=== PATIENT | male | born 1945 | race Caucasian/White ===

== ENCOUNTER → 2023-06-27 06:34 | Day surgery (SDC) | payer MEDICARE, OTHER, SELFPAY | LOC: GI 06:34 | PROVIDERS: ATTENDING PHYSICIAN Internal Medicine; FAMILY PHYSICIAN Family Medicine | DX: Z12.11 Encounter for screening for malignant neoplasm of colon (principal); K64.8 Other hemorrhoids; K60.2 Anal fissure, unspecified; D12.0 Benign neoplasm of cecum; D12.2 Benign neoplasm of ascending colon; D12.3 Benign neoplasm of transverse colon; K63.5 Polyp of colon; Z86.010 Personal history of colon polyps | CPT/HCPCS: 45385; 45380; 88305 ==

== ENCOUNTER → 2023-07-31 09:46 | Outpatient (REF) | payer MEDICARE, OTHER, SELFPAY ==
[2023-07-31 10:45] LABS: Hematocrit 29.2 % (39.0-52.0); Hemoglobin 9.6 g/dL (13.0-18.0); Mean Corp Hgb Conc. 32.9 g/dL (33.0-37.0); Mean Corpuscular Hgb 32.2 pg (27.0-31.0); Mean Platelet Volume 11.4 fL (7.4-10.4); Platelet Count 81 10^3/uL (130-400); Red Blood Cell Count 2.98 10^6/uL (4.70-6.10); Red Cell Dist. Width 14.1 % (11.5-14.5); White Blood Cell Count 2.9 10^3/uL (4.8-10.8)
[2023-07-31 11:02] LABS: ALT (SGPT) 14 U/L (0-50); AST (SGOT) 23 U/L (17-59); Albumin 3.6 g/dl (3.5-5.0); Alkaline Phosphatase 55 U/L (38-126); Blood Urea Nitrogen 23 mg/dl (9-20); Calcium 9.2 mg/dl (8.4-10.2); Carbon Dioxide 29 mmol/L (22-30); Chloride 104 mmol/L (98-107); Glucose 93 mg/dl (70-99); HDL Cholesterol 40 mg/dl; LDH 199 U/L (120-246); LDL Cholesterol, Calculated 107 mg/dl; Potassium 4.3 mmol/L (3.5-5.1); Sodium 140 mmol/L (135-145); Total Bilirubin 0.8 mg/dl (0.2-1.3); Total Cholesterol 162 mg/dl (50-199); Total Protein 6.4 g/dl (6.3-8.2); Triglyceride 75 mg/dl (10-149); Very Low Density Lipoprotein 15 mg/dl (0-30); eGFR > 60.00
[2023-07-31 11:17] LABS: Depakane 99.8 ug/ml (50.0-120.0)
[2023-07-31 12:11] LABS: Absolute Neutrophils -Man Diff 1.2 10^3/uL (1.4-6.5); Anisocytosis Slight; Band Neutrophils 0 % (0-3); Hypochromasia Slight; Lymphocytes 49 % (20-51); Metamyelocytes 1 % (-); Monocytes 6 % (2-9); Normal RBC Morphology No; Platelets Checked Yes; Segmented Neutrophils 44 % (42-75); Total Cells Counted 100
[2023-07-31 13:59] LABS: Iron 99 ug/dl (49-181)
[2023-07-31 17:02] LABS: Percent Saturation 30 % (20-50); Total Iron Binding Capacity 329 ug/dl (261-462)
[2023-07-31 17:59] LABS: Folate 12.2 ng/ml (2.76-20); Vitamin B12 > 1000 pg/ml (239-931)
[2023-08-01 14:33] LABS: Keppra (Levetiracetam) 24 ug/mL (10-40)
[2023-08-01 14:44] LABS: NT-proBNP 277 pg/ml
== END ==
LOC: RAD 09:46
PROVIDERS: ATTENDING PHYSICIAN Physician Assistant; FAMILY PHYSICIAN Family Medicine
DX: R06.02 Shortness of breath (principal); R53.83 Other fatigue; R05.1 Acute cough; R41.0 Disorientation, unspecified; R53.1 Weakness; G40.909 Epilepsy, unspecified, not intractable, without status epilepticus; N40.1 Benign prostatic hyperplasia with lower urinary tract symptoms; C71.1 Malignant neoplasm of frontal lobe; R35.0 Frequency of micturition; Z98.890 Other specified postprocedural states; Z80.42 Family history of malignant neoplasm of prostate; Z79.899 Other long term (current) drug therapy; D64.9 Anemia, unspecified; R71.8 Other abnormality of red blood cells
CPT/HCPCS: 36415; 71046; 80053; 80061; 80164; 80177; 82607; 82728; 82746; 83540; 83550; 83615; 83880; 85025

== ENCOUNTER 2023-08-03 15:54 | Emergency (ER) | payer MEDICARE, OTHER, SELFPAY ==
[2023-08-03 15:54] VITALS: BMI 26.0
[2023-08-03 16:16] VITALS: BP 134/64
[2023-08-03 16:43] LABS: % Immature Granulocytes 0.3 % (0-0.5); % Lymphocytes 46.1 % (20.5-51.1); % Monocytes 4.8 % (1.7-9.3); % Neutrophils 48.8 % (42.2-75.2); Absolute Lymphocytes 1.6 10^3/uL (1.2-3.4); Absolute Monocytes 0.2 10^3/uL (0.1-0.6); Absolute Neutrophils 1.6 10^3/uL (1.4-6.5); Hemoglobin 9.8 g/dL (13.0-18.0); Mean Corpuscular Hgb 32.3 pg (27.0-31.0); Mean Corpuscular Volume 92.4 fL (80.0-94.0); Mean Platelet Volume 11.4 fL (7.4-10.4); Nucleated Red Blood Cells % 0 % (-); Platelet Count 73 10^3/uL (130-400); Red Blood Cell Count 3.03 10^6/uL (4.70-6.10); Red Cell Dist. Width 14.3 % (11.5-14.5); White Blood Cell Count 3.4 10^3/uL (4.8-10.8)
[2023-08-03 16:55] LABS: Lactic Acid 1.6 mmol/L (0.7-2.0)
[2023-08-03 16:58] LABS: COVID-19 Antigen Negative (Negative)
[2023-08-03 17:02] LABS: ALT (SGPT) 12 U/L (0-50); AST (SGOT) 20 U/L (17-59); Albumin 3.7 g/dl (3.5-5.0); Alkaline Phosphatase 49 U/L (38-126); Blood Urea Nitrogen 20 mg/dl (9-20); Calcium 9.2 mg/dl (8.4-10.2); Carbon Dioxide 28 mmol/L (22-30); Chloride 105 mmol/L (98-107); Glucose 131 mg/dl (70-99); Potassium 4.1 mmol/L (3.5-5.1); Sodium 139 mmol/L (135-145); Total Bilirubin 0.7 mg/dl (0.2-1.3); Total Protein 6.4 g/dl (6.3-8.2); eGFR > 60.00
[2023-08-03 17:37] VITALS: BP 128/61
[2023-08-03 17:52] LABS: Urine Albumin Negative (Neg - Trace); Urine Bilirubin Negative (Negative); Urine Character Clear (Clear); Urine Color Yellow; Urine Glucose Negative (Negative); Urine Ketone Trace (Negative); Urine Leukocyte Negative (Negative); Urine Nitrite Negative (Negative); Urine Occult Blood 2+ (Negative); Urine Urobilinogen 2+ (Neg - 1+); Urine pH 6.5 (5.0-9.0)
[2023-08-03 18:00] VITALS: BP 143/70
[2023-08-03 18:00] LABS: Urine Red Blood Cell 0-2 /HPF (0-2); Urine White Cell 0-2 /HPF (0-5)
--- NOTE | 2023-08-03 18:16 | ED.GENMED ---
Addendum entered and electronically signed by Aspen John PA-C 08/05/23 14:10:
presumptive pos lyme
but pt edis had doxy
will await the western blot to further identify acute lyme.
Original Note:
History of Present Illness
General
Chief Complaint: Fatigue
Source: patient
Exam Limitations: none
Time Seen by Provider: 08/03/23 17:40
Travel History
Have you had any contact with someone who has COVID-19?: No
Do you have any symptoms of coronavirus? Fever > 100 degrees, chills, cough, shortness of breath, sore throat, loss of taste or smell, muscle aches, or headache?: No
History of Present Illness
History of Present Illness:
77-year-old male with history of seizures presents with fatigue shortness of breath persistent cough. He was in [place] about 3 weeks ago and developed a sore throat then. He came home still feeling ill. While in [place] he had a temperature of
103 and had shaking chills and confusion. Upon arriving home he was seen by the doctor was started on doxycycline of which she took a course of and it did not help. Earlier this week he followed up with a family doctor and they started Zithromax.
He has had 4 days of Zithromax but still notes fatigue and cough. He had an outpatient x-ray done several days ago showed pneumonia. He denies hemoptysis. He denies significant chest pain. He denies any dark or tarry stools.
Past History
Past History
ED Past Medical History: Seizures, Other (Benign brain tumor removal 1990) and Other (Shoulder DJD)
ED Past Surgical History: Brain (Right frontal lobe craniotomy for benign brain tumor removal)
Social History
Tobacco: Non-smoker
Alcohol: None
Personal:
Employment: Retired
Family History
Family History: Other (Noncontributory)
Phy Exam
Physical Exam
Physical Exam:
General: Well-appearing male no acute respiratory distress
HEENT: Normocephalic atraumatic
Heart: Regular rate and rhythm no murmurs lungs: Clear no wheeze or rales
Abdomen is soft nontender nondistended no guarding or rebound normal bowel sounds
Extremities: No cyanosis or edema
Skin: Warm no rash
Neurologic: Alert and mild tremor noted oriented to person and place. No facial asymmetry.
Course
Orders/Labs/Results
Orders:
Orders
08/03/23 16:32
CMP [Comprehensive Metabolic Panel] Urgent
Complete Blood Count/With Diff Urgent
Lyme Progressive Urgent
Date Specimen was Collected: 08/03/23
Time Specimen was Collected: 16:21
Comment: ADD ON
Monotest Urgent
Comment: ADD ON
08/03/23 16:34
COVID-19 Antigen Urgent
Source: Nasal Swab
Lactic Acid Urgent
Influenza A+B Rapid Molecular Urgent
ELAINE Source: Nasal Swab
Specimen Description:
Date Specimen was Collected: 08/03/23
Time Specimen was Collected: 16:22
08/03/23 17:40
Urinalysis Reflex To Culture Urgent
Date Specimen was Collected: 08/03/23
Time Specimen was Collected: 16:22
Urine Microscopic Reflex Cult Urgent
08/03/23 18:03
Add On- LAB Urgent
Tests Added?: monotest and lyme progressive
CT Chest Pe Study Urgent
Comment:
Reason For Exam: sob
08/03/23 18:04
CT Head W/o Iv Contrast Urgent
Comment:
Reason For Exam: confusion, tremors
08/03/23 18:16
Blood Culture Routine
ELAINE Source: Blood/Venous
Specimen Description:
Date Specimen was Collected: 08/03/23
Time Specimen was Collected: 16:21
Abnormal Lab Results
08/03/23 08/03/23
16:32 17:40
WBC 3.4 L 10^3/uL
(4.8-10.8)
RBC 3.03 L 10^6/uL
(4.70-6.10)
Hgb 9.8 L g/dL
(13.0-18.0)
Hct 28.0 L %
(39.0-52.0)
MCH 32.3 H pg
(27.0-31.0)
Plt Count 73 L 10^3/uL
(130-400)
MPV 11.4 H fL
(7.4-10.4)
Glucose 131 H mg/dl
(70-99)
Urine Ketones Trace A
(Negative)
Ur Occult Blood Reflex 2+ A
(Negative)
Urine Urobilinogen 2+ A
(Neg - 1+)
08/03/23 16:32
08/03/23 16:32
Vital Signs
Initial and Last Documented VS:
Initial Vital Signs
Temp Pulse Resp BP Pulse Ox
97.9 F 72 16 134/64 100
08/03/23 16:16 08/03/23 16:16 08/03/23 16:16 08/03/23 16:16 08/03/23 16:16
Last Documented Vital Signs
Temp Pulse Resp BP Pulse Ox
97.9 F 80 19 129/81 98
08/03/23 16:16 08/03/23 21:18 08/03/23 21:18 08/03/23 21:18 08/03/23 21:18
MDM/Problems Addressed
Differential Diagnosis Includes:
Fatigue and cough. Consider worsening pneumonia versus PE given recent flight versus electrolyte or anemia. Will check labs. COVID and flu test were ordered which were negative. I reviewed prior chest x-ray which demonstrates possible developing
pneumonia versus bronchiolitis. Will order PE study secondary to recent travel and failure to improve despite 2 antibiotics.
*Critical Care Note
Total Time (30-74mins, 75-104mins- exclusive of procedures): Not Applicable
Update Note
Update Note:
CT head shows no acute finding. CT of the chest shows residual pneumonia but no pulmonary embolism. Patient's hemoglobin is 9.8 today. This could be contributing towards his fatigue however there is residual pneumonia on the CT. He is not
hypoxic. At this point there is no indication for admission. Recommended finishing antibiotics. Recommend following up with his family doctor and possibly information technology project manager given low blood counts.
ED Attending Note
-
Portions of this chart may have been created with voice recognition software.� Occasional wrong word or��sound alike� substitutions may have occurred due to the inherent limitations of voice recognition software.
Discharge Plan
Departure
Patient Disposition: Home (Routine Discharge)
Date of Disposition: 08/03/23
Time of Disposition: 21:24
Patient with high blood pressure during this ER visit?: No
Discharge Problem:
Fatigue
Prescriptions:
No Action
Depakote:
500 mg PO QID
lidocaine HCl [Lidocaine Viscous] 180 ML solution
15 ml PO QIDPRN PRN (Reason: sore throat) Qty: 12 1RF
Referrals:
Eulalio Pal MD [Family Provider] -
Activity Restrictions/Additional Instructions:
Finish the antibiotics you are taking. Please return here for worsening symptoms. Follow-up with your family doctor and potentially a information technology project manager.
Interventions
Interventions:
ED- Fall Risk Assessment Last Done: 08/03/23 19:10
Discharge Date and Time
Print Language: CHADIAN
[2023-08-03 18:39] LABS: Monotest Negative (Negative)
[2023-08-03 21:18] VITALS: BP 129/81
[2023-08-04 15:08] LABS: Lyme Antibody Screen, EIA Presump. Positive (Negative)
[2023-08-07 16:18] LABS: Lyme Ab Western Blot IgG Positive (Negative); Lyme Ab Western Blot IgM Positive (Negative)
== END 2023-08-03 21:39 | disposition home or self-care (01) ==
LOC: EMR 15:54
PROVIDERS: EMERGENCY PHYSICIAN Emergency Medicine; FAMILY PHYSICIAN Family Medicine
DX: R53.83 Other fatigue (principal); R41.0 Disorientation, unspecified; R06.02 Shortness of breath; R25.1 Tremor, unspecified; Z11.52 Encounter for screening for COVID-19
CPT/HCPCS: 99285; 36415; 70450; 71275; 80053; 81003; 81015; 83605; 85025; 86308; 86617; 86618; 87040; 87502; 87811; Q9967

== ENCOUNTER → 2023-08-08 12:15 | Outpatient (REF) | payer MEDICARE, OTHER, SELFPAY ==
[2023-08-08 14:18] LABS: % Basophils 0.2 % (0-2); % Eosinophils 0.2 % (0-6); % Immature Granulocytes 0.4 % (0-0.5); % Lymphocytes 29.6 % (20.5-51.1); % Monocytes 6.8 % (1.7-9.3); % Neutrophils 62.8 % (42.2-75.2); Absolute Lymphocytes 1.4 10^3/uL (1.2-3.4); Absolute Monocytes 0.3 10^3/uL (0.1-0.6); Hematocrit 30.1 % (39.0-52.0); Hemoglobin 10.5 g/dL (13.0-18.0); Mean Corp Hgb Conc. 34.9 g/dL (33.0-37.0); Mean Corpuscular Hgb 32.5 pg (27.0-31.0); Mean Corpuscular Volume 93.2 fL (80.0-94.0); Mean Platelet Volume 12.5 fL (7.4-10.4); Nucleated Red Blood Cells % 0 % (-); Platelet Count 79 10^3/uL (130-400); Red Blood Cell Count 3.23 10^6/uL (4.70-6.10); Red Cell Dist. Width 14.6 % (11.5-14.5); White Blood Cell Count 4.7 10^3/uL (4.8-10.8)
== END ==
LOC: REG 12:15
PROVIDERS: ATTENDING PHYSICIAN Family Medicine
DX: D75.9 Disease of blood and blood-forming organs, unspecified (principal)
CPT/HCPCS: 36415; 85025

== ENCOUNTER → 2023-09-05 12:45 | Outpatient (REF) | payer MEDICARE, OTHER, SELFPAY ==
[2023-09-05 13:21] LABS: % Basophils 0.3 % (0-2); % Immature Granulocytes 0.6 % (0-0.5); % Lymphocytes 45.2 % (20.5-51.1); % Monocytes 5.4 % (1.7-9.3); % Neutrophils 48.5 % (42.2-75.2); Absolute Lymphocytes 1.5 10^3/uL (1.2-3.4); Absolute Monocytes 0.2 10^3/uL (0.1-0.6); Absolute Neutrophils 1.6 10^3/uL (1.4-6.5); Hematocrit 29.2 % (39.0-52.0); Hemoglobin 10.2 g/dL (13.0-18.0); Mean Corp Hgb Conc. 34.9 g/dL (33.0-37.0); Mean Corpuscular Hgb 32.8 pg (27.0-31.0); Mean Corpuscular Volume 93.9 fL (80.0-94.0); Mean Platelet Volume 11.3 fL (7.4-10.4); Nucleated Red Blood Cells % 0 % (-); Platelet Count 79 10^3/uL (130-400); Red Blood Cell Count 3.11 10^6/uL (4.70-6.10); Red Cell Dist. Width 15.4 % (11.5-14.5); Reticulocyte Count 3.8 % (0.4-2.8); White Blood Cell Count 3.3 10^3/uL (4.8-10.8)
[2023-09-05 13:24] LABS: INR 1.08; PT 13.8 Sec (11.4-14.6)
[2023-09-05 13:33] LABS: Depakane 93.4 ug/ml (50.0-120.0)
[2023-09-05 13:41] LABS: APTT 20.6 Sec (23.4-35.0)
[2023-09-05 13:44] LABS: Erythrocyte Sed Rate 26 mm/hour (0-20)
[2023-09-05 13:48] LABS: LDH 198 U/L (120-246); Uric Acid 7.2 mg/dl (3.5-8.5)
[2023-09-07 10:04] LABS: Number Of Markers 26 markers; Source Blood
[2023-09-07 15:51] LABS: Lyme Antibody Screen, EIA Presump. Positive (Negative)
== END ==
LOC: RCS 12:45
PROVIDERS: ATTENDING PHYSICIAN Internal Medicine Hematology & Oncology; FAMILY PHYSICIAN Family Medicine
DX: R53.83 Other fatigue (principal); R06.02 Shortness of breath; D69.6 Thrombocytopenia, unspecified; D53.9 Nutritional anemia, unspecified; D72.819 Decreased white blood cell count, unspecified
CPT/HCPCS: 36415; 80164; 83615; 84550; 85025; 85045; 85610; 85652; 85730; 86617; 86618; 93306

== ENCOUNTER → 2023-09-19 07:09 | Outpatient (REF) | payer MEDICARE, OTHER, SELFPAY | LOC: RAD 07:09 | PROVIDERS: ATTENDING PHYSICIAN Surgery; FAMILY PHYSICIAN Family Medicine | DX: R31.29 Other microscopic hematuria (principal) | CPT/HCPCS: 76770 ==

== ENCOUNTER → 2023-09-21 16:21 | Outpatient (REF) | payer MEDICARE, OTHER, SELFPAY | LOC: RAD 16:21 | PROVIDERS: ATTENDING PHYSICIAN Internal Medicine Hematology & Oncology; FAMILY PHYSICIAN Family Medicine | DX: D69.6 Thrombocytopenia, unspecified (principal); D53.9 Nutritional anemia, unspecified; D72.819 Decreased white blood cell count, unspecified; G40.89 Other seizures | CPT/HCPCS: 76700 ==

== ENCOUNTER → 2023-10-03 06:49 | Outpatient (REF) | payer MEDICARE, OTHER, SELFPAY ==
[2023-10-03] VITALS (8 sets, daily range): BP systolic 43–135; BP diastolic 56–68
[2023-10-03 07:28] LABS: Hematocrit 32.3 % (39.0-52.0); Hemoglobin 11.2 g/dL (13.0-18.0); Mean Corp Hgb Conc. 34.7 g/dL (33.0-37.0); Mean Corpuscular Hgb 32.8 pg (27.0-31.0); Mean Corpuscular Volume 94.7 fL (80.0-94.0); Mean Platelet Volume 11.6 fL (7.4-10.4); Platelet Count 71 10^3/uL (130-400); Red Blood Cell Count 3.41 10^6/uL (4.70-6.10); Red Cell Dist. Width 14.6 % (11.5-14.5); White Blood Cell Count 3.8 10^3/uL (4.8-10.8)
[2023-10-03 07:37] LABS: INR 1.05; PT 13.7 Sec (11.4-14.6)
[2023-10-03] MEDS: FLUSH (NSS) 1 FLUSH IV (08:24)
[2023-10-03] MEDS: NSS (PRESERVATIVE FREE) 0.25 ML IV (08:24)
[2023-10-03] MEDS: ATIVAN 0.5 MG IV (08:24)
[2023-10-03 09:57] LABS: % Eosinophils 0.3 % (0-6); % Immature Granulocytes 1.3 % (0-0.5); % Lymphocytes 55.5 % (20.5-51.1); % Monocytes 5.3 % (1.7-9.3); % Neutrophils 37.6 % (42.2-75.2); Absolute Immature Granulocytes 0.1 10^3/uL (0-0.05); Absolute Lymphocytes 2.1 10^3/uL (1.2-3.4); Absolute Monocytes 0.2 10^3/uL (0.1-0.6); Absolute Neutrophils 1.4 10^3/uL (1.4-6.5); Nucleated Red Blood Cells % 0 % (-)
[2023-10-03 09:58] LABS: Acanthocytes 1+; Anisocytosis 1+; Hypochromasia 1+; Normal RBC Morphology No; Ovalocytes 1+; Polychromasia Slight
== END ==
LOC: RADI 06:49
PROVIDERS: ATTENDING PHYSICIAN Internal Medicine Hematology & Oncology
DX: D61.818 Other pancytopenia (principal)
CPT/HCPCS: 88305; 88311; 88312; 36415; 38222; 77012; 85025; 85610; 88313; 88341; 88342

== ENCOUNTER → 2023-10-11 10:36 | Outpatient (REF) | payer MEDICARE, OTHER, SELFPAY ==
[2023-10-11 11:33] LABS: Hematocrit 30.4 % (39.0-52.0); Hemoglobin 10.7 g/dL (13.0-18.0); Mean Corp Hgb Conc. 35.2 g/dL (33.0-37.0); Mean Corpuscular Hgb 32.5 pg (27.0-31.0); Mean Corpuscular Volume 92.4 fL (80.0-94.0); Mean Platelet Volume 11.9 fL (7.4-10.4); Platelet Count 82 10^3/uL (130-400); Red Blood Cell Count 3.29 10^6/uL (4.70-6.10); Red Cell Dist. Width 14.4 % (11.5-14.5); White Blood Cell Count 3.8 10^3/uL (4.8-10.8)
[2023-10-11 12:26] LABS: % Basophils 0.3 % (0-2); % Immature Granulocytes 1.3 % (0-0.5); % Lymphocytes 53.4 % (20.5-51.1); % Monocytes 7.1 % (1.7-9.3); % Neutrophils 37.9 % (42.2-75.2); Absolute Immature Granulocytes 0.1 10^3/uL (0-0.05); Absolute Monocytes 0.3 10^3/uL (0.1-0.6); Absolute Neutrophils 1.5 10^3/uL (1.4-6.5); Nucleated Red Blood Cells % 0 % (-)
[2023-10-14 01:57] LABS: Albumin 4.14 g/dL (3.75-5.01); Alpha 1 Globulin 0.27 g/dL (0.19-0.46); Alpha 2 Globulin 0.54 g/dL (0.48-1.05); Free Kappa Light Chains,Quant 178.47 mg/L (3.30-19.40); Free Lambda Light Chains,Quant 19.38 mg/L (5.71-26.30); IgA 130 mg/dL (68-408); IgG 888 mg/dL (768-1632); IgM 275 mg/dL (35-263); Immunofixation Electrophoresis IFE Done; Kappa/Lambda Fr Light Ratio 9.21 (0.26-1.65); Total Protein-Electrophoresis 6.6 g/dL (6.3-8.2)
== END ==
LOC: REG 10:36
PROVIDERS: ATTENDING PHYSICIAN Internal Medicine Hematology & Oncology; FAMILY PHYSICIAN Family Medicine
DX: D69.6 Thrombocytopenia, unspecified (principal); D53.9 Nutritional anemia, unspecified; D72.819 Decreased white blood cell count, unspecified; G40.89 Other seizures
CPT/HCPCS: 36415; 82784; 83521; 84155; 84165; 85025; 86334

== ENCOUNTER → 2023-11-28 10:20 | Outpatient (REF) | payer MEDICARE, OTHER, SELFPAY ==
[2023-11-30 10:32] LABS: Keppra (Levetiracetam) 41 ug/mL (10-40)
== END ==
LOC: REG 10:20
PROVIDERS: ATTENDING PHYSICIAN Specialist; FAMILY PHYSICIAN Family Medicine; REFERRING PHYSICIAN Internal Medicine Hematology & Oncology
DX: G40.109 Localization-related (focal) (partial) symptomatic epilepsy and epileptic syndromes with simple partial seizures, not intractable, without status epilepticus (principal)
CPT/HCPCS: 36415; 80177

== ENCOUNTER → 2024-01-29 14:31 | Outpatient (REF) | payer MEDICARE, OTHER, SELFPAY ==
[2024-01-29 16:34] LABS: % Eosinophils 0.4 % (0-6); % Immature Granulocytes 0.7 % (0-0.5); % Lymphocytes 43.3 % (20.5-51.1); % Neutrophils 47.6 % (42.2-75.2); Absolute Lymphocytes 1.2 10^3/uL (1.2-3.4); Absolute Monocytes 0.2 10^3/uL (0.1-0.6); Absolute Neutrophils 1.3 10^3/uL (1.4-6.5); Hematocrit 29.3 % (39.0-52.0); Hemoglobin 9.7 g/dL (13.0-18.0); Mean Corp Hgb Conc. 33.1 g/dL (33.0-37.0); Mean Corpuscular Volume 93.6 fL (80.0-94.0); Mean Platelet Volume 10.8 fL (7.4-10.4); Nucleated Red Blood Cells % 0 % (-); Platelet Count 139 10^3/uL (130-400); Red Blood Cell Count 3.13 10^6/uL (4.70-6.10); Red Cell Dist. Width 14.5 % (11.5-14.5); White Blood Cell Count 2.8 10^3/uL (4.8-10.8)
== END ==
LOC: REG 14:31
PROVIDERS: ATTENDING PHYSICIAN Internal Medicine Hematology & Oncology; FAMILY PHYSICIAN Family Medicine; OTHER PHYSICIAN Specialist
DX: D69.6 Thrombocytopenia, unspecified (principal); D53.9 Nutritional anemia, unspecified; D72.819 Decreased white blood cell count, unspecified; G40.89 Other seizures; C94.6 Myelodysplastic disease, not elsewhere classified
CPT/HCPCS: 36415; 82784; 83521; 84155; 84165; 85025; 86334

== ENCOUNTER → 2024-02-12 10:59 | Outpatient (REF) | payer MEDICARE, OTHER, SELFPAY ==
[2024-02-14 21:55] LABS: Keppra (Levetiracetam) 63 ug/mL (10-40)
== END ==
LOC: RAD 10:59
PROVIDERS: ATTENDING PHYSICIAN Specialist; FAMILY PHYSICIAN Family Medicine; OTHER PHYSICIAN Chiropractor; OTHER PHYSICIAN Internal Medicine Hematology & Oncology
DX: G40.109 Localization-related (focal) (partial) symptomatic epilepsy and epileptic syndromes with simple partial seizures, not intractable, without status epilepticus (principal); M54.18 Radiculopathy, sacral and sacrococcygeal region; M54.17 Radiculopathy, lumbosacral region; M99.04 Segmental and somatic dysfunction of sacral region; M99.05 Segmental and somatic dysfunction of pelvic region; M99.03 Segmental and somatic dysfunction of lumbar region
CPT/HCPCS: 36415; 72110; 80177

== ENCOUNTER 2024-02-26 10:35 | Emergency (ER) | payer MEDICARE, OTHER, SELFPAY ==
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
[2024-02-26 11:04] VITALS: BP 164/74
[2024-02-26 12:11] VITALS: BMI 24.3
[2024-02-26] MEDS: TORADOL 30 MG IM (12:15)
[2024-02-26] MEDS: VALIUM 5 MG PO (12:15)
[2024-02-26 12:19] VITALS: BP 167/74
--- NOTE | 2024-02-26 15:54 | EDRN ---
Reviewed discharge instructions with patient. Verbalized understanding. Ambulated with steady gait to the lobby.
[2024-02-26 15:55] VITALS: BP 163/79
== END 2024-02-26 15:55 | disposition home or self-care (01) ==
LOC: EMR 10:35
PROVIDERS: EMERGENCY PHYSICIAN Emergency Medicine; FAMILY PHYSICIAN Family Medicine
DX: S32.000A Wedge compression fracture of unspecified lumbar vertebra, initial encounter for closed fracture (principal); V29.99XA Rider (driver) (passenger) of other motorcycle injured in unspecified traffic accident, initial encounter
CPT/HCPCS: 99284; 96372

== ENCOUNTER 2024-02-29 23:11 | Inpatient (IN) | payer MEDICARE, OTHER, SELFPAY ==
[2024-02-29] VITALS (8 sets, daily range): BP systolic 131–154; BP diastolic 59–73; BMI 24.9
[2024-02-29 18:57] LABS: Mean Corp Hgb Conc. 34.6 g/dL (33.0-37.0); Mean Corpuscular Hgb 30.3 pg (27.0-31.0); Mean Corpuscular Volume 87.5 fL (80.0-94.0); Mean Platelet Volume 10.4 fL (7.4-10.4); Platelet Count 104 10^3/uL (130-400); Red Blood Cell Count 2.97 10^6/uL (4.70-6.10); Red Cell Dist. Width 14.6 % (11.5-14.5); White Blood Cell Count 6.3 10^3/uL (4.8-10.8)
[2024-02-29 18:59] LABS: Lactic Acid 1.8 mmol/L (0.7-2.0)
[2024-02-29 19:02] LABS: ALT (SGPT) 14 U/L (0-50); AST (SGOT) 21 U/L (17-59); Alkaline Phosphatase 90 U/L (38-126); Blood Urea Nitrogen 27 mg/dl (9-20); Calcium 9.5 mg/dl (8.4-10.2); Carbon Dioxide 27 mmol/L (22-30); Chloride 100 mmol/L (98-107); Estimated Creatinine Clearance 111 ml/min; Glucose 121 mg/dl (70-99); Potassium 3.4 mmol/L (3.5-5.1); Sodium 135 mmol/L (135-145); Total Bilirubin 1.5 mg/dl (0.2-1.3); Total Protein 6.4 g/dl (6.3-8.2); eGFR > 60.00
[2024-02-29 19:03] LABS: Urine Albumin 1+ (Neg - Trace); Urine Bilirubin Negative (Negative); Urine Character Clear (Clear); Urine Color Yellow; Urine Glucose Negative (Negative); Urine Ketone Negative (Negative); Urine Leukocyte Negative (Negative); Urine Nitrite Negative (Negative); Urine Occult Blood 4+ (Negative); Urine Specific Gravity 1.015 (<1.030); Urine Urobilinogen Negative (Neg - 1+)
[2024-02-29 19:07] LABS: COVID-19 Antigen Negative (Negative)
[2024-02-29 19:16] LABS: Urine Squamous Cell None seen /LPF (Few)
[2024-02-29 19:18] LABS: % Basophils 0.2 % (0-2); % Immature Granulocytes 7.3 % (0-0.5); % Lymphocytes 4.6 % (20.5-51.1); % Monocytes 5.5 % (1.7-9.3); % Neutrophils 82.4 % (42.2-75.2); Absolute Immature Granulocytes 0.5 10^3/uL (0-0.05); Absolute Lymphocytes 0.3 10^3/uL (1.2-3.4); Absolute Monocytes 0.4 10^3/uL (0.1-0.6); Absolute Neutrophils 5.2 10^3/uL (1.4-6.5); Nucleated Red Blood Cells % 0 % (-)
[2024-02-29 19:20] LABS: Urine Red Blood Cell 70-80 /HPF (0-2)
[2024-02-29] MEDS: PERCOCET 5/325 2 TABLET PO (19:45)
[2024-02-29] MEDS: NSS 500 IV (19:46)
[2024-02-29 21:32] LABS: NT-proBNP 1030 pg/ml
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
[2024-02-29] MEDS: VIBRAMYCIN 100 MG PO (22:23)
[2024-02-29] MEDS: ROCEPHIN 2000 MG IV (22:23)
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
[2024-02-29] MEDS: VIMPAT 50 MG PO (23:25)
[2024-02-29] MEDS: KEPPRA 1500 MG PO (23:25)
[2024-02-29] MEDS: LASIX 40 MG IV (23:25)
[2024-02-29] MEDS: FLUSH (NSS) 1 FLUSH IV (23:30)
[2024-02-29] MEDS: KCL ELIXIR 40 MEQ PO (23:36)
[2024-03-01] VITALS (11 sets, daily range): BP systolic 129–195; BP diastolic 64–104; BMI 24.1; BMI 24.0
[2024-03-01 00:19] LABS: Magnesium 1.6 mg/dl (1.6-2.3)
[2024-03-01] MEDS: ROXICODONE 5 MG PO (00:28)
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
[2024-03-01] MEDS: TYLENOL 650 MG PO ×2 (02:37→20:09)
[2024-03-01] MEDS: MUCINEX 600 MG PO ×3 (02:37→20:09)
[2024-03-01] MEDS: NEURONTIN 100 MG PO ×3 (02:37→15:08)
[2024-03-01 08:37] LABS: Hematocrit 27.7 % (39.0-52.0); Hemoglobin 9.5 g/dL (13.0-18.0); Mean Corp Hgb Conc. 34.3 g/dL (33.0-37.0); Mean Corpuscular Hgb 30.7 pg (27.0-31.0); Mean Corpuscular Volume 89.6 fL (80.0-94.0); Mean Platelet Volume 10.2 fL (7.4-10.4); Platelet Count 92 10^3/uL (130-400); Red Blood Cell Count 3.09 10^6/uL (4.70-6.10); Red Cell Dist. Width 14.6 % (11.5-14.5); White Blood Cell Count 11.1 10^3/uL (4.8-10.8)
[2024-03-01 09:10] LABS: Blood Urea Nitrogen 24 mg/dl (9-20); Calcium 9.5 mg/dl (8.4-10.2); Carbon Dioxide 30 mmol/L (22-30); Chloride 97 mmol/L (98-107); Estimated Creatinine Clearance 111 ml/min; Glucose 106 mg/dl (70-99); Potassium 3.4 mmol/L (3.5-5.1); Sodium 136 mmol/L (135-145); eGFR > 60.00
[2024-03-01] MEDS: VIBRAMYCIN 260 MG IV (09:29)
[2024-03-01] MEDS: PEPCID 20 MG PO ×2 (09:31→20:10)
[2024-03-01] MEDS: KEPPRA 1500 MG PO ×2 (09:31→20:10)
[2024-03-01] MEDS: COZAAR 25 MG PO ×2 (09:32→22:16)
[2024-03-01] MEDS: ASPIR LOW (ENTERIC COATED) 81 MG PO (09:32)
[2024-03-01] MEDS: SENOKOT 8.6 MG PO (09:33)
[2024-03-01] MEDS: VIMPAT 50 MG PO ×2 (09:33→20:09)
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
--- NOTE | 2024-03-01 15:00 | FALL ---
Description of Fall:
Pt had a fall this afternoon. With the at bedside, the pt had to use the commode. The pt was gotten to the commode with the call childers within reach. The pt did not use the call childers, nor did the pt's come out for help when the pt was
finished. From what the pt's had said that the pt had gotten up to wipe themselves and went to sit down and the commode slipped out from under him and he had landed on his behind.
Injuries Noted:
no injuries noted as the pt had landed on his behind without hitting his head.
Action Taken:
no action needed to be taken.
Name of Provider Notified: Dr. Phillip notified at time of fall.
[2024-03-01] MEDS: KCL 40 MEQ PO (17:44)
[2024-03-01] MEDS: LOVENOX 40 MG SC (17:44)
--- NOTE | 2024-03-01 22:00 | PTCARENOTE ---
Pt's BP manually in his left upper arm is 190/90, HR in the 120s. Pt denies pain at this time. Temp is 98.1F after Tylenol admin. KRYSTIAN Gil notified, 1x order of PO Losartan 25mg provided to pt whole in applesauce. Pt also provided with his
evening dose of gabapentin but pt coughed up medication and has a moist cough and wet voice quality after thin liquid intake. KRYSTIAN Smith notified, order for speech eval placed. Swallow screening completed by this appeals writer and pt made NPO
starting in the AM. Pt also reports that he feels the urge to urinate but has difficulty doing so. Pt's abdomen is firm and round. Bladder scan result is 791 mL. KRYSTIAN Gil notified and orders for bladder scan and straight cath acknowledged by
this appeals writer. Pt was straight cathed by this RN with a result of 900 mL of dark yellow urine.
~ 0020: Repeat BP in left upper arm automatically is 163/91, HR 113.
--- NOTE | 2024-03-01 22:01 | W.PN.UPDATE ---
Update Note
Progress Note Update
BP is elevated and up to 190/90 during night time. Currently on losartan 25 mg will give another dose of 25 mg and increase daily dose to 50mg as recommended by cardiology.
[2024-03-01] MEDS: NEURONTIN PO ×2 (22:16→22:30)
[2024-03-01] MEDS: STERILE WATER FOR INJECTION 20 ML IV (22:16)
[2024-03-01] MEDS: ROCEPHIN 2000 MG IV (22:16)
[2024-03-01] MEDS: VIBRAMYCIN IV (22:17)
[2024-03-02] VITALS (11 sets, daily range): BP systolic 105–163; BP diastolic 45–96; BMI 23.8; BMI 23.4
[2024-03-02] MEDS: VIBRAMYCIN 260 MG IV ×3 (00:10→21:47)
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
[2024-03-02 07:24] LABS: Hematocrit 29.5 % (39.0-52.0); Hemoglobin 10.1 g/dL (13.0-18.0); Mean Corp Hgb Conc. 34.2 g/dL (33.0-37.0); Mean Corpuscular Hgb 30.1 pg (27.0-31.0); Mean Corpuscular Volume 87.8 fL (80.0-94.0); Red Blood Cell Count 3.36 10^6/uL (4.70-6.10); Red Cell Dist. Width 14.6 % (11.5-14.5); White Blood Cell Count 8.3 10^3/uL (4.8-10.8)
[2024-03-02 07:32] LABS: Blood Urea Nitrogen 28 mg/dl (9-20); Calcium 9.2 mg/dl (8.4-10.2); Carbon Dioxide 23 mmol/L (22-30); Chloride 99 mmol/L (98-107); Estimated Creatinine Clearance 95 ml/min; Glucose 128 mg/dl (70-99); Potassium 3.8 mmol/L (3.5-5.1); Sodium 134 mmol/L (135-145); eGFR > 60.00
[2024-03-02] MEDS: LASIX 40 MG IV (09:56)
[2024-03-02] MEDS: ASPIR LOW (ENTERIC COATED) PO (10:36)
[2024-03-02] MEDS: PEPCID PO ×2 (10:38→20:31)
[2024-03-02] MEDS: SENOKOT PO (10:38)
[2024-03-02] MEDS: VIMPAT PO (10:38)
[2024-03-02] MEDS: NEURONTIN PO ×3 (10:38→21:11)
[2024-03-02] MEDS: MUCINEX PO ×2 (10:38→20:31)
[2024-03-02] MEDS: KEPPRA PO (10:38)
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
[2024-03-02] MEDS: NSS 1000 IV ×2 (11:53→17:09)
[2024-03-02] MEDS: KEPPRA 1500 MG IV ×2 (11:53→21:11)
--- NOTE | 2024-03-02 12:06 | PTOTSP ---
Speech therapy
Presentation: Patient's speech and and language appeared to be WNL. Patient's vocal quality appeared to be wet and weak which patient stated is 'new' ~last 2 days. Patient's intelligibility was WNL. Patient demonstrated impulsivity with urination/
trying to get out of bed. Patient appeared confused at times.
Swallowing Function: Patient's breathing appeared to be labored and wet sounding. Patient's vocal quality appeared to be wet and weak at baseline. When LIDDING MACHINE OPERATOR elevated patient's head, patient demonstrated immediate wet, weak coughing and throat
clearing. LIDDING MACHINE OPERATOR performed oral care with oral suctioning in which patient's wet cough continued. LIDDING MACHINE OPERATOR trialed 1 moisted swab in which wet cough continued and breathing appeared to be more labored. Given patient's clinical presentation, no further PO
was trialed.
Recommend NPO at this time.
Recommendations:
1. NPO at this time
2. Aspiraton precautions
3. Oral care daily
4. Not appropriate for ARHP at this time given confusion and clinical presentation
5. Consider VSE
Plan: LIDDING MACHINE OPERATOR will continue to follow; pending hospitalization.
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
[2024-03-02] MEDS: VIMPAT 50 MG IV ×2 (12:40→21:46)
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
[2024-03-02 14:56] LABS: Glucose - Point of Care 138 mg/dl (70-99)
[2024-03-02 15:07] LABS: Venous Blood Gas B.E. 3.1 mmol/L (-4 to +4); Venous Blood Gas HCO3 26.9 mmol/L (22-27); Venous Blood Gas O2 Sat % 85.4 %; Venous Blood Gas pCO2 37 mmHg (35-48); Venous Blood Gas pH 7.47 (7.32-7.43); Venous Blood Gas pO2 51 mmHg (30-50)
[2024-03-02 17:38] LABS: Lactic Acid 1.6 mmol/L (0.7-2.0)
[2024-03-02] MEDS: LOVENOX 40 MG SC (17:48)
[2024-03-02 17:54] LABS: NT-proBNP 7160 pg/ml
--- NOTE | 2024-03-02 17:56 | PTCARENOTE ---
pt arrived to rm [id number] w/ supervisor aircraft maintenance Julee and IMU PCT Yael from CT. Pt on 4th floor tele monitor, also on NRB at 15L. Pt AAOx2, anxious appearing w/ labored breathing, tachypneic. Pt w/ rhonchi bilaterally. Pt placed on monitor, sinus
tachycardia. HR 100-110s. BP elevated. No IV fluids hanging although ordered. Verified order with Dr. Phillip. New bag hung at this time. Pt complains of back pain, new medications ordered at this time. Repeat probnp and lactic ordered. Pt placed on
high flow NC. Call childers within reach. bed alarm activated for pt safety.
[2024-03-02] MEDS: OFIRMEV 100 IV (18:36)
[2024-03-02] MEDS: COZAAR PO (20:29)
[2024-03-02] MEDS: ROCEPHIN 2000 MG IV (21:11)
[2024-03-02] MEDS: STERILE WATER FOR INJECTION 20 ML IV (21:11)
[2024-03-03] VITALS (13 sets, daily range): BP systolic 128–174; BP diastolic 63–85
--- NOTE | 2024-03-03 05:39 | PTCARENOTE ---
Received pt at change of shift. Pt lethargic and drowsy but arousable. Diaphoretic. BP stable at this time and afebrile. Pt NPO with aspiration precautions in place. Bed alarm on and active at this time.
[2024-03-03 06:13] LABS: Blood Urea Nitrogen 41 mg/dl (9-20); Carbon Dioxide 25 mmol/L (22-30); Chloride 102 mmol/L (98-107); Estimated Creatinine Clearance 111 ml/min; Glucose 121 mg/dl (70-99); Potassium 3.6 mmol/L (3.5-5.1); Sodium 137 mmol/L (135-145); eGFR > 60.00
[2024-03-03 06:17] LABS: Hematocrit 26.7 % (39.0-52.0); Hemoglobin 9.1 g/dL (13.0-18.0); Mean Corp Hgb Conc. 34.1 g/dL (33.0-37.0); Mean Corpuscular Volume 88.1 fL (80.0-94.0); Red Blood Cell Count 3.03 10^6/uL (4.70-6.10); Red Cell Dist. Width 14.7 % (11.5-14.5); White Blood Cell Count 5.3 10^3/uL (4.8-10.8)
[2024-03-03] MEDS: TORADOL 15 MG IV ×3 (07:51→22:37)
[2024-03-03] MEDS: KEPPRA 1500 MG IV ×2 (07:56→20:11)
[2024-03-03] MEDS: MUCINEX PO ×2 (08:02→19:46)
[2024-03-03] MEDS: COZAAR PO ×2 (08:02→19:46)
[2024-03-03] MEDS: PEPCID PO ×2 (08:02→19:46)
[2024-03-03] MEDS: NEURONTIN PO ×3 (08:02→19:46)
[2024-03-03] MEDS: ASPIR LOW (ENTERIC COATED) PO (08:02)
[2024-03-03] MEDS: SENOKOT PO (08:02)
[2024-03-03] MEDS: DUONEB 3 ML INH ×3 (08:07→19:24)
[2024-03-03] MEDS: VIMPAT 50 MG IV ×2 (08:09→20:12)
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
[2024-03-03 08:56] LABS: Mean Platelet Volume 12.5 fL (7.4-10.4); Platelet Count 63 10^3/uL (130-400)
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
[2024-03-03] MEDS: LASIX 40 MG IV (09:56)
[2024-03-03] MEDS: VIBRAMYCIN 260 MG IV ×2 (09:58→21:35)
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
[2024-03-03] MEDS: APRESOLINE 5 MG IV (12:09)
[2024-03-03] MEDS: NSS IV (14:13)
[2024-03-03] MEDS: OFIRMEV 100 IV (15:20)
[2024-03-03 15:38] LABS: Procalcitonin 14.56 ng/ml (0.0-0.25)
--- NOTE | 2024-03-03 17:33 | PTCARENOTE ---
assumed care of pt from nightshift RN. Pt AAOx2-3. SR/ST on monitor, pt on HFNC at start of shift, able to wean to 8L MFNC by RT. Lungs coarse w/rhonchi bilaterally. L>R. Pt w/ moist productive cough able to suction thick white secretions multiple
times throughout shift. VSS. Porter draining cristino/yellow urine. Tmax 101.9, IV acetaminophen given (see MAR). Full assessment is as documented in worklist. No acute events throughout shift. Bed alarm intact for pt safety. Call childers within reach.
[2024-03-03] MEDS: LOVENOX 40 MG SC (18:29)
[2024-03-03] MEDS: STERILE WATER FOR INJECTION 20 ML IV (21:35)
[2024-03-03] MEDS: ROCEPHIN 2000 MG IV (21:35)
[2024-03-04] VITALS (13 sets, daily range): BP systolic 135–165; BP diastolic 62–82; PULSE 90; O2SAT 92; BMI 23.1
[2024-03-04 04:28] LABS: Hematocrit 26.8 % (39.0-52.0); Hemoglobin 9.1 g/dL (13.0-18.0); Mean Corpuscular Hgb 30.2 pg (27.0-31.0); Mean Platelet Volume 12.3 fL (7.4-10.4); Platelet Count 61 10^3/uL (130-400); Red Blood Cell Count 3.01 10^6/uL (4.70-6.10); Red Cell Dist. Width 14.7 % (11.5-14.5); White Blood Cell Count 4.1 10^3/uL (4.8-10.8)
[2024-03-04 04:49] LABS: ALT (SGPT) 21 U/L (0-50); AST (SGOT) 30 U/L (17-59); Albumin 2.9 g/dl (3.5-5.0); Alkaline Phosphatase 73 U/L (38-126); Blood Urea Nitrogen 50 mg/dl (9-20); Calcium 9.1 mg/dl (8.4-10.2); Carbon Dioxide 29 mmol/L (22-30); Chloride 104 mmol/L (98-107); Direct Bilirubin 0.3 mg/dl (0.0-0.4); Estimated Creatinine Clearance 74 ml/min; Glucose 116 mg/dl (70-99); Magnesium 2.2 mg/dl (1.6-2.3); Phosphorus 3.2 mg/dl (2.5-4.5); Potassium 3.3 mmol/L (3.5-5.1); Sodium 142 mmol/L (135-145); Total Bilirubin 0.7 mg/dl (0.2-1.3); Total Protein 5.4 g/dl (6.3-8.2); eGFR > 60.00
[2024-03-04 04:52] LABS: NT-proBNP 1490 pg/ml
[2024-03-04] MEDS: KCL 160 MEQ IV (05:16)
--- NOTE | 2024-03-04 05:54 | PTCARENOTE ---
No acute events overnight. Remains on 7 liters midflow. AM k 3.3- diamond sander provider made aware and ordered iv repletion. Patient strict NPO.
[2024-03-04] MEDS: DUONEB 3 ML INH ×3 (07:35→19:25)
[2024-03-04] MEDS: ASPIR LOW (ENTERIC COATED) PO (07:42)
[2024-03-04] MEDS: SENOKOT PO (07:42)
[2024-03-04] MEDS: PEPCID PO (07:42)
[2024-03-04] MEDS: COZAAR PO (07:42)
[2024-03-04] MEDS: MUCINEX PO (07:42)
[2024-03-04] MEDS: NEURONTIN PO (07:42)
[2024-03-04] MEDS: LASIX 40 MG IV (08:13)
[2024-03-04] MEDS: KEPPRA 1500 MG IV ×2 (08:13→20:13)
[2024-03-04] MEDS: VIMPAT 50 MG IV ×2 (08:13→20:13)
[2024-03-04] MEDS: APRESOLINE 5 MG IV (08:16)
[2024-03-04] MEDS: TORADOL 15 MG IV ×2 (08:17→14:37)
--- NOTE | 2024-03-04 08:30 | PTCARENOTE ---
Patient received from shift boss. Patient is resting comfortably in bed. AAO, VSS. No events noted overnight. No seizure activity. Complaints of some back pain, see MAR. Patient currently on 7 L midflow N/C, will attempt to wean as
tolerated. Patient scheduled for a video swallow as he remains strict NPO. Call childers in reach.
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
--- NOTE | 2024-03-04 10:24 | PN.CDI ---
CDI
- -
CDI:
Physician Documentation Request
Admit Date: 02/29/24 23:11
Dear Doctor Timbo,
Please review the following and provide your response in the progress notes.
Clinical Indicators:
- 03/04 Cardiology note 'Concern for heart failure, proBNP 1030'
- 02/28-03/04 40mg IV Lasix given
- 02/28 CXR 'Suspect congestive heart failure'
- 03/01 Echo EF 55-60%
- 03/03 Pulmonary 'suspected acute HFpEF exacerbation'
Laboratory Tests
02/29/24 03/02/24 03/04/24
20:57 17:17 04:04
[id number] Pept [id number]
Please provide further specificity regarding the most likely type and acuity of CHF you are evaluating, treating or monitoring.
Type Acuity
Systolic Acute
Diastolic Chronic
Combined Systolic/Diastolic Acute on Chronic
Other
Use of terms such as suspected, likely, concern for, or probable (associated with a specific diagnosis that is being evaluated, monitored, or treated as if it exists) are acceptable and can be coded in the inpatient setting, when documented at the
time of discharge.
Thank you,
Gustavo rCaven RN
CDI Specialist
Please use your independent medical judgment in providing your response.
[2024-03-04] MEDS: VIBRAMYCIN 260 MG IV ×2 (10:29→21:36)
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
--- NOTE | 2024-03-04 13:05 | PTOTSP ---
Speech Language Pathology
VIDEOFLUOROSCOPIC SWALLOWING EXAMINATION (VSE) completed. Oropharyngeal swallow WNL. Trace intermittent pharyngeal residue. No penetration or any aspiration noted during study.
Recommend:
(1) Regular solids/thin liquids
(2) General aspiration precautions
(3) Meds as tolerated
(4) MARINE RIGGER to sign off. Please reconsult as indicated
[2024-03-04] MEDS: ZOSYN 50 IV ×3 (13:46→23:11)
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
[2024-03-04] MEDS: KCL 270 MEQ IV (14:36)
[2024-03-04] MEDS: TYLENOL 650 MG PO (15:51)
[2024-03-04] MEDS: NEURONTIN 100 MG PO ×2 (15:51→20:12)
--- NOTE | 2024-03-04 16:18 | CM ---
Pt seen bedside w/ family. Initial assessment completed
Pt lives w/ spouse in a 4STH- no steps.
Pt prev independent w/ ambulating, denies DME use for walking. Per spouse, there are grab bars in the bathroom and a shower chair
Pt denies SNF. Prev known to [facility], per spouse PT just ended services
Address, point of contact and insurance verified
PCP: Dr. Eulalio Le
Pharmacy: [facility] [place]
Pt currently on 6L O2, cont to wean as tolerates. Pulmonary following
Aspiration precautions
Currently on IV abx
PT/OT currently determining between home PT vs skilled rehab, will cont to follow and assess
Plan: Home PT vs skilled rehab
CM will cont to follow for d/c planning
[2024-03-04] MEDS: LOVENOX 40 MG SC (18:06)
[2024-03-04] MEDS: PEPCID 20 MG PO (20:12)
[2024-03-04] MEDS: MUCINEX 1200 MG PO (20:32)
[2024-03-05] VITALS (13 sets, daily range): BP systolic 124–171; BP diastolic 63–88; BMI 23.0
[2024-03-05] MEDS: APRESOLINE 5 MG IV ×2 (02:03→16:54)
[2024-03-05] MEDS: TORADOL 15 MG IV ×2 (02:57→09:16)
[2024-03-05 05:05] LABS: Blood Urea Nitrogen 49 mg/dl (9-20); Calcium 9.3 mg/dl (8.4-10.2); Carbon Dioxide 26 mmol/L (22-30); Chloride 108 mmol/L (98-107); Estimated Creatinine Clearance 73 ml/min; Glucose 118 mg/dl (70-99); Potassium 3.2 mmol/L (3.5-5.1); Sodium 144 mmol/L (135-145); eGFR > 60.00
[2024-03-05] MEDS: ZOSYN 50 IV ×4 (05:24→23:44)
--- NOTE | 2024-03-05 06:22 | PTCARENOTE ---
No acute events overnight. Remains on 6 liters 02. Patient tachypneic at times but denies feeling shortness of breath or any discomfort. Portre removed at 0600 and replaced with #25 CC.
[2024-03-05] MEDS: KCL 270 MEQ IV (06:35)
[2024-03-05] MEDS: DUONEB 3 ML INH ×3 (07:21→19:05)
[2024-03-05] MEDS: VIMPAT 50 MG IV (08:11)
[2024-03-05] MEDS: LASIX 40 MG PO (08:12)
[2024-03-05] MEDS: SENOKOT 8.6 MG PO (08:12)
[2024-03-05] MEDS: ASPIR LOW (ENTERIC COATED) 81 MG PO (08:12)
[2024-03-05] MEDS: KEPPRA 1500 MG IV (08:12)
[2024-03-05] MEDS: MUCINEX 1200 MG PO ×2 (08:12→19:52)
[2024-03-05] MEDS: PEPCID 20 MG PO ×2 (08:12→19:53)
[2024-03-05] MEDS: NEURONTIN 100 MG PO ×3 (08:12→19:53)
--- NOTE | 2024-03-05 08:35 | PTCARENOTE ---
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 Patient is resting comfortably in bed. AAO, VSS. No events noted overnight. No seizure activity. Complaints of some back pain, see MAR. Patient currently on 6 L midflow N/C, will attempt to wean as
tolerated. Patient now with gustafson out, void trial at noon. No tests scheduled for today at this time. Call childers in reach.
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
[2024-03-05] MEDS: VIBRAMYCIN 260 MG IV (11:17)
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
[2024-03-05] MEDS: TYLENOL 650 MG PO (16:55)
[2024-03-05] MEDS: LOVENOX 40 MG SC (17:48)
[2024-03-05] MEDS: COZAAR 50 MG PO (19:53)
[2024-03-05] MEDS: KEPPRA 1500 MG PO (19:53)
[2024-03-05] MEDS: VIMPAT 50 MG PO (19:53)
[2024-03-05] MEDS: VIBRAMYCIN 100 MG PO (19:53)
[2024-03-06] VITALS (15 sets, daily range): BP systolic 76–164; BP diastolic 52–82; PULSE 91; O2SAT 95; BMI 23.0
[2024-03-06] MEDS: APRESOLINE 5 MG IV (02:08)
[2024-03-06 03:49] LABS: Hematocrit 26.4 % (39.0-52.0); Hemoglobin 8.4 g/dL (13.0-18.0); Mean Corp Hgb Conc. 31.8 g/dL (33.0-37.0); Mean Corpuscular Hgb 29.7 pg (27.0-31.0); Mean Corpuscular Volume 93.3 fL (80.0-94.0); Mean Platelet Volume 12.7 fL (7.4-10.4); Platelet Count 70 10^3/uL (130-400); Red Blood Cell Count 2.83 10^6/uL (4.70-6.10); Red Cell Dist. Width 14.6 % (11.5-14.5); White Blood Cell Count 1.9 10^3/uL (4.8-10.8)
--- NOTE | 2024-03-06 04:05 | PTCARENOTE ---
Patient with critical wbc 1.9. call center representative provider made aware.
[2024-03-06 04:13] LABS: % Basophils 0.5 % (0-2); % Immature Granulocytes 5.9 % (0-0.5); % Lymphocytes 25.7 % (20.5-51.1); % Monocytes 13.9 % (1.7-9.3); Absolute Immature Granulocytes 0.1 10^3/uL (0-0.05); Absolute Lymphocytes 0.5 10^3/uL (1.2-3.4); Absolute Monocytes 0.3 10^3/uL (0.1-0.6); Nucleated Red Blood Cells % 0 % (-)
[2024-03-06 04:18] LABS: Blood Urea Nitrogen 40 mg/dl (9-20); Carbon Dioxide 30 mmol/L (22-30); Chloride 110 mmol/L (98-107); Estimated Creatinine Clearance 83 ml/min; Glucose 117 mg/dl (70-99); Potassium 3.2 mmol/L (3.5-5.1); Sodium 145 mmol/L (135-145); eGFR > 60.00
--- NOTE | 2024-03-06 04:29 | PTCARENOTE ---
No acute events overnight. Remains on 4 liters 02. PRN hydralazine administered x1 for SBP 160. AM k 3.2- rewards consultant provider made aware and ordered IV repletion.
[2024-03-06] MEDS: ZOSYN 50 IV ×3 (05:32→17:34)
[2024-03-06] MEDS: KCL 270 MEQ IV (05:32)
[2024-03-06] MEDS: TORADOL 15 MG IV ×2 (05:51→20:07)
[2024-03-06] MEDS: DUONEB 3 ML INH ×3 (07:19→19:29)
[2024-03-06] MEDS: LASIX 40 MG PO (09:33)
[2024-03-06] MEDS: VIMPAT 50 MG PO ×2 (09:34→20:07)
[2024-03-06] MEDS: KEPPRA 1500 MG PO ×2 (09:36→20:07)
[2024-03-06] MEDS: VIBRAMYCIN 100 MG PO ×2 (09:37→20:07)
[2024-03-06] MEDS: COZAAR 50 MG PO ×2 (09:37→20:07)
[2024-03-06] MEDS: PEPCID 20 MG PO ×2 (09:37→20:07)
[2024-03-06] MEDS: SENOKOT 8.6 MG PO (09:37)
[2024-03-06] MEDS: NEURONTIN 100 MG PO ×2 (09:40→17:36)
[2024-03-06] MEDS: MUCINEX 1200 MG PO ×2 (09:42→20:07)
[2024-03-06] MEDS: ASPIR LOW (ENTERIC COATED) 81 MG PO (09:43)
[2024-03-06] MEDS: ROXICODONE 5 MG PO (09:51)
--- NOTE | 2024-03-06 10:05 | PTCARENOTE ---
patient in bed SR 76 BP 149/70 RR 20 98/2L .
AAO x3; lower back pain
SR S1/S2 no edema pedal pulses present
Abdomen soft LBM 03/05
O2 turned off currently on RA 95% IS encouraged
Porter draining light brown urine
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
[2024-03-06] MEDS: FLUSH (NSS) 2 FLUSH IV ×2 (11:29→17:34)
--- NOTE | 2024-03-06 13:32 | PTCARENOTE ---
Addendum entered by No Villalobos RN 03/06/24 15:48:
blurry vision resolved
Original Note:
Assumed care of patient at aprox 1100. Pt said to me he felt a little lightheaded with some blurry vision after receiving pain pill this am at 0951. Vitals remained stable. Assisted pt to chair with PT and 15 minutes into sitting in chair pt blood
pressure dropped to 76/59. Pt said he felt a little dizzy. Assisted back to bed with another RN. BP returned to 127/69. Stated he felt better in bed. Dr Phillip notified of event.
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
[2024-03-06] MEDS: LOVENOX 40 MG SC (18:12)
[2024-03-07] VITALS (14 sets, daily range): BP systolic 122–179; BP diastolic 55–88; BMI 23.1
[2024-03-07] MEDS: NEURONTIN 100 MG PO ×4 (00:34→21:36)
[2024-03-07] MEDS: ZOSYN 50 IV ×4 (00:34→17:38)
--- NOTE | 2024-03-07 05:16 | PTCARENOTE ---
Assumed care for patient overnight, received report from RN. AAOx3, forgetful at times, and drowsy. Pt arousable to verbal. Drowsy throughout the shift but no acute events overnight. NSR and VSS. 1L NC currently due to apnea, O2 sat 95%. Porter
draining cristino urine. Call childers is within reach.
[2024-03-07 06:11] LABS: Hematocrit 23.6 % (39.0-52.0); Hemoglobin 7.5 g/dL (13.0-18.0); Mean Corp Hgb Conc. 31.8 g/dL (33.0-37.0); Mean Corpuscular Hgb 29.6 pg (27.0-31.0); Mean Corpuscular Volume 93.3 fL (80.0-94.0); Mean Platelet Volume 12.3 fL (7.4-10.4); Platelet Count 55 10^3/uL (130-400); Red Blood Cell Count 2.53 10^6/uL (4.70-6.10); Red Cell Dist. Width 14.4 % (11.5-14.5); White Blood Cell Count 1.3 10^3/uL (4.8-10.8)
[2024-03-07 06:25] LABS: Blood Urea Nitrogen 35 mg/dl (9-20); Carbon Dioxide 28 mmol/L (22-30); Chloride 110 mmol/L (98-107); Estimated Creatinine Clearance 95 ml/min; Glucose 110 mg/dl (70-99); Potassium 3.2 mmol/L (3.5-5.1); Sodium 145 mmol/L (135-145); eGFR > 60.00
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
[2024-03-07] MEDS: KEPPRA 1500 MG PO ×2 (08:39→20:12)
[2024-03-07] MEDS: VIBRAMYCIN 100 MG PO ×2 (08:39→20:13)
[2024-03-07] MEDS: ASPIR LOW (ENTERIC COATED) 81 MG PO (08:39)
[2024-03-07] MEDS: MUCINEX 1200 MG PO ×2 (08:39→20:12)
[2024-03-07] MEDS: COZAAR 50 MG PO ×2 (08:40→20:12)
[2024-03-07] MEDS: PEPCID 20 MG PO ×2 (08:40→20:12)
[2024-03-07] MEDS: LASIX 40 MG PO (08:41)
[2024-03-07] MEDS: VIMPAT 50 MG PO ×2 (08:41→20:12)
[2024-03-07] MEDS: SENOKOT PO (08:44)
[2024-03-07] MEDS: KCL 40 MEQ PO (08:59)
[2024-03-07] MEDS: ROXICODONE 5 MG PO ×2 (08:59→22:47)
[2024-03-07] MEDS: APRESOLINE 5 MG IV ×2 (10:08→22:52)
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
[2024-03-07 12:38] LABS: % Eosinophils 0.8 % (0-6); % Immature Granulocytes 1.5 % (0-0.5); % Lymphocytes 44.3 % (20.5-51.1); % Monocytes 13.7 % (1.7-9.3); % Neutrophils 39.7 % (42.2-75.2); Absolute Lymphocytes 0.6 10^3/uL (1.2-3.4); Absolute Monocytes 0.2 10^3/uL (0.1-0.6); Absolute Neutrophils 0.5 10^3/uL (1.4-6.5); Nucleated Red Blood Cells % 0 % (-)
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
[2024-03-07] MEDS: DUONEB 3 ML INH ×2 (13:19→19:52)
[2024-03-07] MEDS: TORADOL 15 MG IV (13:28)
[2024-03-07] MEDS: LOVENOX 40 MG SC (17:38)
[2024-03-08] VITALS (8 sets, daily range): BP systolic 124–185; BP diastolic 67–96; PULSE 95; O2SAT 93; BMI 23.2
[2024-03-08] MEDS: ROXICODONE 5 MG PO ×3 (03:17→17:30)
[2024-03-08 06:47] LABS: Hematocrit 24.7 % (39.0-52.0); Hemoglobin 8.3 g/dL (13.0-18.0); Mean Corp Hgb Conc. 33.6 g/dL (33.0-37.0); Mean Corpuscular Hgb 29.9 pg (27.0-31.0); Mean Corpuscular Volume 88.8 fL (80.0-94.0); Mean Platelet Volume 12.7 fL (7.4-10.4); Platelet Count 62 10^3/uL (130-400); Red Blood Cell Count 2.78 10^6/uL (4.70-6.10); White Blood Cell Count 1.6 10^3/uL (4.8-10.8)
[2024-03-08 07:46] LABS: Blood Urea Nitrogen 29 mg/dl (9-20); Carbon Dioxide 31 mmol/L (22-30); Chloride 107 mmol/L (98-107); Estimated Creatinine Clearance 111 ml/min; Glucose 108 mg/dl (70-99); Potassium 3.4 mmol/L (3.5-5.1); Sodium 143 mmol/L (135-145); eGFR > 60.00
[2024-03-08 07:54] LABS: % Basophils 0.6 % (0-2); % Eosinophils 0.6 % (0-6); % Immature Granulocytes 0.6 % (0-0.5); % Lymphocytes 46.5 % (20.5-51.1); % Monocytes 15.7 % (1.7-9.3); Absolute Lymphocytes 0.7 10^3/uL (1.2-3.4); Absolute Monocytes 0.3 10^3/uL (0.1-0.6); Absolute Neutrophils 0.6 10^3/uL (1.4-6.5); Nucleated Red Blood Cells % 0 % (-)
[2024-03-08] MEDS: DUONEB 3 ML INH ×3 (08:05→18:03)
[2024-03-08] MEDS: KEPPRA 1500 MG PO ×2 (08:10→20:38)
[2024-03-08] MEDS: LASIX 40 MG PO (08:10)
[2024-03-08] MEDS: MUCINEX 1200 MG PO ×2 (08:10→20:38)
[2024-03-08] MEDS: COZAAR 50 MG PO ×2 (08:11→20:37)
[2024-03-08] MEDS: PEPCID 20 MG PO ×2 (08:11→20:38)
[2024-03-08] MEDS: VIMPAT 50 MG PO ×2 (08:11→20:38)
[2024-03-08] MEDS: SENOKOT 8.6 MG PO (08:11)
[2024-03-08] MEDS: ASPIR LOW (ENTERIC COATED) 81 MG PO (08:11)
[2024-03-08] MEDS: NEURONTIN 100 MG PO ×3 (08:11→21:50)
[2024-03-08] MEDS: FLOMAX 0.4 MG PO (09:18)
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
--- NOTE | 2024-03-08 11:41 | PTCARENOTE ---
Pts BP this AM was 185/96, AM medications administered as well as PRN pain medication. Pts BP rechecked at 153/82. made aware, no new orders at this time.
--- NOTE | 2024-03-08 11:49 | CM ---
CM following re: discharge planning.
Reviewed pt's chart, met with pt. pt's daughter Fermin and son in law at bedside.
PT and OT evaluations noted - SNF vs home PT/OT recommended. CM discussed it wuith the pt and his family and pt's daughter stated there is no way pt can return back home with physical limitations and both pt and his family preferred SNF. A list of
SNFs provided. [facility] and/or [facility] preferred. A referral to above SNFs made.
D/C plan: preferred SNF: [facility] or [facility]. Awaiting for determinations.
CM will follow to assist pt with discharge to a preferred SNF.
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
--- NOTE | 2024-03-08 13:02 | PTCARENOTE ---
Pts gustafson pulled this AM at 0600, due to void by 1200. Pt unable to void despite multiple attempts, pt bladder scanned for 808mLs. made aware, order placed for gustafson catheter, gustafson placed for acute retention with a removal date of 03/11/2024.
Initial output of 300mLs of clear yellow urine. Pt tolerated gustafson placement. Full bed bath provided. Gustafson care complete.
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
[2024-03-08] MEDS: LOVENOX 40 MG SC (17:27)
[2024-03-09] VITALS (7 sets, daily range): BP systolic 110–157; BP diastolic 51–87; BMI 22.9
[2024-03-09] MEDS: ROXICODONE 5 MG PO ×3 (03:06→19:34)
[2024-03-09 06:08] LABS: Hematocrit 22.2 % (39.0-52.0); Hemoglobin 7.5 g/dL (13.0-18.0); Mean Corp Hgb Conc. 33.8 g/dL (33.0-37.0); Mean Corpuscular Hgb 29.9 pg (27.0-31.0); Mean Corpuscular Volume 88.4 fL (80.0-94.0); Platelet Count 61 10^3/uL (130-400); Red Blood Cell Count 2.51 10^6/uL (4.70-6.10); Red Cell Dist. Width 13.8 % (11.5-14.5)
[2024-03-09 06:41] LABS: ALT (SGPT) 20 U/L (0-50); AST (SGOT) 30 U/L (17-59); Albumin 2.8 g/dl (3.5-5.0); Alkaline Phosphatase 79 U/L (38-126); Blood Urea Nitrogen 33 mg/dl (9-20); Calcium 8.8 mg/dl (8.4-10.2); Carbon Dioxide 32 mmol/L (22-30); Chloride 103 mmol/L (98-107); Estimated Creatinine Clearance 95 ml/min; Glucose 114 mg/dl (70-99); Magnesium 1.8 mg/dl (1.6-2.3); Potassium 3.1 mmol/L (3.5-5.1); Sodium 143 mmol/L (135-145); Total Bilirubin 0.8 mg/dl (0.2-1.3); Total Protein 5.2 g/dl (6.3-8.2); eGFR > 60.00
[2024-03-09] MEDS: DUONEB 3 ML INH ×3 (07:27→20:23)
[2024-03-09] MEDS: KCL 270 MEQ IV (07:48)
[2024-03-09] MEDS: KCL 40 MEQ PO (09:01)
[2024-03-09] MEDS: MUCINEX 1200 MG PO ×2 (09:01→19:34)
[2024-03-09] MEDS: ASPIR LOW (ENTERIC COATED) 81 MG PO (09:01)
[2024-03-09] MEDS: KEPPRA 1500 MG PO ×2 (09:01→19:33)
[2024-03-09] MEDS: LASIX 40 MG PO (09:01)
[2024-03-09] MEDS: NEURONTIN 100 MG PO (09:01)
[2024-03-09] MEDS: COZAAR 50 MG PO ×2 (09:01→19:39)
[2024-03-09] MEDS: VIMPAT 50 MG PO ×2 (09:02→19:34)
[2024-03-09] MEDS: FLOMAX 0.4 MG PO (09:02)
[2024-03-09] MEDS: PEPCID 20 MG PO ×2 (09:02→19:34)
[2024-03-09] MEDS: SENOKOT 8.6 MG PO (09:02)
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
[2024-03-09] MEDS: NEURONTIN 200 MG PO ×2 (15:38→22:23)
[2024-03-09] MEDS: MOTRIN PO ×3 (15:40→19:44)
[2024-03-09] MEDS: TYLENOL PO ×3 (15:40→19:44)
[2024-03-09] MEDS: LOVENOX 40 MG SC (17:17)
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
[2024-03-10] MEDS: MOTRIN 400 MG PO (01:30)
[2024-03-10] MEDS: TYLENOL PO (01:31)
[2024-03-10 03:14] VITALS: BP 137/71
--- NOTE | 2024-03-10 03:23 | PTCARENOTE ---
Patient has a flat red rash on his back 'his Derm calls Corona's disease'. It' not itchy. Advised SHANT Vo. Orders received.
[2024-03-10 05:07] VITALS: BMI 23.5
[2024-03-10 05:24] LABS: Blood Urea Nitrogen 28 mg/dl (9-20); Calcium 8.8 mg/dl (8.4-10.2); Carbon Dioxide 31 mmol/L (22-30); Chloride 105 mmol/L (98-107); Estimated Creatinine Clearance 95 ml/min; Glucose 116 mg/dl (70-99); Magnesium 1.9 mg/dl (1.6-2.3); Potassium 3.8 mmol/L (3.5-5.1); Sodium 142 mmol/L (135-145); eGFR > 60.00
[2024-03-10 05:28] LABS: Hemoglobin 7.3 g/dL (13.0-18.0); Mean Corp Hgb Conc. 33.2 g/dL (33.0-37.0); Mean Corpuscular Hgb 29.4 pg (27.0-31.0); Mean Corpuscular Volume 88.7 fL (80.0-94.0); Mean Platelet Volume 12.1 fL (7.4-10.4); Platelet Count 61 10^3/uL (130-400); Red Blood Cell Count 2.48 10^6/uL (4.70-6.10); Red Cell Dist. Width 13.7 % (11.5-14.5); White Blood Cell Count 1.8 10^3/uL (4.8-10.8)
[2024-03-10 07:15] VITALS: BP 135/72
[2024-03-10] MEDS: DUONEB 3 ML INH ×3 (08:15→17:06)
[2024-03-10] MEDS: LASIX 40 MG PO (08:33)
[2024-03-10] MEDS: MIRALAX 17 GRAMS PO (08:33)
[2024-03-10] MEDS: PEPCID 20 MG PO ×2 (08:33→20:32)
[2024-03-10] MEDS: KEPPRA 1500 MG PO ×2 (08:33→20:31)
[2024-03-10] MEDS: NEURONTIN 200 MG PO ×3 (08:33→20:33)
[2024-03-10] MEDS: ASPIR LOW (ENTERIC COATED) 81 MG PO (08:33)
[2024-03-10] MEDS: COZAAR 50 MG PO ×2 (08:34→20:32)
[2024-03-10] MEDS: SENOKOT 8.6 MG PO (08:34)
[2024-03-10] MEDS: TYLENOL 650 MG PO ×3 (08:34→20:31)
[2024-03-10] MEDS: FLOMAX 0.4 MG PO (08:34)
[2024-03-10] MEDS: VIMPAT 50 MG PO ×2 (08:34→20:32)
[2024-03-10] MEDS: MUCINEX 1200 MG PO ×2 (08:34→20:34)
[2024-03-10] MEDS: MOTRIN PO (08:35)
[2024-03-10] MEDS: DESENEX/MITRAZOL/ZEASORB 1 APPLIC TOPICAL ×2 (08:36→20:54)
[2024-03-10 08:45] VITALS: BMI 22.8
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
[2024-03-10 13:27] VITALS: BP 124/73; PULSE 93; O2SAT 93
[2024-03-10 15:15] VITALS: BP 117/62
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
[2024-03-10] MEDS: LOVENOX 40 MG SC (17:34)
[2024-03-10] MEDS: ROXICODONE 5 MG PO (20:33)
[2024-03-10 23:18] VITALS: BP 126/67
[2024-03-10 23:36] VITALS: BP 126/67
[2024-03-11] MEDS: TYLENOL PO (02:48)
[2024-03-11] MEDS: TYLENOL 650 MG PO ×3 (03:44→14:06)
[2024-03-11] MEDS: ROXICODONE 5 MG PO ×2 (04:17→14:05)
[2024-03-11 05:06] VITALS: BMI 23.1
[2024-03-11 05:23] LABS: Hematocrit 21.7 % (39.0-52.0); Hemoglobin 7.3 g/dL (13.0-18.0); Mean Corp Hgb Conc. 33.6 g/dL (33.0-37.0); Mean Corpuscular Hgb 29.7 pg (27.0-31.0); Mean Corpuscular Volume 88.2 fL (80.0-94.0); Mean Platelet Volume 11.3 fL (7.4-10.4); Platelet Count 64 10^3/uL (130-400); Red Blood Cell Count 2.46 10^6/uL (4.70-6.10); Red Cell Dist. Width 13.5 % (11.5-14.5); White Blood Cell Count 2.5 10^3/uL (4.8-10.8)
[2024-03-11 05:43] LABS: Blood Urea Nitrogen 26 mg/dl (9-20); Calcium 8.8 mg/dl (8.4-10.2); Carbon Dioxide 30 mmol/L (22-30); Chloride 103 mmol/L (98-107); Estimated Creatinine Clearance 95 ml/min; Glucose 112 mg/dl (70-99); Magnesium 1.8 mg/dl (1.6-2.3); Potassium 3.5 mmol/L (3.5-5.1); Sodium 138 mmol/L (135-145); eGFR > 60.00
[2024-03-11] MEDS: DUONEB 3 ML INH (06:31)
[2024-03-11 07:32] VITALS: BP 146/71
[2024-03-11] MEDS: NEURONTIN 200 MG PO ×2 (07:57→14:07)
[2024-03-11] MEDS: KEPPRA 1500 MG PO (07:57)
[2024-03-11] MEDS: MUCINEX 1200 MG PO (07:57)
[2024-03-11] MEDS: VIMPAT 50 MG PO (07:57)
[2024-03-11] MEDS: COZAAR 50 MG PO (07:57)
[2024-03-11] MEDS: SENOKOT 8.6 MG PO (07:57)
[2024-03-11] MEDS: MIRALAX 17 GRAMS PO (07:58)
[2024-03-11] MEDS: DESENEX/MITRAZOL/ZEASORB 1 APPLIC TOPICAL (07:58)
[2024-03-11] MEDS: ASPIR LOW (ENTERIC COATED) 81 MG PO (07:58)
[2024-03-11] MEDS: FLOMAX 0.4 MG PO (07:58)
[2024-03-11] MEDS: LASIX 40 MG PO (07:59)
[2024-03-11] MEDS: PEPCID 20 MG PO (07:59)
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
--- NOTE | 2024-03-11 14:18 | PTCARENOTE ---
Patient c/o pressure in bladder; gustafson draining clear yellow urine; bladder scan showed 0 ml in bladder; PRN Oxy given (see MAR); will re-assess.
--- NOTE | 2024-03-11 15:07 | CM ---
Patient seen at bedside with patient . Patient accepted to [facility] and bed available today. IMM completed and signed form placed on chart. Please call [phone]. Patient for transfer via ambulance. CM will continue to follow for
discharge planning needs.
Plan; SNF:[facility]
[2024-03-11 15:17] VITALS: BP 152/80
[2024-03-11] MEDS: LOVENOX SC (17:48)
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
== END 2024-03-11 19:14 | DRG 177 ==
LOC: 2 NORTH 23:11
PROVIDERS: Emergency Medicine; Internal Medicine; Nurse Practitioner Gerontology; Registered Nurse; ADMITTING PHYSICIAN Student in an Organized Health Care Education/Training Program; ATTENDING PHYSICIAN Internal Medicine; CONSULT PHYSICIAN Internal Medicine Cardiovascular Disease; CONSULT PHYSICIAN Internal Medicine Critical Care Medicine; CONSULT PHYSICIAN Physical Medicine & Rehabilitation; EMERGENCY PHYSICIAN Emergency Medicine; FAMILY PHYSICIAN Family Medicine; OTHER PHYSICIAN Internal Medicine Hematology & Oncology
PROC: 5A0935A Assistance with Respiratory Ventilation, Less than 24 Consecutive Hours, High Flow/Velocity Cannula (ICD-10-PCS; 2024-03-02)
DX: J69.0 Pneumonitis due to inhalation of food and vomit (principal); I50.33 Acute on chronic diastolic (congestive) heart failure; J96.01 Acute respiratory failure with hypoxia; D61.818 Other pancytopenia; C91.10 Chronic lymphocytic leukemia of B-cell type not having achieved remission; E87.1 Hypo-osmolality and hyponatremia; G40.409 Other generalized epilepsy and epileptic syndromes, not intractable, without status epilepticus; I11.0 Hypertensive heart disease with heart failure; K21.9 Gastro-esophageal reflux disease without esophagitis; N32.81 Overactive bladder; G89.29 Other chronic pain; E87.6 Hypokalemia; N40.1 Benign prostatic hyperplasia with lower urinary tract symptoms; R33.8 Other retention of urine; D46.9 Myelodysplastic syndrome, unspecified; K59.00 Constipation, unspecified; D63.8 Anemia in other chronic diseases classified elsewhere; Z11.52 Encounter for screening for COVID-19; Z86.011 Personal history of benign neoplasm of the brain; Z79.899 Other long term (current) drug therapy; Z79.82 Long term (current) use of aspirin; Z79.52 Long term (current) use of systemic steroids
CPT/HCPCS: 70450; 70551; 71045; 71046; 71250; 74230; 80048; 80053; 81003; 81015; 82248; 82805; 82962; 83605; 83735; 83880; 84100; 84145; 85025; 85027; 87040; 87070; 87205; 87449; 87502; 87811; 87899; 92610; 92611; 93005; 93306; 94640; 94669; 96374; 97163; 97167; 97530; 99285; C9254

== ENCOUNTER → 2024-03-15 13:20 | Outpatient (REF) | payer MEDICARE, OTHER, SELFPAY ==
[2024-03-15 14:40] LABS: Blood Urea Nitrogen 29 mg/dl (9-20); Calcium 9.1 mg/dl (8.4-10.2); Carbon Dioxide 30 mmol/L (22-30); Chloride 101 mmol/L (98-107); Glucose 89 mg/dl (70-99); Potassium 3.7 mmol/L (3.5-5.1); Sodium 138 mmol/L (135-145); eGFR > 60.00
[2024-03-15 15:12] LABS: Hematocrit 21.6 % (39.0-52.0); Mean Corp Hgb Conc. 32.4 g/dL (33.0-37.0); Mean Corpuscular Hgb 29.7 pg (27.0-31.0); Mean Corpuscular Volume 91.5 fL (80.0-94.0); Mean Platelet Volume 11.5 fL (7.4-10.4); Platelet Count 102 10^3/uL (130-400); Red Blood Cell Count 2.36 10^6/uL (4.70-6.10); Red Cell Dist. Width 13.5 % (11.5-14.5)
[2024-03-15 15:29] LABS: % Immature Granulocytes 0.5 % (0-0.5); % Lymphocytes 61.5 % (20.5-51.1); % Monocytes 9.9 % (1.7-9.3); % Neutrophils 28.1 % (42.2-75.2); Absolute Lymphocytes 2.5 10^3/uL (1.2-3.4); Absolute Monocytes 0.4 10^3/uL (0.1-0.6); Absolute Neutrophils 1.1 10^3/uL (1.4-6.5); Nucleated Red Blood Cells % 0 % (-)
== END ==
LOC: OLABP 13:20
PROVIDERS: ATTENDING PHYSICIAN Family Medicine
DX: J18.9 Pneumonia, unspecified organism (principal); J96.01 Acute respiratory failure with hypoxia
CPT/HCPCS: 36415; 80048; 85025

== ENCOUNTER → 2024-03-18 10:37 | Outpatient (REF) | payer OTHER, MEDICARE, SELFPAY ==
[2024-03-18 11:51] LABS: Hematocrit 21.6 % (39.0-52.0); Hemoglobin 7.6 g/dL (13.0-18.0); Mean Corp Hgb Conc. 35.2 g/dL (33.0-37.0); Mean Corpuscular Hgb 32.9 pg (27.0-31.0); Mean Corpuscular Volume 93.5 fL (80.0-94.0); Platelet Count 57 10^3/uL (130-400); Red Blood Cell Count 2.31 10^6/uL (4.70-6.10); Red Cell Dist. Width 15.3 % (11.5-14.5); White Blood Cell Count 3.1 10^3/uL (4.8-10.8)
[2024-03-18 14:34] LABS: % Basophils 0.3 % (0-2); % Eosinophils 0.3 % (0-6); % Immature Granulocytes 1.9 % (0-0.5); % Monocytes 18.7 % (1.7-9.3); % Neutrophils 29.8 % (42.2-75.2); Absolute Immature Granulocytes 0.1 10^3/uL (0-0.05); Absolute Lymphocytes 1.5 10^3/uL (1.2-3.4); Absolute Monocytes 0.6 10^3/uL (0.1-0.6); Absolute Neutrophils 0.9 10^3/uL (1.4-6.5)
== END ==
LOC: OLABP 10:37
PROVIDERS: ATTENDING PHYSICIAN Family Medicine
DX: I50.31 Acute diastolic (congestive) heart failure (principal); E87.6 Hypokalemia; G40.89 Other seizures; J18.9 Pneumonia, unspecified organism; J96.01 Acute respiratory failure with hypoxia; D61.818 Other pancytopenia
CPT/HCPCS: 36415; 85025

== ENCOUNTER → 2024-03-21 11:30 | Outpatient (REF) | payer OTHER, MEDICARE, SELFPAY ==
[2024-03-21 12:55] LABS: Blood Urea Nitrogen 15 mg/dl (9-20); Calcium 8.5 mg/dl (8.4-10.2); Carbon Dioxide 29 mmol/L (22-30); Chloride 101 mmol/L (98-107); Glucose 86 mg/dl (70-99); Potassium 3.3 mmol/L (3.5-5.1); Sodium 134 mmol/L (135-145); eGFR > 60.00
[2024-03-21 13:57] LABS: Hematocrit 19.7 % (39.0-52.0); Mean Corp Hgb Conc. 35.5 g/dL (33.0-37.0); Mean Corpuscular Hgb 33.3 pg (27.0-31.0); Mean Corpuscular Volume 93.8 fL (80.0-94.0); Mean Platelet Volume 11.4 fL (7.4-10.4); Platelet Count 91 10^3/uL (130-400); Red Cell Dist. Width 15.1 % (11.5-14.5); White Blood Cell Count 2.9 10^3/uL (4.8-10.8)
[2024-03-21 14:20] LABS: Absolute Neutrophils -Man Diff 0.4 10^3/uL (1.4-6.5); Band Neutrophils 0 % (0-3); Lymphocytes 80 % (20-51); Monocytes 6 % (2-9); Normal RBC Morphology Yes; Platelets Checked Yes; Segmented Neutrophils 14 % (42-75); Total Cells Counted 100
== END ==
LOC: OLABP 11:30
PROVIDERS: ATTENDING PHYSICIAN Family Medicine
DX: I50.31 Acute diastolic (congestive) heart failure (principal); E87.6 Hypokalemia; G40.89 Other seizures; J18.9 Pneumonia, unspecified organism; J96.01 Acute respiratory failure with hypoxia; D61.818 Other pancytopenia
CPT/HCPCS: 36415; 80048; 85025

== ENCOUNTER → 2024-03-22 12:35 | Outpatient (REF) | payer OTHER, MEDICARE, SELFPAY ==
[2024-03-22 14:20] LABS: Blood Urea Nitrogen 12 mg/dl (9-20); Calcium 8.5 mg/dl (8.4-10.2); Carbon Dioxide 28 mmol/L (22-30); Chloride 100 mmol/L (98-107); Glucose 89 mg/dl (70-99); Potassium 3.6 mmol/L (3.5-5.1); Sodium 134 mmol/L (135-145); eGFR > 60.00
[2024-03-22 14:44] LABS: Hematocrit 19.5 % (39.0-52.0); Hemoglobin 6.7 g/dL (13.0-18.0); Mean Corp Hgb Conc. 34.4 g/dL (33.0-37.0); Mean Corpuscular Hgb 32.1 pg (27.0-31.0); Mean Corpuscular Volume 93.3 fL (80.0-94.0); Mean Platelet Volume 10.7 fL (7.4-10.4); Platelet Count 116 10^3/uL (130-400); Red Blood Cell Count 2.09 10^6/uL (4.70-6.10); Red Cell Dist. Width 15.5 % (11.5-14.5); White Blood Cell Count 4.2 10^3/uL (4.8-10.8)
[2024-03-22 15:26] LABS: % Eosinophils 0.2 % (0-6); % Lymphocytes 51.4 % (20.5-51.1); % Monocytes 10.8 % (1.7-9.3); % Neutrophils 37.6 % (42.2-75.2); Absolute Lymphocytes 2.1 10^3/uL (1.2-3.4); Absolute Monocytes 0.5 10^3/uL (0.1-0.6); Absolute Neutrophils 1.6 10^3/uL (1.4-6.5); Nucleated Red Blood Cells % 0 % (-)
== END ==
LOC: OLABP 12:35
PROVIDERS: ATTENDING PHYSICIAN Family Medicine
DX: I50.31 Acute diastolic (congestive) heart failure (principal); E87.6 Hypokalemia; G40.89 Other seizures; J18.9 Pneumonia, unspecified organism; J96.01 Acute respiratory failure with hypoxia; D61.818 Other pancytopenia
CPT/HCPCS: 36415; 80048; 85025

== ENCOUNTER 2024-03-22 16:56 | Emergency (ER) | payer MEDICARE, OTHER, SELFPAY ==
[2024-03-22] VITALS (9 sets, daily range): BP systolic 105–127; BP diastolic 57–75; BMI 23.9
[2024-03-22 17:52] LABS: ALT (SGPT) 19 U/L (0-50); AST (SGOT) 23 U/L (17-59); Albumin 3.2 g/dl (3.5-5.0); Alkaline Phosphatase 107 U/L (38-126); Blood Urea Nitrogen 12 mg/dl (9-20); Calcium 8.7 mg/dl (8.4-10.2); Carbon Dioxide 30 mmol/L (22-30); Chloride 98 mmol/L (98-107); Estimated Creatinine Clearance 111 ml/min; Glucose 128 mg/dl (70-99); Sodium 134 mmol/L (135-145); Total Bilirubin 0.6 mg/dl (0.2-1.3); Total Protein 5.6 g/dl (6.3-8.2); eGFR > 60.00
[2024-03-22 17:53] LABS: Hematocrit 21.5 % (39.0-52.0); Hemoglobin 7.2 g/dL (13.0-18.0); Mean Corp Hgb Conc. 33.5 g/dL (33.0-37.0); Mean Corpuscular Hgb 30.3 pg (27.0-31.0); Mean Corpuscular Volume 90.3 fL (80.0-94.0); Mean Platelet Volume 10.3 fL (7.4-10.4); Platelet Count 127 10^3/uL (130-400); Red Blood Cell Count 2.38 10^6/uL (4.70-6.10); Red Cell Dist. Width 15.9 % (11.5-14.5); White Blood Cell Count 2.5 10^3/uL (4.8-10.8)
[2024-03-22 18:28] LABS: % Immature Granulocytes 0.4 % (0-0.5); % Lymphocytes 31.1 % (20.5-51.1); % Monocytes 9.1 % (1.7-9.3); % Neutrophils 59.4 % (42.2-75.2); Absolute Lymphocytes 0.8 10^3/uL (1.2-3.4); Absolute Monocytes 0.2 10^3/uL (0.1-0.6); Absolute Neutrophils 1.5 10^3/uL (1.4-6.5); Nucleated Red Blood Cells % 0 % (-)
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
[2024-03-23 01:17] VITALS: BP 116/59
== END 2024-03-23 02:12 | disposition home or self-care (01) ==
LOC: EMR 16:56
PROVIDERS: Physician Assistant; EMERGENCY PHYSICIAN Student in an Organized Health Care Education/Training Program; FAMILY PHYSICIAN Family Medicine
DX: D64.89 Other specified anemias (principal); Z86.011 Personal history of benign neoplasm of the brain; Z98.890 Other specified postprocedural states
CPT/HCPCS: 36430; 99285; 80053; 85025; 86850; 86900; 86901; 86920; 86922; P9016

== ENCOUNTER → 2024-03-25 10:22 | Outpatient (REF) | payer OTHER, MEDICARE, SELFPAY ==
[2024-03-25 11:14] LABS: ALT (SGPT) 17 U/L (0-50); AST (SGOT) 23 U/L (17-59); Albumin 3.4 g/dl (3.5-5.0); Alkaline Phosphatase 144 U/L (38-126); Blood Urea Nitrogen 11 mg/dl (9-20); Calcium 8.9 mg/dl (8.4-10.2); Carbon Dioxide 28 mmol/L (22-30); Chloride 94 mmol/L (98-107); Glucose 83 mg/dl (70-99); Potassium 4.1 mmol/L (3.5-5.1); Sodium 133 mmol/L (135-145); Total Bilirubin 1.8 mg/dl (0.2-1.3); Total Protein 6.1 g/dl (6.3-8.2); eGFR > 60.00
[2024-03-25 11:44] LABS: % Basophils 0.1 % (0-2); % Immature Granulocytes 4.4 % (0-0.5); % Lymphocytes 17.1 % (20.5-51.1); % Monocytes 7.7 % (1.7-9.3); % Neutrophils 70.7 % (42.2-75.2); Absolute Immature Granulocytes 0.4 10^3/uL (0-0.05); Absolute Lymphocytes 1.7 10^3/uL (1.2-3.4); Absolute Monocytes 0.8 10^3/uL (0.1-0.6); Hematocrit 29.8 % (39.0-52.0); Hemoglobin 9.7 g/dL (13.0-18.0); Mean Corp Hgb Conc. 32.6 g/dL (33.0-37.0); Mean Corpuscular Hgb 30.4 pg (27.0-31.0); Mean Corpuscular Volume 93.4 fL (80.0-94.0); Mean Platelet Volume 10.8 fL (7.4-10.4); Nucleated Red Blood Cells % 0 % (-); Platelet Count 169 10^3/uL (130-400); Red Blood Cell Count 3.19 10^6/uL (4.70-6.10); Red Cell Dist. Width 16.8 % (11.5-14.5); White Blood Cell Count 9.8 10^3/uL (4.8-10.8)
== END ==
LOC: OLABP 10:22
PROVIDERS: ATTENDING PHYSICIAN Family Medicine
DX: I50.31 Acute diastolic (congestive) heart failure (principal); G40.89 Other seizures; J18.9 Pneumonia, unspecified organism; J96.01 Acute respiratory failure with hypoxia; D61.818 Other pancytopenia
CPT/HCPCS: 36415; 80053; 85025

== ENCOUNTER 2024-03-26 16:42 | Inpatient (IN) | payer MEDICARE, OTHER, SELFPAY ==
[2024-03-26] VITALS (14 sets, daily range): BP systolic 102–143; BP diastolic 54–88; BMI 22.1; BMI 22.0
--- NOTE | 2024-03-26 11:30 | ED.GENMED ---
History of Present Illness
General
Chief Complaint: Change Level of Consciousness
Time Seen by Provider: 03/26/24 11:25
History of Present Illness
History of Present Illness:
TIME OF INITIAL ENCOUNTER:
HPI: The patient presents from [facility] by ambulance to a change in mental status and overall ill appearance. He is found to be febrile here. He was having shaking chills today. He is normally 'awake and oriented x 4' but is much less responsive
currently. I also spoke to the daughter at bedside who tells me that he has a history of MDS with baseline white count of 2-3 and as an outpatient was up to 9. The patient is currently a very limited historian. Daughter states that he did see
paving bed maker yesterday who wanted him to start on midodrine today due to low blood pressure readings.
EXAM:
GENERAL: The patient is generally ill in appearance
HEENT: Dry oral mucosa
CARDIOVASCULAR: No murmurs, tachycardic heart rate, regular rhythm, No chest wall tenderness
PULMONARY: No respiratory distress, breath sounds are clear and equal but has poor inspiratory effort
ABDOMEN: Soft with no peritoneal signs, no tenderness
NEUROLOGIC: Generally weak strength all extremities, no coordination deficits
PSYCHIATRIC: Limited insight and judgment
EXTREMITIES: Nontender, no edema, moves all extremities equally
SKIN: No rash, no lesions
NUMBER AND COMPLEXITY OF PROBLEMS ADDRESSED AT THE ENCOUNTER
� Chronic conditions affecting care: Myelodysplastic syndrome, brain tumor
� Acute Exacerbation and/or Progression of Chronic Illness: This is an acute problem
� Differential Diagnosis includes: Sepsis, pneumonia, UTI, viral syndrome
AMOUNT AND/OR COMPLEXITY OF DATA TO BE REVIEWED AND ANALYZED
� I performed an independent evaluation of and my interpretation is:
EKG: Sinus 117, left axis deviation, no acute ST abnormality sinus 117, left axis deviation, no acute ST abnormality
CT:
X-rays: Chest x-ray shows moderate parenchymal airspace disease
Laboratory Studies: White count 6.2, hemoglobin 8.6, COVID-negative, lactic 1.6
Other:
� Review of other/old records: The patient was seen here March 22 with a hemoglobin of 6.7 and yesterday had hemoglobin of 9.7
� Clinical information was obtained by an independent historian: I spoke to the daughter at bedside
� Prescriptions/Medications Considered but not given:
� Further testing considered but not performed:
RISK OF COMPLICATIONS AND/OR MORBIDITY OR MORTALITY OF PATIENT MANAGEMENT
� Social determinants of health affecting care: Resides at [facility]
� Discussion with other providers: Hospitalist for admission
� Escalation of care including admission/observation vs risk of discharge considered: Chest x-ray shows signs of multifocal pneumonia. He had marked fever upon arrival and appears septic. He was given Tylenol rectally. White
count is lower than it was yesterday but higher than his baseline of 1-3. Lactic is 1.6. Urinalysis shows questionable signs of infection but does have a chronic Porter catheter.
ANY OTHER UPDATES:
Past History
Past History
ED Past Medical History: Seizures, Other (Benign brain tumor removal 1990, intracranial hemorrhage, lumbar compression fracture) and Other (Shoulder DJD)
ED Past Surgical History: Brain (Right frontal lobe craniotomy for benign brain tumor removal)
Social History
Tobacco: Non-smoker
Alcohol: None
Personal:
Employment: Retired
Family History
Family History: Other (Noncontributory)
Phy Exam
Physical Exam
Physical Exam:
See HPI
Sepsis
Sepsis Screening
Sepsis Assessment: Sepsis
Sepsis Screen
Sepsis Screen: Sepsis
Date: 03/26/24
Time: 15:16
Course
Orders/Labs/Results
Orders:
Orders
03/26/24 11:30
0.9% Sodium Chloride 1000 ml [Nss] 1,000 ml IV BOLUS
Acetaminophen [Tylenol/Feverall] 650 mg RECTAL NOW STA
03/26/24 11:31
CR Chest Portable - 1 View Urgent
Comment:
Reason For Exam: sepsis
Reason Study Needs to be Portable: Patient Unstable
03/26/24 11:35
EKG [Electrocardiogram (*1)] Urgent
Reason for Study: Tachycardia
EKG- Treatment ONCE
03/26/24 11:55
COVID-19 Antigen Urgent
Source: Nasal Swab
Lactic Acid Q4H
Comment: CANCEL 2nd LACTIC ACID IF 1st LACTIC ACID IS LESS THAN 2
Blood Culture Q30M
ELAINE Source: Blood/Venous
Specimen Description:
Influenza A+B Rapid Molecular Urgent
ELAINE Source: Nasal Swab
Specimen Description:
03/26/24 11:59
Add On- LAB Urgent
Tests Added?: CMP
03/26/24 12:08
CBC/No Diff [Complete Blood Count/No Diff] Urgent
CMP [Comprehensive Metabolic Panel] Urgent
Urinalysis Reflex To Culture Urgent
Date Specimen was Collected: 03/26/24
Time Specimen was Collected: 11:58
Urine Microscopic Reflex Cult Urgent
Blood Culture Q30M
ELAINE Source: Blood/Venous
Specimen Description:
Urine Culture Urgent
ELAINE Source: U
Specimen Description:
Obtained by: Random
Date Specimen was Collected: 03/26/24
Time Specimen was Collected: 11:58
03/26/24 14:15
Cefepime HCl [Maxipime] 1,000 mg IV NOW STA
Vancomycin [Vancocin] 2,000 mg 0.9% Sodium Chloride 500 ml [Nss] 500 ml IV NOW
03/26/24 14:41
Sterile Water [Sterile Water For Injection] 10 ml .ROUTE .STK-MED ONE
03/26/24 15:30
Lactic Acid Q4H
Comment: CANCEL 2nd LACTIC ACID IF 1st LACTIC ACID IS LESS THAN 2
Abnormal Lab Results
03/26/24
12:08
RBC 2.71 L 10^6/uL
(4.70-6.10)
Hgb 8.6 L g/dL
(13.0-18.0)
Hct 25.0 L %
(39.0-52.0)
MCH 31.7 H pg
(27.0-31.0)
RDW 17.4 H %
(11.5-14.5)
Plt Count 116 L D 10^3/uL
(130-400)
MPV 10.5 H fL
(7.4-10.4)
Sodium 133 L mmol/L
(135-145)
Chloride 95 L mmol/L
(98-107)
BUN 22 H mg/dl
(9-20)
Glucose 114 H mg/dl
(70-99)
Total Bilirubin 1.4 H mg/dl
(0.2-1.3)
Alkaline Phosphatase 154 H U/L
(38-126)
Total Protein 5.8 L g/dl
(6.3-8.2)
Albumin 3.1 L g/dl
(3.5-5.0)
Ur Occult Blood Reflex 4+ A
(Negative)
Urine Nitrite (Reflex) Positive A
(Negative)
Leukocyte Esterase Rfl 1+ A
(Negative)
Urine RBC 7-10 A /HPF
(0-2)
Urine Bacteria (Reflex) Many A
(Negative)
Urine Albumin (Reflex) 1+ A
(Neg - Trace)
03/26/24 12:08
03/26/24 12:08
Vital Signs
Initial and Last Documented VS:
Initial Vital Signs
Temp Pulse BP Pulse Ox
40.6 C H 119 129/64 92
03/26/24 11:32 03/26/24 11:32 03/26/24 11:32 03/26/24 11:32
Last Documented Vital Signs
Temp Pulse Resp BP Pulse Ox
38.9 C H 101 24 110/57 100
03/26/24 13:45 03/26/24 13:15 03/26/24 13:00 03/26/24 13:00 03/26/24 13:00
*Critical Care Note
Total Time (30-74mins, 75-104mins- exclusive of procedures): Not Applicable
ED Attending Note
-
Portions of this chart may have been created with voice recognition software.� Occasional wrong word or��sound alike� substitutions may have occurred due to the inherent limitations of voice recognition software.
Discharge Plan
Departure
Patient Disposition: Admit
Date of Disposition: 03/26/24
Time of Disposition: 14:15
Presentation/result/management discussed w/ accepting MD/DO: Hospitalist
Discharge Problem:
Sepsis due to pneumonia
Prescriptions:
No Action
sennosides [senna] 8.6 mg Tablet
8.6 mg PO DAILY
famotidine 20 mg Tablet
20 mg PO BID
levetiracetam [Keppra] 1,000 mg Tablet
3,000 mg PO BID
acetaminophen 325 mg Tablet
650 mg PO Q6H Qty: 30 0RF
tamsulosin 0.4 mg Capsule
0.4 mg PO DAILY Qty: 30 0RF
gabapentin 100 mg Capsule
200 mg PO TID Qty: 30 0RF
lacosamide 50 mg Tablet
50 mg PO BID Qty: 14 0RF
aspirin 81 mg Tablet,Delayed Release (Dr/Ec)
81 mg PO DAILY
magnesium hydroxide [Milk of Magnesia] 400 mg/5 mL Suspension
2,400 mg PO DAILYPRN PRN (Reason: IF NO BM 4TH DAY)
bisacodyl [Dulcolax (bisacodyl)] 10 mg Suppository
10 mg [place] DAILYPRN PRN (Reason: IF NO BM BY 5TH DAY)
Fleet Enema 19-7 gram/118 mL Enema
118 ml [place] DAILYPRN PRN (Reason: IF NO BM BY 6TH DAY)
methocarbamol 750 mg tablet
750 mg PO TIDPRN PRN (Reason: spasm)
oxycodone 5 mg tablet
5 mg PO Q6HPRN PRN (Reason: severe pain)
Referrals:
Christian Crane MD [Family Provider] -
Interventions
Interventions:
*Risk Screen - Suicide Last Done: 03/26/24 11:43
*General Assessment Last Done: 03/26/24 11:38
*Neglect/Abuse Screening Last Done: 03/26/24 11:43
*ED COVID-19 Vaccine History Last Done: 03/26/24 11:42
ED- Cardiac Assessment Last Done: 03/26/24 11:44
Discharge Date and Time
Print Language: BELARUSIAN
[2024-03-26] MEDS: TYLENOL/FEVERALL 650 MG RECTAL (11:46)
[2024-03-26] MEDS: NSS 1000 IV ×2 (11:51→18:33)
[2024-03-26 12:19] LABS: COVID-19 Antigen Negative (Negative)
[2024-03-26 12:24] LABS: Hemoglobin 8.6 g/dL (13.0-18.0); Mean Corp Hgb Conc. 34.4 g/dL (33.0-37.0); Mean Corpuscular Hgb 31.7 pg (27.0-31.0); Mean Corpuscular Volume 92.3 fL (80.0-94.0); Mean Platelet Volume 10.5 fL (7.4-10.4); Platelet Count 116 10^3/uL (130-400); Red Blood Cell Count 2.71 10^6/uL (4.70-6.10); Red Cell Dist. Width 17.4 % (11.5-14.5); White Blood Cell Count 6.2 10^3/uL (4.8-10.8)
[2024-03-26 12:25] LABS: Urine Albumin 1+ (Neg - Trace); Urine Bilirubin Negative (Negative); Urine Character Slightly Cloudy (Clear); Urine Glucose Negative (Negative); Urine Ketone Negative (Negative); Urine Leukocyte 1+ (Negative); Urine Nitrite Positive (Negative); Urine Occult Blood 4+ (Negative); Urine Urobilinogen 1+ (Neg - 1+)
[2024-03-26 12:26] LABS: Urine Color Yellow
[2024-03-26 12:39] LABS: ALT (SGPT) 16 U/L (0-50); AST (SGOT) 22 U/L (17-59); Albumin 3.1 g/dl (3.5-5.0); Alkaline Phosphatase 154 U/L (38-126); Blood Urea Nitrogen 22 mg/dl (9-20); Calcium 8.9 mg/dl (8.4-10.2); Carbon Dioxide 28 mmol/L (22-30); Chloride 95 mmol/L (98-107); Estimated Creatinine Clearance 91 ml/min; Glucose 114 mg/dl (70-99); Potassium 4.4 mmol/L (3.5-5.1); Sodium 133 mmol/L (135-145); Total Bilirubin 1.4 mg/dl (0.2-1.3); Total Protein 5.8 g/dl (6.3-8.2); eGFR > 60.00
[2024-03-26 12:40] LABS: Urine Bacteria Many (Negative); Urine Squamous Cell 0-2 /LPF (Few)
[2024-03-26 12:52] LABS: Lactic Acid 1.6 mmol/L (0.7-2.0)
[2024-03-26] MEDS: MAXIPIME 1000 MG IV (14:50)
[2024-03-26] MEDS: VANCOCIN 540 MG IV (16:09)
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
[2024-03-26] MEDS: OFIRMEV 100 IV (17:50)
[2024-03-26 20:05] LABS: Lactic Acid 0.9 mmol/L (0.7-2.0)
--- NOTE | 2024-03-26 22:00 | PTCARENOTE ---
Patient admitted to floor from ED. patient pulled over from stretcher to bed. Patients rectal temp 102.7. Ice packs applied. IV abx administered, see MAR. patient assessed-see flowsheets. patient\\s bedside, plan of care explained, call childers
within reach.
[2024-03-26] MEDS: NEURONTIN 200 MG PO (22:41)
[2024-03-26] MEDS: LEVAQUIN 150 IV (22:41)
[2024-03-27] VITALS (20 sets, daily range): BP systolic 90–153; BP diastolic 55–98; BMI 22.0
[2024-03-27] MEDS: KEPPRA 3000 MG PO ×2 (00:29→09:10)
[2024-03-27] MEDS: ULTRAM 50 MG PO ×2 (00:29→06:13)
--- NOTE | 2024-03-27 00:30 | PTCARENOTE ---
Patients temp 10.3.8, cooling blanket applied. IV tylenol given. Pt also had complaint of 'pain under his heart' feeling like heaviness, 2/10 pain. EKG obtained, trops and mag drawn. Will continue to monitor.
--- NOTE | 2024-03-27 01:48 | W.PN.UPDATE ---
Update Note
Progress Note Update
Patient w/continued fevers t/o night, ordered cooling blanket. Around 1 am, patient c/o chest pain/pressure after being turned in bed. EKG shows sinus tachycardia w/left axis deviation, appears same/similar to previous EKG. Patient evaluated, stated
pain was rated at 2/10 and had improved since onset. Patient with no SOB, pain not radiating, pain was after movement in bed. Vital signs: Temp 103.5, BP 143/97, HR 119, 97% on 2LNC. Ordered serial troponins and magnesium. Patient initiated on
cooling blanket and IV Tylenol ordered, PO tylenol on hold at this time.
[2024-03-27] MEDS: ROXICODONE 5 MG PO (01:54)
[2024-03-27 02:17] LABS: Magnesium 1.9 mg/dl (1.6-2.3)
[2024-03-27] MEDS: OFIRMEV 100 IV ×2 (03:30→12:05)
[2024-03-27] MEDS: NSS 1000 IV (06:13)
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
[2024-03-27 07:50] LABS: Hematocrit 19.8 % (39.0-52.0); Hemoglobin 6.8 g/dL (13.0-18.0); Mean Corp Hgb Conc. 34.3 g/dL (33.0-37.0); Mean Corpuscular Hgb 31.3 pg (27.0-31.0); Mean Corpuscular Volume 91.2 fL (80.0-94.0); Mean Platelet Volume 10.7 fL (7.4-10.4); Platelet Count 72 10^3/uL (130-400); Red Blood Cell Count 2.17 10^6/uL (4.70-6.10); White Blood Cell Count 4.5 10^3/uL (4.8-10.8)
--- NOTE | 2024-03-27 08:00 | PTCARENOTE ---
Pt arousable but drowsy. Poor appetite. Able to swallow pills w/o difficutly. Oriented to place and self, forgetful. Conversing w/ son in law at bedside. VSS. Rectal prob monitoring temp. NS @ 100ml/hr. 100% on 2L. LS nonlabored. Denies CP, denies
SOB. Hgb 6.8, tiger texted w/ result, now at bedside to obtain consent. Will monitor closely.
[2024-03-27 08:20] LABS: ALT (SGPT) 13 U/L (0-50); AST (SGOT) 29 U/L (17-59); Albumin 2.4 g/dl (3.5-5.0); Alkaline Phosphatase 119 U/L (38-126); Blood Urea Nitrogen 22 mg/dl (9-20); Calcium 8.3 mg/dl (8.4-10.2); Carbon Dioxide 23 mmol/L (22-30); Chloride 101 mmol/L (98-107); Estimated Creatinine Clearance 106 ml/min; Glucose 106 mg/dl (70-99); Potassium 4.1 mmol/L (3.5-5.1); Sodium 133 mmol/L (135-145); Total Bilirubin 1.1 mg/dl (0.2-1.3); Total Protein 4.8 g/dl (6.3-8.2); eGFR > 60.00
[2024-03-27 08:47] LABS: % Basophils 1.3 % (0-2); % Immature Granulocytes 3.1 % (0-0.5); % Lymphocytes 11.9 % (20.5-51.1); % Monocytes 7.9 % (1.7-9.3); % Neutrophils 75.8 % (42.2-75.2); Absolute Basophils 0.1 10^3/uL (0-0.2); Absolute Immature Granulocytes 0.1 10^3/uL (0-0.05); Absolute Lymphocytes 0.5 10^3/uL (1.2-3.4); Absolute Monocytes 0.4 10^3/uL (0.1-0.6); Absolute Neutrophils 3.4 10^3/uL (1.4-6.5); Nucleated Red Blood Cells % 0 % (-)
--- NOTE | 2024-03-27 08:47 | CON.ONC ---
Documented by User: Daniel ChrissypatriciaDO, Resident 03/27/24 12:12
Impression
Impression
Patient known to [facility], followed by Dr. Lofton
On admission labs pancytopenia with hemoglobin 6.8 today, platelets decreasing, WBC downtrending, ORALIA 3400, corrected calcium within normal limits
Unclear if pancytopenia secondary to MDS progression, current infection/sepsis or secondary to Keppra
Keppra is known to cause pancytopenia however, after discussion with neurology, he was stopped previously and unfortunately had a seizure and was treated at [facility] x 1 week with a small subdural hematoma ankle and rib fractures. Subsequently
warranting increased doses of Keppra and lacosamide
Plan
Plan
Continue IV antibiotics and supportive measures per primary team
Continue antiepileptic medications
Transfuse 2 unit packed red blood cell after type and screen, serial transfusions if hemoglobin below 7
Daily CBC with differential
Will check, iron studies, B12, folate, haptoglobin
Will check direct Lamar test
Consider starting EPO as outpatient
Will continue to follow along
Patient History
History of Present Illness
78-year-old male past medical history HFpEF, MDS, brain cancer s/p resection presents from [facility] for increased fever, altered mental status and was found to have sepsis secondary to urosepsis and or pneumonia. Patient is followed by Dr. Lofton
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 Diagnosis was confirmed on bone marrow biopsy demonstrating a CD5 positive lambda predominant B-cell population approximately 13% of lymphoid cells. Per
records he had a normal IgG count 01/29/2024 and his kappa lambda ratio at that time was 14. Per family he has been requiring blood transfusions recently which was not typical for him in the past. His first blood transfusion was last Monday. On
admission hemoglobin 8.6, down trended to 6.8 and patient is approved for 2 units packed red blood cell transfusion. Other labs demonstrate pancytopenia with decreased hemoglobin, platelets and white blood cell count.
Past-Medical/Surgical History
Brain cancer status postresection, MDS, HFpEF
Patient Medication
�Medication �Instructions �Recorded �Confirmed �Last Taken �Type
famotidine 20 mg tablet 20 mg PO BID Gastrointestinal Issue 02/29/24 03/26/24 Unknown History
levetiracetam 1,000 mg tablet 3,000 mg PO BID Neurological 02/29/24 03/26/24 Unknown History
(Keppra) Condition
sennosides 8.6 mg tablet (senna) 8.6 mg PO DAILY Constipation 02/29/24 03/26/24 Unknown History
acetaminophen 325 mg tablet 650 mg (2 x 325 mg) PO Q6H #30 tabs 03/11/24 03/26/24 Unknown Rx
gabapentin 100 mg capsule 200 mg (2 x 100 mg) PO TID #30 caps 03/11/24 03/26/24 Unknown Rx
lacosamide 50 mg tablet 50 mg PO BID Seizures #14 tabs 03/11/24 03/26/24 Unknown Rx
tamsulosin 0.4 mg capsule 0.4 mg PO DAILY #30 caps 03/11/24 03/26/24 Unknown Rx
aspirin 81 mg tablet,delayed 81 mg PO DAILY 03/26/24 03/26/24 Unknown History
release
bisacodyl 10 mg rectal suppository 10 mg OR DAILYPRN PRN IF NO BM BY 03/26/24 03/26/24 Unknown History
(Dulcolax (bisacodyl)) 5TH DAY
magnesium hydroxide 400 mg/5 mL 2,400 mg PO DAILYPRN PRN IF NO BM 03/26/24 03/26/24 Unknown History
oral suspension (Milk of Magnesia) 4TH DAY
methocarbamol 750 mg tablet 750 mg PO TIDPRN PRN spasm 03/26/24 03/26/24 Unknown History
oxycodone 5 mg tablet 5 mg PO Q6HPRN PRN severe pain 03/26/24 03/26/24 Unknown History
sodium phosphates 19 gram-7 118 ml OR DAILYPRN PRN IF NO BM BY 03/26/24 03/26/24 Unknown History
gram/118 mL enema (Fleet Enema) 6TH DAY
Active Medications
Generic Name Dose Route Start Last Admin
Trade Name Freq PRN Reason Stop Dose Admin
Acetaminophen 650 mg 03/27/24 00:00
Acetaminophen 325 Mg Tablet PO 04/24/24 00:00
Q6HPRN PRN
mild pain/fever>100.4/Headache
Aspirin 81 mg 03/27/24 08:00
Aspirin 81 Mg (Enteric Coated) Tablet PO 04/24/24 07:59
DAILY MARVIN
Bisacodyl 10 mg 03/26/24 21:50
Bisacodyl 10 Mg Rectal Suppository RECTAL 04/23/24 21:49
[id number] PRN
constipation
Enoxaparin Sodium 40 mg 03/27/24 18:00
Enoxaparin Sodium 40 Mg/0.4 Ml Syringe SC 04/24/24 17:59
QPM MARVIN
Famotidine 20 mg 03/27/24 08:00
Famotidine 20 Mg Tablet PO 04/24/24 07:59
DAILY MARVIN
Gabapentin 200 mg 03/26/24 22:00 03/26/24 22:41
Gabapentin 100 Mg Capsule PO 04/23/24 21:59 200 mg
TID MARVIN Administration
Sodium Chloride 1,000 mls @ 100 mls/hr 03/26/24 17:57 03/27/24 06:13
Nss IV 1,000 mls
.Q10H MARVIN Administration
Levofloxacin/Dextrose 750 mg in 150 mls @ 100 mls/hr 03/27/24 22:00
Levaquin IV
Q24H MARVIN
Lacosamide 50 mg 03/27/24 08:00
Lacosamide (Vimpat) 50 Mg Tablet PO 04/24/24 07:59
BID MARVIN
Levetiracetam 3,000 mg 03/27/24 08:00
Levetiracetam 500 Mg Regular Release Tablet PO 04/24/24 07:59
BID MARVIN
Magnesium Hydroxide 30 ml 03/26/24 21:50
Milk Of Magnesia 30 Ml Cup PO 04/23/24 21:49
DAILYPRN PRN
IF NO BM 4TH DAY
Methocarbamol 750 Mg 0 mg 03/26/24 21:50
Tablet Po Tidprn PO 04/23/24 21:49
Spasm TIDPRN PRN
spasm
Oxycodone HCl 5 mg 03/26/24 21:29 03/27/24 01:54
Oxycodone 5 Mg Regular Release Tablet PO 04/09/24 21:28 5 mg
Q4HPRN PRN Administration
severe pain
Polyethylene Glycol 17 grams 03/26/24 21:50
Polyethylene Glycol Powder 17 Grams Packet PO 04/23/24 21:49
DAILYPRN PRN
constipation
Senna/Docusate Sodium 1 tablet 03/26/24 21:50
Docusate W/Senna (Marissa-Colace) Tablet PO 04/23/24 21:49
BIDPRN PRN
constipation
Sodium Chloride 0 flush 03/26/24 18:00
Sodium Chloride 0.9% (Flush) Syringe IV 04/23/24 17:59
PER PROTOCOL MARVIN
Tamsulosin HCl 0.4 mg 03/27/24 08:00
Tamsulosin 0.4 Mg Capsule PO 04/24/24 07:59
DAILY MARVIN
Tramadol HCl 50 mg 03/27/24 00:00 03/27/24 06:13
Tramadol Hcl 50 Mg Tablet PO 04/24/24 00:00 50 mg
Q6 MARVIN Administration
Review of Systems
-
Unable to obtain full review of systems at this time due to: Other (Patient very fatigued on interview, history obtained from son-in-law)
History Source: Records and Other (Son-in-law)
Constitutional: Reports Fever, Fatigue and Weakness
Respiratory: Reports Cough (Productive cough)
Cardiac: Reports No Symptoms
GI: Reports No Symptoms
: Reports Dysuria and Frequency
Hematologic/Lymphatic: Reports Other (Sotalol denies bleeding, denies any dark-colored stools that he is aware of); Denies Bleeding or Bruising
Physical Exam
-
General: Appears Chronically Ill and Other (Pale)
Cardiology: Normal Sinus Rhythm, S1 and S2
Pulmonary: Other (Unable to auscultate due to poor respiratory effort by patient)
GI: Soft and Other (Nondistended, nontender to palpation)
Musculoskeletal: No Edema
Extremities: Pulses Present
Skin: Dry and Other (Appears pale)
Labs
Lab Results
WBC 4.5 10^3/uL (4.8-10.8) L 03/27/24 07:06
RBC 2.17 10^6/uL (4.70-6.10) L 03/27/24 07:06
Hgb 6.8 g/dL (13.0-18.0) L* D 03/27/24 07:06
Hct 19.8 % (39.0-52.0) L* 03/27/24 07:06
MCV 91.2 fL (80.0-94.0) 03/27/24 07:06
MCH 31.3 pg (27.0-31.0) H 03/27/24 07:06
MCHC 34.3 g/dL (33.0-37.0) 03/27/24 07:06
RDW 17.0 % (11.5-14.5) H 03/27/24 07:06
Plt Count 72 10^3/uL (130-400) L D 03/27/24 07:06
MPV 10.7 fL (7.4-10.4) H 03/27/24 07:06
Creatinine 0.6 mg/dL (0.7-1.3) L 03/27/24 07:06
Vital Signs
Vital Signs
Temp Pulse Resp BP Pulse Ox
98.3 F 86 16 113/64 100
03/27/24 07:50 03/27/24 07:50 03/27/24 07:50 03/27/24 07:50 03/27/24 07:50

Documented by User: [email or web address] MD 03/27/24 12:55
Impression
Impression
Patient known to [facility], followed by Dr. Lofton
On admission labs pancytopenia with hemoglobin 6.8 today, platelets decreasing, WBC downtrending, ORALIA 3400, corrected calcium within normal limits
Unclear if pancytopenia secondary to MDS progression, current infection/sepsis or secondary to Keppra
Keppra is known to cause pancytopenia however, after discussion with neurology, he was stopped previously and unfortunately had a seizure and was treated at [facility] x 1 week with a small subdural hematoma ankle and rib fractures. Subsequently
warranting increased doses of Keppra and lacosamide
Hematology Addendum:
Patient seen and evaluated and agree w/ resident note and plan
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
-now admit w/ infection - UTI/ pneumonia - w/ continued fevers
-cont broad spectrum abx in immunocompromised state - consider ID consult
-multifactorial cytopenias
-cont follow CBC and transfuse prn
will continue to follow with you
[2024-03-27] MEDS: NEURONTIN 200 MG PO (09:07)
[2024-03-27] MEDS: ASPIR LOW (ENTERIC COATED) 81 MG PO (09:08)
[2024-03-27] MEDS: PEPCID 20 MG PO (09:08)
[2024-03-27] MEDS: FLOMAX 0.4 MG PO (09:08)
[2024-03-27] MEDS: TYLENOL 650 MG PO ×2 (10:36→20:17)
[2024-03-27] MEDS: VIMPAT 50 MG PO ×2 (10:37→20:18)
[2024-03-27 11:27] LABS: Iron 62 ug/dl (49-181)
--- NOTE | 2024-03-27 11:35 | CM ---
Pt seen bedside w/ son.
IA completed
Pt lives w/ spouse in a 4STH- no steps.
Prior to recent admission patient was independent w/ ambulating, without assistive devices.
Patient has grab bars in the bathroom and a shower chair
Pt d/c here from [facility].
Had [facility] in the past.
PCP: Dr. Eulalio Le
Pharmacy: [facility] [place]
Discussed d/c plans with son, plan is for probable return to skilled rehab, Family interested in [facility], [facility] and [facility].
Mother visiting [facility] today.
CM will continue to follow for d/c plan, await PT/OT recommendations.
Plan: probable [facility], referrals sent.
[2024-03-27 11:36] LABS: Percent Saturation 36 % (20-50); Total Iron Binding Capacity 169 ug/dl (261-462)
[2024-03-27 13:23] LABS: Troponin I 0.014 ng/ml
[2024-03-27 13:50] LABS: Folate 6.7 ng/ml (2.76-20); Vitamin B12 798 pg/ml (239-931)
[2024-03-27] MEDS: NSS IV (14:03)
--- NOTE | 2024-03-27 14:24 | PTCARENOTE ---
@ 1030 temp 101.1 rectally. 650mg PO Tylenol given. Temp continued to rise to 103.5 despite cooling blanket. MD aware. At bedside to assess pt. Pt very drowsy, difficult to arouse. HR 130's. RR 20's 94% on 4L. Ordered to upgrade to IMU for closer
monitoring. 1g IV Ofirmev ordered and given. Temp eventually began to break. @ 1300 temp was 101 rectally, at which time blood was available for transfusion. Now PRBCs transfusing w/o incident. HR 86 bpm. BP wnl. Temp 99.8. Family at bedside.
Updated plan of care.
--- NOTE | 2024-03-27 15:35 | PTCARENOTE ---
Addendum entered by Libia Brooks RN 03/27/24 15:37:
Cannot verify accuracy of vital signs prior to 15:05.
Original Note:
Received patient on transfer from via bed with PRBC infusing. Afebrile on arrival: 97.4R. Ox3, quiet/flat affect. Family at bedside. See worklist for full assessment and vital signs.
--- NOTE | 2024-03-27 17:26 | PTCARENOTE ---
Patient remains afebrile; 2nd unit PRBC infusing.
[2024-03-27] MEDS: KEPPRA 1500 MG PO (20:18)
--- NOTE | 2024-03-27 20:30 | PTCARENOTE ---
Pt assessed at 20:10. At this time temp on monitor reading 100.4. Pt Drowsy, arousable to verbal stimuli, ONEIDA. Pt following commands. Can tell this RN name, . Blood TF concluded at 20:14. pt presenting with chills as well. Rectal probe reading
100.4. HR 119, BP 153/98(116), RR 23 2L 02, Satting 97%. SHANT Still made aware of assessment findings. at 20:17 temp reading 101.2. Pt given the order Po tylenol per order for temperature. see MAR. Cooling blanket turned on per order.
[2024-03-27] MEDS: LEVAQUIN 150 IV (22:07)
[2024-03-27 22:58] LABS: Hematocrit 26.2 % (39.0-52.0)
[2024-03-28] VITALS (12 sets, daily range): BP systolic 94–143; BP diastolic 58–98; BMI 23.7
[2024-03-28] MEDS: ROXICODONE 5 MG PO ×2 (00:26→07:44)
[2024-03-28] MEDS: NSS 1000 IV ×4 (00:52→22:16)
[2024-03-28] MEDS: TYLENOL 650 MG PO ×2 (02:38→15:31)
[2024-03-28 05:51] LABS: Hematocrit 25.7 % (39.0-52.0); Hemoglobin 8.7 g/dL (13.0-18.0); Mean Corp Hgb Conc. 33.9 g/dL (33.0-37.0); Mean Corpuscular Hgb 31.2 pg (27.0-31.0); Mean Corpuscular Volume 92.1 fL (80.0-94.0); Mean Platelet Volume 11.2 fL (7.4-10.4); Platelet Count 62 10^3/uL (130-400); Red Blood Cell Count 2.79 10^6/uL (4.70-6.10); Red Cell Dist. Width 15.8 % (11.5-14.5); White Blood Cell Count 4.8 10^3/uL (4.8-10.8)
[2024-03-28 05:57] LABS: Blood Urea Nitrogen 22 mg/dl (9-20); Calcium 8.3 mg/dl (8.4-10.2); Carbon Dioxide 26 mmol/L (22-30); Chloride 102 mmol/L (98-107); Estimated Creatinine Clearance 111 ml/min; Glucose 110 mg/dl (70-99); Potassium 4.1 mmol/L (3.5-5.1); Sodium 133 mmol/L (135-145); eGFR > 60.00
[2024-03-28] MEDS: OFIRMEV 100 IV (08:00)
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
--- NOTE | 2024-03-28 08:25 | PTCARENOTE ---
Assumed care of patient at beginning of this shift from previous RN with cooling blanket on and T 100.4R and patient shivering. Cooling blanket was set on manual; changed to automatic with goal T100.4. Not due for po tylenol until 08:38. Family
requesting ID consult. TT sent to Dr Boateng and Dr Collado; ID consult and ofirmiv ordered (x1 and infusing). CXR ordered and done. Dr Collado up to see patient.
--- NOTE | 2024-03-28 08:29 | PTCARENOTE ---
Stat CT chest and US ble ordered.
[2024-03-28 08:46] LABS: % Basophils 1.9 % (0-2); % Immature Granulocytes 5.8 % (0-0.5); % Lymphocytes 13.5 % (20.5-51.1); % Monocytes 7.5 % (1.7-9.3); % Neutrophils 71.3 % (42.2-75.2); Absolute Basophils 0.1 10^3/uL (0-0.2); Absolute Immature Granulocytes 0.3 10^3/uL (0-0.05); Absolute Lymphocytes 0.7 10^3/uL (1.2-3.4); Absolute Monocytes 0.4 10^3/uL (0.1-0.6); Absolute Neutrophils 3.5 10^3/uL (1.4-6.5); Nucleated Red Blood Cells % 0 % (-)
[2024-03-28] MEDS: FLOMAX 0.4 MG PO (09:31)
[2024-03-28] MEDS: ASPIR LOW (ENTERIC COATED) 81 MG PO (09:31)
[2024-03-28] MEDS: PEPCID 20 MG PO (09:31)
[2024-03-28] MEDS: KEPPRA 1500 MG PO ×2 (09:31→20:22)
[2024-03-28] MEDS: VIMPAT 50 MG PO ×2 (09:31→20:22)
--- NOTE | 2024-03-28 09:40 | W.PN.ONC ---
Today's Communication / Plan
-
IV antibiotics and supportive measures per primary team
Continue antiepileptic medications
serial transfusions if hemoglobin less than 7
Will order LDH and reticulocyte count, low suspicion for hemolysis as cause for anemia
If infection continues to not improve on IV antibiotics, consider checking IgG level
Impression
Impression
Patient known to [facility], followed by Dr. Lofton
On admission labs pancytopenia with hemoglobin 6.8 today, platelets decreasing, WBC downtrending, ORALIA 3400, corrected calcium within normal limits
Unclear if pancytopenia secondary to MDS progression, current infection/sepsis or secondary to Keppra
Keppra is known to cause pancytopenia however, after discussion with neurology, he was stopped previously and unfortunately had a seizure and was treated at [facility] x 1 week with a small subdural hematoma ankle and rib fractures. Subsequently
warranting increased doses of Keppra and lacosamide
Hemoglobin seems stable after transfusion
Will work up to exclude any lytic process
will continue to follow with you
Plan
Plan
Continue IV antibiotics and supportive measures per primary team
Continue antiepileptic medications
Transfuse 2 unit packed red blood cell after type and screen, serial transfusions if hemoglobin below 7
Daily CBC with differential
iron studies, B12, folate demonstrate patient is not deficient in iron B12 or folate
direct Lamar test negative
haptoglobin pending
Will order LDH and reticulocyte count
If infection continues to not improve on IV antibiotics, consider checking IgG level
Will continue to follow along
Subjective/Objective
Subjective/Objective
Vital Signs:
Vital Signs
Temp Pulse Resp BP Pulse Ox
101 F H 114 25 140/98 94
03/28/24 07:58 03/28/24 08:00 03/28/24 08:00 03/28/24 08:00 03/28/24 08:00
Lab Results:
Laboratory Data
WBC 4.8 10^3/uL (4.8-10.8) 03/28/24 05:07
Hgb 8.7 g/dL (13.0-18.0) L 03/28/24 05:07
Plt Count 62 10^3/uL (130-400) L 03/28/24 05:07
eGFR > 60.00 03/28/24 05:07
Orders
Orders
Orders From Last 24 Hours
03/27/24 12:42
Haptoglobin [S] Routine
03/28/24 05:07
Complete Blood Count/With Diff IN AM
--- NOTE | 2024-03-28 11:17 | CON.ID ---
Consultation
-
Date/Time Consultation Requested: 03/28/2024 0751
Date/Time Consultation Performed: 03/28/2024 1112
Requesting Provider: Dr. Sevilla
Performing Provider: Dr. Hopper
Reason for Consultation: Fever; complicated urinary tract infection
Chief Complaint / Past History
History of Present Illness
Suraj Dong is a 78-year-old man being evaluated at the request of Dr. Sevilla regarding fever and complicated UTI. History is obtained from chart review, along with patient interview.
The patient presented from [facility] on 03/26 secondary to change in mental status and fever. Patient recently was admitted to [facility] from 02/28 through 03/11, during which time he was treated for pneumonia. According to the daughter,
despite rehab therapy at [facility], he has not returned to his baseline and remains weak. On the day of admission, he was found to be 103.1 �F, with a depressed pulse ox.
At admission, the patient was not found to have a leukocytosis, but bilirubin was noted to be elevated and urinalysis revealed positive nitrates. The patient was started on empiric antibiotics (levofloxacin). The patient has continued to have
fevers, although the overall trend appears downward. Infectious Diseases is asked to comment upon further antimicrobial therapy.
Past History
Additional Past Medical History:
Epilepsy
Brain cancer
Overactive bladder
Hx prostate CA
BPH
Myelodysplastic syndrome
Compression fracture L4-5
Additional Past Surgical History:
Brain surgery
Allergy History:
No Known Allergies Allergy (Verified 03/22/24 17:11)
Medications Reviewed: Yes
Current Antibiotics:
Levofloxacin 750 mg IV every 24 hours
Social History
Tobacco: Non-Smoker
Alcohol: None
Drug: None
Personal:
Living: With Family
Employment: Not Employed
Family History
Family History: Not Pertinent
Review of Systems
Vital Signs
Temp Pulse Resp BP Pulse Ox
98.8 F 89 16 130/73 99
03/28/24 10:00 03/28/24 10:00 03/28/24 10:00 03/28/24 10:00 03/28/24 10:41
Physical Exam
Physical Exam
Constitutional: No Acute Distress, Comfortable, Chronically Ill and Non-toxic
Eyes: No Conjunctival Hemorrhage and Sclera Anicteric
Pharynx: Benign
Oral: No Thrush and No Ulcers
Cardiovascular: S1/S2; Negative S3/S4
Pulmonary: Coarse and Non Labored; Negative Wheezes or Rales
Gastrointestinal: Soft, Non Tender and Non Distended
Genito-Urinary: Porter and Clear Urine; Negative Hematuria
Extremities: Edema (Trace); Negative Cyanosis or Erythema
Skin: Warm and Dry; Negative Rash or Jaundice
Neurological: Awake, Alert and Other (Hard of hearing)
Psychological: Calm
.
Lab / Diagnostic Study Results
03/28/24 05:07
03/28/24 05:07
Abs Immat Gran (auto) 0.3 10^3/uL (0-0.05) H 03/28/24 05:07
Absolute Neuts (auto) 3.5 10^3/uL (1.4-6.5) 03/28/24 05:07
Absolute Lymphs (auto) 0.7 10^3/uL (1.2-3.4) L 03/28/24 05:07
Absolute Monos (auto) 0.4 10^3/uL (0.1-0.6) 03/28/24 05:07
Absolute Basos (auto) 0.1 10^3/uL (0-0.2) 03/28/24 05:07
Immature Gran % 5.8 % (0-0.5) H 03/28/24 05:07
Neutrophils % 71.3 % (42.2-75.2) 03/28/24 05:07
Lymphocytes % 13.5 % (20.5-51.1) L 03/28/24 05:07
Monocytes % 7.5 % (1.7-9.3) 03/28/24 05:07
Eosinophils % 0.0 % (0-6) 03/28/24 05:07
Basophils % 1.9 % (0-2) 03/28/24 05:07
Lactic Acid Cancelled 03/28/24 06:00
Ur Squamous Epith Cells 0-2 /LPF (Few) 03/26/24 12:08
Microbiology Results
Micro:
03/26/24 12:08 Urine Culture - Final
Urine Enterobacter cloacae
03/26/24 22:17 MRSA Screen - Final
Nose No Methicillin Resistant Staphylococcus aureus isolated.
03/26/24 12:08 Blood Culture - Preliminary
Blood/Venous No Growth in 24 hours- Final report to follow
03/26/24 11:55 Blood Culture - Preliminary
Blood/Venous No Growth in 24 hours- Final report to follow
03/26/24 11:55 Influenza Types A & B (ELIZ) - Final
Nasal Swab Negative for Influenza A & B, NAAT
Negative results must be combined with clinical observations
and patient history.
Nucleic Acid Amplification test (NAAT)performed on the
[employer] platform.
Imaging:
03/28/2024 CT chest (PE study): No evidence for central pulmonary was not. Parenchymal opacity scattered throughout both lungs, greatest confluence within the lower lobes which likely represents pneumonia. No evidence for significant pleural
effusion. Please see full dictation for additional detail. Film personally viewed.
03/26/2024 CXR (portable): There is moderate parenchymal air space disease in the retrocardiac left lower lobe and mild interstitial airspace disease in the anterior segment of the right upper lobe and basilar portion of the right lower lobe
consistent with multifocal pneumonia which is improved but unresolved when compared with the prior study dated 03/10/2024.
Assessment / Plan
Fevers
- DDx includes infection, MDS, drug fever, other.
Hx recent PNA
- S/p course of doxy + ceftriaxone->zosyn (02/2024)
- currently on levaquin d#2
Bacteriuria (without significant pyuria)
Chronic Porter
Myelodysplastic syndrome
Epilepsy
Hx BPH
Recommendations:
At present, not clear whether Enterobacter recovered from urine is etiology of ongoing fevers. Patient had minimal pyuria, and the presence of Enterobacter may be secondary to colonization of his Porter catheter
Given underlying epilepsy, would like to discontinue fluoroquinolones, which can lower the seizure threshold.
Will transition to doxycycline.
Follow temperature curve which currently appears to be improving.
Follow white count.
Further workup should fevers persist.
--- NOTE | 2024-03-28 13:22 | PN.CDI ---
CDI
- -
CDI:
Physician Documentation Request
Admit Date: 03/26/24 16:42
Dear Doctor,
Please review the following and provide your response in the progress notes.
Clinical Indicators:
- Patient admit for sepsis due to UTI
- 03/26 ER Physician 'does have a chronic Porter catheter'
- 03/27 PN 'Chronic Urinary Retention...cont Porter for now'
- UC positive for Enterbacter cloacae
Please clarify the relationship between these conditions:
Yes, _UTI__ is related to/associated with/due to _indwelling Porter catheter__.
No, _UTI__ is not related to/associated with/due to _indwelling Porter catheter__ but it is due to . (Please specify)
Unable to determine
Use of terms such as suspected, likely, concern for, or probable (associated with a specific diagnosis that is being evaluated, monitored, or treated as if it exists) are acceptable and can be coded in the inpatient setting, when documented at the
time of discharge.
Thank you,
Gustavo Craven RN
CDI Specialist
Please use your independent medical judgment in providing your response.
--- NOTE | 2024-03-28 13:26 | PN.CDI ---
CDI
- -
CDI:
Physician Documentation Request
Admit Date: 03/26/24 16:42
Dear Doctor,
Please review the following and provide your response in the progress notes.
Clinical Indicators:
- Patient admit for sepsis due to UTI
- 03/28 PN 'Repeat CXR today Bilateral parenchymal opacities, most likely pneumonia, slightly increasing'
- per H&P 'change to levaquin to cover lungs and urine'
- IV abx changed to Doxycycline
Please clarify the diagnosis with the above findings
Sepsis multifactorial due to UTI and pneumonia
Sepsis due to UTI only
Other (please specify)
Use of terms such as suspected, likely, concern for, or probable (associated with a specific diagnosis that is being evaluated, monitored, or treated as if it exists) are acceptable and can be coded in the inpatient setting, when documented at the
time of discharge.
Thank you,
Gustavo Craven RN
CDI Specialist
Please use your independent medical judgment in providing your response.
[2024-03-28 14:05] LABS: NT-proBNP 585 pg/ml
[2024-03-28] MEDS: MOTRIN 600 MG PO (17:01)
[2024-03-28] MEDS: PROTONIX 40 MG PO (17:01)
[2024-03-28 18:22] LABS: COVID-19 Antigen Negative (Negative)
[2024-03-28] MEDS: VIBRAMYCIN 100 MG PO (20:26)
[2024-03-28] MEDS: SENOKOT-S 1 TABLET PO (20:36)
--- NOTE | 2024-03-28 21:19 | PTCARENOTE ---
Assumed care of Pt from tank RN. Pt AAOx3, Alert and chatting with this RN. Temperature currently controlled at 98.8 F. Rectal probe in use. Cooling blanket off. NSR on monitor HR 70-80. Pt took HS pills whole in apple sauce. Porter care
complete, Porter remains draining tea colored urine. Assessment as documented. Call light in reach.
[2024-03-29] VITALS (10 sets, daily range): BP systolic 111–155; BP diastolic 58–86; BMI 23.8
[2024-03-29] MEDS: ROXICODONE 5 MG PO ×2 (02:08→07:52)
--- NOTE | 2024-03-29 02:20 | PTCARENOTE ---
Addendum entered by Tim Vázquez RN 03/29/24 03:09:
pain reassessed. pt states pain is now no longer present.
Original Note:
Pt c/o right sided under breast chest pain. Pt denies sharp pain, states it is aching and radiating to the back. Lungs remain with crackles at the bases upon auscultation. RR 26, satting 99%, 2L. EKG shows NSR. Pt given ordered PRN oxycodone PO 5mg
for pain, See MAR.
[2024-03-29] MEDS: MOTRIN 400 MG PO ×2 (05:16→17:09)
[2024-03-29 05:32] LABS: % Basophils 0.9 % (0-2); % Immature Granulocytes 1.6 % (0-0.5); % Lymphocytes 16.4 % (20.5-51.1); % Monocytes 4.2 % (1.7-9.3); % Neutrophils 76.9 % (42.2-75.2); Absolute Immature Granulocytes 0.1 10^3/uL (0-0.05); Absolute Lymphocytes 0.7 10^3/uL (1.2-3.4); Absolute Monocytes 0.2 10^3/uL (0.1-0.6); Absolute Neutrophils 3.3 10^3/uL (1.4-6.5); Hematocrit 24.3 % (39.0-52.0); Mean Corp Hgb Conc. 32.9 g/dL (33.0-37.0); Mean Platelet Volume 10.7 fL (7.4-10.4); Nucleated Red Blood Cells % 0 % (-); Platelet Count 59 10^3/uL (130-400); Red Blood Cell Count 2.67 10^6/uL (4.70-6.10); Red Cell Dist. Width 15.7 % (11.5-14.5); Reticulocyte Count 0.8 % (0.4-2.8); White Blood Cell Count 4.3 10^3/uL (4.8-10.8)
[2024-03-29 05:49] LABS: Blood Urea Nitrogen 22 mg/dl (9-20); Calcium 8.2 mg/dl (8.4-10.2); Carbon Dioxide 23 mmol/L (22-30); Chloride 103 mmol/L (98-107); Estimated Creatinine Clearance 111 ml/min; Glucose 98 mg/dl (70-99); LDH 163 U/L (120-246); Sodium 133 mmol/L (135-145); eGFR > 60.00
[2024-03-29 05:56] LABS: Potassium 3.6 mmol/L (3.5-5.1)
[2024-03-29] MEDS: VIMPAT 50 MG PO ×2 (08:23→20:13)
[2024-03-29] MEDS: KCL 40 MEQ PO (08:23)
[2024-03-29] MEDS: FLOMAX 0.4 MG PO (08:23)
[2024-03-29] MEDS: PROTONIX 40 MG PO (08:23)
[2024-03-29] MEDS: VIBRAMYCIN 100 MG PO ×2 (08:23→20:13)
[2024-03-29] MEDS: KEPPRA 1500 MG PO ×2 (08:23→20:14)
[2024-03-29] MEDS: PEPCID 20 MG PO (08:23)
[2024-03-29] MEDS: ASPIR LOW (ENTERIC COATED) 81 MG PO (08:23)
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
[2024-03-29] MEDS: NSS 1000 IV (08:42)
--- NOTE | 2024-03-29 09:12 | W.PN.ONC ---
Documented by User: Daniel Her DO, Resident 03/29/24 12:39
Today's Communication / Plan
-
IV antibiotics and supportive measures per primary team/ID
Continue antiepileptic medications
Daily CBC with differential
Hemoglobin trending downward, serial transfusions if hemoglobin below 7
Ordered check Hemoccult stool
MAXIMO negative, LDH, within normal limits. Do not believe anemia is secondary to active hemolysis
Corrected reticulocyte count 0.43%, RPI 0.2- demonstrates inadequate bone marrow response to current level of anemia. Anemia likely secondary to MDS and inadequate bone marrow production of red cells
Anemia could also be secondary to active infection and inflammatory response causing bone marrow suppression, recommend close monitoring of CBC with Dr. Lofton as outpatient once active infection is resolved
Impression
Impression
Patient known to [facility], followed by Dr. Lofton
On admission labs pancytopenia with decreased hemoglobin, platelets decreasing, WBC downtrending, ORALIA 3400, corrected calcium within normal limits
Unclear if pancytopenia secondary to MDS progression, current infection/sepsis or secondary to Keppra
Keppra is known to cause pancytopenia however, after discussion with neurology, he was stopped previously and unfortunately had a seizure and was treated at [place] x 1 week with a small subdural hematoma ankle and rib fractures. Subsequently
warranting increased doses of Keppra and lacosamide
Hemoglobin was stable after transfusion, now trending downwards
Lab-based workup for hemolysis negative
Plan
Plan
Continue IV antibiotics and supportive measures per primary team
Continue antiepileptic medications
Status post 2 units packed red blood cell transfusion. Serial transfusions if hemoglobin below 7
Daily CBC with differential
iron studies, B12, folate demonstrate patient is not deficient in iron B12 or folate
direct Lamar test negative. haptoglobin pending. LDH within normal limits
Do not believe patient is actively hemolyzing
Reticulocyte count 0.8. Corrected reticulocyte count 0.43% reticulocyte production index 0.2, less than 2 indicates inadequate response to current level of anemia. Likely secondary to MDS and/or active infection causing bone marrow suppression
Will check Hemoccult stool
Will likely require follow-up with Dr. Lofton as outpatient once acute illness has resolved
Will continue to follow along
Subjective/Objective
Subjective/Objective
Vital Signs:
Vital Signs
Temp Pulse Resp BP Pulse Ox
98.8 F 67 20 141/67 95
03/29/24 08:35 03/29/24 08:00 03/29/24 08:00 03/29/24 08:00 03/29/24 08:46
Lab Results:
Laboratory Data
WBC 4.3 10^3/uL (4.8-10.8) L 03/29/24 05:14
Hgb 8.0 g/dL (13.0-18.0) L 03/29/24 05:14
Plt Count 59 10^3/uL (130-400) L 03/29/24 05:14
eGFR > 60.00 03/29/24 05:14
Orders
Orders
Orders From Last 24 Hours
03/29/24 05:14
LDH IN AM
Reticulocyte Count IN AM

Documented by User: Aftab Jorgensen MD 03/29/24 15:39
Plan
Plan
Continue IV antibiotics and supportive measures per primary team
Continue antiepileptic medications
Status post 2 units packed red blood cell transfusion. Serial transfusions if hemoglobin below 7
Daily CBC with differential
iron studies, B12, folate demonstrate patient is not deficient in iron B12 or folate
direct Lamar test negative. haptoglobin pending. LDH within normal limits
Do not believe patient is actively hemolyzing
Reticulocyte count 0.8. Corrected reticulocyte count 0.43% reticulocyte production index 0.2, less than 2 indicates inadequate response to current level of anemia. Likely secondary to MDS and/or active infection causing bone marrow suppression
Will check Hemoccult stool
Will likely require follow-up with Dr. Lofton as outpatient once acute illness has resolved
Will continue to follow along
Hematology Addendum:
Patient seen and evaluated and agree w/ resident note and plan as outlined
-MDS - followed by Dr. Lofton as outpt
-progressive anemia - hemoglobin holding at 8g/dl
-follow CBC
-check stools
-transfuse prn
[2024-03-29 11:05] LABS: Urine Albumin 1+ (Neg - Trace); Urine Bilirubin 1+ (Negative); Urine Character Slightly Cloudy (Clear); Urine Color Brown; Urine Glucose Negative (Negative); Urine Ketone Trace (Negative); Urine Leukocyte 1+ (Negative); Urine Nitrite Positive (Negative); Urine Occult Blood 3+ (Negative); Urine Urobilinogen 3+ (Neg - 1+)
[2024-03-29 11:25] LABS: Urine Bacteria Moderate (Negative); Urine Red Blood Cell 16-20 /HPF (0-2)
[2024-03-29 13:46] LABS: Haptoglobin 380 mg/dL (30-200)
--- NOTE | 2024-03-29 13:49 | W.PN.ID1 ---
Date of Service
Date of Service: March 29, 2024
Today's Communication
Continue doxycycline for today.
Assessment / Plan
Fevers
- DDx includes infection, MDS, drug fever, other.
Hx recent PNA
- S/p course of doxy + ceftriaxone->zosyn (02/2024)
- currently on levaquin d#2
Bacteriuria (without significant pyuria)
Chronic Porter
Myelodysplastic syndrome
Epilepsy
Hx BPH
Recommendations:
At present, not clear whether Enterobacter recovered from urine is etiology of ongoing fevers. Patient had minimal pyuria, and the presence of Enterobacter may be secondary to colonization of his Porter catheter
Overall temperature curve markedly improved.
Continue with doxycycline for today.
Follow white count.
Further workup should fevers persist.
����������������������������������������������������������
Chief Complaint
-: Fever
Subjective / Review of Systems
Patient seen and examined. No significant changes overnight. Temperatures noted to be improved.
Vital Signs / Physical Exam
Vital Signs
Vital Signs
Temp Pulse Resp BP Pulse Ox
99.0 F 65 16 113/58 98
03/29/24 13:22 03/29/24 12:00 03/29/24 12:00 03/29/24 12:00 03/29/24 12:00
Physical Exam
Constitutional: Comfortable, Chronically Ill and Non-toxic
Eyes: Sclera Anicteric
Cardiovascular: S1/S2; Negative S3/S4
Pulmonary: Coarse; Negative Rhonchi or Non Labored
Gastrointestinal: Soft, Non Tender and Non Distended
Neurological: Awake
Psychological: Calm
Objective Data
Lab Data
Lab Results
03/29/24 05:14
03/29/24 05:14
Estimated Creat Clear 111 ml/min 03/29/24 05:14
Lactic Acid Cancelled 03/28/24 06:00
Total Bilirubin 1.1 mg/dl (0.2-1.3) 03/27/24 07:06
AST 29 U/L (17-59) 03/27/24 07:06
ALT 13 U/L (0-50) 03/27/24 07:06
Alkaline Phosphatase 119 U/L (38-126) 03/27/24 07:06
Most recent labs reviewed.
Micro Results:
03/28/24 13:12 Blood Culture - Preliminary
Blood/Venous No Growth in 24 hours- Final report to follow
03/26/24 12:08 Blood Culture - Preliminary
Blood/Venous No Growth in 72 hours- Final report to follow
03/26/24 11:55 Blood Culture - Preliminary
Blood/Venous No Growth in 72 hours- Final report to follow
03/28/24 22:21 Legionella Urinary Antigen - Final
Urine Negative for Legionella pneumophila Serogroup 1 antigen.
A negative result does not rule out the possiblity of
Legionella infection due to other serogroups or species of
Legionella. Clinical correlation is recommended.
Streptococcus pneumoniae Antigen (M - Final
Negative for Streptococcus pneumoniae antigen.
A negative result does not exclude infection with
Streptococcus pneumoniae. Clinical correlation is
recommended.
03/28/24 17:56 Influenza Types A & B (ELIZ) - Final
Nasal Swab Negative for Influenza A & B, NAAT
Negative results must be combined with clinical observations
and patient history.
Nucleic Acid Amplification test (NAAT)performed on the
[employer] platform.
03/26/24 12:08 Urine Culture - Final
Urine Enterobacter cloacae
03/26/24 22:17 MRSA Screen - Final
Nose No Methicillin Resistant Staphylococcus aureus isolated.
03/26/24 11:55 Influenza Types A & B (ELIZ) - Final
Nasal Swab Negative for Influenza A & B, NAAT
Negative results must be combined with clinical observations
and patient history.
Nucleic Acid Amplification test (NAAT)performed on the
[employer] platform.
Imaging:
03/28/2024 CT chest (PE study): No evidence for central pulmonary was not. Parenchymal opacity scattered throughout both lungs, greatest confluence within the lower lobes which likely represents pneumonia. No evidence for significant pleural
effusion. Please see full dictation for additional detail. Film personally viewed.
03/26/2024 CXR (portable): There is moderate parenchymal air space disease in the retrocardiac left lower lobe and mild interstitial airspace disease in the anterior segment of the right upper lobe and basilar portion of the right lower lobe
consistent with multifocal pneumonia which is improved but unresolved when compared with the prior study dated 03/10/2024.
[2024-03-29 14:00] LABS: Keppra (Levetiracetam) 103 ug/mL (10-40)
--- NOTE | 2024-03-29 15:34 | PTCARENOTE ---
Patient AOx3. Patient is [place] and forgetful at times. Patient on RA. VSS. T max of 99.4. Rectal probe in place. Patient complaining of R sided rib pain. Pain medication provided per MAY. Porter draining cristino colored urine. Call childers within reach, bed
in lowest position, bed of wheels locked.
[2024-03-29] MEDS: MIRALAX 17 GRAMS PO (16:00)
--- NOTE | 2024-03-29 16:22 | PTCARENOTE ---
1530: Verbal report given to Iona BOSTON in 1 acute. Patient transferred with patient belongings via bed.
[2024-03-29] MEDS: ULTRAM 50 MG PO ×2 (18:02→23:58)
[2024-03-30] MEDS: ULTRAM 50 MG PO ×3 (06:30→16:47)
[2024-03-30] MEDS: MOTRIN 400 MG PO (06:30)
[2024-03-30 07:37] VITALS: BP 171/102
[2024-03-30] MEDS: VIBRAMYCIN 100 MG PO ×2 (08:28→19:56)
[2024-03-30] MEDS: FLOMAX 0.4 MG PO (08:28)
[2024-03-30] MEDS: KEPPRA 1500 MG PO ×2 (08:28→19:56)
[2024-03-30] MEDS: ASPIR LOW (ENTERIC COATED) 81 MG PO (08:28)
[2024-03-30] MEDS: VIMPAT 50 MG PO ×2 (08:28→19:57)
[2024-03-30] MEDS: PEPCID 20 MG PO (08:28)
[2024-03-30] MEDS: PROTONIX 40 MG PO (08:28)
[2024-03-30 09:20] VITALS: BP 145/78; BP 153/81; BP 154/71; PULSE 74; PULSE 90; PULSE 91; O2SAT 95
[2024-03-30 09:52] VITALS: BP 145/78; BP 153/81; BP 154/71; PULSE 74; O2SAT 95
[2024-03-30 10:16] LABS: Mean Corp Hgb Conc. 33.3 g/dL (33.0-37.0); Mean Corpuscular Hgb 30.4 pg (27.0-31.0); Mean Corpuscular Volume 91.3 fL (80.0-94.0); Mean Platelet Volume 10.5 fL (7.4-10.4); Platelet Count 60 10^3/uL (130-400); Red Blood Cell Count 2.63 10^6/uL (4.70-6.10); Red Cell Dist. Width 15.8 % (11.5-14.5); White Blood Cell Count 1.9 10^3/uL (4.8-10.8)
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
[2024-03-30 10:28] LABS: Blood Urea Nitrogen 20 mg/dl (9-20); Calcium 8.7 mg/dl (8.4-10.2); Carbon Dioxide 23 mmol/L (22-30); Chloride 103 mmol/L (98-107); Estimated Creatinine Clearance 111 ml/min; Glucose 102 mg/dl (70-99); Potassium 3.7 mmol/L (3.5-5.1); Sodium 134 mmol/L (135-145); eGFR > 60.00
[2024-03-30 10:45] LABS: % Immature Granulocytes 1.1 % (0-0.5); % Lymphocytes 27.1 % (20.5-51.1); % Monocytes 4.8 % (1.7-9.3); Absolute Lymphocytes 0.5 10^3/uL (1.2-3.4); Absolute Monocytes 0.1 10^3/uL (0.1-0.6); Absolute Neutrophils 1.3 10^3/uL (1.4-6.5); Nucleated Red Blood Cells % 0 % (-)
[2024-03-30 15:49] VITALS: BP 142/72
--- NOTE | 2024-03-30 16:31 | W.PN.ID1 ---
Date of Service
Date of Service: March 30, 2024
Today's Communication
Continue Doxy for today.
Assessment / Plan
Fevers
- DDx includes infection, MDS, drug fever, other.
Hx recent PNA
- S/p course of doxy + ceftriaxone->zosyn (02/2024)
Bacteriuria (without significant pyuria)
Chronic Porter
Myelodysplastic syndrome
Epilepsy
Hx BPH
Recommendations:
At present, not clear whether Enterobacter recovered from urine is etiology of ongoing fevers.
Patient had minimal pyuria, and the presence of Enterobacter may be secondary to colonization of his Porter catheter
Ongoing fevers noted.
Continue with doxycycline for today.
Follow white count.
Further workup should fevers persist. Following for the development of potential neutropenia.
����������������������������������������������������������
Chief Complaint
-: Fever
Subjective / Review of Systems
Patient seen and examined. Fevers again noted this a.m., but currently afebrile
Review of Systems: No Cough
Vital Signs / Physical Exam
Vital Signs
Vital Signs
Temp Pulse Resp BP Pulse Ox
99.2 F 69 12 142/72 96
03/30/24 15:49 03/30/24 15:49 03/30/24 15:49 03/30/24 15:49 03/30/24 15:49
Physical Exam
Constitutional: Comfortable, Chronically Ill and Non-toxic
Cardiovascular: S3/S4
Pulmonary: Non Labored
Gastrointestinal: Non Distended
Extremities: Negative Cyanosis or Erythema
Skin: Negative Rash or Jaundice
Psychological: Calm
Objective Data
Lab Data
Lab Results
03/30/24 09:00
03/30/24 09:00
Estimated Creat Clear 111 ml/min 03/30/24 09:00
Lactic Acid Cancelled 03/28/24 06:00
Total Bilirubin 1.1 mg/dl (0.2-1.3) 03/27/24 07:06
AST 29 U/L (17-59) 03/27/24 07:06
ALT 13 U/L (0-50) 03/27/24 07:06
Alkaline Phosphatase 119 U/L (38-126) 03/27/24 07:06
Most recent labs reviewed.
Micro Results:
03/28/24 13:12 Blood Culture - Preliminary
Blood/Venous No Growth in 48 hours- Final report to follow
03/26/24 12:08 Blood Culture - Preliminary
Blood/Venous No Growth in 4 days- Final report to follow
03/26/24 11:55 Blood Culture - Preliminary
Blood/Venous No Growth in 4 days- Final report to follow
03/28/24 22:21 Legionella Urinary Antigen - Final
Urine Negative for Legionella pneumophila Serogroup 1 antigen.
A negative result does not rule out the possiblity of
Legionella infection due to other serogroups or species of
Legionella. Clinical correlation is recommended.
Streptococcus pneumoniae Antigen (M - Final
Negative for Streptococcus pneumoniae antigen.
A negative result does not exclude infection with
Streptococcus pneumoniae. Clinical correlation is
recommended.
03/28/24 17:56 Influenza Types A & B (ELIZ) - Final
Nasal Swab Negative for Influenza A & B, NAAT
Negative results must be combined with clinical observations
and patient history.
Nucleic Acid Amplification test (NAAT)performed on the
[employer] platform.
03/26/24 12:08 Urine Culture - Final
Urine Enterobacter cloacae
03/26/24 22:17 MRSA Screen - Final
Nose No Methicillin Resistant Staphylococcus aureus isolated.
03/26/24 11:55 Influenza Types A & B (ELIZ) - Final
Nasal Swab Negative for Influenza A & B, NAAT
Negative results must be combined with clinical observations
and patient history.
Nucleic Acid Amplification test (NAAT)performed on the
[employer] platform.
Imaging:
03/28/2024 CT chest (PE study): No evidence for central pulmonary was not. Parenchymal opacity scattered throughout both lungs, greatest confluence within the lower lobes which likely represents pneumonia. No evidence for significant pleural
effusion. Please see full dictation for additional detail. Film personally viewed.
03/26/2024 CXR (portable): There is moderate parenchymal air space disease in the retrocardiac left lower lobe and mild interstitial airspace disease in the anterior segment of the right upper lobe and basilar portion of the right lower lobe
consistent with multifocal pneumonia which is improved but unresolved when compared with the prior study dated 03/10/2024.
[2024-03-30] MEDS: TYLENOL 650 MG PO ×2 (16:47→19:57)
[2024-03-30 23:52] VITALS: BP 164/82
[2024-03-31] MEDS: ULTRAM 50 MG PO ×3 (00:40→16:49)
[2024-03-31] MEDS: TYLENOL 650 MG PO ×5 (00:41→20:52)
--- NOTE | 2024-03-31 01:50 | PTCARENOTE ---
afebrile so far this shift- more alert tonight than last night expresses desire be able work with pt
[2024-03-31 05:22] VITALS: BMI 23.4
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
[2024-03-31 07:30] LABS: Hematocrit 22.9 % (39.0-52.0); Hemoglobin 7.8 g/dL (13.0-18.0); Mean Corp Hgb Conc. 34.1 g/dL (33.0-37.0); Mean Corpuscular Hgb 30.6 pg (27.0-31.0); Mean Corpuscular Volume 89.8 fL (80.0-94.0); Mean Platelet Volume 9.5 fL (7.4-10.4); Platelet Count 49 10^3/uL (130-400); Red Blood Cell Count 2.55 10^6/uL (4.70-6.10); Red Cell Dist. Width 15.6 % (11.5-14.5); White Blood Cell Count 1.5 10^3/uL (4.8-10.8)
[2024-03-31 07:58] VITALS: BP 159/76
[2024-03-31 07:59] LABS: Blood Urea Nitrogen 17 mg/dl (9-20); Calcium 8.6 mg/dl (8.4-10.2); Carbon Dioxide 24 mmol/L (22-30); Chloride 103 mmol/L (98-107); Estimated Creatinine Clearance 111 ml/min; Glucose 100 mg/dl (70-99); Magnesium 1.7 mg/dl (1.6-2.3); Phosphorus 3.5 mg/dl (2.5-4.5); Potassium 3.6 mmol/L (3.5-5.1); Sodium 133 mmol/L (135-145); eGFR > 60.00
--- NOTE | 2024-03-31 09:28 | W.PN.ID1 ---
Date of Service
Date of Service: March 31, 2024
Today's Communication
Continue doxycycline for today.
Assessment / Plan
Fevers
- DDx includes infection, MDS, drug fever, other.
Hx recent PNA
- S/p course of doxy + ceftriaxone -> zosyn (02/2024)
Bacteriuria (without significant pyuria)
Chronic Porter
Myelodysplastic syndrome
Epilepsy
Hx BPH
Recommendations:
At present, not clear whether Enterobacter recovered from urine is etiology of ongoing fevers.
Patient had minimal pyuria, and the presence of Enterobacter may be secondary to colonization of his Porter catheter
Ongoing fevers noted although appear improved over past 24 hours.
Continue with doxycycline for today.
Follow white count.
Further workup should fevers persist. Following for the development of potential neutropenia. Add differential to today's CBC to track ANC.
����������������������������������������������������������
Chief Complaint
-: Fever
Subjective / Review of Systems
Seen and examined. Fevers improved.
Vital Signs / Physical Exam
Vital Signs
Vital Signs
Temp Pulse Resp BP Pulse Ox
97.5 F 69 12 159/76 95
03/31/24 07:58 03/31/24 07:58 03/31/24 07:58 03/31/24 07:58 03/31/24 07:58
Physical Exam
Constitutional: Comfortable, Chronically Ill and Non-toxic
Cardiovascular: S1/S2; Negative S3/S4
Pulmonary: Non Labored
Gastrointestinal: Non Distended
Extremities: Negative Cyanosis or Erythema
Skin: Negative Rash or Jaundice
Psychological: Calm
Objective Data
Lab Data
Lab Results
03/31/24 07:07
03/31/24 07:07
Estimated Creat Clear 111 ml/min 03/31/24 07:07
Lactic Acid Cancelled 03/28/24 06:00
Total Bilirubin 1.1 mg/dl (0.2-1.3) 03/27/24 07:06
AST 29 U/L (17-59) 03/27/24 07:06
ALT 13 U/L (0-50) 03/27/24 07:06
Alkaline Phosphatase 119 U/L (38-126) 03/27/24 07:06
Most recent labs reviewed.
Micro Results:
03/28/24 13:12 Blood Culture - Preliminary
Blood/Venous No Growth in 48 hours- Final report to follow
03/26/24 12:08 Blood Culture - Preliminary
Blood/Venous No Growth in 4 days- Final report to follow
03/26/24 11:55 Blood Culture - Preliminary
Blood/Venous No Growth in 4 days- Final report to follow
03/28/24 22:21 Legionella Urinary Antigen - Final
Urine Negative for Legionella pneumophila Serogroup 1 antigen.
A negative result does not rule out the possiblity of
Legionella infection due to other serogroups or species of
Legionella. Clinical correlation is recommended.
Streptococcus pneumoniae Antigen (M - Final
Negative for Streptococcus pneumoniae antigen.
A negative result does not exclude infection with
Streptococcus pneumoniae. Clinical correlation is
recommended.
03/28/24 17:56 Influenza Types A & B (ELIZ) - Final
Nasal Swab Negative for Influenza A & B, NAAT
Negative results must be combined with clinical observations
and patient history.
Nucleic Acid Amplification test (NAAT)performed on the
[employer] platform.
03/26/24 12:08 Urine Culture - Final
Urine Enterobacter cloacae
03/26/24 22:17 MRSA Screen - Final
Nose No Methicillin Resistant Staphylococcus aureus isolated.
03/26/24 11:55 Influenza Types A & B (ELIZ) - Final
Nasal Swab Negative for Influenza A & B, NAAT
Negative results must be combined with clinical observations
and patient history.
Nucleic Acid Amplification test (NAAT)performed on the
[employer] platform.
Imaging:
03/28/2024 CT chest (PE study): No evidence for central pulmonary was not. Parenchymal opacity scattered throughout both lungs, greatest confluence within the lower lobes which likely represents pneumonia. No evidence for significant pleural
effusion. Please see full dictation for additional detail. Film personally viewed.
03/26/2024 CXR (portable): There is moderate parenchymal air space disease in the retrocardiac left lower lobe and mild interstitial airspace disease in the anterior segment of the right upper lobe and basilar portion of the right lower lobe
consistent with multifocal pneumonia which is improved but unresolved when compared with the prior study dated 03/10/2024.
[2024-03-31] MEDS: ASPIR LOW (ENTERIC COATED) 81 MG PO (11:35)
[2024-03-31] MEDS: PEPCID 20 MG PO (11:35)
[2024-03-31] MEDS: VIBRAMYCIN 100 MG PO ×2 (11:35→20:51)
[2024-03-31] MEDS: FLOMAX 0.4 MG PO (11:35)
[2024-03-31] MEDS: VIMPAT 50 MG PO ×2 (11:35→20:51)
[2024-03-31] MEDS: KEPPRA 1500 MG PO ×2 (11:35→20:52)
[2024-03-31] MEDS: PROTONIX 40 MG PO (11:37)
[2024-03-31] MEDS: TYLENOL PO (12:40)
[2024-03-31] MEDS: ULTRAM PO (12:41)
--- NOTE | 2024-03-31 12:41 | PTCARENOTE ---
RN had a difficult time administering meds to patient. Patient would not stay awake and falling back to sleep with water in his mouth. Daughter at bedside and assisted in keeping patient awake. RN put med in mouth and had to hols cup of water for
patient. Patient was too weak and drowsy to hold cup. Tramadol dose held due to lethargy.
[2024-03-31] MEDS: LIDOCAINE 4% PATCH 2 PATCH TOPICAL (14:39)
[2024-03-31] MEDS: MOTRIN 400 MG PO (14:39)
[2024-03-31] MEDS: MILK OF MAGNESIA 30 ML PO (15:07)
[2024-03-31] MEDS: MIRALAX 17 GRAMS PO (15:07)
--- NOTE | 2024-03-31 15:20 | PTCARENOTE ---
Family states, 'My dad has not had a bowel movement in a week. Can he have a suppository?' Miralx and Milk of Magnesia given, Suppository not given due to patient being neutropenic.
[2024-03-31 15:34] VITALS: BP 160/84
[2024-03-31 15:38] LABS: Band Neutrophils 0 % (0-3); Segmented Neutrophils 52 % (42-75)
[2024-03-31 15:39] LABS: Atypical Lymphocytes 10 %; Lymphocytes 28 % (20-51); Microcytosis 1+; Monocytes 10 % (2-9); Normal RBC Morphology No; Ovalocytes 1+; Platelets Checked Yes
[2024-03-31 15:40] LABS: Burr Cells Occasional; Total Cells Counted 100
[2024-03-31 15:42] LABS: Absolute Neutrophils -Man Diff 0.7 10^3/uL (1.4-6.5)
[2024-03-31 23:09] VITALS: BP 142/66
[2024-04-01] MEDS: TYLENOL PO (01:16)
[2024-04-01] MEDS: ULTRAM PO (01:17)
[2024-04-01] MEDS: TYLENOL 650 MG PO ×5 (04:49→21:11)
[2024-04-01] MEDS: ULTRAM 50 MG PO ×3 (04:49→17:00)
[2024-04-01 05:27] VITALS: BMI 23.4
[2024-04-01 07:30] VITALS: BP 160/72
[2024-04-01] MEDS: MIRALAX 17 GRAMS PO (07:58)
[2024-04-01] MEDS: MILK OF MAGNESIA 30 ML PO (07:58)
[2024-04-01] MEDS: LIDOCAINE 4% PATCH 2 PATCH TOPICAL (07:58)
[2024-04-01] MEDS: SENOKOT-S 1 TABLET PO (07:58)
[2024-04-01] MEDS: ASPIR LOW (ENTERIC COATED) 81 MG PO (07:59)
[2024-04-01] MEDS: VIMPAT 50 MG PO ×2 (07:59→21:11)
[2024-04-01] MEDS: PEPCID 20 MG PO (07:59)
[2024-04-01] MEDS: FLOMAX 0.4 MG PO (07:59)
[2024-04-01] MEDS: KEPPRA 1500 MG PO ×2 (07:59→21:10)
[2024-04-01] MEDS: PROTONIX 40 MG PO (07:59)
[2024-04-01 09:20] LABS: NT-proBNP 697 pg/ml
[2024-04-01 09:41] LABS: Blood Urea Nitrogen 21 mg/dl (9-20); Calcium 9.1 mg/dl (8.4-10.2); Carbon Dioxide 25 mmol/L (22-30); Chloride 102 mmol/L (98-107); Estimated Creatinine Clearance 111 ml/min; Glucose 96 mg/dl (70-99); Magnesium 1.9 mg/dl (1.6-2.3); Phosphorus 3.6 mg/dl (2.5-4.5); Potassium 4.3 mmol/L (3.5-5.1); Sodium 134 mmol/L (135-145); eGFR > 60.00
--- NOTE | 2024-04-01 09:51 | W.PN.ONC ---
Today's Communication / Plan
-
Recommend neutropenic precautions
Likely require antibiotic change covering Pseudomonas. Will defer ABX to ID and primary team
decrease in WBC is likely secondary to doxy/antibiotics
Continue antiepileptic medications
Recommend daily CBC with Diff to monitor counts
PRBC transfusion if hemoglobin below 7
reorder heme occult stool as unsure if checked previously
Will check EPO levels, if EPO returns less than 500 can consider starting red blood cell stimulating medication inpatient for MDS associated anemia
Impression
Impression
Patient known to [facility], followed by Dr. Lofton
On admission labs pancytopenia with decreased hemoglobin, platelets decreasing, WBC downtrending, ORALIA 3400, corrected calcium within normal limits
Unclear if pancytopenia secondary to MDS progression, current infection/sepsis or secondary to Keppra
Keppra is known to cause pancytopenia however, after discussion with neurology, he was stopped previously and unfortunately had a seizure and was treated at [facility] x 1 week with a small subdural hematoma ankle and rib fractures. Subsequently
warranting increased doses of Keppra and lacosamide
Hemoglobin was stable after transfusion, now trending downwards
Lab-based workup for hemolysis negative
Cell counts downtrending, hemoglobin downtrending, white count downtrending, platelets downtrending
Patient has ANC of 0.6.
Plan
Plan
Continue IV antibiotics and supportive measures per primary team
Continue antiepileptic medications
Status post 2 units packed red blood cell transfusion. Serial transfusions if hemoglobin below 7
Daily CBC with differential
iron studies, B12, folate demonstrate patient is not deficient in iron B12 or folate
direct Laamr test negative. haptoglobin pending. LDH within normal limits
Do not believe patient is actively hemolyzing
Reticulocyte count 0.8. Corrected reticulocyte count 0.43% reticulocyte production index 0.2, less than 2 indicates inadequate response to current level of anemia. Likely secondary to MDS and/or active infection causing bone marrow suppression
Will check Hemoccult stool
We will check EPO levels
Recommend neutropenic precautions as patient has ANC of 0.6
Will likely require follow-up with Dr. Lofton as outpatient once acute illness has resolved. Has a scheduled follow-up this Monday, will likely need to reschedule
Will continue to follow along
Subjective/Objective
Subjective/Objective
Patient reports fatigue after PT OT, performance status and mentation improvement from last week
Vital Signs:
Vital Signs
Temp Pulse Resp BP Pulse Ox
98.1 F 66 16 160/72 96
04/01/24 07:30 04/01/24 07:30 04/01/24 07:30 04/01/24 07:30 04/01/24 07:30
Lab Results:
Laboratory Data
WBC Cancelled 04/01/24 08:35
Hgb Cancelled 04/01/24 08:35
Plt Count Cancelled 04/01/24 08:35
eGFR > 60.00 04/01/24 08:35
Orders
Orders
Orders From Last 24 Hours
04/01/24 09:44
Add On- LAB Routine
[2024-04-01 10:44] LABS: % Lymphocytes 49.3 % (20.5-51.1); % Monocytes 9.7 % (1.7-9.3); Absolute Lymphocytes 0.7 10^3/uL (1.2-3.4); Absolute Monocytes 0.1 10^3/uL (0.1-0.6); Absolute Neutrophils 0.6 10^3/uL (1.4-6.5); Hematocrit 24.8 % (39.0-52.0); Hemoglobin 8.5 g/dL (13.0-18.0); Mean Corp Hgb Conc. 34.3 g/dL (33.0-37.0); Mean Corpuscular Hgb 31.1 pg (27.0-31.0); Mean Corpuscular Volume 90.8 fL (80.0-94.0); Mean Platelet Volume 9.9 fL (7.4-10.4); Nucleated Red Blood Cells % 0 % (-); Platelet Count 51 10^3/uL (130-400); Red Blood Cell Count 2.73 10^6/uL (4.70-6.10); Red Cell Dist. Width 15.4 % (11.5-14.5); White Blood Cell Count 1.3 10^3/uL (4.8-10.8)
[2024-04-01 10:53] VITALS: BP 139/77; BP 143/77
[2024-04-01] MEDS: VIBRAMYCIN PO (11:40)
--- NOTE | 2024-04-01 11:44 | CM ---
Patient seen bedside.
Discussed d/c plan with patient.
PT/OT recommending skilled rehab, patient in agreement.
Patient accepted at [facility] and [facility] interested pending bed availability day of d/c.
Plan: skilled rehab once medically stable.
--- NOTE | 2024-04-01 13:47 | W.PN.ID1 ---
Date of Service
Date of Service: April 01, 2024
Today's Communication
Discontinue Doxy and observe off antibiotics.
Assessment / Plan
Fevers
- Improved. DDx includes infection, MDS, drug fever, other.
Hx recent PNA
- S/p course of doxy + ceftriaxone -> zosyn (02/2024)
Bacteriuria (without significant pyuria)
Chronic Porter
Myelodysplastic syndrome
Epilepsy
Hx BPH
Recommendations:
Patient currently day #7 antibiotics. Fevers appear resolved, although suspect secondary to MDS or other noninfectious etiology.
Discontinue further Doxy.
ANC noted to be approximately 600 today.
Follow for the development of any new fevers which may prompt need for treatment.
Follow white count.
����������������������������������������������������������
Chief Complaint
-: Fever
Subjective / Review of Systems
Review of Systems: No Fever and No Chills
Vital Signs / Physical Exam
Vital Signs
Vital Signs
Temp Pulse Resp BP Pulse Ox
98.1 F 66 16 160/72 96
04/01/24 07:30 04/01/24 07:30 04/01/24 07:30 04/01/24 07:30 04/01/24 10:46
Physical Exam
Constitutional: Comfortable and Chronically Ill
Cardiovascular: S1/S2; Negative S3/S4
Pulmonary: Non Labored
Gastrointestinal: Soft and Non Tender
Genito-Urinary: Porter and Clear Urine
Neurological: Awake
Psychological: Calm
Objective Data
Lab Data
Lab Results
04/01/24 09:26
04/01/24 08:35
Estimated Creat Clear 111 ml/min 04/01/24 08:35
Lactic Acid Cancelled 03/28/24 06:00
Total Bilirubin 1.1 mg/dl (0.2-1.3) 03/27/24 07:06
AST 29 U/L (17-59) 03/27/24 07:06
ALT 13 U/L (0-50) 03/27/24 07:06
Alkaline Phosphatase 119 U/L (38-126) 03/27/24 07:06
Most recent labs reviewed.
Micro Results:
03/28/24 13:12 Blood Culture - Preliminary
Blood/Venous No Growth in 4 days- Final report to follow
03/26/24 12:08 Blood Culture - Final
Blood/Venous No Growth - Final Report
03/26/24 11:55 Blood Culture - Final
Blood/Venous No Growth - Final Report
03/28/24 22:21 Legionella Urinary Antigen - Final
Urine Negative for Legionella pneumophila Serogroup 1 antigen.
A negative result does not rule out the possiblity of
Legionella infection due to other serogroups or species of
Legionella. Clinical correlation is recommended.
Streptococcus pneumoniae Antigen (M - Final
Negative for Streptococcus pneumoniae antigen.
A negative result does not exclude infection with
Streptococcus pneumoniae. Clinical correlation is
recommended.
03/28/24 17:56 Influenza Types A & B (ELIZ) - Final
Nasal Swab Negative for Influenza A & B, NAAT
Negative results must be combined with clinical observations
and patient history.
Nucleic Acid Amplification test (NAAT)performed on the
[employer] NOW platform.
03/26/24 12:08 Urine Culture - Final
Urine Enterobacter cloacae
03/26/24 22:17 MRSA Screen - Final
Nose No Methicillin Resistant Staphylococcus aureus isolated.
03/26/24 11:55 Influenza Types A & B (ELIZ) - Final
Nasal Swab Negative for Influenza A & B, NAAT
Negative results must be combined with clinical observations
and patient history.
Nucleic Acid Amplification test (NAAT)performed on the
[employer] NOW platform.
Imaging:
03/28/2024 CT chest (PE study): No evidence for central pulmonary was not. Parenchymal opacity scattered throughout both lungs, greatest confluence within the lower lobes which likely represents pneumonia. No evidence for significant pleural
effusion. Please see full dictation for additional detail. Film personally viewed.
03/26/2024 CXR (portable): There is moderate parenchymal air space disease in the retrocardiac left lower lobe and mild interstitial airspace disease in the anterior segment of the right upper lobe and basilar portion of the right lower lobe
consistent with multifocal pneumonia which is improved but unresolved when compared with the prior study dated 03/10/2024.
[2024-04-01 15:54] VITALS: BP 161/85
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
[2024-04-01 19:59] LABS: Hematocrit 24.7 % (39.0-52.0); Hemoglobin 8.1 g/dL (13.0-18.0); Mean Corp Hgb Conc. 32.8 g/dL (33.0-37.0); Mean Corpuscular Hgb 29.7 pg (27.0-31.0); Mean Corpuscular Volume 90.5 fL (80.0-94.0); Mean Platelet Volume 9.8 fL (7.4-10.4); Platelet Count 56 10^3/uL (130-400); Red Blood Cell Count 2.73 10^6/uL (4.70-6.10); Red Cell Dist. Width 15.3 % (11.5-14.5); White Blood Cell Count 1.9 10^3/uL (4.8-10.8)
[2024-04-01] MEDS: ANTIFUNGAL CLEAR 1 APPLIC TOPICAL (21:11)
[2024-04-01 23:00] VITALS: BP 162/80
[2024-04-02] MEDS: TYLENOL PO ×2 (00:46→17:00)
[2024-04-02] MEDS: ULTRAM PO (00:46)
[2024-04-02] MEDS: ULTRAM 50 MG PO (04:31)
[2024-04-02] MEDS: TYLENOL 650 MG PO ×4 (04:31→20:08)
--- NOTE | 2024-04-02 05:26 | PTCARENOTE ---
Pt awake, states 'I don't feel good. My head hurts and I feel like I have a fever.' Pt changed and repositioned in bed. Incontinent of large amount of loose stool. Cooling blanket rectal probe reading temp of 99. Pt coughing more. Ayala Scammahorn
LEAD PRESS OPERATOR notified, flu and covid swabs ordered.
[2024-04-02 06:00] VITALS: BMI 23.4
[2024-04-02 07:26] LABS: COVID-19 Antigen Negative (Negative)
[2024-04-02 07:45] VITALS: BP 160/80
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
[2024-04-02 07:51] LABS: ALT (SGPT) 11 U/L (0-50); AST (SGOT) 21 U/L (17-59); Albumin 2.3 g/dl (3.5-5.0); Alkaline Phosphatase 127 U/L (38-126); Blood Urea Nitrogen 16 mg/dl (9-20); Calcium 8.6 mg/dl (8.4-10.2); Carbon Dioxide 30 mmol/L (22-30); Chloride 101 mmol/L (98-107); Estimated Creatinine Clearance 111 ml/min; Glucose 97 mg/dl (70-99); Magnesium 1.9 mg/dl (1.6-2.3); Phosphorus 3.3 mg/dl (2.5-4.5); Potassium 4.1 mmol/L (3.5-5.1); Sodium 135 mmol/L (135-145); Total Bilirubin 0.4 mg/dl (0.2-1.3); Total Protein 4.7 g/dl (6.3-8.2); eGFR > 60.00
[2024-04-02 07:53] LABS: Hematocrit 22.2 % (39.0-52.0); Hemoglobin 7.7 g/dL (13.0-18.0); Mean Corp Hgb Conc. 34.7 g/dL (33.0-37.0); Mean Corpuscular Hgb 31.2 pg (27.0-31.0); Mean Corpuscular Volume 89.9 fL (80.0-94.0); Mean Platelet Volume 10.4 fL (7.4-10.4); Platelet Count 75 10^3/uL (130-400); Red Blood Cell Count 2.47 10^6/uL (4.70-6.10); Red Cell Dist. Width 14.9 % (11.5-14.5); White Blood Cell Count 1.8 10^3/uL (4.8-10.8)
[2024-04-02 08:23] LABS: % Eosinophils 0.5 % (0-6); % Immature Granulocytes 0.5 % (0-0.5); % Lymphocytes 40.4 % (20.5-51.1); % Monocytes 10.4 % (1.7-9.3); % Neutrophils 48.2 % (42.2-75.2); Absolute Lymphocytes 0.7 10^3/uL (1.2-3.4); Absolute Monocytes 0.2 10^3/uL (0.1-0.6); Absolute Neutrophils 0.9 10^3/uL (1.4-6.5); Nucleated Red Blood Cells % 0 % (-)
[2024-04-02] MEDS: FLOMAX 0.4 MG PO (08:35)
[2024-04-02] MEDS: PEPCID 20 MG PO (08:35)
[2024-04-02] MEDS: VIMPAT 50 MG PO ×2 (08:35→20:08)
[2024-04-02] MEDS: ASPIR LOW (ENTERIC COATED) 81 MG PO (08:35)
[2024-04-02] MEDS: PROTONIX 40 MG PO (08:35)
[2024-04-02] MEDS: KEPPRA 1500 MG PO ×2 (08:35→20:06)
[2024-04-02] MEDS: ANTIFUNGAL CLEAR 1 APPLIC TOPICAL ×2 (08:36→22:12)
[2024-04-02] MEDS: LIDOCAINE 4% PATCH 2 PATCH TOPICAL (08:36)
--- NOTE | 2024-04-02 09:32 | W.PN.ONC ---
Today's Communication / Plan
-
Suspect marrow suppression from antibiotics and infection, on top of MDS
Completed abx as of 04/01
Heme negative 04/01 (per daughter, who is an RN). No substrate deficiency, no hemolysis.
Transfuse prbcs if hgb < 7
EPO level pending, to consider [facility] as outpatient
ANC trending up, continue neutropenic precautions
Anticipate d/c to rehab, rec. weekly CBC w/ diff while there
f/u with Dr. Lofton in a few weeks
Impression
Impression
MDS, with acute on chronic cytopenias
Sepsis, UTI & PNA, finished abx 04/01/24
HFpEF
TME
Patient known to [facility], followed by Dr. Lofton
On admission labs pancytopenia with decreased hemoglobin, platelets decreasing, WBC downtrending, ORALIA 3400, corrected calcium within normal limits
Unclear if pancytopenia secondary to MDS progression, current infection/sepsis or secondary to Keppra
Keppra is known to cause pancytopenia however, after discussion with neurology, he was stopped previously and unfortunately had a seizure and was treated at [facility] x 1 week with a small subdural hematoma ankle and rib fractures. Subsequently
warranting increased doses of Keppra and lacosamide
Hemoglobin was stable after transfusion, now trending downwards
Lab-based workup for hemolysis negative
Cell counts downtrending, hemoglobin downtrending, white count downtrending, platelets downtrending
Patient has ANC of 0.6.
Plan
Plan
Suspect marrow suppression from antibiotics and infection, on top of MDS
Completed abx as of 04/01
Heme negative 04/01 (per daughter, who is an RN). No substrate deficiency, no hemolysis.
Transfuse prbcs if hgb < 7
EPO level pending, to consider [facility] as outpatient
ANC trending up, continue neutropenic precautions
Anticipate d/c to rehab, rec. weekly CBC w/ diff while there
f/u with Dr. Lofton in a few weeks
Subjective/Objective
Subjective/Objective
some trouble swallowing pills, poor appetite
no bleeding
daughter at bedside
Vital Signs:
Vital Signs
Temp Pulse Resp BP Pulse Ox
98.8 F 67 16 160/80 97
04/02/24 07:45 04/02/24 07:45 04/02/24 07:45 04/02/24 07:45 04/02/24 07:45
Lab Results:
Laboratory Data
WBC 1.8 10^3/uL (4.8-10.8) L* 04/02/24 07:13
Hgb 7.7 g/dL (13.0-18.0) L 04/02/24 07:13
Plt Count 75 10^3/uL (130-400) L D 04/02/24 07:13
eGFR > 60.00 04/02/24 07:13
--- NOTE | 2024-04-02 10:44 | CM ---
Plan: skilled rehab once medically stable and bed available, [facility]
[2024-04-02 12:22] VITALS: BMI 23.4
[2024-04-02 12:45] VITALS: BP 148/77
--- NOTE | 2024-04-02 13:20 | W.PN.ID1 ---
Date of Service
Date of Service: April 02, 2024
Today's Communication
Observe off antibiotics.
Assessment / Plan
Fevers
- Improved/resolved
Hx recent PNA
- prior course of doxy + ceftriaxone -> zosyn (02/2024)
Bacteriuria (without significant pyuria)
Chronic Porter
Myelodysplastic syndrome
Epilepsy
Hx BPH
Recommendations:
S/p course of doxycycline.
Observe off antibiotics
Follow for the development of any new fevers which may prompt need for treatment.
Follow white count / ANC.
����������������������������������������������������������
Chief Complaint
-: Fever
Subjective / Review of Systems
Patient seen and examined. No specific complaints. No fevers. Reported cough overnight by nursing, but none at present.
Vital Signs / Physical Exam
Vital Signs
Vital Signs
Temp Pulse Resp BP Pulse Ox
98.8 F 73 16 148/77 97
04/02/24 07:45 04/02/24 12:45 04/02/24 07:45 04/02/24 12:45 04/02/24 07:45
Physical Exam
Constitutional: No Acute Distress, Comfortable, Chronically Ill and Non-toxic
Eyes: Sclera Anicteric
Pulmonary: Non Labored
Gastrointestinal: Non Distended
Neurological: Awake and Alert
Psychological: Calm
Objective Data
Lab Data
Lab Results
04/02/24 07:13
04/02/24 07:13
Estimated Creat Clear 111 ml/min 04/02/24 07:13
Lactic Acid Cancelled 03/28/24 06:00
Total Bilirubin 0.4 mg/dl (0.2-1.3) 04/02/24 07:13
AST 21 U/L (17-59) 04/02/24 07:13
ALT 11 U/L (0-50) 04/02/24 07:13
Alkaline Phosphatase 127 U/L (38-126) H 04/02/24 07:13
Most recent labs reviewed.
Micro Results:
03/28/24 13:12 Blood Culture - Final
Blood/Venous No Growth - Final Report
04/02/24 06:37 Influenza Types A & B (ELIZ) - Final
Nasal Swab Negative for Influenza A & B, NAAT
Negative results must be combined with clinical observations
and patient history.
Nucleic Acid Amplification test (NAAT)performed on the
[employer] NOW platform.
03/26/24 12:08 Blood Culture - Final
Blood/Venous No Growth - Final Report
03/26/24 11:55 Blood Culture - Final
Blood/Venous No Growth - Final Report
03/28/24 22:21 Legionella Urinary Antigen - Final
Urine Negative for Legionella pneumophila Serogroup 1 antigen.
A negative result does not rule out the possiblity of
Legionella infection due to other serogroups or species of
Legionella. Clinical correlation is recommended.
Streptococcus pneumoniae Antigen (M - Final
Negative for Streptococcus pneumoniae antigen.
A negative result does not exclude infection with
Streptococcus pneumoniae. Clinical correlation is
recommended.
03/28/24 17:56 Influenza Types A & B (ELIZ) - Final
Nasal Swab Negative for Influenza A & B, NAAT
Negative results must be combined with clinical observations
and patient history.
Nucleic Acid Amplification test (NAAT)performed on the
[employer] NOW platform.
03/26/24 12:08 Urine Culture - Final
Urine Enterobacter cloacae
03/26/24 22:17 MRSA Screen - Final
Nose No Methicillin Resistant Staphylococcus aureus isolated.
03/26/24 11:55 Influenza Types A & B (ELIZ) - Final
Nasal Swab Negative for Influenza A & B, NAAT
Negative results must be combined with clinical observations
and patient history.
Nucleic Acid Amplification test (NAAT)performed on the
[employer] platform.
Imaging:
03/28/2024 CT chest (PE study): No evidence for central pulmonary was not. Parenchymal opacity scattered throughout both lungs, greatest confluence within the lower lobes which likely represents pneumonia. No evidence for significant pleural
effusion. Please see full dictation for additional detail. Film personally viewed.
03/26/2024 CXR (portable): There is moderate parenchymal air space disease in the retrocardiac left lower lobe and mild interstitial airspace disease in the anterior segment of the right upper lobe and basilar portion of the right lower lobe
consistent with multifocal pneumonia which is improved but unresolved when compared with the prior study dated 03/10/2024.
--- NOTE | 2024-04-02 15:27 | PN.CDI ---
CDI
- -
CDI:
Physician Documentation Request
Admit Date: 03/26/24 16:42
Dear Doctor,
Please review the following and provide your response in the progress notes.
Clinical Indicators:
- 04/02 PN indicates pancytopenia secondary to myelodysplastic syndrome
- 04/02 Oncology 'Unclear if pancytopenia secondary to MDS progression, current infection/sepsis or secondary to Keppra'
- 03/27-04/02 Keppra given
In an attempt to clarify potentially conflicting documentation, please clarify the etiology of the pancytopenia:
Pancytopenia multifactorial due to MDS, sepsis, and Keppra
Pancytopenia due to MDS
Pancytopenia due to Keppra
Pancytopenia due to sepsis
Other (please specify)
Use of terms such as suspected, likely, concern for, or probable (associated with a specific diagnosis that is being evaluated, monitored, or treated as if it exists) are acceptable and can be coded in the inpatient setting, when documented at the
time of discharge.
Thank you,
Gustavo Craven RN
CDI Specialist
Please use your independent medical judgment in providing your response.
[2024-04-02] MEDS: NEURONTIN PO (17:17)
--- NOTE | 2024-04-02 17:29 | TRANSFER ---
pt being transferred to 2121 in hospital bed. spouse present. verbal report provided to Cynthia BOSTON via phone.
--- NOTE | 2024-04-02 18:17 | PTCARENOTE ---
Received patient from formerly [facility] into 2121. Patient AAOX3, flat and withdrawn, VSS, incontinent of large loose brown BM on transfer. Patient assist x2 to turn and reposition in bed, SCDs and gustafson in place, rectal probe removed from patient, patient
afebrile at this time. Patient oriented to room and call childers, spouse ordered dinner for patient.
[2024-04-02 18:23] VITALS: BP 167/89
[2024-04-02] MEDS: NEURONTIN 200 MG PO (21:34)
[2024-04-02 23:46] VITALS: BP 159/88
[2024-04-03] MEDS: TYLENOL PO ×2 (00:04→00:45)
--- NOTE | 2024-04-03 02:06 | DOWNTIME ---
There was a [employer] Downtime on 04/03/2024 from 0100 to 04/03/2023 at 0205 . Downtime documentation of patient's care, including medication administrations, has been reconciled in the electronic record per guidelines. Refer to the
patient's paper chart under the miscellaneous tab to see printed paper medication records and downtime forms.
[2024-04-03] MEDS: TYLENOL 650 MG PO ×2 (03:48→08:26)
[2024-04-03 06:00] VITALS: BMI 23.9
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
[2024-04-03 07:48] VITALS: BP 159/85
[2024-04-03] MEDS: PEPCID 20 MG PO (08:21)
[2024-04-03] MEDS: PROTONIX 40 MG PO (08:22)
[2024-04-03] MEDS: KEPPRA 1500 MG PO (08:22)
[2024-04-03] MEDS: VIMPAT 50 MG PO (08:23)
[2024-04-03] MEDS: ASPIR LOW (ENTERIC COATED) 81 MG PO (08:24)
[2024-04-03] MEDS: NEURONTIN 200 MG PO (08:25)
[2024-04-03] MEDS: NORVASC 2.5 MG PO (08:29)
[2024-04-03] MEDS: FLOMAX 0.4 MG PO (08:29)
[2024-04-03] MEDS: LIDOCAINE 4% PATCH 2 PATCH TOPICAL (08:32)
[2024-04-03] MEDS: ANTIFUNGAL CLEAR 1 APPLIC TOPICAL (08:34)
[2024-04-03 08:47] LABS: % Basophils 0.4 % (0-2); % Eosinophils 0.4 % (0-6); % Immature Granulocytes 0.8 % (0-0.5); % Lymphocytes 39.1 % (20.5-51.1); % Monocytes 8.5 % (1.7-9.3); % Neutrophils 50.8 % (42.2-75.2); Absolute Monocytes 0.2 10^3/uL (0.1-0.6); Absolute Neutrophils 1.3 10^3/uL (1.4-6.5); Hematocrit 22.9 % (39.0-52.0); Hemoglobin 8.1 g/dL (13.0-18.0); Mean Corp Hgb Conc. 35.4 g/dL (33.0-37.0); Mean Corpuscular Hgb 31.6 pg (27.0-31.0); Mean Corpuscular Volume 89.5 fL (80.0-94.0); Mean Platelet Volume 12.2 fL (7.4-10.4); Nucleated Red Blood Cells % 0 % (-); Platelet Count 43 10^3/uL (130-400); Red Blood Cell Count 2.56 10^6/uL (4.70-6.10); Red Cell Dist. Width 14.8 % (11.5-14.5); White Blood Cell Count 2.6 10^3/uL (4.8-10.8)
[2024-04-03 08:51] LABS: Blood Urea Nitrogen 14 mg/dl (9-20); Carbon Dioxide 29 mmol/L (22-30); Chloride 99 mmol/L (98-107); Estimated Creatinine Clearance 111 ml/min; Glucose 92 mg/dl (70-99); Magnesium 1.8 mg/dl (1.6-2.3); Phosphorus 3.4 mg/dl (2.5-4.5); Sodium 133 mmol/L (135-145); eGFR > 60.00
--- NOTE | 2024-04-03 09:03 | CM ---
recived call from Abel at [facility]
Bed available today - tt from hospitalist stable for d/c today
daughter notified-IMM explained
[facility]
Report #: [phone]
fax#: [phone]
transportation forms on chart
[2024-04-03 11:53] VITALS: BP 148/73
[2024-04-03 12:07] LABS: Erythropoietin (EPO) 141 mU/mL (4-27)
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
== END 2024-04-03 13:04 | DRG 871 ==
LOC: 2 NORTH 16:42
PROVIDERS: Internal Medicine; Nurse Practitioner Family; Student in an Organized Health Care Education/Training Program; ADMITTING PHYSICIAN Family Medicine; CONSULT PHYSICIAN Internal Medicine Hematology & Oncology; EMERGENCY PHYSICIAN Emergency Medicine; FAMILY PHYSICIAN Family Medicine; OTHER PHYSICIAN Internal Medicine Infectious Disease
PROC: 30233N1 Transfusion of Nonautologous Red Blood Cells into Peripheral Vein, Percutaneous Approach (ICD-10-PCS; 2024-03-27)
DX: A41.9 Sepsis, unspecified organism (principal); G92.8 Other toxic encephalopathy; J18.9 Pneumonia, unspecified organism; J96.01 Acute respiratory failure with hypoxia; T83.518A Infection and inflammatory reaction due to other urinary catheter, initial encounter; N39.0 Urinary tract infection, site not specified; I50.32 Chronic diastolic (congestive) heart failure; C91.10 Chronic lymphocytic leukemia of B-cell type not having achieved remission; D61.818 Other pancytopenia; E87.1 Hypo-osmolality and hyponatremia; J98.11 Atelectasis; D84.9 Immunodeficiency, unspecified; Y84.6 Urinary catheterization as the cause of abnormal reaction of the patient, or of later complication, without mention of misadventure at the time of the procedure; I11.0 Hypertensive heart disease with heart failure; K21.9 Gastro-esophageal reflux disease without esophagitis; G40.909 Epilepsy, unspecified, not intractable, without status epilepticus; D47.2 Monoclonal gammopathy; E86.1 Hypovolemia; Z79.82 Long term (current) use of aspirin; Z85.46 Personal history of malignant neoplasm of prostate; Z85.841 Personal history of malignant neoplasm of brain; Z11.52 Encounter for screening for COVID-19
CPT/HCPCS: 71045; 71275; 80048; 80053; 80177; 81003; 81015; 82607; 82668; 82728; 82746; 83010; 83540; 83550; 83605; 83615; 83735; 83880; 84100; 84484; 85014; 85018; 85025; 85027; 85045; 86850; 86880; 86900; 86901; 86920; 87040; 87070; 87077; 87086; 87186; 87449; 87502; 87811; 87899; 93005; 93970; 96361; 96374; 97110; 97163; 97167; 97530; 99285; P9016; Q9967

== ENCOUNTER 2024-04-09 23:44 | Inpatient (IN) | payer MEDICARE, OTHER, SELFPAY ==
[2024-04-09 18:38] VITALS: BP 121/61
[2024-04-09 19:30] LABS: ALT (SGPT) 71 U/L (0-50); AST (SGOT) 177 U/L (17-59); Alkaline Phosphatase 385 U/L (38-126); Blood Urea Nitrogen 16 mg/dl (9-20); Calcium 9.3 mg/dl (8.4-10.2); Carbon Dioxide 29 mmol/L (22-30); Chloride 101 mmol/L (98-107); Estimated Creatinine Clearance 111 ml/min; Glucose 120 mg/dl (70-99); Potassium 3.9 mmol/L (3.5-5.1); Sodium 135 mmol/L (135-145); Total Bilirubin 0.9 mg/dl (0.2-1.3); Total Protein 5.8 g/dl (6.3-8.2); eGFR > 60.00
[2024-04-09 19:34] LABS: Hematocrit 20.7 % (39.0-52.0); Hemoglobin 6.8 g/dL (13.0-18.0); Mean Corp Hgb Conc. 32.9 g/dL (33.0-37.0); Mean Corpuscular Hgb 29.7 pg (27.0-31.0); Mean Corpuscular Volume 90.4 fL (80.0-94.0); Mean Platelet Volume 9.3 fL (7.4-10.4); Platelet Count 131 10^3/uL (130-400); Red Blood Cell Count 2.29 10^6/uL (4.70-6.10); Red Cell Dist. Width 14.6 % (11.5-14.5); White Blood Cell Count 3.9 10^3/uL (4.8-10.8)
[2024-04-09 19:35] LABS: Troponin I < 0.012 ng/ml
[2024-04-09 20:00] VITALS: BP 174/76
[2024-04-09] MEDS: ZOFRAN 4 MG IV (20:09)
[2024-04-09 20:10] LABS: Absolute Neutrophils -Man Diff 2.6 10^3/uL (1.4-6.5); Band Neutrophils 0 % (0-3); Lymphocytes 25 % (20-51); Monocytes 6 % (2-9); Segmented Neutrophils 69 % (42-75)
[2024-04-09 20:11] LABS: Anisocytosis 1+; Macrocytosis 2+; Normal RBC Morphology No; Ovalocytes 1+; Platelets Checked Yes; Tear Drop Red Blood Cells Occasional; Total Cells Counted 100
[2024-04-09 20:33] LABS: Lipase > 4000 U/L (23-300)
[2024-04-09 20:46] LABS: COVID-19 Antigen Negative (Negative)
--- NOTE | 2024-04-09 21:09 | ED.GENMED ---
History of Present Illness
General
Chief Complaint: Chest Pain
Source: patient
Exam Limitations: none
Time Seen by Provider: 04/09/24 19:09
Nursing documentation reviewed up to this point in time: agreed with
History of Present Illness
History of Present Illness:
pt is a 78 y/o M
h/o MDS recent transfusions
benign brain tumor
BPH
mild CHF no lasix
here with epiagsrtic pain/cp with nausea/vomiting
started after eating lunch
he says he took a nap for a few hours and then woke up and vomited a total of 5 times, pain initially could have been chest but then settled to epigastric
no fever/chills, sob, weakness
Past History
Past History
ED Past Medical History: Seizures, Other (Benign brain tumor removal 1990, intracranial hemorrhage, lumbar compression fracture) and Other (Shoulder DJD)
ED Past Surgical History: Brain (Right frontal lobe craniotomy for benign brain tumor removal)
Social History
Tobacco: Non-smoker
Alcohol: None
Personal:
Employment: Retired
Family History
Family History: Other (Noncontributory)
Phy Exam
Physical Exam
Physical Exam:
GENERAL: Alert , pale, comfortable
EYE: pupils equal and reactive
NECK: Supple
ENT: o/p clr, mmm.
CARDIAC: Regular rate and rhythm .
LUNGS: Clear breath sounds bilaterally, no acute respiratory distress, no wheezes/rales/rhonchi
ABDOMEN: Soft, mild epigastric and right upper quadrant tenderness, no r/g, no cvat, normal bowel sounds
NEUROLOGICAL: Alert and oriented, no focal neuro deficits
SKIN: Warm and dry, skin intact.
MUSCULOSKELETAL: moderate edema, well perfused. neg enrique's sign
PSYCH: Normal and appropriate interaction.
Scores
Heart Score for Chest Pain Patients
STEMI patient?: Not applicable
History: Slightly or Non-Suspicious
ECG: Normal
Age: >/= 65 years
Risk Factors: 1 or 2 Risk Factors
Troponin: </= Normal Limit
Heart Score for Chest Pain Patients: 3
Heart Score Risk: 2.5% MACE over next 6 weeks
Course
Orders/Labs/Results
Orders:
Orders
04/09/24 18:36
EKG [Electrocardiogram (*1)] Urgent
Reason for Study: Chest Pain
04/09/24 18:37
EKG- Treatment ONCE
04/09/24 19:02
Type And Crossmatch [Type+Screen] Urgent
CBC/With Diff [Complete Blood Count/With Diff] Urgent
CMP [Comprehensive Metabolic Panel] Urgent
Lipase Urgent
Comment: ADD ON
Manual Differential Urgent
Troponin I Urgent
04/09/24 19:36
Add On- LAB Urgent
Tests Added?: lipase
04/09/24 19:49
Ondansetron Injectable [Zofran] 4 mg IV NOW STA
US Abdomen Complete/Upper Urgent
Comment:
Reason For Exam: upper abd pain, vomiting
04/09/24 20:14
COVID-19 Antigen Urgent
Source: Nasal Swab
Influenza A+B Rapid Molecular Urgent
ELAINE Source: Nasal Swab
Specimen Description:
04/09/24 20:48
Lactated Ringers [Lr] 500 ml IV BOLUS
04/09/24 20:49
EKG- Treatment ONCE
04/09/24 21:57
Piperacillin/Tazo 3.375 Gram [Zosyn] 3.375 gram in 50 ml IV NOW
04/09/24 22:49
Electrocardiogram (*1) Urgent
Reason for Study: Chest Pain
Troponin I Urgent
Abnormal Lab Results
04/09/24
19:02
WBC 3.9 L 10^3/uL
(4.8-10.8)
RBC 2.29 L 10^6/uL
(4.70-6.10)
Hgb 6.8 L* g/dL
(13.0-18.0)
Hct 20.7 L* %
(39.0-52.0)
MCHC 32.9 L g/dL
(33.0-37.0)
RDW 14.6 H %
(11.5-14.5)
Creatinine 0.5 L mg/dL
(0.7-1.3)
Glucose 120 H mg/dl
(70-99)
AST 177 H U/L
(17-59)
ALT 71 H U/L
(0-50)
Alkaline Phosphatase 385 H U/L
(38-126)
Total Protein 5.8 L g/dl
(6.3-8.2)
Albumin 3.0 L g/dl
(3.5-5.0)
Lipase > 4000 H* U/L
(23-300)
04/09/24 19:02
04/09/24 19:02
Vital Signs
Initial and Last Documented VS:
Initial Vital Signs
Temp Pulse Resp BP Pulse Ox
36.5 C 74 18 121/61 100
04/09/24 18:38 04/09/24 18:38 04/09/24 18:38 04/09/24 18:38 04/09/24 18:38
Last Documented Vital Signs
Temp Pulse Resp BP Pulse Ox
36.5 C 67 18 121/61 100
04/09/24 18:38 04/09/24 18:38 04/09/24 18:38 04/09/24 18:38 04/09/24 18:38
MDM/Problems Addressed
Differential Diagnosis Includes:
gallstone pancreaitis, pancreatic cancer, gastriits, flu
MDM/Problems Addressed:
leydi fisher 78 y/o M
MDS, has had some transfusions, mild CHF but not on lasix
here with epigastric pain after eating lunch, n/v x 5
stsable vitals
tender RUQ
wbc 3 (good for him) hg 6.8 (has had 6-7 hgs recently)
lipase > 4000
Ast 177, alt 71, alk phos 385;
US shows sludge, slight pericholecystic fluid, and dilated CBD 9 mm;
dr. ledezma from GI aware;
dr. caba from surgery aware
will cove rwith abx given MDS and leukopenia/immune suppression
*Critical Care Note
Total Time (30-74mins, 75-104mins- exclusive of procedures): Not Applicable
ED Attending Note
-
Portions of this chart may have been created with voice recognition software.� Occasional wrong word or��sound alike� substitutions may have occurred due to the inherent limitations of voice recognition software.
Discharge Plan
Departure
Patient Disposition: Admit
Date of Disposition: 04/09/24
Time of Disposition: 21:58
Admit to: Telemetry
Presentation/result/management discussed w/ accepting MD/DO: Hospitalist
Condition: Fair
Covid-19: Not Applicable
Discharge Problem:
Pancreatitis, Acute gallstone pancreatitis
Prescriptions:
No Action
sennosides [senna] 8.6 mg Tablet
8.6 mg PO DAILY
famotidine 20 mg Tablet
20 mg PO BID
levetiracetam [Keppra] 1,000 mg Tablet
1,500 mg PO BID
gabapentin 100 mg Capsule
200 mg PO TID Qty: 30 0RF
lacosamide 50 mg Tablet
50 mg PO BID Qty: 14 0RF
aspirin 81 mg Tablet,Delayed Release (Dr/Ec)
81 mg PO DAILY
magnesium hydroxide [Milk of Magnesia] 400 mg/5 mL Suspension
2,400 mg PO HSPRN PRN (Reason: constipation)
bisacodyl [Dulcolax (bisacodyl)] 10 mg Suppository
10 mg PA [id number] PRN (Reason: if no bm aftr mom)
methocarbamol 750 mg tablet
750 mg PO TIDPRN PRN (Reason: spasm)
oxycodone 5 mg tablet
5 mg PO Q6HPRN PRN (Reason: severe pain)
amlodipine 2.5 mg Tablet
2.5 mg PO DAILY Qty: 30 0RF
acetaminophen [Tylenol] 325 mg Tablet
650 mg PO DAILYPRN PRN (Reason: mild pain)
ondansetron HCl [Zofran] 4 mg Tablet
4 mg PO Q6HPRN PRN (Reason: nausea)
oseltamivir [Tamiflu] 75 mg Capsule
75 mg PO DAILY
Rx Instructions:
for 10 days starting 04/04/24
acetaminophen 325 mg tablet
650 mg PO QID
tamsulosin 0.4 mg capsule
0.4 mg PO HS
Referrals:
Eulalio Pal MD [Family Provider] -
Interventions
Interventions:
*Risk Screen - Suicide Last Done: 04/09/24 18:38
*General Assessment Last Done: 04/09/24 18:38
*Neglect/Abuse Screening Last Done: 04/09/24 18:38
ED- Fall Risk Assessment Last Done: 04/09/24 18:59
*ED COVID-19 Vaccine History Last Done: 04/09/24 18:59
ED- Cardiac Assessment Last Done: 04/09/24 18:59
Discharge Date and Time
Print Language: ESTONIAN
[2024-04-09] MEDS: LR 500 IV (22:03)
[2024-04-09 22:07] VITALS: BP 164/73
--- NOTE | 2024-04-09 22:18 | HPS.HSE ---
Addendum entered and electronically signed by Hany Chaudhari DO 04/10/24 00:00:
Patient seen and examined independently. Agree with findings and plan as set forth by SHANT Durham.
Patient is a 78y M with PMH significant for MDS, HFpEF and recent hospitalization(s) for pneumonia who presents to ED complaining of epigastric abdominal pain and N/V. Patient reports 5 episodes of N/V. Pain primarily on the R side and
radiating into his chest. Evaluation in the ED reveals GB wall thickening and pericholecystic fluid concerning for acute cholecystitis.
Ass:
Acute Pancreatitis
Cholelithiasis +/- Acute Cholecystitis
Myelodysplastic Syndrome
Acute on Chronic Anemia
Chronic HFpEF
Seizure Disorder
BPH
Chronic Back Pain
GERD
Plan:
Admit for further evaluation and treatment.
NPO, IVFs, pain control and antiemetics.
IV abx with Zosyn for now.
Surgery evaluation in the AM for additional recommendations.
Follow for clinical improvement.
Will likely benefit from eventual cholecystectomy - timing to be determined.
Transfuse 1 unit PRBCs for now.
Hematology evaluation for MDS / anemia.
Continue usual AEDs regimen.
Original Note:
Family Physician
-
Family Physician: Eulalio Pal
Chief Complaint
-
chest pain
History of Present Illness
Patient is a 78-year-old male with past medical history significant for HFpEF, myelodysplastic syndrome, pancytopenia, BPH with chronic gustafson, epilepsy, chronic back pain, GERD, and hx brain tumor who presents to [place] ED from [facility]
with c/o chest pain. Patient reports that this afternoon he acute onset of right sided chest pain that traveled to left then midline. Denies any alleviating or aggravating factors. He states he had 5 episodes of emesis this afternoon as well.
Patient denies any fever, chills, nausea, cough, shortness of breath, constipation, diarrhea or urinary complaints.
Medical History
Past Medical History
Past Medical History: Reports Other
Additional Past Medical History:
HFpEF
myelodysplastic syndrome
pancytopenia
BPH
epilepsy
chronic back pain
compression fractures L4-L5
GERD
hx brain tumor
Past Surgical History: Reports Other
Additional Past Surgical History:
cataract extraction
brain tumor removal
Social History
Tobacco: Non-smoker
Alcohol: None
Drug: None
Personal:
Living: With Family
Employment: Retired
Family History
Family History: Not pertinent
Allergies / Home Medications
Allergies reflects when Allergies were last updated in [employer].
Home Medications with original date entered in [employer]
Allergy/Medication List:
Allergies
Allergy/AdvReac Type Severity Reaction Status Date / Time
No Known Allergies Allergy Verified 04/09/24 18:36
Home Medications
famotidine 20 mg tablet 20 mg PO BID Gastrointestinal Issue 02/29/24
levetiracetam 1,000 mg tablet (Keppra) 1,500 mg PO BID Neurological Condition 02/29/24
sennosides 8.6 mg tablet (senna) 8.6 mg PO DAILY Constipation 02/29/24
gabapentin 100 mg capsule 200 mg (2 x 100 mg) PO TID #30 caps 03/11/24
lacosamide 50 mg tablet 50 mg PO BID Seizures #14 tabs 03/11/24
aspirin 81 mg tablet,delayed release 81 mg PO DAILY 03/26/24
bisacodyl 10 mg rectal suppository (Dulcolax (bisacodyl)) 10 mg OR [id number] PRN if no bm aftr mom 03/26/24
magnesium hydroxide 400 mg/5 mL oral suspension (Milk of Magnesia) 2,400 mg PO HSPRN PRN constipation 03/26/24
methocarbamol 750 mg tablet 750 mg PO TIDPRN PRN spasm 03/26/24
oxycodone 5 mg tablet 5 mg PO Q6HPRN PRN severe pain 03/26/24
amlodipine 2.5 mg tablet 2.5 mg PO DAILY #30 tabs 04/03/24
acetaminophen 325 mg tablet 650 mg PO QID 04/09/24
acetaminophen 325 mg tablet (Tylenol) 650 mg PO DAILYPRN PRN mild pain 04/09/24
ondansetron HCl 4 mg tablet 4 mg PO Q6HPRN PRN nausea 04/09/24
oseltamivir 75 mg capsule (Tamiflu) 75 mg PO DAILY 04/09/24
tamsulosin 0.4 mg capsule 0.4 mg PO HS 04/09/24
Review of Systems
-
History Source: Patient
Constitutional: Reports No Symptoms
EENT: Reports No Symptoms
Respiratory: Reports No Symptoms
Cardiac: Reports Chest Pain
Abdomen/GI: Reports Vomiting
: Reports No Symptoms
Musculoskeletal: Reports Other (back pain)
Skin: Reports No Symptoms
Neurological: Reports No Symptoms
Endocrine: Reports No Symptoms
Hematologic/Lymphatic: Reports No Symptoms
Psych: Reports No Symptoms
Physical Exam
Vital Signs
Vital Signs
Temp Pulse Resp BP Pulse Ox
97.7 F 67 18 121/61 100
04/09/24 18:38 04/09/24 18:38 04/09/24 18:38 04/09/24 18:38 04/09/24 18:38
Physical Exam
General: Well Developed, Well Nourished and Pain
HEENT: NormoCephalic, Moist mucous membranes, Atraumatic, Nose Appears Normal and Ears Appear Normal
Respiratory: Clear and Non Labored Respirations
Cardiac: S1/S2 and Regular Rhythm; No Murmur, Rub or Gallop
Breast: Deferred by me
GI: Soft, Non Tender, Non Distended and Normal Bowel Sounds; No Organomegaly
Rectal: Deferred by Provider
Genito-urinary: Gustafson
Musculoskeletal: No Clubbing, No Cyanosis, No Edema and Other (lower back pain )
Skin: Warm and IV/Catheter Site; No Rash
Neuro: Awake, Alert, AO x 3 and Nonfocal/grossly intact
Psych: Calm and Intact Judgment/Insight
Laboratory Results
-
04/09/24 19:02
04/09/24 19:02
Laboratory Results
Total Bilirubin 0.9 mg/dl (0.2-1.3) 04/09/24 19:02
AST 177 U/L (17-59) H 04/09/24 19:02
ALT 71 U/L (0-50) H 04/09/24 19:02
Alkaline Phosphatase 385 U/L (38-126) H 04/09/24 19:02
Troponin I < 0.012 ng/ml 04/09/24 19:02
Lipase > 4000 U/L (23-300) H* 04/09/24 19:02
Data Reviewed
-
Ultrasound: Report Reviewed by me (Abd: Mobile sludge within the gallbladder. Possible tiny gallstones within the mobile sludge. The bladder wall is slightly thickened with trace amount of pericholecystic edema. Negative sonographic Yeung's sign.
No evidence for intrahepatic bile duct dilation. The common bile duct is mildly dilate)
Lab Data: Labs Reviewed by me (Hgb 6.8, Hct 20.7, AST 177, ALT 71, Alk Phos 385, Lipase >4000)
Impression/Plan
-
IMPRESSION/PLAN:
#acute pancreatitis 2/2 gallstone
AST 177, ALT 71, Alk Phos 385, lipase >4000
Abd US: Mobile sludge within the gallbladder. Possible tiny gallstones within the mobile sludge. The bladder wall is slightly thickened with trace amount of pericholecystic edema. Negative sonographic Yeung's sign.
No evidence for intrahepatic bile duct dilation. The common bile duct is mildly dilated at 9 mm.
Coarsening of hepatic echotexture, a nonspecific finding suggesting hepatocellular disease.
Splenomegaly.
Pancreas is not optimally visualized.
Simple cyst arising in the medial lower pole of the right kidney. No evidence for pelvicalyceal dilation bilaterally
- admit to med/surg
- consult surgery
- consult GI
- supportive care
- NSS IVF
- IV Zosyn
#myelodysplastic syndrome
#pancytopenia
Hgb 6.8, Hct 20.7, Plt 131
blood consent obtain, signed and scanned into chart
- order 1 unit PRBCs
- monitor h/h
#HFpEF
- daily weights
- Lasix currently on hold
- continue aspirin
#BPH
chronic gustafson in place
- continue tamsulosin
#epilepsy
- continue lacosamide, and levetiracetam
#chronic back pain
- continue gabapentin
#GERD
- continue famotidine
#hx brain tumor
s/p brain tumor resection
Code status: Full code
DVT prophylaxis: SCDs
[2024-04-09 23:00] VITALS: BP 163/72
[2024-04-09] MEDS: ZOSYN 50 IV (23:20)
[2024-04-09] MEDS: NEURONTIN 200 MG PO (23:27)
[2024-04-10] VITALS (15 sets, daily range): BP systolic 160–178; BP diastolic 65–82; BMI 22.9
[2024-04-10 00:12] LABS: Troponin I 0.014 ng/ml
[2024-04-10] MEDS: NSS 1000 IV (01:11)
[2024-04-10] MEDS: ROXICODONE 5 MG PO (01:11)
[2024-04-10] MEDS: TYLENOL 650 MG PO (03:13)
[2024-04-10] MEDS: DILAUDID 0.25 MG IV (05:02)
[2024-04-10 07:24] LABS: Hematocrit 21.2 % (39.0-52.0); Hemoglobin 7.3 g/dL (13.0-18.0); Mean Corp Hgb Conc. 34.4 g/dL (33.0-37.0); Mean Corpuscular Hgb 30.2 pg (27.0-31.0); Mean Corpuscular Volume 87.6 fL (80.0-94.0); Mean Platelet Volume 10.2 fL (7.4-10.4); Platelet Count 106 10^3/uL (130-400); Red Blood Cell Count 2.42 10^6/uL (4.70-6.10); Red Cell Dist. Width 14.5 % (11.5-14.5); White Blood Cell Count 3.2 10^3/uL (4.8-10.8)
[2024-04-10 07:39] LABS: Blood Urea Nitrogen 16 mg/dl (9-20); Calcium 9.1 mg/dl (8.4-10.2); Carbon Dioxide 27 mmol/L (22-30); Chloride 102 mmol/L (98-107); Estimated Creatinine Clearance 110 ml/min; Glucose 109 mg/dl (70-99); Sodium 135 mmol/L (135-145); eGFR > 60.00
--- NOTE | 2024-04-10 07:39 | PTCARENOTE ---
04/10: Pt arrived via stretcher to [facility] on [address]. Pt AAOx3. VSS. Pt oriented to room. Callbell within reach.
[2024-04-10 07:47] LABS: Potassium 3.9 mmol/L (3.5-5.1)
[2024-04-10] MEDS: NEURONTIN 200 MG PO ×3 (07:51→23:08)
[2024-04-10] MEDS: SENOKOT 8.6 MG PO (07:51)
[2024-04-10] MEDS: KEPPRA 1500 MG PO ×2 (07:51→20:46)
[2024-04-10] MEDS: ASPIR LOW (ENTERIC COATED) 81 MG PO (07:51)
[2024-04-10] MEDS: VIMPAT 50 MG PO ×2 (07:51→20:47)
[2024-04-10] MEDS: ZOSYN 50 IV ×4 (07:51→23:53)
[2024-04-10] MEDS: NORVASC 2.5 MG PO (07:52)
[2024-04-10] MEDS: PEPCID 20 MG PO ×2 (07:52→20:47)
[2024-04-10] MEDS: TAMIFLU 75 MG PO (07:52)
--- NOTE | 2024-04-10 08:28 | CON.ONC ---
Impression
Impression
Pancreatitis
Acute cholecystitis
MDS with chronic pancytopenia
Plan
Plan
Await surgical and GI consultation for definitive recommendations but for now supportive care with antibiotic therapy.
Agree with definitive empiric antibiotic therapy.
Acute treatment of MDS is supportive care with transfusions when needed for Hgb <7.
Platelet count and neutrophil count are adequate. Monitor platelet count as often both pancreatitis, antibiotic therapy and sepsis can cause progressive thrombocytopenia.
Will follow along with you.
Patient History
History of Present Illness
CC: chest and epigastric abd pain
HPI - 78-year-old male who [facility] Joanna Lofton with MDS
with past medical history significant for who presents to [place] ED from [facility] with c/o chest and epigastric abdominal pain associated with vomiting x 5. Patient denies any fever, chills, nausea, cough, shortness of breath,
constipation, diarrhea or urinary complaints. Lipase > 4000 suggesting acute pancreatitis. Abdominal ultrasound also suggest possible acute cholecystitis with gallbladder wall thickening with a trace amount of pericholecystic edema. Negative
sonographic Yeung's sign. No evidence for intrahepatic bile duct dilation. The common bile duct is mildly dilated at 9 mm.splenomegaly. Initial Hgb = 6.6. Patient was transfused 1 unit PRBCs with improvement up to 7.3. Patient also has leukopenia
and thrombocytopenia although not severe and unlikely to be clinically significant; ANC = 2.6
Past-Medical/Surgical History
PMH:
HFpEF
myelodysplastic syndrome
pancytopenia
BPH
epilepsy
chronic back pain
compression fractures L4-L5
GERD
hx benign brain tumor
PSH:
cataract extraction
Craniotomy with resection of benign brain tumor
Social History
Tobacco: Non-smoker
Alcohol: None
Drug: None
Personal:
Living: With Family
Employment: Retired
Family History
Family History: Not pertinent
Allergies / Home Medications
Patient Medication
�Medication �Instructions �Recorded �Confirmed �Last Taken �Type
famotidine 20 mg tablet 20 mg PO BID Gastrointestinal Issue 02/29/24 04/09/24 04/09/24 History
levetiracetam 1,000 mg tablet 1,500 mg PO BID Neurological 02/29/24 04/09/24 04/09/24 History
(Keppra) Condition
sennosides 8.6 mg tablet (senna) 8.6 mg PO DAILY Constipation 02/29/24 04/09/24 04/09/24 History
gabapentin 100 mg capsule 200 mg (2 x 100 mg) PO TID #30 caps 03/11/24 04/09/24 04/09/24 Rx
lacosamide 50 mg tablet 50 mg PO BID Seizures #14 tabs 03/11/24 04/09/24 04/09/24 Rx
aspirin 81 mg tablet,delayed 81 mg PO DAILY 03/26/24 04/09/24 04/09/24 History
release
bisacodyl 10 mg rectal suppository 10 mg RI [id number] PRN if no bm aftr 03/26/24 04/09/24 Unknown History
(Dulcolax (bisacodyl)) mom
magnesium hydroxide 400 mg/5 mL 2,400 mg PO HSPRN PRN constipation 03/26/24 04/09/24 Unknown History
oral suspension (Milk of Magnesia)
methocarbamol 750 mg tablet 750 mg PO TIDPRN PRN spasm 03/26/24 04/09/24 Unknown History
oxycodone 5 mg tablet 5 mg PO Q6HPRN PRN severe pain 03/26/24 04/09/24 Unknown History
amlodipine 2.5 mg tablet 2.5 mg PO DAILY #30 tabs 04/03/24 04/09/24 04/09/24 Rx
acetaminophen 325 mg tablet 650 mg PO QID 04/09/24 04/09/24 04/09/24 History
acetaminophen 325 mg tablet 650 mg PO DAILYPRN PRN mild pain 04/09/24 04/09/24 Unknown History
(Tylenol)
ondansetron HCl 4 mg tablet 4 mg PO Q6HPRN PRN nausea 04/09/24 04/09/24 04/09/24 History
oseltamivir 75 mg capsule (Tamiflu) 75 mg PO DAILY 04/09/24 04/09/24 04/09/24 History
tamsulosin 0.4 mg capsule 0.4 mg PO HS 04/09/24 04/09/24 04/08/24 History
Active Medications
Generic Name Dose Route Start Last Admin
Trade Name Freq PRN Reason Stop Dose Admin
Acetaminophen 650 mg 04/10/24 00:34 04/10/24 03:13
Acetaminophen 325 Mg Tablet PO 05/08/24 00:33 650 mg
Q4HPRN PRN Administration
mild pain/KARIMI/temp> 100.4F
Amlodipine Besylate 2.5 mg 04/10/24 08:00 04/10/24 07:52
Amlodipine 2.5 Mg Tablet PO 05/08/24 07:59 2.5 mg
DAILY MARVIN Administration
Aspirin 81 mg 04/10/24 08:00 04/10/24 07:51
Aspirin 81 Mg (Enteric Coated) Tablet PO 05/08/24 07:59 81 mg
DAILY MARVIN Administration
Famotidine 20 mg 04/10/24 08:00 04/10/24 07:52
Famotidine 20 Mg Tablet PO 05/08/24 07:59 20 mg
BID MARVNI Administration
Gabapentin 200 mg 04/10/24 08:00 04/10/24 07:51
Gabapentin 100 Mg Capsule PO 05/08/24 07:59 200 mg
TID MARVIN Administration
Sodium Chloride 1,000 mls @ 80 mls/hr 04/10/24 00:34 04/10/24 01:11
Nss IV 1,000 mls
[id number] MARVIN Administration
Piperacillin Sod/Tazobactam Sod 3.375 gram in 50 mls @ 100 mls/hr 04/10/24 06:00 04/10/24 07:51
Zosyn IV 50 mls
Q6H MARVIN Administration
Lacosamide 50 mg 04/10/24 08:00 04/10/24 07:51
Lacosamide (Vimpat) 50 Mg Tablet PO 05/08/24 07:59 50 mg
BID MARVIN Administration
Levetiracetam 1,500 mg 04/10/24 08:00 04/10/24 07:51
Levetiracetam 500 Mg Regular Release Tablet PO 05/08/24 07:59 1,500 mg
BID MARVIN Administration
Methocarbamol 750 mg 04/10/24 00:53
Methocarbamol 750 Mg Tablet (Non-Formulary) PO 05/08/24 00:52
TIDPRN PRN
spasm
Ondansetron HCl 4 mg 04/10/24 00:34
Ondansetron 4 Mg/2 Ml Vial IV 05/08/24 00:33
Q6HPRN PRN
nausea and vomiting
Oseltamivir Phosphate 75 mg 04/10/24 08:00 04/10/24 07:52
Oseltamivir (Tamiflu) 75 Mg Capsule PO 04/15/24 07:59 75 mg
DAILY MARVIN Administration
Oxycodone HCl 5 mg 04/10/24 00:34 04/10/24 01:11
Oxycodone 5 Mg Regular Release Tablet PO 04/24/24 00:33 5 mg
Q6HPRN PRN Administration
severe pain
Sennosides 8.6 mg 04/10/24 08:00 04/10/24 07:51
Sennosides (Senokot) 8.6 Mg Tablet PO 05/08/24 07:59 8.6 mg
DAILY MARVIN Administration
Sodium Chloride 0 flush 04/10/24 01:00
Sodium Chloride 0.9% (Flush) Syringe IV 05/08/24 00:59
PER PROTOCOL MARVIN
Tamsulosin HCl 0.4 mg 04/10/24 22:00
Tamsulosin 0.4 Mg Capsule PO 05/08/24 21:59
HS MARVIN
Physical Exam
-
General: Comfortable and Appears Chronically Ill
HEENT: Negative Jaundice
Cardiology: S1 and S2
Pulmonary: Clear
GI: Soft
Extremities: Edema
Neurology: Non Focal
Labs
Lab Results
WBC 3.2 10^3/uL (4.8-10.8) L 04/10/24 06:35
RBC 2.42 10^6/uL (4.70-6.10) L 04/10/24 06:35
Hgb 7.3 g/dL (13.0-18.0) L 04/10/24 06:35
Hct 21.2 % (39.0-52.0) L 04/10/24 06:35
MCV 87.6 fL (80.0-94.0) 04/10/24 06:35
MCH 30.2 pg (27.0-31.0) 04/10/24 06:35
MCHC 34.4 g/dL (33.0-37.0) 04/10/24 06:35
RDW 14.5 % (11.5-14.5) 04/10/24 06:35
Plt Count 106 10^3/uL (130-400) L 04/10/24 06:35
MPV 10.2 fL (7.4-10.4) 04/10/24 06:35
Creatinine 0.4 mg/dL (0.7-1.3) L 04/10/24 06:35
Vital Signs
Vital Signs
Temp Pulse Resp BP Pulse Ox
97.2 F 75 16 164/78 97
04/10/24 07:54 04/10/24 07:54 04/10/24 07:54 04/10/24 07:54 04/10/24 07:54
[2024-04-10 09:25] LABS: ALT (SGPT) 309 U/L (0-50); AST (SGOT) 441 U/L (17-59); Albumin 2.8 g/dl (3.5-5.0); Alkaline Phosphatase 580 U/L (38-126); Direct Bilirubin 1.8 mg/dl (0.0-0.4); Total Bilirubin 2.7 mg/dl (0.2-1.3); Total Protein 5.5 g/dl (6.3-8.2)
--- NOTE | 2024-04-10 10:08 | CON.GI ---
Addendum entered and electronically signed by Santos Darby DO 04/10/24 16:56:
I saw and examined the patient.
The STUDIO MODEL's note was reviewed and I agree with the note.
Comment: Mr. Dong is a 78 y.o male with past medical history as outlined below who presented to the ED with epigastric abdominal pain along with nausea/vomiting. Found to have elevated LFTs and a lipase > 4000s concerning for biliary/gallstone
pancreatitis. US revealed biliary ductal dilatation along with pericholecystic edema and thickening of the gallbladder wall. No signs or symptoms to suggest cholangitis or biliary sepsis. However, given concern for possible cholecystitis he was
started on IV abx in the ED. Eventual MRI/MRCP 04/10/24 revealed acute interstitial edematous pancreatitis along with mild intrahepatic and extrahepatic biliary ductal dilatation. No evidence of obvious choledocholithiasis, but questionable sludge in
the inferior CBD along with sludge in the GB lumen and mild diffuse gallbladder wall thickening. Given the questionable sludge on MRCP, would benefit from an EUS with potential ERCP if this were to be confirmed for his biliary pancreatitis.
Recommendations:
- Keep NPO at MN
- IVF for 24 hrs for volume expansion given pancreatitis
- Trend LFTs with fractionated T bili
- Plan for EUS with potential ERCP tomorrow, 04/11/24, with Dr. Saravia
- No symptoms of biliary sepsis or cholangitis, continue to monitor
- Surgery following, appreciate recs for potential CCY this admission
- Rest of care as outlined below
GI will continue to follow.
Original Note:
Consultation
-
Date/Time Consultation Requested: 04/10/24 0034
Date/Time Consultation Performed: 04/10/24 1009
Requesting Provider: Dr. Chaudhari
Performing Provider: Dr. Darby/SHANT Trujillo
Reason for Consultation: pancreatitis
Medical History
Chief Complaint / HPI
Chief Complaint: epigastric/RUQ pain, N/V
History of Present Illness:
78-year-old male with past medical history of colon polyps, BPH, seizure 1989, history of benign brain tumor that was resected initially at [facility] followed by [facility] with stereotactic treatment in [place]
currently on Keppra for seizure, history of Mohs procedure, right sided rib fracture, right malleolus avulsion fracture, traumatic subdural hematoma (12/2023), multifocal pneumonia felt to be secondary to aspiration 02/2024, MDS pancytopenia MBL�CLL
with low-grade IgM MGUS pancytopenia with recent admissions in February as well as again in early March for pneumonia and possible CHF as well as sepsis secondary to UTI. Recent discharge on 04/03/2024 new medication including amlodipine. He was
treated with antibiotics during that last admission including Levaquin, doxycycline and Lasix. He returned to the emergency room on 04/09/2024 with epigastric pain associated with nausea and vomiting. Asked to evaluate for pancreatitis. The
patient states that yesterday for lunch he ate quiche Jerilyn, ice cream and then developed right upper quadrant discomfort that he states was dull. He went to lie down for a nap. When he awoke the pain was still present. The pain did not
radiate to his back. He then had nausea and vomiting 4 episodes. At first it was his lunch that he ate. He was then given luisa narcisa which she promptly vomited back up. The pain then went from the right upper quadrant down into the periumbilical
region. Continued to be dull and gnawing. He does have bilirubinuria. He has not had a bowel movement since yesterday morning. Because of the symptoms he was sent to the emergency room for further evaluation. The patient continues to have the
same pain however right upper quadrant pain has decreased. It is tender upon palpation. The pain has decreased in the periumbilical region some since yesterday. He continues on IV fluids. He denies any fevers, chills, melena, hematochezia,
dysphagia or dyne aphasia. No early satiety or unintentional weight loss. The patient is afebrile. WBC 3.2, hemoglobin 7.3 up from 6.8 after 1 unit packed red blood cells, platelets 106, sodium 135, potassium 3.9, chloride 102, CO2 27, BUN 16,
creatinine 0.4, glucose 109, total bilirubin 2.7 up from 0.9, direct bilirubin 1.8, AST 441 (up from 177), ALT 309 (up from 71), alk phos 580 (up from 385), lipase greater than 4000, repeat pending. Troponin 0.014 (up from less than 0.012.
COVID-negative. Influenza negative. Ultrasound of the abdomen completed that shows mobile sludge within the gallbladder. Tiny gallstones with in the mobile sludge. Gallbladder wall is slightly thickened with trace amount of pericholecystic
edema. Negative Yeung signs. No evidence for intrahepatic bile duct dilatation. CBD is dilated at 9 mm. Coarsening of hepatic echotexture nonspecific finding suggesting hepatocellular disease. Splenomegaly. Pancreas is not optimally
visualized. Simple cyst arising from the medial lower pole of the right kidney. No evidence for pelvicalyceal dilatation bilateral.
Past Medical History
Past Medical History: CHF, GERD and Other (Colon polyps, BPH, seizure (1989), benign brain tumor with resection and stereotactic treatment, Mohs procedure, right-sided rib fractures, right malleolus avulsion fracture, traumatic subdural hematoma
(12/2023), multifocal pneumonia, MDS, pancytopenia, MBL-CLL, low-grade IgM MGUS, pancytopenia)
Past Surgical History: Other (Cataract extraction, brain tumor resection, Mohs procedure, frozen shoulder release)
Social History
Tobacco: Non-Smoker
Alcohol: None
Drug: None
Personal:
Living: With Family
Employment: Retired
Family History
Family History: Other (No family history of gastrointestinal malignancy or IBD)
Allergies / Home Medications
Allergy/AdvReac Type Severity Reaction Status Date / Time
No Known Allergies Allergy Verified 04/09/24 18:36
�Medication �Instructions �Recorded
famotidine 20 mg tablet 20 mg PO BID Gastrointestinal Issue 02/29/24
levetiracetam 1,000 mg tablet 1,500 mg PO BID Neurological 02/29/24
(Keppra) Condition
sennosides 8.6 mg tablet (senna) 8.6 mg PO DAILY Constipation 02/29/24
gabapentin 100 mg capsule 200 mg (2 x 100 mg) PO TID #30 caps 03/11/24
lacosamide 50 mg tablet 50 mg PO BID Seizures #14 tabs 03/11/24
aspirin 81 mg tablet,delayed 81 mg PO DAILY 03/26/24
release
bisacodyl 10 mg rectal suppository 10 mg [place] [id number] PRN if no bm aftr 03/26/24
(Dulcolax (bisacodyl)) mom
magnesium hydroxide 400 mg/5 mL 2,400 mg PO HSPRN PRN constipation 03/26/24
oral suspension (Milk of Magnesia)
methocarbamol 750 mg tablet 750 mg PO TIDPRN PRN spasm 03/26/24
oxycodone 5 mg tablet 5 mg PO Q6HPRN PRN severe pain 03/26/24
amlodipine 2.5 mg tablet 2.5 mg PO DAILY #30 tabs 04/03/24
acetaminophen 325 mg tablet 650 mg PO QID 04/09/24
acetaminophen 325 mg tablet 650 mg PO DAILYPRN PRN mild pain 04/09/24
(Tylenol)
ondansetron HCl 4 mg tablet 4 mg PO Q6HPRN PRN nausea 04/09/24
oseltamivir 75 mg capsule (Tamiflu) 75 mg PO DAILY 04/09/24
tamsulosin 0.4 mg capsule 0.4 mg PO HS 04/09/24
Review of Systems
-
All other systems: A 12 pt ROS was Negative except as stated above in HPI
Vital Signs
Temp Pulse Resp BP Pulse Ox
97.2 F 75 16 164/78 97
04/10/24 07:54 04/10/24 07:54 04/10/24 07:54 04/10/24 07:54 04/10/24 09:54
Physical Exam
Exam
General: No Apparent Distress
HEENT: Anicteric
Respiratory: Clear (Decreased bases bilaterally r> L)
Cardiac: Regular Rhythm
GI: Soft, Non Distended, Normal Bowel Sounds and Tender (Right upper quadrant, periumbilical (mild))
Musculoskeletal: Edema (+2 edema bilaterally)
Skin: Warm and Dry
Neuro: AO x 3
Psych: Calm
Results
WBC 3.2 10^3/uL (4.8-10.8) L 04/10/24 06:35
Hgb 7.3 g/dL (13.0-18.0) L 04/10/24 06:35
Hct 21.2 % (39.0-52.0) L 04/10/24 06:35
MCV 87.6 fL (80.0-94.0) 04/10/24 06:35
Plt Count 106 10^3/uL (130-400) L 04/10/24 06:35
Sodium 135 mmol/L (135-145) 04/10/24 06:35
Potassium 3.9 mmol/L (3.5-5.1) 04/10/24 06:35
Chloride 102 mmol/L (98-107) 04/10/24 06:35
Carbon Dioxide 27 mmol/L (22-30) 04/10/24 06:35
BUN 16 mg/dl (9-20) 04/10/24 06:35
Creatinine 0.4 mg/dL (0.7-1.3) L 04/10/24 06:35
Calcium 9.1 mg/dl (8.4-10.2) 04/10/24 06:35
Total Bilirubin Cancelled 04/10/24 08:46
AST Cancelled 04/10/24 08:46
ALT Cancelled 04/10/24 08:46
Alkaline Phosphatase Cancelled 04/10/24 08:46
Lipase Cancelled 04/10/24 08:46
Diagnostic Image Results:
Ultrasound abdomen:
IMPRESSION:
Mobile sludge within the gallbladder. Possible tiny gallstones within the mobile sludge. The bladder wall is slightly thickened with trace amount of pericholecystic edema. Negative sonographic Yeung's sign.
No evidence for intrahepatic bile duct dilation. The common bile duct is mildly dilated at 9 mm.
Coarsening of hepatic echotexture, a nonspecific finding suggesting hepatocellular disease.
Splenomegaly.
Pancreas is not optimally visualized.
Simple cyst arising in the medial lower pole of the right kidney. No evidence for pelvicalyceal dilation bilaterally
Prior GI Procedures:
EGD: Never
Colonoscopy: 06/27/23 (Dr. ge) - One 3 mm polyp in the cecum, removed with a jumbo
cold forceps. Resected and retrieved.
- One 6 mm polyp in the ascending colon, removed with
a cold snare. Resected and retrieved.
- One 5 mm polyp at the splenic flexure, removed with
a cold snare. Resected and retrieved.
- One 5 mm polyp in the descending colon, removed with
a cold snare. Resected and retrieved.
- One diminutive polyp in the sigmoid colon, removed
with a jumbo cold forceps. Resected and retrieved.
- Internal hemorrhoids and anal fissure.
COLO 03/31/2016 (dr. Brandon) - One 10 mm polyp in the cecum, removed with a hot
snare. Resected and retrieved. Clips were placed.
- The examination was otherwise normal.
Assessment / Plan
-
78-year-old male with past medical history of colon polyps, BPH, seizure 1989, history of benign brain tumor that was resected initially at [facility] followed by [facility] with stereotactic treatment in [place]
currently on Keppra for seizure, history of Mohs procedure, right sided rib fracture, right malleolus avulsion fracture, traumatic subdural hematoma (12/2023), multifocal pneumonia felt to be secondary to aspiration 02/2024, MDS pancytopenia MBL�CLL
with low-grade IgM MGUS pancytopenia with recent admissions in February as well as again in early March for pneumonia and possible CHF as well as sepsis secondary to UTI. Recent discharge on 04/03/2024 new medication including amlodipine. He was
treated with antibiotics during that last admission including Levaquin, doxycycline and Lasix. He returned to the emergency room on 04/09/2024 with epigastric pain associated with nausea and vomiting. Asked to evaluate for pancreatitis. Patient
with symptoms arising with right upper quadrant dull pain after eating lunch. Pain progressed down into periumbilical region. Elevated LFTs in an obstructive pattern, positive gallstone. Mildly dilated CBD of 9 mm. Lipase greater than 4000.
Still with mild right upper quadrant tenderness on palpation as well as periumbilical tenderness. Patient currently receiving lactated Ringer's at 100 cc an hour given history of CHF. Currently on Zosyn. Afebrile.
Impression:
Pancreatitis, likely secondary to gallstones
Cholelithiasis
Elevated LFTs, not elevated previously
Myelodysplastic syndrome-> with anemia requiring 1 unit of packed red blood cells. No active signs of bleeding.
Chronic HFpEF
Seizure disorder
Recent pneumonia
Plan:
-N.p.o. except meds
-IV fluids, continue LR at 100 cc an hour
-Incentive spirometer, discussed with RN and patient ensure compliance as patient with recent history of pneumonia, right rib fractures and already decreased at bases bilaterally
-MRI of the abdomen with and without contrast with MRCP
-Surgical consult, discussed with Dr. Luna
-Zosyn ordered and given
-If patient with choledocholithiasis will need ERCP
-Pain control and antiemetics per internal medicine
-CBC, BMP, LFTs, PT/INR in a.m.
-Further recommendations to be forthcoming
-
-
Thank you for consultation and allowing me to participate in the patient's care. Please call the controller mechanic GI physician during the after hours with any questions or concerns.
[2024-04-10] MEDS: LR 1000 IV (10:11)
--- NOTE | 2024-04-10 12:55 | W.PN.HOSP.TC ---
Today's Communication/Plan
-
Monitor vital signs see plan
Continue with antibiotics for now
Switch fluids to lactated Ringer's
MRI with MRCP
NPO
Discussed with spouse at bedside
Assessment / Plan
Assessment / Plan
General: Well Developed, Well Nourished and Pain
HEENT: NormoCephalic, Moist mucous membranes, Atraumatic, Nose Appears Normal and Ears Appear Normal
Respiratory: Clear and Non Labored Respirations
Cardiac: S1/S2 and Regular Rhythm
GI: Soft, Non Tender, Non Distended and Normal Bowel Sounds
Genito-urinary: Gustafson
Musculoskeletal: Other (lower back pain )
Neuro: Awake, Alert, AO x 3 and Nonfocal/grossly intact
Psych: Calm and Intact Judgment/Insight
acute pancreatitis suspect 2/2 gallstone
Elevated LFTs, bili, lipase
Abd US: Mobile sludge within the gallbladder. Possible tiny gallstones within the mobile sludge. The bladder wall is slightly thickened with trace amount of pericholecystic edema. Negative sonographic Yeung's sign.
No evidence for intrahepatic bile duct dilation. The common bile duct is mildly dilated at 9 mm.
Coarsening of hepatic echotexture, a nonspecific finding suggesting hepatocellular disease.
Splenomegaly.
Pancreas is not optimally visualized.
Simple cyst arising in the medial lower pole of the right kidney. No evidence for pelvicalyceal dilation bilaterally
Check MRI with MRCP
Surgery following, GI following
N.p.o. for now
Change fluids to lactated Ringer's
Zosyn for now
#myelodysplastic syndrome
#pancytopenia
Hgb 6.8, Hct 20.7, Plt 131
Status post 1 unit PRBC
Hematology following
Goal hemoglobin greater than 7
#HFpEF
- daily weights
- Lasix currently on hold, monitor volume status closely
- continue aspirin
#BPH
chronic gustafson in place
- continue tamsulosin
#epilepsy
- continue lacosamide, and levetiracetam
#chronic back pain
- continue gabapentin
#GERD
- continue famotidine
#hx brain tumor
s/p brain tumor resection
Code status: Full code
DVT prophylaxis: SCDs
I spent a total of 52 minutes with the patient or on the floor. More than 50% of this time involved counseling and coordination of care.
Anticipated Discharge: > 48 hours
Subjective/Interval History
-
Date of Service: April 10, 2024
Denies abdominal pain at this time
Objective Data
-
Labs:
Laboratory Results
04/10/24 04/10/24
06:35 08:46
WBC 3.2 L
Hgb 7.3 L
Hct 21.2 L
Plt Count 106 L
Sodium 135
Potassium 3.9
Chloride 102
Carbon Dioxide 27
BUN 16
Creatinine 0.4 L
Glucose 109 H
Calcium 9.1
Total Bilirubin 2.7 H D Cancelled
AST 441 H Cancelled
ALT 309 H Cancelled
Alkaline Phosphatase 580 H Cancelled
Vital Signs:
Vital Signs
Temp Pulse Resp BP Pulse Ox
97.2 F 75 16 164/78 97
04/10/24 07:54 04/10/24 07:54 04/10/24 07:54 04/10/24 07:54 04/10/24 09:54
I&O
04/09/24 04/10/24 04/11/24
06:59 06:59 06:59
Intake Total 250 / 250
Output Total 350 / 350 250 / 250
Balance -100 / -100 -250 / -250
--- NOTE | 2024-04-10 15:04 | CON.GS ---
Consultation
-
Requesting Provider: Ankit
Performing Provider: Jeremy
Reason for Consultation: Biliary pancreatitis
Medical History
-
Chief Complaint: Abd pain
History of Present Illness:
78M presented to ED yesterday with abd pain localized to epigastrium a/w n/v. Ate lunch yesterday and subsequently developed RUQ dull pain that progressed to more severe pain and n/v. Denies f/c, denies changes to stool/urine. No similar prior
episodes.
Past Medical History
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
pancytopenia, CHF, UTI)
Past Surgical History: Other (excision benign intracranial mass)
Social History
Tobacco: Non-Smoker
Alcohol: None
Drug: None
Personal:
Living: Assisted Living ([facility])
Employment: Retired
Family History
Family History: Reviewed & Noncontributory
Allergies / Home Medications
Allergy/AdvReac Type Severity Reaction Status Date / Time
No Known Allergies Allergy Verified 04/09/24 18:36
�Medication �Instructions �Recorded �Confirmed �Type
famotidine 20 mg tablet 20 mg PO BID Gastrointestinal Issue 02/29/24 04/09/24 History
levetiracetam 1,000 mg tablet 1,500 mg PO BID Neurological 02/29/24 04/09/24 History
(Keppra) Condition
sennosides 8.6 mg tablet (senna) 8.6 mg PO DAILY Constipation 02/29/24 04/09/24 History
gabapentin 100 mg capsule 200 mg (2 x 100 mg) PO TID #30 caps 03/11/24 04/09/24 Rx
lacosamide 50 mg tablet 50 mg PO BID Seizures #14 tabs 03/11/24 04/09/24 Rx
aspirin 81 mg tablet,delayed 81 mg PO DAILY 03/26/24 04/09/24 History
release
bisacodyl 10 mg rectal suppository 10 mg WI [id number] PRN if no bm aftr 03/26/24 04/09/24 History
(Dulcolax (bisacodyl)) mom
magnesium hydroxide 400 mg/5 mL 2,400 mg PO HSPRN PRN constipation 03/26/24 04/09/24 History
oral suspension (Milk of Magnesia)
methocarbamol 750 mg tablet 750 mg PO TIDPRN PRN spasm 03/26/24 04/09/24 History
oxycodone 5 mg tablet 5 mg PO Q6HPRN PRN severe pain 03/26/24 04/09/24 History
amlodipine 2.5 mg tablet 2.5 mg PO DAILY #30 tabs 04/03/24 04/09/24 Rx
acetaminophen 325 mg tablet 650 mg PO QID 04/09/24 04/09/24 History
acetaminophen 325 mg tablet 650 mg PO DAILYPRN PRN mild pain 04/09/24 04/09/24 History
(Tylenol)
ondansetron HCl 4 mg tablet 4 mg PO Q6HPRN PRN nausea 04/09/24 04/09/24 History
oseltamivir 75 mg capsule (Tamiflu) 75 mg PO DAILY 04/09/24 04/09/24 History
tamsulosin 0.4 mg capsule 0.4 mg PO HS 04/09/24 04/09/24 History
Review of Systems
-
A 10 point review of systems was completed, and was negative except as per HPI.
Physical Exam
Vital Signs
Temp Pulse Resp BP Pulse Ox
97.2 F 75 16 164/78 97
04/10/24 07:54 04/10/24 07:54 04/10/24 07:54 04/10/24 07:54 04/10/24 09:54
04/09/24 04/10/24 04/11/24
06:59 06:59 06:59
Actual Weight 76.521 kg
Body Mass Index (BMI) 22.9
Lab Results
04/10/24 06:35
WBC 3.2 10^3/uL (4.8-10.8) L 04/10/24 06:35
Hgb 7.3 g/dL (13.0-18.0) L 04/10/24 06:35
Hct 21.2 % (39.0-52.0) L 04/10/24 06:35
Plt Count 106 10^3/uL (130-400) L 04/10/24 06:35
Physical Exam
General: Well Developed, Well Nourished and No Apparent Distress
GI: Soft, Non Distended and Tender (mild ttp to RUQ, no ttp to epigastrium)
Skin: Warm and Dry
Neuro: AO x 3
Psych: Calm
Data Reviewed
-
Ultrasound: Image Personally Visualized and interpreted, Report Reviewed by me, Discussed with Physician, Discussed with Nurse and Discussed with Patient
MRI: Image Personally Visualized and interpreted, Report Reviewed by me, Discussed with Physician, Discussed with Nurse and Discussed with Patient
Labs: Labs Reviewed by me, Discussed with Physician, Discussed with Nurse and Discussed with Patient
Old Records: Reviewed
Assessment / Plan
-
78M with pancreatitis likely of biliary origin
AFVSS, ttp to RUQ, no ttp to epigastrium
Known hx pancytopenia - WBC 3.2; Hb 7.3; Plt 106K
Lipase >4K
Tbili 2.7 and rising, transaminases elevated and rising
US with sludge, GBWT 4.5mm, trace PCF, CBD 9mm
MRI with acute pancreatitis, likely sludge in distal CBD
D/w GI, they plan EUS poss ERCP timing TBD
Plan:
NPO/IVF
PRN pain meds, anti-emetics
DVT ppx
Discussed prophylactic rationale for CCY in this setting. Given cell counts he may benefit from a period of outpt convalescence prior to CCY if he decides to pursue surgery. Will cont to follow.
All other care as per primary team
--- NOTE | 2024-04-10 15:26 | CM ---
Reviewed the chart notes and spoke with the patient's daughter via telephone.. Patient was recently discharged from 04/03/2024 to [facility]. Patient resides with his spouse in a split level home with no steps to enter. DME in home is shower chair,
rolling walker, and grab bars. Patient has had VN in the past and been to [facility]. CM continues to be available to patient/family and is monitoring medical plan for needs at discharge.
Plan: Discharge plans will depend on the patient's progress.
[2024-04-10 16:45] LABS: Lipase > 4000 U/L (23-300)
--- NOTE | 2024-04-10 18:44 | PTCARENOTE ---
Patient NPO with meds and clear liquids for EUS and potential ERCP in AM. LR infusing through R hand IV at 100 ml/hr. Patient OOB to chair for 2 hours earlier in shift, assist x2 with RW, c/o mild R sided abdominal pain with coughing and chronic
back pain relieved by scheduled gabapentin. Patient denies needing PRN pain medication for abdominal discomfort. Denies nausea. Porter draining cristino colored urine. Call childers within reach. Family at bedside updated in plan of care. Repeat H&H
scheduled for 2100 tonight.
[2024-04-10 21:25] LABS: Hemoglobin 6.9 g/dL (13.0-18.0)
--- NOTE | 2024-04-10 21:47 | W.PN.UPDATE ---
Update Note
Progress Note Update
Critical lab value: Hgb 6.9/Hct 20. Ordered 1 unit PRBC's to transfuse now. Consent scanned in chart. Repeat labs in am.
[2024-04-10] MEDS: FLOMAX 0.4 MG PO (23:08)
[2024-04-11] VITALS (13 sets, daily range): BP systolic 14–175; BP diastolic 47–90; BMI 23.2
[2024-04-11] MEDS: LR 1000 IV ×2 (04:30→17:27)
--- NOTE | 2024-04-11 05:33 | PTCARENOTE ---
04/10: Critical value drawn for hgb and hct. VSS. Pt given 1 unit of PRBCs. LR continued after blood administration per orders.
[2024-04-11] MEDS: ZOSYN 50 IV ×4 (05:47→23:35)
[2024-04-11 06:33] LABS: % Basophils 0.2 % (0-2); % Immature Granulocytes 4.7 % (0-0.5); % Monocytes 8.2 % (1.7-9.3); % Neutrophils 64.9 % (42.2-75.2); Absolute Immature Granulocytes 0.2 10^3/uL (0-0.05); Absolute Monocytes 0.4 10^3/uL (0.1-0.6); Absolute Neutrophils 3.1 10^3/uL (1.4-6.5); Hemoglobin 7.8 g/dL (13.0-18.0); Mean Corp Hgb Conc. 33.9 g/dL (33.0-37.0); Mean Corpuscular Hgb 30.4 pg (27.0-31.0); Mean Corpuscular Volume 89.5 fL (80.0-94.0); Mean Platelet Volume 10.7 fL (7.4-10.4); Nucleated Red Blood Cells % 0 % (-); Platelet Count 117 10^3/uL (130-400); Red Blood Cell Count 2.57 10^6/uL (4.70-6.10); Red Cell Dist. Width 14.1 % (11.5-14.5); White Blood Cell Count 4.7 10^3/uL (4.8-10.8)
[2024-04-11 06:43] LABS: INR 1.14; PT 15.1 Sec (11.4-14.6)
[2024-04-11 06:55] LABS: ALT (SGPT) 165 U/L (0-50); AST (SGOT) 96 U/L (17-59); Albumin 2.7 g/dl (3.5-5.0); Alkaline Phosphatase 444 U/L (38-126); Blood Urea Nitrogen 13 mg/dl (9-20); Calcium 8.8 mg/dl (8.4-10.2); Carbon Dioxide 27 mmol/L (22-30); Chloride 99 mmol/L (98-107); Direct Bilirubin 0.3 mg/dl (0.0-0.4); Estimated Creatinine Clearance 111 ml/min; Glucose 86 mg/dl (70-99); Potassium 3.6 mmol/L (3.5-5.1); Sodium 135 mmol/L (135-145); Total Bilirubin 1.8 mg/dl (0.2-1.3); Total Protein 5.3 g/dl (6.3-8.2); eGFR > 60.00
[2024-04-11] MEDS: TYLENOL 650 MG PO ×2 (08:24→17:42)
--- NOTE | 2024-04-11 08:24 | W.PN.ONC2 ---
Today's Communication / Plan
-
follow CBC, transfuse prn
Impression
Impression
biliary Pancreatitis
Acute cholecystitis
MDS with chronic pancytopenia, not neutropenic
Plan
Plan
surgery and GI following
Agree with definitive empiric antibiotic therapy.
Acute treatment of MDS is supportive care with transfusions when needed for Hgb <7, platelets <20
Will follow along with you.
Subjective/Objective
Subjective
no new complaints
at bedside provided with updates
Vital Signs:
Vital Signs
Temp Pulse Resp BP Pulse Ox
102.6 F H 102 18 175/90 96
04/11/24 07:57 04/11/24 07:57 04/11/24 07:57 04/11/24 07:57 04/11/24 07:57
Lab Results:
Laboratory Data
WBC 4.7 10^3/uL (4.8-10.8) L 04/11/24 05:41
Hgb 7.8 g/dL (13.0-18.0) L 04/11/24 05:41
Plt Count 117 10^3/uL (130-400) L 04/11/24 05:41
PT 15.1 Sec (11.4-14.6) H 04/11/24 05:41
INR 1.14 04/11/24 05:41
eGFR > 60.00 04/11/24 05:41
Physical Exam
General: Comfortable and Appears Chronically Ill
HEENT: Negative Jaundice
Cardiology: S1 and S2
Pulmonary: Clear
GI: Soft
Extremities: Edema
Neurology: Non Focal
[2024-04-11] MEDS: TAMIFLU 75 MG PO (08:25)
[2024-04-11] MEDS: PEPCID 20 MG PO ×2 (08:25→19:37)
[2024-04-11] MEDS: KEPPRA 1500 MG PO ×2 (08:25→19:37)
[2024-04-11] MEDS: ASPIR LOW (ENTERIC COATED) 81 MG PO (08:26)
[2024-04-11] MEDS: NORVASC 2.5 MG PO (08:26)
[2024-04-11] MEDS: NEURONTIN 200 MG PO ×3 (08:26→21:58)
[2024-04-11] MEDS: VIMPAT 50 MG PO ×2 (08:26→19:37)
[2024-04-11] MEDS: SENOKOT 8.6 MG PO (08:26)
[2024-04-11] MEDS: LR IV (08:27)
--- NOTE | 2024-04-11 08:41 | PTCARENOTE ---
Temperature this AM 101.4 rectally, BP elevated at 175/90. AM meds and tylenol administered. Right elbow with +3 edema site, daughter expressing concern and potential wish for another scan, made aware. No new orders at this time. Pt NPO for ERCP
today.
--- NOTE | 2024-04-11 09:01 | W.PN.GS2 ---
Today's Communication / Plan
-
`
Assessment / Plan
-
Assessment: 78 y/o male with probable gallstone mediated acute pancreatitis possible choledocholithiasis/CBD sludge.
reactive cholecystis suspected more than cystic duct obstruction
medical hx notable for myelodysplastic syndrome with pancytopenia, HFpEF, BPH with chronic gustafson, epilepsy, GERD, chronic back pain and h/o brain tumor rsxn
US with sluge/possible tiny stones, trace PCCF, slight wall thickening. CBD 9mm
MRCP: peripancreatic edema greatest around head/uncinate process. no fluid collections. mild biliary ductal dilation, ? sludge posterior CBD; diffuse GB wall thickening likely reactive as appears contiguous with peripancreatic edema. GB
sludge/small stones layering posteriorly; does not appear to have obstructing stone in area of cystic duct.
T101.4 tachycardia, htn
WCB stable, hgb responded appropriately and up to 7.8, plt stable at 117
tBili improving as well as LFTS; lipase pending
suspect ongoing SIRS response d/t acute pancreatitis
Plan: discussed with patient and family at bedside. due to ongoing sirs response would favor continued medical treatment of acute pancreatitis and empiric abx for biliary coverage and timing of cholecystectomy TBDT
GI following - discussed with family that would defer to GI recommendations regarding pursuing EUS/ERCP vs continued supportive care given improving LFTs - lipase pending
will likely pursue cholecystectomy with IOC at this hospitalization but timing pending further clinical improvement in pancreatitis and medical optimization for surgery
will follow
Subjective Data
-
Date of Service: April 11, 2024
pt seen and examined, family at bedside
continued abdominal pain epigastric and RUQ, no nausea, no vomiting
no flatus or BM
Objective Data
-
Intake and Output
04/10/24 04/11/24 04/12/24
06:59 06:59 06:59
Intake Total 250 / 250 1170 / 1170
Output Total 350 / 350 900 / 900
Balance -100 / -100 270 / 270
Intake:
Oral fluids 120 / 120
IV fluids (Total) 700 / 700
IV piggybacks 100 / 100
Blood Product Amount Infused ( 250 / 250 250 / 250
mL)
Packed Rbc Leukoreduced Unit 250 / 250
[id number]
Packed Rbc Leukoreduced Unit 250 / 250
[id number]
Output:
Urine, Gustafson 350 / 350 900 / 900
Vital Signs
Temp Pulse Resp BP Pulse Ox
101.4 F H 102 18 175/90 96
04/11/24 08:40 04/11/24 08:26 04/11/24 07:57 04/11/24 08:26 04/11/24 08:40
Lab Results
04/11/24 05:41
04/11/24 05:41
Calcium 8.8 mg/dl (8.4-10.2) 04/11/24 05:41
Total Bilirubin 1.8 mg/dl (0.2-1.3) H 04/11/24 05:41
Direct Bilirubin 0.3 mg/dl (0.0-0.4) 04/11/24 05:41
AST 96 U/L (17-59) H 04/11/24 05:41
ALT 165 U/L (0-50) H 04/11/24 05:41
Alkaline Phosphatase 444 U/L (38-126) H 04/11/24 05:41
Total Protein 5.3 g/dl (6.3-8.2) L 04/11/24 05:41
Albumin 2.7 g/dl (3.5-5.0) L 04/11/24 05:41
Physical Exam
-
NAD AAOx3
ABD: soft, ND, TTP epigastrium and RUQ, no R/R/G
no palpable RUQ mass
Patient has a gustafson catheter: Yes
[2024-04-11] MEDS: APRESOLINE 5 MG IV ×3 (09:17→23:34)
[2024-04-11 09:25] LABS: Lipase 2674 U/L (23-300)
--- NOTE | 2024-04-11 09:38 | W.PN.UPDATE ---
Update Note
Progress Note Update
noted fever overnight blood cx pending cont abx. Reviewed with Dr. Saravia plan for EUS +/-ERCP today
--- NOTE | 2024-04-11 11:18 | W.PN.HOSP.TC ---
Today's Communication/Plan
-
Monitor vital signs and see plan
Follow fever curve
Check blood culture
Continue Zosyn for now
EUS/ERCP today
eventual CCY
lipase downtrneding
cw LR
monitor LFT's
Discussed with daughter at bedside
Assessment / Plan
Assessment / Plan
General: Well Developed, Well Nourished and Pain
HEENT: NormoCephalic, Moist mucous membranes, Atraumatic, Nose Appears Normal and Ears Appear Normal
Respiratory: Clear and Non Labored Respirations
Cardiac: S1/S2 and Regular Rhythm
GI: Soft, Non Tender, Non Distended and Normal Bowel Sounds
Genito-urinary: Gustafson
Musculoskeletal: Other (lower back pain )
Neuro: Awake, Alert, AO x 3 and Nonfocal/grossly intact
Psych: Calm and Intact Judgment/Insight
acute pancreatitis suspect 2/2 gallstone
Elevated LFTs, bili, lipase
Abd US: Mobile sludge within the gallbladder. Possible tiny gallstones within the mobile sludge. The bladder wall is slightly thickened with trace amount of pericholecystic edema. Negative sonographic Yeung's sign.
No evidence for intrahepatic bile duct dilation. The common bile duct is mildly dilated at 9 mm.
Coarsening of hepatic echotexture, a nonspecific finding suggesting hepatocellular disease.
Splenomegaly.
Pancreas is not optimally visualized.
Simple cyst arising in the medial lower pole of the right kidney. No evidence for pelvicalyceal dilation bilaterally
MRI with MRCP noted, plan for EUS/ERCP 04/11. Eventual cholecystectomy
Surgery following, GI following
N.p.o. for now
Change fluids to lactated Ringer's
Zosyn for now
Follow fever curve. Check blood culture
#myelodysplastic syndrome
#pancytopenia
Hgb 6.8 on admission
Status post now 2 unit PRBC; hgb 7.8
Hematology following
Goal hemoglobin greater than 7
hx of Left basilic vein superficial vein thrombosis
warm compresses
RUE mild swelling; if does not improve then will need US
#HFpEF
- daily weights
- Lasix currently on hold, monitor volume status closely
- continue aspirin
#BPH
chronic gustafson in place
- continue tamsulosin
#epilepsy
- continue lacosamide, and levetiracetam
#chronic back pain
- continue gabapentin
#GERD
- continue famotidine
#hx brain tumor
s/p brain tumor resection
Code status: Full code
DVT prophylaxis: SCDs; lovenox
I spent a total of 51 minutes with the patient or on the floor. More than 50% of this time involved counseling and coordination of care.
Anticipated Discharge: > 48 hours
Subjective/Interval History
-
Date of Service: April 11, 2024
denies pain
Objective Data
-
Labs:
Laboratory Results
04/11/24
05:41
WBC 4.7 L
Hgb 7.8 L
Hct 23.0 L
Plt Count 117 L
PT 15.1 H
INR 1.14
Sodium 135
Potassium 3.6
Chloride 99
Carbon Dioxide 27
BUN 13
Creatinine 0.5 L
Glucose 86
Calcium 8.8
Total Bilirubin 1.8 H
AST 96 H
ALT 165 H
Alkaline Phosphatase 444 H
Vital Signs:
Vital Signs
Temp Pulse Resp BP Pulse Ox
98.7 F 96 18 161/82 96
04/11/24 09:16 04/11/24 10:20 04/11/24 07:57 04/11/24 10:20 04/11/24 08:40
I&O
04/10/24 04/11/2425
06:59 06:59 06:59
Intake Total 250 / 250 1170 / 1170
Output Total 350 / 350 900 / 900
Balance -100 / -100 270 / 270
[2024-04-11] MEDS: LOVENOX 40 MG SC (17:27)
--- NOTE | 2024-04-11 19:18 | VATNOTE ---
R arm blood infiltrate to be monitored. Pt c/o no pain in R arm. Some swelling noted, no bruising. Will continue to monitor.
[2024-04-11] MEDS: FLOMAX 0.4 MG PO (21:58)
[2024-04-12] VITALS (17 sets, daily range): BP systolic 97–165; BP diastolic 57–88; BMI 23.0
[2024-04-12] MEDS: TYLENOL 650 MG PO ×2 (03:08→08:47)
[2024-04-12] MEDS: LR 1000 IV ×2 (03:09→18:14)
--- NOTE | 2024-04-12 05:18 | PTCARENOTE ---
Pt.'s temp trended up to 100.4 at 0306, Tylenol given, rechecked at 0451 with results 100.0. Tolerating sips of clear liquids without difficulty, does complain of right upper quadrant tenderness at times. IVF's infusing; Porter draining cloudy
cristino urine.
[2024-04-12] MEDS: ZOSYN 50 IV ×3 (05:32→18:14)
[2024-04-12 07:15] LABS: % Basophils 0.1 % (0-2); % Eosinophils 0.1 % (0-6); % Lymphocytes 18.3 % (20.5-51.1); % Monocytes 6.7 % (1.7-9.3); % Neutrophils 70.8 % (42.2-75.2); Absolute Immature Granulocytes 0.3 10^3/uL (0-0.05); Absolute Lymphocytes 1.4 10^3/uL (1.2-3.4); Absolute Monocytes 0.5 10^3/uL (0.1-0.6); Absolute Neutrophils 5.3 10^3/uL (1.4-6.5); Hematocrit 20.8 % (39.0-52.0); Hemoglobin 7.2 g/dL (13.0-18.0); Mean Corp Hgb Conc. 34.6 g/dL (33.0-37.0); Mean Corpuscular Hgb 30.5 pg (27.0-31.0); Mean Corpuscular Volume 88.1 fL (80.0-94.0); Mean Platelet Volume 10.1 fL (7.4-10.4); Nucleated Red Blood Cells % 0 % (-); Platelet Count 124 10^3/uL (130-400); Red Blood Cell Count 2.36 10^6/uL (4.70-6.10); Red Cell Dist. Width 14.6 % (11.5-14.5); White Blood Cell Count 7.4 10^3/uL (4.8-10.8)
[2024-04-12 07:29] LABS: ALT (SGPT) 82 U/L (0-50); AST (SGOT) 36 U/L (17-59); Albumin 2.3 g/dl (3.5-5.0); Alkaline Phosphatase 297 U/L (38-126); Blood Urea Nitrogen 10 mg/dl (9-20); Carbon Dioxide 26 mmol/L (22-30); Chloride 100 mmol/L (98-107); Estimated Creatinine Clearance 111 ml/min; Glucose 80 mg/dl (70-99); Lipase 677 U/L (23-300); Potassium 3.3 mmol/L (3.5-5.1); Sodium 135 mmol/L (135-145); Total Bilirubin 1.8 mg/dl (0.2-1.3); Total Protein 4.9 g/dl (6.3-8.2); eGFR > 60.00
[2024-04-12 07:31] LABS: Procalcitonin 0.82 ng/ml (0.0-0.25)
--- NOTE | 2024-04-12 08:17 | W.PN.GS2 ---
Addendum entered and electronically signed by Denis Johnston MD 04/12/24 08:32:
Patient seen and examined. Daughter at bedside.
He is feeling better. Less abdominal discomfort/pain. Appetite returning. No nausea.
Tmax 100.4, AF this a.m. low-grade tachycardia, normotensive
NAD AAOx3
EUS report reviewed -sludge layering in common bile duct and gallbladder
A/P: 78-year-old male with probable gallstone mediated acute pancreatitis/CBD sludge -probable cholangitic component with prior fevers (blood cultures pending)
Clinically improving but still with low-grade fevers
Again discussed with patient and his daughter indications for cholecystectomy. Appears medically stable to proceed and we discussed would be beneficial to proceed with cholecystectomy and cholangiogram to flush out sludge visualized on endoscopic
ultrasound within common bile duct as well. Laparoscopic cholecystectomy with intraoperative cholangiogram was reviewed in detail within the operative technique utilizing a diagram and drawing, alternative treatment options, benefits and risks such
as but not limited to bleeding, infectious and wound related complications, bile duct injury, bile leak, iatrogenic injury to other surrounding viscera, postcholecystectomy fatty food intolerances/dietary changes. Any of the patient's or his
daughters concerns or questions were fully addressed and informed consent was obtained
Will transfuse 1 unit now with hemoglobin 7.2 preop and history of MDS
Patient on OR schedule today for lap kirsty with cholangiogram
Continue Zosyn
Follow blood cultures
Continue current supportive care and n.p.o. 4 OR
Original Note:
Today's Communication / Plan
-
OR later today
Assessment / Plan
-
Assessment: 78 y/o male with probable gallstone mediated acute pancreatitis possible choledocholithiasis/CBD sludge.
medical hx notable for myelodysplastic syndrome with pancytopenia, HFpEF, BPH with chronic gustafson, epilepsy, GERD, chronic back pain and h/o brain tumor rsxn
US with sluge/possible tiny stones, trace PCCF, slight wall thickening. CBD 9mm
MRCP: peripancreatic edema greatest around head/uncinate process. no fluid collections. mild biliary ductal dilation, ? sludge posterior CBD; diffuse GB wall thickening likely reactive as appears contiguous with peripancreatic edema. GB
sludge/small stones layering posteriorly; does not appear to have obstructing stone in area of cystic duct.
PPD #1 ERCP with sludge noted in the distal CBD
Tmax 100.0, mild tachycardia, htn
WCB stable, hgb responded appropriately to transfusion but remains low, platelets stable
tBili improved as well as LFTS; lipase significantly trended down
suspect ongoing SIRS response d/t acute pancreatitis
Plan:
NPO for OR this afternoon for lap kirsty with IOC
Continue ABX
Transfuse 1 unit in anticipation of the OR today
[employer]ages[employer]/antiemetics prn
Subjective Data
-
Date of Service: April 12, 2024
Patient seen and examined at bedside with Dr. Johnston. Daughter present, questions addressed. Denies n/v. Chilled today with low grade fever. Pain is improved/minimal. Denies n/v.
Objective Data
-
Intake and Output
04/11/24 04/12/24 04/13/24
06:59 06:59 06:59
Intake Total 1170 / 1170 3040 / 3040
Output Total 900 / 900 1625 / 1625
Balance 270 / 270 1415 / 1415
Intake:
Oral fluids 120 / 120 390 / 390
IV fluids (Total) 700 / 700 2450 / 2450
IV piggybacks 100 / 100 200 / 200
Blood Product Amount Infused ( 250 / 250
mL)
Packed Rbc Leukoreduced Unit 250 / 250
[id number]
Output:
Urine, Gustafson 900 / 900 1625 / 1625
Vital Signs
Temp Pulse Resp BP Pulse Ox
99.3 F 102 17 146/88 97
04/12/24 07:45 04/12/24 07:45 04/12/24 07:45 04/12/24 07:45 04/12/24 07:45
Lab Results
04/12/24 06:47
04/12/24 06:47
Calcium 8.0 mg/dl (8.4-10.2) L 04/12/24 06:47
Total Bilirubin 1.8 mg/dl (0.2-1.3) H 04/12/24 06:47
Direct Bilirubin 0.3 mg/dl (0.0-0.4) 04/11/24 05:41
AST 36 U/L (17-59) 04/12/24 06:47
ALT 82 U/L (0-50) H 04/12/24 06:47
Alkaline Phosphatase 297 U/L (38-126) H 04/12/24 06:47
Total Protein 4.9 g/dl (6.3-8.2) L 04/12/24 06:47
Albumin 2.3 g/dl (3.5-5.0) L 04/12/24 06:47
Physical Exam
-
NAD AAOx3
ABD: soft, ND, nt, no R/R/G
no palpable RUQ mass
Patient has a gustafson catheter: Yes (chronic)
--- NOTE | 2024-04-12 08:41 | W.PN.GI.CBS2 ---
Today's Communication / Plan
-
-- gi signing off, please call us back if we can help
Assessment / Plan
-
78-year-old male with past medical history of colon polyps, BPH, seizure 1989, history of benign brain tumor that was resected initially at [facility] followed by [facility] with stereotactic treatment in [place]
currently on Keppra for seizure, history of Mohs procedure, right sided rib fracture, right malleolus avulsion fracture, traumatic subdural hematoma (12/2023), multifocal pneumonia felt to be secondary to aspiration 02/2024, MDS pancytopenia MBL�CLL
with low-grade IgM MGUS pancytopenia with recent admissions in February as well as again in early March for pneumonia and possible CHF as well as sepsis secondary to UTI. Recent discharge on 04/03/2024 new medication including amlodipine. He was
treated with antibiotics during that last admission including Levaquin, doxycycline and Lasix. He returned to the emergency room on 04/09/2024 with epigastric pain associated with nausea and vomiting. Asked to evaluate for pancreatitis. Patient
with symptoms arising with right upper quadrant dull pain after eating lunch. Pain progressed down into periumbilical region. Elevated LFTs in an obstructive pattern, positive gallstone. Mildly dilated CBD of 9 mm. Lipase greater than 4000.
Still with mild right upper quadrant tenderness on palpation as well as periumbilical tenderness. Patient currently receiving lactated Ringer's at 100 cc an hour given history of CHF. Currently on Zosyn. Afebrile.
Impression:
Pancreatitis, likely secondary to gallstones
Cholelithiasis
Elevated LFTs, not elevated previously
Myelodysplastic syndrome-> with anemia requiring 1 unit of packed red blood cells. No active signs of bleeding.
Chronic HFpEF
Seizure disorder
Recent pneumonia
EUS on 04/11 showed CBD sludge - no intervention
--- PLAN per surgery note - patient going to OR for kirsty
-- LFTs improving
--- GI will sign off. please call us back if needed
Total Time Spent with Patient (in minutes): 8
Subjective
Subjective
Date of Service: April 12, 2024
patient denies abdominal pain or nausea. +headache
Objective
Data Reviewed
Laboratory Data:
Laboratory Results
04/12/24 06:47
04/12/24 06:47
Laboratory Results
PT 15.1 Sec (11.4-14.6) H 04/11/24 05:41
INR 1.14 04/11/24 05:41
Total Bilirubin 1.8 mg/dl (0.2-1.3) H 04/12/24 06:47
AST 36 U/L (17-59) 04/12/24 06:47
ALT 82 U/L (0-50) H 04/12/24 06:47
Alkaline Phosphatase 297 U/L (38-126) H 04/12/24 06:47
Lipase 677 U/L (23-300) H 04/12/24 06:47
Vital Signs and I&O:
Vital Signs
Temp Pulse Resp BP Pulse Ox
99.3 F 102 17 146/88 97
04/12/24 07:45 04/12/24 07:45 04/12/24 07:45 04/12/24 07:45 04/12/24 07:45
I&O
04/11/24 04/12/24 04/13/24
06:59 06:59 06:59
Intake Total 1170 / 1170 3040 / 3040
Output Total 900 / 900 1625 / 1625
Balance 270 / 270 1415 / 1415
Physical Exam
Physical Exam
HEENT: Other (mildly icteric)
GI: Soft and Non Distended
Neuro: Non Focal
[2024-04-12] MEDS: KEPPRA 1500 MG PO ×2 (08:47→19:34)
[2024-04-12] MEDS: TAMIFLU 75 MG PO (08:47)
[2024-04-12] MEDS: NEURONTIN 200 MG PO ×2 (08:47→20:57)
[2024-04-12] MEDS: PEPCID 20 MG PO ×2 (08:48→19:34)
[2024-04-12] MEDS: NORVASC 5 MG PO (08:48)
[2024-04-12] MEDS: VIMPAT 50 MG PO ×2 (08:48→19:34)
[2024-04-12] MEDS: ASPIR LOW (ENTERIC COATED) 81 MG PO (08:48)
[2024-04-12] MEDS: SENOKOT 8.6 MG PO (08:48)
[2024-04-12] MEDS: KCL 260 MEQ IV (09:02)
--- NOTE | 2024-04-12 10:08 | W.PN.ONC ---
Documented by User: Daniel Her DO, Resident 04/12/24 11:13
Today's Communication / Plan
-
Transfuse if hemoglobin below 7
If procedures planned, recommend targeting hemoglobin of 8
Platelet transfusion if less than 20 and asymptomatic, if bleeding recommend targeting platelets of 50
Agree with transfusion before cholecystectomy
Continue antibiotics and supportive care per primary/GI/surgery
Daily CBC with differential to monitor neutrophils, hemoglobin and platelets postop
Impression
Impression
biliary Pancreatitis
Acute cholecystitis
MDS with chronic pancytopenia, not neutropenic
Plan
Plan
surgery and GI following
Planning for cholecystectomy today 04/12/2024
Agree with definitive empiric antibiotic therapy
Acute treatment of MDS is supportive care with transfusions when needed for Hgb <7, platelets <20
If patient going for procedure, recommend targeting hemoglobin of 8
Will follow along with you
Subjective/Objective
Subjective/Objective
Vital Signs:
Vital Signs
Temp Pulse Resp BP Pulse Ox
100.1 F 105 20 141/77 93
04/12/24 09:32 04/12/24 09:32 04/12/24 09:32 04/12/24 09:32 04/12/24 09:32
Lab Results:
Laboratory Data
WBC 7.4 10^3/uL (4.8-10.8) 04/12/24 06:47
Hgb 7.2 g/dL (13.0-18.0) L 04/12/24 06:47
Plt Count 124 10^3/uL (130-400) L 04/12/24 06:47
PT 15.1 Sec (11.4-14.6) H 04/11/24 05:41
INR 1.14 04/11/24 05:41
eGFR > 60.00 04/12/24 06:47

Documented by User: Aftab Jorgensen MD 04/12/24 12:41
Plan
Plan
surgery and GI following
Planning for cholecystectomy today 04/12/2024
Agree with definitive empiric antibiotic therapy
Acute treatment of MDS is supportive care with transfusions when needed for Hgb <7, platelets <20
If patient going for procedure, recommend targeting hemoglobin of 8
Will follow along with you
Hematology Addendum:
Patient seen and evaluated and agree w/ resident note and plan as outlined
-transfusing 1 unit PRBCs pre-operatively
-follow CBC and continue to transfuse prn in the post-operative setting as per parameters
-f/u as outpt for continued management of MDS
Will continue to follow with you.
--- NOTE | 2024-04-12 10:23 | CM ---
Reviewed the chart notes and spoke with the patient at the bedside. Patient is on OR schedule today for lap kirsty with cholangiogram. Receiving PRBCs. CM continues to be available to patient/family and is monitoring medical plan for needs at
discharge.
Plan: Discharge plans will depend on the patient's progress.
[2024-04-12] MEDS: LR IV (12:24)
--- NOTE | 2024-04-12 12:41 | W.PN.HOSP.TC ---
Today's Communication/Plan
-
Monitor vital signs and see plan
Transfuse 1 unit prior to the OR
Follow fever curve
Exchange Gustafson catheter and check UA with reflex to culture from the new catheter
OR today by surgery for cholecystectomy
follow blood cx
Assessment / Plan
Assessment / Plan
General: Well Developed, Well Nourished and Pain
HEENT: NormoCephalic, Moist mucous membranes, Atraumatic, Nose Appears Normal and Ears Appear Normal
Respiratory: Clear and Non Labored Respirations
Cardiac: S1/S2 and Regular Rhythm
GI: Soft, Non Tender, Non Distended and Normal Bowel Sounds
Genito-urinary: Gustafson
Musculoskeletal: Other (lower back pain )
Neuro: Awake, Alert, AO x 3 and Nonfocal/grossly intact
Psych: Calm and Intact Judgment/Insight
acute pancreatitis suspect 2/2 gallstone
Elevated LFTs, bili, lipase
Abd US: Mobile sludge within the gallbladder. Possible tiny gallstones within the mobile sludge. The bladder wall is slightly thickened with trace amount of pericholecystic edema. Negative sonographic Yeung's sign.
No evidence for intrahepatic bile duct dilation. The common bile duct is mildly dilated at 9 mm.
Coarsening of hepatic echotexture, a nonspecific finding suggesting hepatocellular disease.
Splenomegaly.
Pancreas is not optimally visualized.
Simple cyst arising in the medial lower pole of the right kidney. No evidence for pelvicalyceal dilation bilaterally
MRI with MRCP noted, s/p EUS noted. no clear stone in CBD. plan for CCY 04/12
Surgery following, GI following
N.p.o. for now
Change fluids to lactated Ringer's
Zosyn for now
Follow fever curve. Blood culture pending. Given fevers, change Gustafson catheter and check UA after new catheter.
#myelodysplastic syndrome
#pancytopenia
Hgb 6.8 on admission
Status post now 2 unit PRBC; hgb 7.2; transfused another unit 1/31 prior to OR
Hematology following
Goal hemoglobin greater than 7
hx of Left basilic vein superficial vein thrombosis
warm compresses
RUE mild swelling; if does not improve then will need US
#HFpEF
- daily weights
- Lasix currently on hold, monitor volume status closely
- continue aspirin
#BPH
chronic gustafson in place
- continue tamsulosin
#epilepsy
- continue lacosamide, and levetiracetam
#chronic back pain
- continue gabapentin
#GERD
- continue famotidine
#hx brain tumor
s/p brain tumor resection
Code status: Full code
DVT prophylaxis: SCDs; lovenox
I spent a total of 52 minutes with the patient or on the floor. More than 50% of this time involved counseling and coordination of care.
Anticipated Discharge: > 48 hours
Subjective/Interval History
-
Date of Service: April 12, 2024
denies pain
Objective Data
-
Labs:
Laboratory Results
04/12/24
06:47
WBC 7.4
Hgb 7.2 L
Hct 20.8 L*
Plt Count 124 L
Sodium 135
Potassium 3.3 L
Chloride 100
Carbon Dioxide 26
BUN 10
Creatinine 0.5 L
Glucose 80
Calcium 8.0 L
Total Bilirubin 1.8 H
AST 36
ALT 82 H
Alkaline Phosphatase 297 H
Vital Signs:
Vital Signs
Temp Pulse Resp BP Pulse Ox
100.1 F 98 17 151/85 96
04/12/24 12:20 04/12/24 12:20 04/12/24 12:20 04/12/24 12:20 04/12/24 12:20
I&O
04/11/24 04/12/24 04/13/24
06:59 06:59 06:59
Intake Total 1170 / 1170 3040 / 3040 2475 / 2475
Output Total 900 / 900 1625 / 1625
Balance 270 / 270 1415 / 1415 2475 / 2475
--- NOTE | 2024-04-12 14:43 | VATNOTE ---
Right arm blood infiltrate resolved. Client denies any tenderness
--- NOTE | 2024-04-12 14:53 | W.SUR.PREOP ---
Pre-Operative Surgical Note
-
I have examined this patient prior to the performance of the scheduled procedure.
The patient's condition is unchanged from the time of the current History and
Physical and the patient is able to undergo the scheduled procedure.
[2024-04-12] MEDS: NEURONTIN PO (15:34)
--- NOTE | 2024-04-12 16:57 | W.IMMPOSTOP ---
Addendum entered and electronically signed by Denis Johnston MD 04/12/24 17:13:
#[id number]
Original Note:
Surgical Immed Post Op Note
-
Primary Surgeon: Denis Johnston MD
Assisting Surgeon: Naresh Mckeon MD, PGY1
Pre-op Diagnosis: Gallstone mediated pancreatitis
Post-op Diagnosis: Gallstone mediated pancreatitis
Procedure Performed: Laparoscopic cholecystectomy with intraoperative cholangiogram
Anesthesia Type: GETA +0.25% Marcaine with epi
Specimen / Cultures: Gallbladder
Estimated Blood Loss: 8 mL
Complications: None immediate
Operative Findings: Softly distended gallbladder. Few adhesions. Sludge. Intraoperative cholangiogram normal other than distended bile duct and opacification of pancreatic ducts. Cholecystectomy completed intact and extracted at epigastric 12 mm
trocar site.
Plan: Routine postoperative care advance diet as tolerated to low-fat
Porter catheter was exchanged in the operating room. Urine cultures obtained.
[2024-04-12 17:24] LABS: Urine Albumin 3+ (Neg - Trace); Urine Bilirubin Negative (Negative); Urine Character Cloudy (Clear); Urine Color Yellow; Urine Glucose Negative (Negative); Urine Ketone 2+ (Negative); Urine Leukocyte 2+ (Negative); Urine Nitrite Negative (Negative); Urine Occult Blood 4+ (Negative); Urine Urobilinogen 1+ (Neg - 1+)
[2024-04-12 18:07] LABS: Urine Bacteria Moderate (Negative); Urine Red Blood Cell 21-25 /HPF (0-2); Urine Squamous Cell 0-2 /LPF (Few)
--- NOTE | 2024-04-12 18:32 | PTCARENOTE ---
Received pt back from PACU, VSS, 5 lap sites closed with dermabond, pt drowsy but arousable, needing frequent reorientation. No new orders at this time.
[2024-04-12] MEDS: FLOMAX 0.4 MG PO (20:57)
[2024-04-13] MEDS: ZOSYN 50 IV ×5 (00:43→23:55)
[2024-04-13 03:21] VITALS: BP 147/86
[2024-04-13] MEDS: LR 1000 IV (05:30)
[2024-04-13 05:40] VITALS: BMI 23.2
--- NOTE | 2024-04-13 06:37 | PTCARENOTE ---
Pt. had no complaints of abd pain/discomfort or nausea this shift. 5 lap kirsty sites [employer]PER[employer], approximated with no drainage; bowel sounds positive. IVF's infusing, Porter draining cristino urine. Pt. awake and alert this morning.
[2024-04-13 07:57] LABS: % Basophils 0.1 % (0-2); % Immature Granulocytes 3.6 % (0-0.5); % Lymphocytes 9.4 % (20.5-51.1); % Monocytes 4.2 % (1.7-9.3); % Neutrophils 82.7 % (42.2-75.2); Absolute Immature Granulocytes 0.2 10^3/uL (0-0.05); Absolute Lymphocytes 0.6 10^3/uL (1.2-3.4); Absolute Monocytes 0.3 10^3/uL (0.1-0.6); Absolute Neutrophils 5.6 10^3/uL (1.4-6.5); Hematocrit 22.8 % (39.0-52.0); Hemoglobin 8.1 g/dL (13.0-18.0); Mean Corp Hgb Conc. 35.5 g/dL (33.0-37.0); Mean Corpuscular Hgb 31.3 pg (27.0-31.0); Mean Platelet Volume 10.5 fL (7.4-10.4); Nucleated Red Blood Cells % 0 % (-); Platelet Count 142 10^3/uL (130-400); Red Blood Cell Count 2.59 10^6/uL (4.70-6.10); Red Cell Dist. Width 14.2 % (11.5-14.5); White Blood Cell Count 6.7 10^3/uL (4.8-10.8)
[2024-04-13 08:00] VITALS: BP 148/75
[2024-04-13 08:20] LABS: ALT (SGPT) 60 U/L (0-50); AST (SGOT) 28 U/L (17-59); Albumin 2.5 g/dl (3.5-5.0); Alkaline Phosphatase 330 U/L (38-126); Blood Urea Nitrogen 14 mg/dl (9-20); Calcium 8.6 mg/dl (8.4-10.2); Carbon Dioxide 26 mmol/L (22-30); Chloride 100 mmol/L (98-107); Estimated Creatinine Clearance 111 ml/min; Glucose 135 mg/dl (70-99); Potassium 3.5 mmol/L (3.5-5.1); Sodium 135 mmol/L (135-145); Total Bilirubin 1.3 mg/dl (0.2-1.3); eGFR > 60.00
[2024-04-13] MEDS: NORVASC 5 MG PO (08:41)
[2024-04-13] MEDS: ASPIR LOW (ENTERIC COATED) 81 MG PO (08:41)
[2024-04-13] MEDS: PEPCID 20 MG PO ×2 (08:41→20:06)
[2024-04-13] MEDS: KEPPRA 1500 MG PO ×2 (08:42→20:06)
[2024-04-13] MEDS: NEURONTIN 200 MG PO ×3 (08:42→21:10)
[2024-04-13] MEDS: VIMPAT 50 MG PO ×2 (08:42→20:06)
[2024-04-13] MEDS: SENOKOT 8.6 MG PO (08:42)
[2024-04-13] MEDS: TAMIFLU 75 MG PO (08:42)
--- NOTE | 2024-04-13 11:40 | W.PN.HOSP.TC ---
Today's Communication/Plan
-
Monitor vital signs see plan
Follow fever curve
Continue with antibiotics for now
PT/OT
Gustafson exchanged yesterday, follow urine culture
Advance diet to low-fat
Assessment / Plan
Assessment / Plan
General: Well Developed, Well Nourished and Pain
HEENT: Normocephalic, Moist mucous membranes, Atraumatic
Respiratory: Clear and Non Labored Respirations
Cardiac: S1/S2 and Regular Rhythm
GI: Soft, Non Tender, Non Distended and Normal Bowel Sounds
Genito-urinary: Gustafson
Neuro: Awake, Alert, AO x 3 and Nonfocal/grossly intact
Psych: Calm and Intact Judgment/Insight
acute pancreatitis suspect 2/2 gallstone
Elevated LFTs, bili, lipase
Abd US: Mobile sludge within the gallbladder. Possible tiny gallstones within the mobile sludge. The bladder wall is slightly thickened with trace amount of pericholecystic edema. Negative sonographic Yeung's sign.
No evidence for intrahepatic bile duct dilation. The common bile duct is mildly dilated at 9 mm.
Coarsening of hepatic echotexture, a nonspecific finding suggesting hepatocellular disease.
Splenomegaly.
Pancreas is not optimally visualized.
Simple cyst arising in the medial lower pole of the right kidney. No evidence for pelvicalyceal dilation bilaterally
MRI with MRCP noted, s/p EUS noted. no clear stone in CBD. Status post CCY 04/12
Surgery following, GI signed off
Currently on clears, advance diet to low-fat
Change fluids to lactated Ringer's
Zosyn for now
Follow fever curve. Blood culture NGTD. Gustafson catheter exchanged 04/12, follow urine culture. UA suggestive of possible UTI
#myelodysplastic syndrome
#pancytopenia
Hgb 6.8 on admission
Status post now 2 unit PRBC; hgb 7.2; transfused another unit 04/12 prior to OR. Hemoglobin now 8.1
Hematology following
Goal hemoglobin greater than 7
hx of Left basilic vein superficial vein thrombosis
warm compresses
RUE mild swelling; if does not improve then will need US
#HFpEF
- daily weights
- Lasix currently on hold, monitor volume status closely
- continue aspirin
#BPH
chronic gustafson in place
- continue tamsulosin
#epilepsy
- continue lacosamide, and levetiracetam
#chronic back pain
- continue gabapentin
#GERD
- continue famotidine
#hx brain tumor
s/p brain tumor resection
Code status: Full code
DVT prophylaxis: SCDs; lovenox
I spent a total of 51 minutes with the patient or on the floor. More than 50% of this time involved counseling and coordination of care.
Anticipated Discharge: 24 - 48 hours
Subjective/Interval History
-
Date of Service: April 13, 2024
Pain is getting better
Objective Data
-
Labs:
Laboratory Results
04/13/24
06:04
WBC 6.7
Hgb 8.1 L
Hct 22.8 L
Plt Count 142
Sodium 135
Potassium 3.5
Chloride 100
Carbon Dioxide 26
BUN 14
Creatinine 0.5 L
Glucose 135 H
Calcium 8.6
Total Bilirubin 1.3
AST 28
ALT 60 H
Alkaline Phosphatase 330 H
Vital Signs:
Vital Signs
Temp Pulse Resp BP Pulse Ox
97.7 F 85 16 148/75 100
04/13/24 08:00 04/13/24 08:41 04/13/24 08:00 04/13/24 08:41 04/13/24 10:02
I&O
04/12/24 04/13/24 04/14/24
06:59 06:59 06:59
Intake Total 3040 / 3040 4165 / 4165
Output Total 1625 / 1625 1200 / 1200
Balance 1415 / 1415 2965 / 2965
[2024-04-13 12:20] VITALS: BP 107/60; BP 121/63; BP 132/75; O2SAT 99
[2024-04-13 16:05] VITALS: BP 116/64
--- NOTE | 2024-04-13 16:40 | W.PN.GS2 ---
Addendum entered and electronically signed by Luis Angel Tsai MD 04/13/24 17:31:
I saw and examined the patient.
The IMPREGNATOR AND DRIER's note was reviewed and I agree with the note.
Comment:
No overnight events, denies N/V, tolerating clears, no bowel function yet, pain controlled. Gustafson.
AFVSS, ABD soft, minimally distended, appropriately tender, no R/G; incisions well-approximated without erythema or drainage
WBC 6.7, Hb 8.1 from 7.2, T. bili 1.3 from 1.8, CR 0.5
�Advance to low-fat diet
� Continue pain control with Tylenol, oxycodone and Dilaudid as needed
� Continue DVT PPx
� Appreciate hospitalist; once tolerating low-fat diet, okay for discharge from surgical standpoint once medically cleared
Original Note:
Today's Communication / Plan
-
low fat diet
Assessment / Plan
-
Assessment: 78 y/o male with probable gallstone mediated acute pancreatitis possible choledocholithiasis/CBD sludge.
medical hx notable for myelodysplastic syndrome with pancytopenia, HFpEF, BPH with chronic gustafson, epilepsy, GERD, chronic back pain and h/o brain tumor rsxn
US with sluge/possible tiny stones, trace PCCF, slight wall thickening. CBD 9mm
MRCP: peripancreatic edema greatest around head/uncinate process. no fluid collections. mild biliary ductal dilation, ? sludge posterior CBD; diffuse GB wall thickening likely reactive as appears contiguous with peripancreatic edema. GB
sludge/small stones layering posteriorly; does not appear to have obstructing stone in area of cystic duct.
PPD #2 ERCP with sludge noted in the distal CBD
POD #1 Lap cholecystectomy with IOC
AFVSS
WCB stable, hgb responded appropriately to transfusion but remains low, platelets stable
Bilirubin normalized
Gustafson exchanged in OR
Plan:
Advanced to LFD
Analagesics/antiemetics prn
Ok for d/c from surgical standpoint once medically ready
Subjective Data
-
Date of Service: April 13, 2024
Patient seen and examined at bedside with Dr. Tsai. Denies n/v. Tolerating diet. Some incisional soreness with movement but manageable.
Objective Data
-
Intake and Output
04/12/24 04/13/24 04/14/24
06:59 06:59 06:59
Intake Total 3040 / 3040 4165 / 4165 100 / 100
Output Total 1625 / 1625 1200 / 1200 175 / 175
Balance 1415 / 1415 2965 / 2965 -75 / -75
Intake:
Oral fluids 390 / 390 290 / 290
IV fluids (Total) 2450 / 2450 2450 / 2450
Normosol 200 / 200
IV piggybacks 200 / 200 910 / 910 100 / 100
Blood products 265 / 265
Blood Product Amount Infused ( 250 / 250
mL)
Packed Rbc Leukoreduced Unit 250 / 250
[id number]
Output:
Urine, Gustafson 1625 / 1625 1200 / 1200 175 / 175
Vital Signs
Temp Pulse Resp BP Pulse Ox
97.7 F 85 16 148/75 100
04/13/24 08:00 04/13/24 08:41 04/13/24 08:00 04/13/24 08:41 04/13/24 10:02
Lab Results
04/13/24 06:04
04/13/24 06:04
Calcium 8.6 mg/dl (8.4-10.2) 04/13/24 06:04
Total Bilirubin 1.3 mg/dl (0.2-1.3) 04/13/24 06:04
Direct Bilirubin 0.3 mg/dl (0.0-0.4) 04/11/24 05:41
AST 28 U/L (17-59) 04/13/24 06:04
ALT 60 U/L (0-50) H 04/13/24 06:04
Alkaline Phosphatase 330 U/L (38-126) H 04/13/24 06:04
Total Protein 5.0 g/dl (6.3-8.2) L 04/13/24 06:04
Albumin 2.5 g/dl (3.5-5.0) L 04/13/24 06:04
Physical Exam
-
NAD AAOx3
ABD: soft, ND, expected incisional tenderness
Incisions clear, dry, intact
Patient has a gustafson catheter: Yes (chronic)
[2024-04-13] MEDS: LOVENOX 40 MG SC (17:09)
--- NOTE | 2024-04-13 17:38 | PTCARENOTE ---
Patient OOB to chair for approx 2-3 hours today, x2 assist with RW. IVF dced per MD, patient tolerating low fat diet per general surgery. VSS, no fevers, patient states occasional dizziness with position changes, ortho BPs taken by PT stable.
Patient with approx 200 ml clear yellow urine output in gustafson, bladder scan by this RN 15 ml, repeat taken by tech 2 ml. Patient denies bloating or abd pain at this time, states occasional R sided pain with cough/movement but denies need for pain
medication. 5 lap sites on abdomen well approximated, surgical glue intact. Patient's own compression stockings, SCDs in place. MD made aware, no new orders at this time.
[2024-04-13] MEDS: FLOMAX 0.4 MG PO (21:10)
[2024-04-13 23:23] VITALS: BP 112/57
[2024-04-14] MEDS: ZOSYN 50 IV (05:40)
[2024-04-14 07:30] LABS: % Basophils 0.2 % (0-2); % Immature Granulocytes 1.2 % (0-0.5); % Monocytes 6.9 % (1.7-9.3); % Neutrophils 67.7 % (42.2-75.2); Absolute Immature Granulocytes 0.1 10^3/uL (0-0.05); Absolute Lymphocytes 1.2 10^3/uL (1.2-3.4); Absolute Monocytes 0.3 10^3/uL (0.1-0.6); Absolute Neutrophils 3.4 10^3/uL (1.4-6.5); Hematocrit 23.3 % (39.0-52.0); Hemoglobin 7.9 g/dL (13.0-18.0); Mean Corp Hgb Conc. 33.9 g/dL (33.0-37.0); Mean Corpuscular Hgb 30.7 pg (27.0-31.0); Mean Corpuscular Volume 90.7 fL (80.0-94.0); Mean Platelet Volume 9.9 fL (7.4-10.4); Nucleated Red Blood Cells % 0 % (-); Platelet Count 172 10^3/uL (130-400); Red Blood Cell Count 2.57 10^6/uL (4.70-6.10); Red Cell Dist. Width 14.5 % (11.5-14.5)
[2024-04-14 07:40] LABS: ALT (SGPT) 37 U/L (0-50); AST (SGOT) 18 U/L (17-59); Albumin 2.4 g/dl (3.5-5.0); Alkaline Phosphatase 235 U/L (38-126); Blood Urea Nitrogen 22 mg/dl (9-20); Calcium 8.5 mg/dl (8.4-10.2); Carbon Dioxide 27 mmol/L (22-30); Chloride 100 mmol/L (98-107); Estimated Creatinine Clearance 111 ml/min; Glucose 116 mg/dl (70-99); Potassium 3.1 mmol/L (3.5-5.1); Sodium 136 mmol/L (135-145); Total Bilirubin 0.8 mg/dl (0.2-1.3); Total Protein 5.1 g/dl (6.3-8.2); eGFR > 60.00
[2024-04-14 07:45] VITALS: BP 140/72
[2024-04-14] MEDS: SENOKOT 8.6 MG PO (08:20)
[2024-04-14] MEDS: TAMIFLU 75 MG PO (08:20)
[2024-04-14] MEDS: KEPPRA 1500 MG PO (08:21)
[2024-04-14] MEDS: NORVASC 5 MG PO (08:21)
[2024-04-14] MEDS: ASPIR LOW (ENTERIC COATED) 81 MG PO (08:21)
[2024-04-14] MEDS: PEPCID 20 MG PO (08:21)
[2024-04-14] MEDS: NEURONTIN 200 MG PO (08:21)
[2024-04-14] MEDS: VIMPAT 50 MG PO (08:21)
[2024-04-14] MEDS: KCL 40 MEQ PO (08:37)
--- NOTE | 2024-04-14 10:17 | W.PN.GS2 ---
Addendum entered and electronically signed by Luis Angel Tsai MD 04/14/24 14:54:
I saw and examined the patient.
The LITHOGRAPHIC PLATE MAKER's note was reviewed and I agree with the note.
Comment:
Tolerating diet and pain controlled. Okay for discharge from surgical standpoint. Follow-up with Dr. Johnston in 2 to 3 weeks.
Original Note:
Today's Communication / Plan
-
Dispo planning
Assessment / Plan
-
Assessment: 78 y/o male with probable gallstone mediated acute pancreatitis possible choledocholithiasis/CBD sludge.
medical hx notable for myelodysplastic syndrome with pancytopenia, HFpEF, BPH with chronic gustafson, epilepsy, GERD, chronic back pain and h/o brain tumor rsxn
US with sluge/possible tiny stones, trace PCCF, slight wall thickening. CBD 9mm
MRCP: peripancreatic edema greatest around head/uncinate process. no fluid collections. mild biliary ductal dilation, ? sludge posterior CBD; diffuse GB wall thickening likely reactive as appears contiguous with peripancreatic edema. GB
sludge/small stones layering posteriorly; does not appear to have obstructing stone in area of cystic duct.
PPD #3 ERCP with sludge noted in the distal CBD
POD #2 Lap cholecystectomy with IOC
AFVSS
Labs stable
Bilirubin normalized
Gustafson exchanged in OR
Plan:
Continue LFD
Analagesics/antiemetics prn
Ok for d/c from surgical standpoint once medically ready
Subjective Data
-
Date of Service: April 14, 2024
Patient seen and examined at bedside with Dr. Tsai. Incisional pain only with cough. Denies n/v. Tolerating diet.
Objective Data
-
Intake and Output
04/13/24 04/14/24 04/15/24
06:59 06:59 06:59
Intake Total 4165 / 4165 1060 / 1060
Output Total 1200 / 1200 650 / 650
Balance 2965 / 2965 410 / 410
Intake:
Oral fluids 290 / 290 960 / 960
IV fluids (Total) 2450 / 2450
Normosol 200 / 200
IV piggybacks 910 / 910 100 / 100
Blood products 265 / 265
Blood Product Amount Infused ( 250 / 250
mL)
Packed Rbc Leukoreduced Unit 250 / 250
[id number]
Output:
Urine, Gustafson 1200 / 1200 650 / 650
Other:
How many times incontinent 1
MODERATE amount urine
Vital Signs
Temp Pulse Resp BP Pulse Ox
97.7 F 80 17 140/72 94
04/14/24 07:45 04/14/24 08:21 04/14/24 07:45 04/14/24 08:21 04/14/24 09:24
Lab Results
04/14/24 05:54
04/14/24 05:54
Calcium 8.5 mg/dl (8.4-10.2) 04/14/24 05:54
Total Bilirubin 0.8 mg/dl (0.2-1.3) 04/14/24 05:54
Direct Bilirubin 0.3 mg/dl (0.0-0.4) 04/11/24 05:41
AST 18 U/L (17-59) 04/14/24 05:54
ALT 37 U/L (0-50) 04/14/24 05:54
Alkaline Phosphatase 235 U/L (38-126) H 04/14/24 05:54
Total Protein 5.1 g/dl (6.3-8.2) L 04/14/24 05:54
Albumin 2.4 g/dl (3.5-5.0) L 04/14/24 05:54
Physical Exam
-
NAD AAOx3
ABD: soft, ND, expected incisional tenderness
Incisions clear, dry, intact
Patient has a gustafson catheter: Yes (chronic)
--- NOTE | 2024-04-14 11:30 | W.PN.HOSP.TC ---
Addendum entered and electronically signed by Tremayne Pham MD 04/14/24 13:06:
Time of discharge 38 minutes
Original Note:
Today's Communication/Plan
-
Monitor vital signs see plan
Switch antibiotics to oral
Follow fever curve
Tolerating low-fat diet
Discharge today if has placement
Discussed with daughter at bedside
Assessment / Plan
Assessment / Plan
General: Well Developed, Well Nourished and Pain
HEENT: Normocephalic, Moist mucous membranes, Atraumatic
Respiratory: Clear and Non Labored Respirations
Cardiac: S1/S2 and Regular Rhythm
GI: Soft, Non Tender, Non Distended and Normal Bowel Sounds
Genito-urinary: Gustafson
Neuro: Awake, Alert, AO x 3 and Nonfocal/grossly intact
Psych: Calm and Intact Judgment/Insight
acute pancreatitis suspect 2/2 gallstone
Elevated LFTs, bili, lipase
Abd US: Mobile sludge within the gallbladder. Possible tiny gallstones within the mobile sludge. The bladder wall is slightly thickened with trace amount of pericholecystic edema. Negative sonographic Yeung's sign.
No evidence for intrahepatic bile duct dilation. The common bile duct is mildly dilated at 9 mm.
Coarsening of hepatic echotexture, a nonspecific finding suggesting hepatocellular disease.
Splenomegaly.
Pancreas is not optimally visualized.
Simple cyst arising in the medial lower pole of the right kidney. No evidence for pelvicalyceal dilation bilaterally
MRI with MRCP noted, s/p EUS noted. no clear stone in CBD. Status post CCY 04/12
Surgery following, GI signed off
Now tolerating low-fat
DC further fluids
switch abx to augmentin to complete course
Follow fever curve. Blood culture NGTD. Gustafson catheter exchanged 04/12, follow urine culture, on minimal yeast in there. monitor. UA suggestive of possible UTI
#myelodysplastic syndrome
#pancytopenia
Hgb 6.8 on admission
Status post now 2 unit PRBC; hgb 7.2; transfused another unit 04/12 prior to OR. Hemoglobin now 7.9
Hematology following
Goal hemoglobin greater than 7
There was flu outbreak at [facility] where patient came from, was on Tamiflu prophylaxis
Finished course
hx of Left basilic vein superficial vein thrombosis
warm compresses
RUE mild swelling;now improved
#HFpEF
- Lasix was stopped last admission
- continue aspirin
#BPH
chronic gustafson in place
- continue tamsulosin
#epilepsy
- continue lacosamide, and levetiracetam
#chronic back pain
- continue gabapentin
#GERD
- continue famotidine
#hx brain tumor
s/p brain tumor resection
Code status: Full code
DVT prophylaxis: SCDs; lovenox
PT/OT recommended SNF, discussed with family, wants to go to [facility] again. Appears has bed hold at [facility]. Texted case managers to confirm
Anticipated Discharge: Today
Subjective/Interval History
-
Date of Service: April 14, 2024
Denies nausea
Objective Data
-
Labs:
Laboratory Results
04/14/24
05:54
WBC 5.0
Hgb 7.9 L
Hct 23.3 L
Plt Count 172 D
Sodium 136
Potassium 3.1 L
Chloride 100
Carbon Dioxide 27
BUN 22 H
Creatinine 0.6 L
Glucose 116 H
Calcium 8.5
Total Bilirubin 0.8
AST 18
ALT 37
Alkaline Phosphatase 235 H
Vital Signs:
Vital Signs
Temp Pulse Resp BP Pulse Ox
97.7 F 80 17 140/72 94
04/14/24 07:45 04/14/24 08:21 04/14/24 07:45 04/14/24 08:21 04/14/24 09:24
I&O
04/13/24 04/14/24 04/15/24
06:59 06:59 06:59
Intake Total 4165 / 4165 1060 / 1060
Output Total 1200 / 1200 650 / 650
Balance 2965 / 2965 410 / 410
[2024-04-14 12:24] VITALS: BP 107/61; BP 117/61
--- NOTE | 2024-04-14 12:27 | CM ---
Addendum entered by Felicitas Flowers 04/14/24 16:31:
Pts aware of transport
Addendum entered by Felicitas Flowers 04/14/24 13:52:
Transport arranged for 5:30PM
LM on VM with Tatyana regarding time of transport
Original Note:
Medically ready for discharge
Spoke with Brooks Joe Sander Setter at [facility]
Confirmed pt is bed hold and may return today
Plan - Return to [facility]
Report #: [phone]
Fax#: [phone]
[2024-04-14] MEDS: AUGMENTIN 875 MG/125 MG 1 TABLET PO (12:34)
[2024-04-14 12:50] VITALS: BP 107/61; BP 117/61
--- NOTE | 2024-04-14 13:06 | W.DCSUMMARY ---
Discharge Summary
Discharge Data
Date of Admission: 04/09/24
Date of Discharge: 04/14/24
-
Pending Results: No
Hospital Course
78-year-old male with past medical history of myelodysplastic syndrome, pancytopenia, CHF, BPH, epilepsy, chronic back pain, GERD, history of brain tumor s/p resection came to the hospital with acute pancreatitis which was likely thought was
secondary to gallstones. Patient initially had a EUS which did not show any signs of CBD stone however did show sludge. Post EUS patient underwent laparoscopic cholecystectomy by surgery. During his hospitalization patient also had multiple
episodes of fever concerning for infection and was put on IV antibiotic which were later transitioned to p.o. antibiotics prior to discharge. He did had Porter catheter on admission which was exchanged on this hospitalization. Due to his
myelodysplastic syndrome, he required blood transfusion while he was here. Patient was also seen by physical therapy who recommended SNF. Once his symptoms continue to improve he was then discharged back to [facility] with instructions to follow-up
with all his physicians outpatient.
Discharge Plan
-
Patient Disposition: Senior Living/SNF
Discharge Diagnosis/Procedures: Acute pancreatitis secondary to gallstone
Cholecystitis
Myelodysplastic syndrome requiring blood transfusion
Diet: As tolerated and Low Fat
Additional Diets: If you have loose stools after surgery, avoid high fat foods and dairy
Activity: With assistance and No strenuous activity
Additional Activity: Do not lift over 15lbs for the next 2-3 weeks
Driving Restrictions: As prior to admission
Bathing Restrictions: None
Blood Work: CBC and CMP at SNF
Wound Care: The glue over your incisions will flake off on its own in 2-3 weeks. Avoid scrubbing or picking off the glue. Beneath the glue are dissolving sutures
Activity Restrictions/Additional Instructions:
Call your surgeon if you have nausea with vomiting, fever >100.5 or worsening abdominal pain
Last day antibiotics 04/16/2024.
Referrals:
Eulalio Pal MD [Family Provider] - in less than 1 week
Denis Johnston MD [Active] - in two to four weeks
Prescriptions:
New
amoxicillin-pot clavulanate 875-125 mg Tablet
1 tab PO Q12 Qty: 0 0RF
Continued
sennosides [senna] 8.6 mg Tablet
8.6 mg PO DAILY
famotidine 20 mg Tablet
20 mg PO BID
levetiracetam [Keppra] 1,000 mg Tablet
1,500 mg PO BID
gabapentin 100 mg Capsule
200 mg PO TID Qty: 30 0RF
lacosamide 50 mg Tablet
50 mg PO BID Qty: 14 0RF
aspirin 81 mg Tablet,Delayed Release (Dr/Ec)
81 mg PO DAILY
magnesium hydroxide [Milk of Magnesia] 400 mg/5 mL Suspension
2,400 mg PO HSPRN PRN (Reason: constipation)
bisacodyl [Dulcolax (bisacodyl)] 10 mg Suppository
10 mg NC [id number] PRN (Reason: if no bm aftr mom)
methocarbamol 750 mg tablet
750 mg PO TIDPRN PRN (Reason: spasm)
ondansetron HCl 4 mg Tablet
4 mg PO Q6HPRN PRN (Reason: nausea)
acetaminophen 325 mg tablet
650 mg PO QID
tamsulosin 0.4 mg capsule
0.4 mg PO HS
oxycodone 5 mg tablet
5 mg PO Q6HPRN PRN (Reason: severe pain) Qty: 6 0RF
Changed
amlodipine 2.5 mg Tablet
5 mg PO DAILY Qty: 30 0RF
Discontinued
acetaminophen [Tylenol] 325 mg Tablet
650 mg PO DAILYPRN PRN (Reason: mild pain)
oseltamivir [Tamiflu] 75 mg Capsule
75 mg PO DAILY
Rx Instructions:
for 10 days starting 04/04/24
Discharge Orders:
Discharge Patient (As Directed); Ordered 04/14/24
Ordered By: Tremayne Pham
Discharge Date and Time
Discharge Date/Time: 04/14/24 16:51
Print Language: LAO
[2024-04-14 15:53] VITALS: BP 117/61
[2024-04-15 18:25] LABS: IgA 109 mg/dl (70-400); IgG 488 mg/dl (700-1600); IgM 321 mg/dl (40-230)
== END 2024-04-14 16:51 | DRG 417 ==
LOC: 2 NORTH 23:44
PROVIDERS: Emergency Medicine; Internal Medicine Gastroenterology; Internal Medicine Hematology & Oncology; Nurse Practitioner; Nurse Practitioner Family; Physician Assistant; Radiology Diagnostic Radiology; Surgery; ADMITTING PHYSICIAN Hospitalist; ATTENDING PHYSICIAN Internal Medicine; CONSULT PHYSICIAN Student in an Organized Health Care Education/Training Program; EMERGENCY PHYSICIAN Emergency Medicine; FAMILY PHYSICIAN Family Medicine; OTHER PHYSICIAN Internal Medicine Hematology & Oncology; OTHER PHYSICIAN Surgery
PROC: 30233N1 Transfusion of Nonautologous Red Blood Cells into Peripheral Vein, Percutaneous Approach (ICD-10-PCS; 2024-04-10)
PROC: 0DB68ZX Excision of Stomach, Via Natural or Artificial Opening Endoscopic, Diagnostic (ICD-10-PCS; 2024-04-11)
PROC: BF47ZZZ Ultrasonography of Pancreas (ICD-10-PCS; 2024-04-11)
PROC: BF43ZZZ Ultrasonography of Gallbladder and Bile Ducts (ICD-10-PCS; 2024-04-11)
PROC: BF111ZZ Fluoroscopy of Biliary and Pancreatic Ducts using Low Osmolar Contrast (ICD-10-PCS; 2024-04-12)
PROC: 0FT44ZZ Resection of Gallbladder, Percutaneous Endoscopic Approach (ICD-10-PCS; 2024-04-12)
DX: K80.12 Calculus of gallbladder with acute and chronic cholecystitis without obstruction (principal); K85.10 Biliary acute pancreatitis without necrosis or infection; D61.818 Other pancytopenia; I50.32 Chronic diastolic (congestive) heart failure; D46.9 Myelodysplastic syndrome, unspecified; G40.909 Epilepsy, unspecified, not intractable, without status epilepticus; K21.9 Gastro-esophageal reflux disease without esophagitis; G89.29 Other chronic pain; K31.89 Other diseases of stomach and duodenum; N40.0 Benign prostatic hyperplasia without lower urinary tract symptoms; Z79.82 Long term (current) use of aspirin; Z79.899 Other long term (current) drug therapy; Z86.011 Personal history of benign neoplasm of the brain; Z11.52 Encounter for screening for COVID-19
CPT/HCPCS: 88304; 88305; 36415; 74183; 74300; 76000; 76700; 80053; 81003; 81015; 82248; 82784; 83690; 83735; 84145; 84484; 85014; 85018; 85025; 85027; 85610; 86850; 86900; 86901; 86920; 87040; 87070; 87086; 87502; 87811; 88342; 93005; 97116; 97162; 97167; 97530; A9575; P9016

== ENCOUNTER → 2024-04-16 11:56 | Outpatient (REF) | payer MEDICARE, OTHER, SELFPAY ==
[2024-04-16 12:26] LABS: % Basophils 0.2 % (0-2); % Eosinophils 1.7 % (0-6); % Lymphocytes 29.7 % (20.5-51.1); % Monocytes 9.8 % (1.7-9.3); % Neutrophils 56.6 % (42.2-75.2); Absolute Eosinophils 0.1 10^3/uL (0-0.7); Absolute Immature Granulocytes 0.1 10^3/uL (0-0.05); Absolute Lymphocytes 1.2 10^3/uL (1.2-3.4); Absolute Monocytes 0.4 10^3/uL (0.1-0.6); Absolute Neutrophils 2.3 10^3/uL (1.4-6.5); Hematocrit 21.4 % (39.0-52.0); Hemoglobin 7.4 g/dL (13.0-18.0); Mean Corp Hgb Conc. 34.6 g/dL (33.0-37.0); Mean Corpuscular Hgb 31.8 pg (27.0-31.0); Mean Corpuscular Volume 91.8 fL (80.0-94.0); Nucleated Red Blood Cells % 0 % (-); Red Blood Cell Count 2.33 10^6/uL (4.70-6.10); Red Cell Dist. Width 14.8 % (11.5-14.5); White Blood Cell Count 4.1 10^3/uL (4.8-10.8)
[2024-04-16 12:31] LABS: ALT (SGPT) 25 U/L (0-50); AST (SGOT) 21 U/L (17-59); Albumin 2.5 g/dl (3.5-5.0); Alkaline Phosphatase 177 U/L (38-126); Blood Urea Nitrogen 8 mg/dl (9-20); Calcium 7.9 mg/dl (8.4-10.2); Carbon Dioxide 27 mmol/L (22-30); Chloride 102 mmol/L (98-107); Glucose 88 mg/dl (70-99); Potassium 3.6 mmol/L (3.5-5.1); Sodium 135 mmol/L (135-145); Total Bilirubin 0.8 mg/dl (0.2-1.3); Total Protein 5.2 g/dl (6.3-8.2); eGFR > 60.00
[2024-04-16 12:39] LABS: Mean Platelet Volume 10.9 fL (7.4-10.4); Platelet Count 193 10^3/uL (130-400)
== END ==
LOC: OLABN 11:56
PROVIDERS: ATTENDING PHYSICIAN Student in an Organized Health Care Education/Training Program
DX: D61.818 Other pancytopenia (principal)
CPT/HCPCS: 36415; 80053; 85025

== ENCOUNTER → 2024-04-24 12:37 | Outpatient (REF) | payer MEDICARE, OTHER, SELFPAY ==
[2024-04-24 13:12] LABS: % Basophils 0.5 % (0-2); % Eosinophils 0.5 % (0-6); % Immature Granulocytes 0.5 % (0-0.5); % Lymphocytes 24.9 % (20.5-51.1); % Monocytes 11.8 % (1.7-9.3); % Neutrophils 61.8 % (42.2-75.2); Absolute Lymphocytes 1.5 10^3/uL (1.2-3.4); Absolute Monocytes 0.7 10^3/uL (0.1-0.6); Absolute Neutrophils 3.7 10^3/uL (1.4-6.5); Hematocrit 27.6 % (39.0-52.0); Hemoglobin 9.1 g/dL (13.0-18.0); Mean Corpuscular Hgb 31.6 pg (27.0-31.0); Mean Corpuscular Volume 95.8 fL (80.0-94.0); Mean Platelet Volume 9.4 fL (7.4-10.4); Platelet Count 216 10^3/uL (130-400); Red Blood Cell Count 2.88 10^6/uL (4.70-6.10)
[2024-04-24 16:36] LABS: ALT (SGPT) 13 U/L (0-50); AST (SGOT) 19 U/L (17-59); Albumin 3.3 g/dl (3.5-5.0); Alkaline Phosphatase 185 U/L (38-126); Blood Urea Nitrogen 6 mg/dl (9-20); Calcium 9.2 mg/dl (8.4-10.2); Carbon Dioxide 32 mmol/L (22-30); Chloride 97 mmol/L (98-107); Glucose 100 mg/dl (70-99); Iron 101 ug/dl (49-181); Potassium 3.8 mmol/L (3.5-5.1); Sodium 135 mmol/L (135-145); eGFR > 60.00
[2024-04-24 16:45] LABS: Percent Saturation 47 % (20-50); Total Iron Binding Capacity 212 ug/dl (261-462)
[2024-04-26 19:59] LABS: Erythropoietin (EPO) 111 mU/mL (4-27)
== END ==
LOC: OIDL 12:37
PROVIDERS: ATTENDING PHYSICIAN Internal Medicine Hematology & Oncology
DX: D69.6 Thrombocytopenia, unspecified (principal); D53.9 Nutritional anemia, unspecified; D72.819 Decreased white blood cell count, unspecified; C94.6 Myelodysplastic disease, not elsewhere classified; G40.89 Other seizures
CPT/HCPCS: 80053; 82668; 82728; 82784; 83521; 83540; 83550; 84155; 84165; 85025; 86334

== ENCOUNTER 2024-04-30 22:57 | Inpatient (IN) | payer MEDICARE, OTHER, SELFPAY ==
[2024-04-30 17:14] VITALS: BP 131/62
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
[2024-04-30] MEDS: MORPHINE SULFATE 4 MG IV (19:00)
[2024-04-30 19:04] LABS: % Basophils 0.3 % (0-2); % Eosinophils 0.5 % (0-6); % Immature Granulocytes 0.5 % (0-0.5); % Lymphocytes 38.6 % (20.5-51.1); % Monocytes 11.1 % (1.7-9.3); Absolute Lymphocytes 1.4 10^3/uL (1.2-3.4); Absolute Monocytes 0.4 10^3/uL (0.1-0.6); Absolute Neutrophils 1.8 10^3/uL (1.4-6.5); Hematocrit 23.8 % (39.0-52.0); Hemoglobin 7.9 g/dL (13.0-18.0); Mean Corp Hgb Conc. 33.2 g/dL (33.0-37.0); Mean Corpuscular Hgb 33.2 pg (27.0-31.0); Mean Platelet Volume 9.8 fL (7.4-10.4); Nucleated Red Blood Cells % 0 % (-); Platelet Count 150 10^3/uL (130-400); Red Blood Cell Count 2.38 10^6/uL (4.70-6.10); Red Cell Dist. Width 18.5 % (11.5-14.5); White Blood Cell Count 3.7 10^3/uL (4.8-10.8)
[2024-04-30 19:17] LABS: ALT (SGPT) 11 U/L (0-50); AST (SGOT) 17 U/L (17-59); Albumin 3.2 g/dl (3.5-5.0); Alkaline Phosphatase 146 U/L (38-126); Blood Urea Nitrogen 13 mg/dl (9-20); Calcium 9.5 mg/dl (8.4-10.2); Carbon Dioxide 31 mmol/L (22-30); Chloride 96 mmol/L (98-107); Glucose 123 mg/dl (70-99); Potassium 4.1 mmol/L (3.5-5.1); Sodium 132 mmol/L (135-145); Total Protein 5.8 g/dl (6.3-8.2); eGFR > 60.00
--- NOTE | 2024-04-30 20:46 | HPS.HSE ---
Family Physician
-
Family Physician: Eulalio Pal
Chief Complaint
-
acute ambulatory dysfunction
History of Present Illness
Patient is a 78-year-old male with past medical history significant for HFpEF, myelodysplastic syndrome, pancytopenia, BPH, epilepsy, chronic back pain, compression fractures L4-L5, GERD, hx brain tumor who presented to [facility] ED for
evaluation of acute ambulatory dysfunction. Patient reports that last Monday during rehab he heard a pop in the lumbar region of spine and has been nearly immobile since. Patient reports discomfort just sitting up and with assisted transfers to
chair. Prior to episode last Monday patient reports rehab was going well and he was moving very well, with a significant amount of progress. Patient denies any associated symptoms. Does complain of some constipation with oxycodone use, last BM
04/28/2024.
Medical History
Past Medical History
Past Medical History: Reports Other
Additional Past Medical History:
HFpEF
myelodysplastic syndrome
pancytopenia
BPH
epilepsy
chronic back pain
compression fractures L4-L5
GERD
hx brain tumor
Past Surgical History: Reports Other
Additional Past Surgical History:
cataract extraction
brain tumor removal
Social History
Tobacco: Non-smoker
Alcohol: None
Drug: None
Personal:
Living: With Family
Employment: Retired
Family History
Family History: Not pertinent
Allergies / Home Medications
Allergies reflects when Allergies were last updated in [employer].
Home Medications with original date entered in [employer]
Allergy/Medication List:
Allergies
Allergy/AdvReac Type Severity Reaction Status Date / Time
No Known Allergies Allergy Verified 04/30/24 17:46
Home Medications
famotidine 20 mg tablet 20 mg PO BID Gastrointestinal Issue 02/29/24
levetiracetam 1,000 mg tablet (Keppra) 1,500 mg PO BID Neurological Condition 02/29/24
sennosides 8.6 mg tablet (senna) 17.2 mg PO DAILY Constipation 02/29/24
gabapentin 100 mg capsule 200 mg (2 x 100 mg) PO TID #30 caps 03/11/24
lacosamide 50 mg tablet 50 mg PO BID Seizures #14 tabs 03/11/24
aspirin 81 mg tablet,delayed release 81 mg PO DAILY 03/26/24
bisacodyl 10 mg rectal suppository (Dulcolax (bisacodyl)) 10 mg FL [id number] PRN if no bm aftr mom 03/26/24
magnesium hydroxide 400 mg/5 mL oral suspension (Milk of Magnesia) 2,400 mg PO HSPRN PRN constipation 03/26/24
methocarbamol 750 mg tablet 750 mg PO TID 03/26/24
acetaminophen 325 mg tablet 650 mg PO QID 04/09/24
ondansetron HCl 4 mg tablet 4 mg PO Q6HPRN PRN nausea 04/09/24
tamsulosin 0.4 mg capsule 0.4 mg PO HS 04/09/24
oxycodone 5 mg tablet 5 mg PO Q6HPRN PRN severe pain #6 tabs 04/14/24
acetaminophen 500 mg tablet (Tylenol Extra Strength) 1,000 mg PO [id number] PRN mild pain 04/30/24
amlodipine 5 mg tablet (Norvasc) 5 mg PO DAILY 04/30/24
lidocaine 4 % topical cream 1 applic topical QID b/l hips and lower back 04/30/24
methocarbamol 750 mg tablet 750 mg PO Q8HPRN PRN spasms 04/30/24
polyethylene glycol 3350 17 gram oral powder packet (Miralax) 17 g PO QPM 04/30/24
Review of Systems
-
History Source: Patient
Constitutional: Reports No Symptoms
EENT: Reports No Symptoms
Respiratory: Reports No Symptoms
Cardiac: Reports No Symptoms
Abdomen/GI: Reports No Symptoms
: Reports No Symptoms
Musculoskeletal: Reports Muscle Pain and Other (intermittent pain to lumbar area of back, currently comfortable)
Skin: Reports No Symptoms
Neurological: Reports No Symptoms
Endocrine: Reports No Symptoms
Hematologic/Lymphatic: Reports No Symptoms
Psych: Reports No Symptoms
Physical Exam
Vital Signs
Vital Signs
Temp Pulse Resp BP Pulse Ox
98.3 F 86 20 131/62 131
04/30/24 17:14 04/30/24 17:14 04/30/24 17:14 04/30/24 17:14 04/30/24 17:14
Physical Exam
General: Well Developed, Well Nourished, No Apparent Distress, Comfortable and Conversant
HEENT: NormoCephalic, Moist mucous membranes, Atraumatic, Mystic Conjunctivae, Nose Appears Normal and Ears Appear Normal
Respiratory: Clear and Non Labored Respirations
Cardiac: S1/S2 and Regular Rhythm; No Murmur, Rub or Gallop
Breast: Deferred by me
GI: Soft, Non Tender, Non Distended and Normal Bowel Sounds; No Organomegaly
Rectal: Deferred by Provider
Genito-urinary: Clear Urine and Gustafson (chronic )
Musculoskeletal: No Clubbing, No Cyanosis, No Edema and Other (tender lumbar back )
Skin: Warm and IV/Catheter Site; No Rash
Neuro: Awake, Alert, AO x 3 and Nonfocal/grossly intact
Psych: Calm and Intact Judgment/Insight
Laboratory Results
-
04/30/24 18:52
04/30/24 18:52
Laboratory Results
Total Bilirubin 1.0 mg/dl (0.2-1.3) 04/30/24 18:52
AST 17 U/L (17-59) 04/30/24 18:52
ALT 11 U/L (0-50) 04/30/24 18:52
Alkaline Phosphatase 146 U/L (38-126) H 04/30/24 18:52
Data Reviewed
-
CT Scan: Report Reviewed by me
Lab Data: Labs Reviewed by me
Impression/Plan
-
IMPRESSION/PLAN:
#acute ambulatory dysfunction
#acute to subacute progressive compression fracture
#chronic back pain
#compression fractures L4-L5
Thoracic Spine CT:Correlating with lumbar spine examination, there are 13 rib-bearing thoracic-type vertebrae and 5 additional nonrib-bearing lumbar-type vertebrae.
No evidence for new compression fracture of the thoracic spine when comparing to CT examination of March 28, 2024.
Patchy parenchymal opacity within the visualized posterior lungs, which appears improved compared to CT angiography of the chest of March 28, 2024, likely representing interval improvement in pneumonia.
Lumbar Spine CT: Compared to examinations in February 2024, in the lumbar spine, there has been progression of loss of height of the L3 vertebral body, suggesting an acute to subacute component of this compression
deformity.
The rest of the vertebral body heights appear stable as described. No evidence for significant retropulsed bony fragment.
Small to moderate amount of presacral edema, nonspecific.
There appears to be dilation of the right-sided calyces and the right renal pelvis, which appears increased compared to MRI of the abdomen of April 10, 2024. If further imaging evaluation is desired,
consideration for renal ultrasound and/or CT of the abdomen and pelvis/CT urography examination.
Pelvis CT: No evidence for acute fracture or dislocation involving the pelvis.
Possible thickening of the wall the inferior rectum, and please correlate with any symptoms that would suggest proctitis.
- admit to
- continue gabapentin and methocarbamol
- pain regimen
- bowel protocol
- Consult [facility] Laboratory Technician
- Consult IR
#HFpEF
- daily weights
- continue aspirin and Lasix
#myelodysplastic syndrome
#pancytopenia
Hgb 7.9, Hct 23.8, Plt 150
blood consent obtain, signed and scanned into chart
- monitor h/h
- transfuse for hgb <7.0
#BPH
chronic gustafson in place
- continue tamsulosin
#epilepsy
- continue lacosamide, and levetiracetam
#GERD
- continue famotidine
#hx brain tumor
s/p brain tumor resection
Code status: full code
DVT Prophylaxis: SCDs
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
[2024-04-30 23:15] VITALS: BP 143/70
[2024-04-30] MEDS: MORPHINE SULFATE 2 MG IV (23:36)
[2024-04-30 23:45] VITALS: BMI 20.9
[2024-04-30] MEDS: VIMPAT 50 MG PO (23:50)
[2024-04-30] MEDS: FLOMAX 0.4 MG PO (23:50)
[2024-04-30] MEDS: KEPPRA 1500 MG PO (23:51)
[2024-04-30] MEDS: NEURONTIN 200 MG PO (23:51)
[2024-04-30] MEDS: MIRALAX 17 GRAMS PO (23:56)
[2024-04-30] MEDS: LMX 4 TOPICAL (23:57)
[2024-05-01 00:26] VITALS: BMI 20.8
--- NOTE | 2024-05-01 00:40 | PTCARENOTE ---
Patient received from ED via stretcher. Patient assisted to bed, patient c/o 10/10 pain during transfer. Reports pain is mostly tolerable when laying flat. Morphine given per orders with good effect. POC reviewed with patient and with spouse who is
at patient's bedside. Call childers with in reach. Care ongoing, will continue to monitor.
--- NOTE | 2024-05-01 03:16 | DOWNTIME ---
There was a [employer] Salesperson Downtime on 05/01/2024 from 0100 to 05/01/2023 at 0235 . Downtime documentation of patient's care, including medication administrations, has been reconciled in the electronic record per guidelines. Refer to the
patient's paper chart under the miscellaneous tab to see printed paper medication records and downtime forms.
[2024-05-01 06:00] VITALS: BMI 20.8
[2024-05-01 07:13] VITALS: BP 142/65
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
[2024-05-01] MEDS: LMX 4 TOPICAL ×7 (08:00→21:15)
[2024-05-01] MEDS: SENOKOT 17.2 MG PO (08:17)
[2024-05-01] MEDS: NEURONTIN 200 MG PO ×3 (08:18→21:14)
[2024-05-01] MEDS: PEPCID 20 MG PO ×2 (08:18→20:11)
[2024-05-01] MEDS: KEPPRA 1500 MG PO ×2 (08:18→20:10)
[2024-05-01] MEDS: ASPIR LOW (ENTERIC COATED) 81 MG PO (08:18)
[2024-05-01] MEDS: NORVASC 5 MG PO (08:18)
[2024-05-01] MEDS: VIMPAT 50 MG PO ×2 (08:18→20:11)
[2024-05-01] MEDS: MORPHINE SULFATE 2 MG IV ×2 (08:23→10:23)
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
[2024-05-01 12:57] LABS: NT-proBNP 51.2 pg/ml
[2024-05-01 13:26] LABS: % Basophils 0.3 % (0-2); % Eosinophils 0.6 % (0-6); % Immature Granulocytes 1.6 % (0-0.5); % Lymphocytes 42.6 % (20.5-51.1); % Monocytes 10.6 % (1.7-9.3); % Neutrophils 44.3 % (42.2-75.2); Absolute Immature Granulocytes 0.1 10^3/uL (0-0.05); Absolute Lymphocytes 1.3 10^3/uL (1.2-3.4); Absolute Monocytes 0.3 10^3/uL (0.1-0.6); Absolute Neutrophils 1.4 10^3/uL (1.4-6.5); Hemoglobin 7.1 g/dL (13.0-18.0); Mean Corp Hgb Conc. 33.8 g/dL (33.0-37.0); Mean Corpuscular Hgb 32.4 pg (27.0-31.0); Mean Corpuscular Volume 95.9 fL (80.0-94.0); Mean Platelet Volume 9.8 fL (7.4-10.4); Nucleated Red Blood Cells % 0 % (-); Platelet Count 136 10^3/uL (130-400); Red Blood Cell Count 2.19 10^6/uL (4.70-6.10); Red Cell Dist. Width 18.5 % (11.5-14.5); White Blood Cell Count 3.1 10^3/uL (4.8-10.8)
[2024-05-01 13:39] LABS: ALT (SGPT) 11 U/L (0-50); AST (SGOT) 17 U/L (17-59); Albumin 2.9 g/dl (3.5-5.0); Alkaline Phosphatase 160 U/L (38-126); Blood Urea Nitrogen 12 mg/dl (9-20); Calcium 9.2 mg/dl (8.4-10.2); Carbon Dioxide 30 mmol/L (22-30); Chloride 98 mmol/L (98-107); Estimated Creatinine Clearance 100 ml/min; Glucose 112 mg/dl (70-99); Potassium 3.9 mmol/L (3.5-5.1); Sodium 132 mmol/L (135-145); Total Bilirubin 0.8 mg/dl (0.2-1.3); Total Protein 5.3 g/dl (6.3-8.2); eGFR > 60.00
[2024-05-01] MEDS: LASIX 40 MG IV (14:05)
[2024-05-01 14:58] VITALS: BP 150/89
[2024-05-01 16:01] VITALS: BMI 20.8
[2024-05-01 16:17] VITALS: BP 124/69
[2024-05-01 16:36] VITALS: BP 135/61
[2024-05-01] MEDS: METHOCARBAMOL 750 MG PO ×2 (17:08→21:17)
[2024-05-01] MEDS: LOVENOX 40 MG SC (17:09)
[2024-05-01] MEDS: MIRALAX 17 GRAMS PO (17:09)
--- NOTE | 2024-05-01 17:12 | CM ---
Placed a call to patient's daughter to obtain information for assessment. Patient's daughter stated that patient has been at [facility] for about three weeks since d/c at earlier in month. She stated that patient right now due to his level of
pain is not very ambulatory and has mainly been in his w/c. He does have a walker. He needs assistance with personal care, dressing, bathing and feeding.
Patient's family is privately holding the bed and would like for patient to return to [facility] upon discharge.
Patient's daughter stated that the family is hoping that patient can get closer to baseline and then return to a new one level home that he and his just bought.
No auth will be needed for transfer.
Plan: Case management will continue to follow and assist with discharge planning. Back to [facility] upon discharge.
--- NOTE | 2024-05-01 18:00 | PTCARENOTE ---
Pt received 2 doses of PRN Morphine for back pain during shift with + effects. Pt refused to be turned or adjusted due to back pain. Pt wanted control of bed adjustment buttons when HOB needed to be adjusted to be able to control movement. When
asked to assess back/bottom pt stated 'maybe later'. Pt with Hbg 7.1 and received 1 unit of PRBC during shift, vitals stable throughout transfusion. Family at bedside. Call childers within reach.
[2024-05-01 18:37] VITALS: BP 125/66
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
[2024-05-01] MEDS: FLOMAX 0.4 MG PO (21:14)
[2024-05-01] MEDS: LMX 4 1 APPLIC TOPICAL (21:21)
[2024-05-01 23:00] VITALS: BP 134/70
[2024-05-02 06:00] VITALS: BMI 20.2
--- NOTE | 2024-05-02 06:07 | PTCARENOTE ---
Pt continues to refuse turns due to pain. Pt educated on pressure ulcer risk. Pt refusing pain medications at this time prior to turn. Staff able to turn patient to assess skin. Skin intact. Barrier ointment applied to sacrum/buttocks.
[2024-05-02 06:55] LABS: % Basophils 0.3 % (0-2); % Eosinophils 0.9 % (0-6); % Immature Granulocytes 0.6 % (0-0.5); % Monocytes 12.4 % (1.7-9.3); % Neutrophils 39.8 % (42.2-75.2); Absolute Lymphocytes 1.6 10^3/uL (1.2-3.4); Absolute Monocytes 0.4 10^3/uL (0.1-0.6); Absolute Neutrophils 1.4 10^3/uL (1.4-6.5); Hematocrit 27.1 % (39.0-52.0); Hemoglobin 9.2 g/dL (13.0-18.0); Mean Corp Hgb Conc. 33.9 g/dL (33.0-37.0); Mean Corpuscular Hgb 32.6 pg (27.0-31.0); Mean Corpuscular Volume 96.1 fL (80.0-94.0); Mean Platelet Volume 10.2 fL (7.4-10.4); Nucleated Red Blood Cells % 0 % (-); Platelet Count 147 10^3/uL (130-400); Red Blood Cell Count 2.82 10^6/uL (4.70-6.10); Red Cell Dist. Width 18.8 % (11.5-14.5); White Blood Cell Count 3.5 10^3/uL (4.8-10.8)
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
[2024-05-02 07:14] LABS: Blood Urea Nitrogen 15 mg/dl (9-20); Calcium 9.6 mg/dl (8.4-10.2); Carbon Dioxide 29 mmol/L (22-30); Chloride 97 mmol/L (98-107); Estimated Creatinine Clearance 97 ml/min; Glucose 106 mg/dl (70-99); Sodium 133 mmol/L (135-145); eGFR > 60.00
[2024-05-02] MEDS: SENOKOT 17.2 MG PO (07:31)
[2024-05-02] MEDS: VIMPAT 50 MG PO ×2 (07:31→21:56)
[2024-05-02] MEDS: NEURONTIN 200 MG PO ×3 (07:31→21:58)
[2024-05-02] MEDS: METHOCARBAMOL 750 MG PO ×3 (07:31→21:58)
[2024-05-02] MEDS: ASPIR LOW (ENTERIC COATED) 81 MG PO (07:31)
[2024-05-02] MEDS: PEPCID 20 MG PO ×2 (07:31→21:55)
[2024-05-02] MEDS: NORVASC 5 MG PO (07:31)
[2024-05-02] MEDS: KEPPRA 1500 MG PO ×2 (07:31→21:56)
[2024-05-02] MEDS: MORPHINE SULFATE 1 MG IV (07:32)
[2024-05-02] MEDS: LMX 4 TOPICAL ×4 (07:34→22:18)
[2024-05-02 07:38] VITALS: BP 146/76
[2024-05-02] MEDS: LASIX 40 MG IV (08:31)
[2024-05-02] MEDS: MORPHINE SULFATE 2 MG IV ×2 (11:55→17:16)
[2024-05-02 15:18] VITALS: BP 115/63
[2024-05-02] MEDS: MIRALAX 17 GRAMS PO (17:16)
[2024-05-02] MEDS: LOVENOX 40 MG SC (17:16)
[2024-05-02] MEDS: FLOMAX 0.4 MG PO (21:58)
[2024-05-02 23:32] VITALS: BP 139/71
[2024-05-03] VITALS (13 sets, daily range): BP systolic 54–151; BP diastolic 54–88; BMI 20.3
[2024-05-03 06:42] LABS: Hematocrit 27.4 % (39.0-52.0); Hemoglobin 9.1 g/dL (13.0-18.0); Mean Corp Hgb Conc. 33.2 g/dL (33.0-37.0); Mean Corpuscular Hgb 32.3 pg (27.0-31.0); Mean Corpuscular Volume 97.2 fL (80.0-94.0); Mean Platelet Volume 9.5 fL (7.4-10.4); Platelet Count 126 10^3/uL (130-400); Red Blood Cell Count 2.82 10^6/uL (4.70-6.10); Red Cell Dist. Width 18.6 % (11.5-14.5); White Blood Cell Count 3.7 10^3/uL (4.8-10.8)
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
[2024-05-03 07:04] LABS: Blood Urea Nitrogen 22 mg/dl (9-20); Calcium 9.5 mg/dl (8.4-10.2); Carbon Dioxide 30 mmol/L (22-30); Chloride 94 mmol/L (98-107); Estimated Creatinine Clearance 97 ml/min; Glucose 118 mg/dl (70-99); Potassium 3.7 mmol/L (3.5-5.1); Sodium 133 mmol/L (135-145); eGFR > 60.00
[2024-05-03] MEDS: NSS 1000 IV (07:55)
[2024-05-03] MEDS: MORPHINE SULFATE 1 MG IV (07:57)
[2024-05-03 08:59] LABS: % Eosinophils 1.1 % (0-6); % Immature Granulocytes 0.5 % (0-0.5); % Lymphocytes 41.2 % (20.5-51.1); % Monocytes 11.8 % (1.7-9.3); % Neutrophils 45.4 % (42.2-75.2); Absolute Lymphocytes 1.5 10^3/uL (1.2-3.4); Absolute Monocytes 0.4 10^3/uL (0.1-0.6); Absolute Neutrophils 1.7 10^3/uL (1.4-6.5); Nucleated Red Blood Cells % 0 % (-)
[2024-05-03] MEDS: MORPHINE SULFATE 2 MG IV (10:21)
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
--- NOTE | 2024-05-03 15:41 | CM ---
Patient unable thus far to work with PT/OT. Will talk to facility to determine if he can return right to his bed that is being held or is he needs to go to a different part of the building for SNF.
Plan: Case management will continue to follow and assist with discharge planning. Back to [facility] when stable.
[2024-05-03] MEDS: KEPPRA PO (15:58)
[2024-05-03] MEDS: VIMPAT PO (15:58)
[2024-05-03] MEDS: NEURONTIN PO (15:59)
[2024-05-03] MEDS: LMX 4 TOPICAL ×3 (16:00→18:12)
[2024-05-03] MEDS: METHOCARBAMOL PO (16:00)
[2024-05-03] MEDS: NEURONTIN 200 MG PO ×2 (16:01→21:20)
[2024-05-03] MEDS: METHOCARBAMOL 750 MG PO ×2 (16:01→21:20)
[2024-05-03] MEDS: PEPCID 20 MG PO ×2 (16:01→19:55)
[2024-05-03] MEDS: NORVASC 5 MG PO (16:01)
[2024-05-03] MEDS: SENOKOT 17.2 MG PO (16:01)
[2024-05-03] MEDS: ASPIR LOW (ENTERIC COATED) 81 MG PO (16:02)
[2024-05-03] MEDS: LOVENOX 40 MG SC (18:10)
[2024-05-03] MEDS: MIRALAX 17 GRAMS PO (18:11)
[2024-05-03] MEDS: KEPPRA 1500 MG PO (19:55)
[2024-05-03] MEDS: VIMPAT 50 MG PO (19:56)
[2024-05-03] MEDS: LMX 4 1 APPLIC TOPICAL (21:19)
[2024-05-03] MEDS: FLOMAX 0.4 MG PO (21:19)
[2024-05-04] VITALS (8 sets, daily range): BP systolic 126–149; BP diastolic 65–88; PULSE 74–99; O2SAT 99; BMI 20.8
[2024-05-04 07:40] LABS: % Immature Granulocytes 3.2 % (0-0.5); % Lymphocytes 31.4 % (20.5-51.1); % Monocytes 8.7 % (1.7-9.3); % Neutrophils 56.7 % (42.2-75.2); Absolute Immature Granulocytes 0.1 10^3/uL (0-0.05); Absolute Lymphocytes 0.9 10^3/uL (1.2-3.4); Absolute Monocytes 0.2 10^3/uL (0.1-0.6); Absolute Neutrophils 1.6 10^3/uL (1.4-6.5); Hematocrit 26.8 % (39.0-52.0); Mean Corp Hgb Conc. 33.6 g/dL (33.0-37.0); Mean Corpuscular Hgb 32.6 pg (27.0-31.0); Mean Corpuscular Volume 97.1 fL (80.0-94.0); Mean Platelet Volume 10.2 fL (7.4-10.4); Nucleated Red Blood Cells % 0 % (-); Platelet Count 140 10^3/uL (130-400); Red Blood Cell Count 2.76 10^6/uL (4.70-6.10); Red Cell Dist. Width 17.9 % (11.5-14.5); White Blood Cell Count 2.8 10^3/uL (4.8-10.8)
[2024-05-04 08:05] LABS: Blood Urea Nitrogen 24 mg/dl (9-20); Calcium 9.8 mg/dl (8.4-10.2); Carbon Dioxide 28 mmol/L (22-30); Chloride 100 mmol/L (98-107); Estimated Creatinine Clearance 100 ml/min; Glucose 117 mg/dl (70-99); Potassium 4.1 mmol/L (3.5-5.1); Sodium 135 mmol/L (135-145); eGFR > 60.00
[2024-05-04] MEDS: NEURONTIN 200 MG PO ×2 (08:52→17:08)
[2024-05-04] MEDS: PEPCID 20 MG PO ×2 (08:53→19:26)
[2024-05-04] MEDS: VIMPAT 50 MG PO ×2 (08:53→19:26)
[2024-05-04] MEDS: ASPIR LOW (ENTERIC COATED) 81 MG PO (08:53)
[2024-05-04] MEDS: NORVASC 5 MG PO (08:53)
[2024-05-04] MEDS: KEPPRA 1500 MG PO ×2 (08:53→19:26)
[2024-05-04] MEDS: SENOKOT 17.2 MG PO (08:53)
[2024-05-04] MEDS: METHOCARBAMOL PO ×2 (08:56→16:32)
[2024-05-04] MEDS: LMX 4 TOPICAL ×3 (08:56→17:05)
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
--- NOTE | 2024-05-04 12:37 | W.PN.UPDATE ---
Update Note
Progress Note Update
Patient reports back pain is '1000% better.' Initially after vertebroplasty had zero pain, and then developed mild achy pain in his lower back last night. Most likely that pain is related to the procedure itself after the lidocaine wore off, and
should improve over the next few days.
Encouraged patient to seek treatment for osteoporosis to lower risk of future compression fractures - he had been on treatment for osteoporosis in the past.
--- NOTE | 2024-05-04 13:20 | CM ---
CM following re: discharge planning.
Reviewed pt's chart, met with pt. Pt's spouse, son, daughter and grandchildren at bedside.
Discharge order noted. Both pt and his family are aware, expressed their agreement and per spouse she is holding a bed at [facility]. Pt's family is requested pt be seen by PT and OT prior to discharge. IMM reviewed, placed on chart, pt has a copy.
A referral to [facility] made, spoke to [facility] director of admission, pt is accepted for admission today.
[facility] nursing report: [phone]
Discharge instructions fax: [phone]
to arrange ambulance transport, BLS. PMNC completed and left with
D/C plan: [facility] SNF to continue on skilled services, short term rehab.
--- NOTE | 2024-05-04 14:00 | PTCARENOTE ---
patient reports no pain today. had some 'achy pain' in lower back last night, tolerating diet, turns with assist x1, vss, will continue to monitor.
[2024-05-04] MEDS: MIRALAX 17 GRAMS PO (17:08)
[2024-05-04] MEDS: LOVENOX 40 MG SC (17:08)
--- NOTE | 2024-05-04 19:28 | PTCARENOTE ---
called report to [facility] to [facility]. next shift LUDY Mullins made aware to follow up and remove IV accesses prior to patient leaving.
--- NOTE | 2024-05-04 20:56 | TRANSFER ---
Pt picked up by . pt traveling to [facility] via ambulance and stretcher. Pt Axo x4. all belongings accounted for by the patient and transferred with him. Report provided to transfer crew.
--- NOTE | 2024-05-04 21:05 | PTCARENOTE ---
Transport for pt arrived around 20:50, both PIV lines were removed and all belongings were gone over and packed for pt. Pt was able to stand and pivot to the stretcher with assistance. Pt is going to [facility].
== END 2024-05-04 21:03 | DRG 516 ==
LOC: 3 WEST ACU 22:57
PROVIDERS: Family Medicine; Nurse Practitioner; Radiology Vascular & Interventional Radiology; Student in an Organized Health Care Education/Training Program; ADMITTING PHYSICIAN Internal Medicine; ATTENDING PHYSICIAN Internal Medicine; CONSULT PHYSICIAN Physical Medicine & Rehabilitation; EMERGENCY PHYSICIAN Student in an Organized Health Care Education/Training Program; FAMILY PHYSICIAN Family Medicine
PROC: 0QS03ZZ Reposition Lumbar Vertebra, Percutaneous Approach (ICD-10-PCS; 2024-05-03)
PROC: 0PS43ZZ Reposition Thoracic Vertebra, Percutaneous Approach (ICD-10-PCS; 2024-05-03)
PROC: 0PU43JZ Supplement Thoracic Vertebra with Synthetic Substitute, Percutaneous Approach (ICD-10-PCS; 2024-05-03)
PROC: 0QU03JZ Supplement Lumbar Vertebra with Synthetic Substitute, Percutaneous Approach (ICD-10-PCS; 2024-05-03)
DX: S32.028A Other fracture of second lumbar vertebra, initial encounter for closed fracture (principal); E87.1 Hypo-osmolality and hyponatremia; S22.088A Other fracture of T11-T12 vertebra, initial encounter for closed fracture; I50.32 Chronic diastolic (congestive) heart failure; W18.39XA Other fall on same level, initial encounter; D46.9 Myelodysplastic syndrome, unspecified; I11.0 Hypertensive heart disease with heart failure; G89.21 Chronic pain due to trauma; N40.0 Benign prostatic hyperplasia without lower urinary tract symptoms; G40.909 Epilepsy, unspecified, not intractable, without status epilepticus; K21.9 Gastro-esophageal reflux disease without esophagitis; Z86.011 Personal history of benign neoplasm of the brain
CPT/HCPCS: 22514; 22515; 72128; 72131; 72148; 72192; 80048; 80053; 83880; 85025; 86850; 86900; 86901; 86920; 87070; 93971; 96374; 97163; 97167; 99285; P9016

== ENCOUNTER → 2024-05-15 12:01 | Outpatient (REF) | payer OTHER, MEDICARE, SELFPAY ==
[2024-05-15 12:54] LABS: Hematocrit 21.7 % (39.0-52.0); Hemoglobin 7.3 g/dL (13.0-18.0); Mean Corp Hgb Conc. 33.6 g/dL (33.0-37.0); Mean Corpuscular Hgb 33.6 pg (27.0-31.0); Mean Platelet Volume 10.4 fL (7.4-10.4); Platelet Count 141 10^3/uL (130-400); Red Blood Cell Count 2.17 10^6/uL (4.70-6.10); Red Cell Dist. Width 19.4 % (11.5-14.5); White Blood Cell Count 4.3 10^3/uL (4.8-10.8)
[2024-05-15 13:16] LABS: Anisocytosis 1+; Band Neutrophils 0 % (0-3); Eosinophils 5 % (0-6); Hypochromasia 1+; Lymphocytes 34 % (20-51); Metamyelocytes 1 % (-); Monocytes 12 % (2-9); Myelocytes 1 % (-); Normal RBC Morphology No; Platelets Checked Yes; Polychromasia Slight; Segmented Neutrophils 47 % (42-75); Total Cells Counted 100
== END ==
LOC: OLABN 12:01
PROVIDERS: ATTENDING PHYSICIAN Student in an Organized Health Care Education/Training Program
DX: D69.6 Thrombocytopenia, unspecified (principal); D53.9 Nutritional anemia, unspecified
CPT/HCPCS: 36415; 85025

== ENCOUNTER → 2024-05-22 11:46 | Outpatient (REF) | payer OTHER, SELFPAY ==
[2024-05-22 12:47] LABS: Hematocrit 20.5 % (39.0-52.0); Hemoglobin 7.1 g/dL (13.0-18.0); Mean Corp Hgb Conc. 34.6 g/dL (33.0-37.0); Mean Corpuscular Hgb 34.8 pg (27.0-31.0); Mean Corpuscular Volume 100.5 fL (80.0-94.0); Mean Platelet Volume 10.9 fL (7.4-10.4); Platelet Count 92 10^3/uL (130-400); Red Blood Cell Count 2.04 10^6/uL (4.70-6.10); Red Cell Dist. Width 19.2 % (11.5-14.5); White Blood Cell Count 3.1 10^3/uL (4.8-10.8)
[2024-05-22 14:40] LABS: % Basophils 0.3 % (0-2); % Eosinophils 4.2 % (0-6); % Immature Granulocytes 0.3 % (0-0.5); % Lymphocytes 50.8 % (20.5-51.1); % Monocytes 15.1 % (1.7-9.3); % Neutrophils 29.3 % (42.2-75.2); Absolute Eosinophils 0.1 10^3/uL (0-0.7); Absolute Lymphocytes 1.6 10^3/uL (1.2-3.4); Absolute Monocytes 0.5 10^3/uL (0.1-0.6); Absolute Neutrophils 0.9 10^3/uL (1.4-6.5); Nucleated Red Blood Cells % 0 % (-)
== END ==
LOC: OLABN 11:46
PROVIDERS: ATTENDING PHYSICIAN Student in an Organized Health Care Education/Training Program
DX: D69.6 Thrombocytopenia, unspecified (principal); D53.9 Nutritional anemia, unspecified
CPT/HCPCS: 36415; 85025

== ENCOUNTER 2024-05-28 11:57 | Emergency (ER) | payer MEDICARE, OTHER, SELFPAY ==
[2024-05-27 13:00] LABS: Hematocrit 20.6 % (39.0-52.0); Hemoglobin 6.9 g/dL (13.0-18.0); Mean Corp Hgb Conc. 33.5 g/dL (33.0-37.0); Mean Corpuscular Hgb 34.8 pg (27.0-31.0); Mean Platelet Volume 10.6 fL (7.4-10.4); Platelet Count 77 10^3/uL (130-400); Red Blood Cell Count 1.98 10^6/uL (4.70-6.10); Red Cell Dist. Width 19.8 % (11.5-14.5); White Blood Cell Count 4.2 10^3/uL (4.8-10.8)
[2024-05-27 14:31] LABS: % Eosinophils 0.2 % (0-6); % Immature Granulocytes 0.5 % (0-0.5); % Lymphocytes 45.7 % (20.5-51.1); % Monocytes 9.3 % (1.7-9.3); % Neutrophils 44.3 % (42.2-75.2); Absolute Lymphocytes 1.9 10^3/uL (1.2-3.4); Absolute Monocytes 0.4 10^3/uL (0.1-0.6); Absolute Neutrophils 1.9 10^3/uL (1.4-6.5); Nucleated Red Blood Cells % 0 % (-)
[2024-05-27 14:32] LABS: Anisocytosis 1+; Hypochromasia 1+; Normal RBC Morphology No; Polychromasia 1+
[2024-05-27 14:33] LABS: Ovalocytes FEW
[2024-05-28 12:02] VITALS: BP 115/64
--- NOTE | 2024-05-28 12:39 | ED.GENMED ---
History of Present Illness
General
Chief Complaint: Abnormal Lab Value
Time Seen by Provider: 05/28/24 12:39
History of Present Illness
History of Present Illness:
TIME OF INITIAL ENCOUNTER: 12:45 PM
HPI: Patient comes into the ER due to outpatient hemoglobin of 6.9 that was obtained yesterday. His med list includes baby aspirin. He also has a right upper extremity DVT but anticoagulation was recommended against and maintained just on baby
aspirin. He has no new DVT symptoms. He has chronic weakness and some shortness of breath. He denies any rectal bleeding.
EXAM:
GENERAL: Appears generally weak and debilitated
HEENT: Moist oral mucosa
CARDIOVASCULAR: No murmurs, normal heart rate, regular rhythm, No chest wall tenderness
PULMONARY: No respiratory distress, breath sounds are clear and equal
ABDOMEN: Soft with no peritoneal signs, no tenderness
NEUROLOGIC: Fair strength all extremities, no coordination deficits, however he has his daughter provide nearly all of the history
PSYCHIATRIC: Appropriate mental status, normal insight and judgement
EXTREMITIES: Nontender, no edema, moves all extremities equally
SKIN: Pale
NUMBER AND COMPLEXITY OF PROBLEMS ADDRESSED AT THE ENCOUNTER
� Chronic conditions affecting care: Myelodysplastic syndrome, CHF (but daughter does not think he has CHF and is on no diuretic), high blood pressure, rosacea,
� Acute Exacerbation and/or Progression of Chronic Illness: This is a subacute/acute exacerbation of chronic problem
� Differential Diagnosis includes: Exacerbation of myelodysplastic syndrome, no clinical suggestion for GI bleed, effects of aspirin
AMOUNT AND/OR COMPLEXITY OF DATA TO BE REVIEWED AND ANALYZED
� I performed an independent evaluation of and my interpretation is:
EKG:
CT:
X-rays:
Laboratory Studies: 4.4, initial hemoglobin 8.5 and repeat was 8.0, sodium 133
Other:
� Review of other/old records: I reviewed records, the patient was admitted for acute/subacute progressive thoracic and lumbar compression fractures with acute on chronic back pain as well as hypervolemic hyponatremia. He did
have 'technically successful T12 and L2 percutaneous vertebral augmentation vertebroplasty' and was virtually pain-free after procedure. Echo from February 2024 showed EF 55 to 60% and normal diastolic function.
� Clinical information was obtained by an independent historian: I spoke to the daughter for majority of the history
� Prescriptions/Medications Considered but not given: Given questionable history of CHF consider Lasix however the patient's echo was recently normal.
� Further testing considered but not performed:
RISK OF COMPLICATIONS AND/OR MORBIDITY OR MORTALITY OF PATIENT MANAGEMENT
� Social determinants of health affecting care: Resides at [facility].
� Discussion with other providers: Notified Dr. Archuleta of patient's presentation. I also notified Dr. De who is now covering for hematology and he recommends 1 unit of blood.
� Escalation of care including admission/observation vs risk of discharge considered: The patient was sent here for further evaluation of hemoglobin of 6.9 obtained yesterday. Over the last few months, his hemoglobin has ranged
from 6.7-8.4. Daughter was also concerned about the possibly of dehydration and reports that he has been orthostatic. Will give small fluid bolus as well.
ANY OTHER UPDATES:
3:20 PM: The patient is tolerating blood without any difficulty. Planning discharge after blood transfusion done.
Past History
Past History
ED Past Medical History: Seizures, Other (Benign brain tumor removal 1990, intracranial hemorrhage, lumbar compression fracture) and Other (Shoulder DJD)
ED Past Surgical History: Brain (Right frontal lobe craniotomy for benign brain tumor removal)
Social History
Tobacco: Non-smoker
Alcohol: None
Personal:
Employment: Retired
Family History
Family History: Other (Noncontributory)
Phy Exam
Physical Exam
Physical Exam:
See HPI
Course
Orders/Labs/Results
Orders:
Orders
05/27/24 05:50
Type+Screen Routine
BBK Wristband Number:
Complete Blood Count/With Diff Routine
Comment: NM ROOM C121-1
05/28/24 12:53
0.9% Sodium Chloride 250 ml [Nss] 250 ml IV BOLUS
05/28/24 12:55
Complete Blood Count/With Diff Urgent
Manual Differential Urgent
05/28/24 13:38
Basic Metabolic Panel Urgent
05/28/24 13:43
CBC/No Diff [Complete Blood Count/No Diff] Urgent
05/28/24 13:48
* Blood Bank Products Urgent
Blood Bank Products: *Packed RBC Leuko(PRBC's)
Quantity: 1
Transfuse Today: Yes
Reason: Anemia
Abnormal Lab Results
05/27/24 05/28/24 05/28/24
05:50 12:55 13:38
WBC 4.2 L 10^3/uL
(4.8-10.8)
RBC 1.98 L 10^6/uL 2.43 L 10^6/uL
(4.70-6.10) (4.70-6.10)
Hgb 6.9 L* g/dL 8.5 L D g/dL
(13.0-18.0) (13.0-18.0)
Hct 20.6 L* % 25.0 L %
(39.0-52.0) (39.0-52.0)
MCV 104.0 H fL 102.9 H fL
(80.0-94.0) (80.0-94.0)
MCH 34.8 H pg 35.0 H pg
(27.0-31.0) (27.0-31.0)
MCHC
RDW 19.8 H % 19.9 H %
(11.5-14.5) (11.5-14.5)
Plt Count 77 L 10^3/uL 97 L D 10^3/uL
(130-400) (130-400)
MPV 10.6 H fL
(7.4-10.4)
Sodium 133 L mmol/L
(135-145)
Creatinine 0.4 L mg/dL
(0.7-1.3)
Glucose 113 H mg/dl
(70-99)
Crossmatch IS Only See Detail
05/28/24
13:43
WBC 4.4 L 10^3/uL
(4.8-10.8)
RBC 2.33 L 10^6/uL
(4.70-6.10)
Hgb 8.0 L g/dL
(13.0-18.0)
Hct 24.5 L %
(39.0-52.0)
MCV 105.2 H fL
(80.0-94.0)
MCH 34.3 H pg
(27.0-31.0)
MCHC 32.7 L g/dL
(33.0-37.0)
RDW 19.9 H %
(11.5-14.5)
Plt Count 92 L 10^3/uL
(130-400)
MPV
Sodium
Creatinine
Glucose
Crossmatch IS Only
05/28/24 13:43
05/28/24 13:38
Vital Signs
Initial and Last Documented VS:
Initial Vital Signs
Temp Pulse Resp BP Pulse Ox
36.4 C 72 16 115/64 100
05/28/24 12:02 05/28/24 12:02 05/28/24 12:02 05/28/24 12:02 05/28/24 12:02
Last Documented Vital Signs
Temp Pulse Resp BP Pulse Ox
36.9 C 60 16 119/62 99
03/18/25 15:15 05/28/24 15:15 05/28/24 15:15 05/28/24 15:15 05/28/24 15:15
*Critical Care Note
Total Time (30-74mins, 75-104mins- exclusive of procedures): Not Applicable
ED Attending Note
-
Portions of this chart may have been created with voice recognition software.� Occasional wrong word or��sound alike� substitutions may have occurred due to the inherent limitations of voice recognition software.
Discharge Plan
Departure
Patient Disposition: Home (Routine Discharge)
Date of Disposition: 05/28/24
Time of Disposition: 14:32
Patient with high blood pressure during this ER visit?: Yes
Discharge Problem:
Anemia requiring transfusions
Instructions: Myelodysplastic syndromes (MDS), Anemia overview
Prescriptions:
No Action
sennosides [senna] 8.6 mg Tablet
17.2 mg PO DAILY
famotidine 20 mg Tablet
20 mg PO BID
levetiracetam [Keppra] 1,000 mg Tablet
1,500 mg PO BID
gabapentin 100 mg Capsule
200 mg PO TID Qty: 30 0RF
lacosamide 50 mg Tablet
50 mg PO BID Qty: 14 0RF
aspirin 81 mg Tablet,Delayed Release (Dr/Ec)
81 mg PO DAILY
magnesium hydroxide [Milk of Magnesia] 400 mg/5 mL Suspension
2,400 mg PO HSPRN PRN (Reason: constipation)
bisacodyl [Dulcolax (bisacodyl)] 10 mg Suppository
10 mg OH [id number] PRN (Reason: if no bm after mom)
methocarbamol 750 mg tablet
750 mg PO TID
Rx Instructions:
for 7 days starting 04/30/24
ondansetron HCl 4 mg Tablet
4 mg PO Q6HPRN PRN (Reason: nausea)
acetaminophen 325 mg tablet
650 mg PO QID
tamsulosin 0.4 mg capsule
0.4 mg PO HS
polyethylene glycol 3350 [Miralax] 17 gram Powder In Packet
17 g PO QPM
lidocaine 4 % Cream
1 applic TOPICAL QID
amlodipine [Norvasc] 5 mg Tablet
5 mg PO DAILY
acetaminophen [Tylenol Extra Strength] 500 mg Tablet
1,000 mg PO [id number] PRN (Reason: mild pain)
oxycodone 5 mg tablet
5 mg PO Q6HPRN PRN (Reason: severe pain) Qty: 2 0RF
Referrals:
Eulalio Pal MD [Family Provider] -
Activity Restrictions/Additional Instructions:
I notified both Dr. Archuleta and Dr. De. Their recommendation was to give you a unit of blood. Hemoglobin yesterday was 6.9, initially today was 8.5 and then repeat was 8.0 before blood was started. Follow-up with hematology. Return
here if worse or other concerns.
Interventions
Interventions:
*Risk Screen - Suicide Last Done: 05/28/24 13:20
*General Assessment Last Done: 05/28/24 13:20
*Neglect/Abuse Screening Last Done: 05/28/24 13:20
*ED- Fall Risk Assessment Last Done: 05/28/24 13:20
Discharge Date and Time
Print Language: YAKUT
[2024-05-28] MEDS: NSS 250 IV (13:01)
[2024-05-28 13:10] LABS: Hemoglobin 8.5 g/dL (13.0-18.0); Mean Corpuscular Volume 102.9 fL (80.0-94.0); Mean Platelet Volume 10.2 fL (7.4-10.4); Platelet Count 97 10^3/uL (130-400); Red Blood Cell Count 2.43 10^6/uL (4.70-6.10); Red Cell Dist. Width 19.9 % (11.5-14.5); White Blood Cell Count 5.2 10^3/uL (4.8-10.8)
[2024-05-28 13:23] LABS: Absolute Neutrophils -Man Diff 3.7 10^3/uL (1.4-6.5); Anisocytosis 1+; Band Neutrophils 0 % (0-3); Lymphocytes 21 % (20-51); Monocytes 6 % (2-9); Normal RBC Morphology No; Platelets Checked Yes; Polychromasia Slight; Segmented Neutrophils 73 % (42-75); Total Cells Counted 100
[2024-05-28 14:00] LABS: Blood Urea Nitrogen 14 mg/dl (9-20); Calcium 10.1 mg/dl (8.4-10.2); Carbon Dioxide 27 mmol/L (22-30); Chloride 98 mmol/L (98-107); Glucose 113 mg/dl (70-99); Potassium 4.7 mmol/L (3.5-5.1); Sodium 133 mmol/L (135-145); eGFR > 60.00
[2024-05-28 14:05] LABS: Hematocrit 24.5 % (39.0-52.0); Mean Corp Hgb Conc. 32.7 g/dL (33.0-37.0); Mean Corpuscular Hgb 34.3 pg (27.0-31.0); Mean Corpuscular Volume 105.2 fL (80.0-94.0); Mean Platelet Volume 10.3 fL (7.4-10.4); Platelet Count 92 10^3/uL (130-400); Red Blood Cell Count 2.33 10^6/uL (4.70-6.10); Red Cell Dist. Width 19.9 % (11.5-14.5); White Blood Cell Count 4.4 10^3/uL (4.8-10.8)
[2024-05-28 14:26] VITALS: BP 125/74
[2024-05-28 14:58] VITALS: BP 114/64
[2024-05-28 15:15] VITALS: BP 119/62
[2024-05-28 16:32] VITALS: BP 131/65
== END 2024-05-28 17:00 | disposition home or self-care (01) ==
LOC: EMR 11:57
PROVIDERS: Student in an Organized Health Care Education/Training Program; EMERGENCY PHYSICIAN Emergency Medicine; FAMILY PHYSICIAN Family Medicine
DX: D64.9 Anemia, unspecified (principal); R06.02 Shortness of breath; R53.1 Weakness; I82.621 Acute embolism and thrombosis of deep veins of right upper extremity; I11.0 Hypertensive heart disease with heart failure; I50.9 Heart failure, unspecified; E78.5 Hyperlipidemia, unspecified; N32.81 Overactive bladder; N40.0 Benign prostatic hyperplasia without lower urinary tract symptoms; Z79.82 Long term (current) use of aspirin; Z85.828 Personal history of other malignant neoplasm of skin; Z90.49 Acquired absence of other specified parts of digestive tract
CPT/HCPCS: 99285; 36430; 96360; 36415; 80048; 85025; 85027; 86850; 86900; 86901; 86920; P9016

== ENCOUNTER → 2024-06-03 09:25 | Outpatient (REF) | payer OTHER, MEDICARE, SELFPAY ==
[2024-06-03 10:15] LABS: Hematocrit 23.9 % (39.0-52.0); Hemoglobin 8.6 g/dL (13.0-18.0); Mean Corpuscular Hgb 36.3 pg (27.0-31.0); Mean Corpuscular Volume 100.8 fL (80.0-94.0); Red Blood Cell Count 2.37 10^6/uL (4.70-6.10); Red Cell Dist. Width 19.7 % (11.5-14.5); White Blood Cell Count 4.2 10^3/uL (4.8-10.8)
[2024-06-03 10:50] LABS: Absolute Neutrophils -Man Diff 1.4 10^3/uL (1.4-6.5); Anisocytosis 1+; Band Neutrophils 0 % (0-3); Lymphocytes 43 % (20-51); Mean Platelet Volume 11.2 fL (7.4-10.4); Monocytes 22 % (2-9); Normal RBC Morphology No; Platelet Count 88 10^3/uL (130-400); Platelets Checked Yes; Segmented Neutrophils 35 % (42-75)
[2024-06-03 10:51] LABS: Polychromasia Slight; Total Cells Counted 100
== END ==
LOC: OLABN 09:25
PROVIDERS: ATTENDING PHYSICIAN Student in an Organized Health Care Education/Training Program
DX: D46.9 Myelodysplastic syndrome, unspecified (principal)
CPT/HCPCS: 36415; 85025

== ENCOUNTER → 2024-06-17 08:23 | Outpatient (REF) | payer MEDICARE, OTHER, SELFPAY ==
[2024-06-17 09:10] LABS: Hematocrit 23.7 % (39.0-52.0); Hemoglobin 7.5 g/dL (13.0-18.0); Mean Corp Hgb Conc. 31.6 g/dL (33.0-37.0); Mean Corpuscular Hgb 34.4 pg (27.0-31.0); Mean Corpuscular Volume 108.7 fL (80.0-94.0); Mean Platelet Volume 10.6 fL (7.4-10.4); Platelet Count 62 10^3/uL (130-400); Red Blood Cell Count 2.18 10^6/uL (4.70-6.10); Red Cell Dist. Width 19.1 % (11.5-14.5); White Blood Cell Count 3.2 10^3/uL (4.8-10.8)
[2024-06-17 10:52] LABS: % Eosinophils 0.3 % (0-6); % Immature Granulocytes 5.3 % (0-0.5); % Lymphocytes 39.9 % (20.5-51.1); % Monocytes 10.6 % (1.7-9.3); % Neutrophils 43.9 % (42.2-75.2); Absolute Immature Granulocytes 0.2 10^3/uL (0-0.05); Absolute Lymphocytes 1.3 10^3/uL (1.2-3.4); Absolute Monocytes 0.3 10^3/uL (0.1-0.6); Absolute Neutrophils 1.4 10^3/uL (1.4-6.5); Nucleated Red Blood Cells % 0 % (-)
[2024-06-19 13:47] LABS: Albumin 3.35 g/dL (3.75-5.01); Alpha 1 Globulin 0.35 g/dL (0.19-0.46); Alpha 2 Globulin 0.77 g/dL (0.48-1.05); Free Kappa Light Chains,Quant 440.65 mg/L (3.30-19.40); Free Lambda Light Chains,Quant 24.69 mg/L (5.71-26.30); IgA 125 mg/dL (68-408); IgG 690 mg/dL (768-1632); IgM 402 mg/dL (35-263); Immunofixation Electrophoresis IFE Done; Kappa/Lambda Fr Light Ratio 17.85 (0.26-1.65); Total Protein-Electrophoresis 5.9 g/dL (6.3-8.2)
== END ==
LOC: REG 08:23
PROVIDERS: ATTENDING PHYSICIAN Nurse Practitioner Primary Care; FAMILY PHYSICIAN Internal Medicine Hematology & Oncology
DX: D69.6 Thrombocytopenia, unspecified (principal); D53.9 Nutritional anemia, unspecified; D72.819 Decreased white blood cell count, unspecified; G40.89 Other seizures; C94.6 Myelodysplastic disease, not elsewhere classified
CPT/HCPCS: 36415; 82784; 83521; 84155; 84165; 85025; 86334

== ENCOUNTER 2024-06-19 10:13 | Outpatient (RCR) | payer MEDICARE, OTHER, SELFPAY ==
[2024-06-19 11:01] VITALS: BP 88/50
[2024-06-19 11:18] VITALS: BP 112/49
[2024-06-19 13:28] VITALS: BP 136/69
[2024-06-19 16:24] LABS: LDH 175 U/L (120-246); Uric Acid 5.7 mg/dl (3.5-8.5)
[2024-06-19 16:42] LABS: Hematocrit 25.6 % (39.0-52.0); Hemoglobin 8.6 g/dL (13.0-18.0); Mean Corp Hgb Conc. 33.6 g/dL (33.0-37.0); Mean Corpuscular Hgb 33.6 pg (27.0-31.0); Mean Platelet Volume 10.7 fL (7.4-10.4); Platelet Count 64 10^3/uL (130-400); Red Blood Cell Count 2.56 10^6/uL (4.70-6.10); Red Cell Dist. Width 20.8 % (11.5-14.5); White Blood Cell Count 2.5 10^3/uL (4.8-10.8)
[2024-06-19 17:04] LABS: % Immature Granulocytes 6.1 % (0-0.5); % Lymphocytes 27.8 % (20.5-51.1); % Monocytes 16.3 % (1.7-9.3); % Neutrophils 49.8 % (42.2-75.2); Absolute Immature Granulocytes 0.2 10^3/uL (0-0.05); Absolute Lymphocytes 0.7 10^3/uL (1.2-3.4); Absolute Monocytes 0.4 10^3/uL (0.1-0.6); Absolute Neutrophils 1.2 10^3/uL (1.4-6.5); Nucleated Red Blood Cells % 0 % (-)
[2024-06-19 17:09] LABS: Reticulocyte Count 1.3 % (0.4-2.8)
[2024-06-19 17:31] LABS: Folate 5.9 ng/ml (2.76-20); Vitamin B12 812 pg/ml (239-931)
[2024-07-10 13:27] LABS: Hematocrit 20.4 % (39.0-52.0); Hemoglobin 6.9 g/dL (13.0-18.0); Mean Corp Hgb Conc. 33.8 g/dL (33.0-37.0); Mean Corpuscular Hgb 32.1 pg (27.0-31.0); Mean Corpuscular Volume 94.9 fL (80.0-94.0); Mean Platelet Volume 10.5 fL (7.4-10.4); Platelet Count 68 10^3/uL (130-400); Red Blood Cell Count 2.15 10^6/uL (4.70-6.10); Red Cell Dist. Width 17.2 % (11.5-14.5); White Blood Cell Count 3.5 10^3/uL (4.8-10.8)
[2024-07-10 13:38] LABS: Absolute Neutrophils -Man Diff 1.6 10^3/uL (1.4-6.5); Atypical Lymphocytes 3 %; Band Neutrophils 0 % (0-3); Lymphocytes 28 % (20-51); Monocytes 20 % (2-9); Myelocytes 2 % (-); Normal RBC Morphology Yes; Platelets Checked Yes; Segmented Neutrophils 47 % (42-75); Total Cells Counted 100
== END 2024-07-10 11:40 | disposition home or self-care (01) ==
LOC: OID 10:13
PROVIDERS: ATTENDING PHYSICIAN Internal Medicine Hematology & Oncology; FAMILY PHYSICIAN Family Medicine
DX: D69.6 Thrombocytopenia, unspecified (principal); D53.9 Nutritional anemia, unspecified; D72.819 Decreased white blood cell count, unspecified; G40.89 Other seizures; C94.6 Myelodysplastic disease, not elsewhere classified
CPT/HCPCS: 36415; 36430; 82607; 82746; 83615; 84550; 85025; 85045; 86850; 86900; 86901; 86920; P9016

== ENCOUNTER → 2024-06-24 10:39 | Outpatient (REF) | payer MEDICARE, OTHER, SELFPAY ==
[2024-06-24 11:54] LABS: Absolute Immature Granulocytes 0.1 10^3/uL (0-0.05); Absolute Lymphocytes 1.1 10^3/uL (1.2-3.4); Absolute Monocytes 0.3 10^3/uL (0.1-0.6); Absolute Neutrophils 1.3 10^3/uL (1.4-6.5); Hematocrit 22.7 % (39.0-52.0); Hemoglobin 8.1 g/dL (13.0-18.0); Mean Corp Hgb Conc. 35.7 g/dL (33.0-37.0); Mean Corpuscular Hgb 35.1 pg (27.0-31.0); Mean Corpuscular Volume 98.3 fL (80.0-94.0); Mean Platelet Volume 10.8 fL (7.4-10.4); Nucleated Red Blood Cells % 0 % (-); Platelet Count 68 10^3/uL (130-400); Red Blood Cell Count 2.31 10^6/uL (4.70-6.10); Red Cell Dist. Width 19.2 % (11.5-14.5); White Blood Cell Count 2.8 10^3/uL (4.8-10.8)
== END ==
LOC: REG 10:39
PROVIDERS: ATTENDING PHYSICIAN Internal Medicine Hematology & Oncology; REFERRING PHYSICIAN Nurse Practitioner Primary Care
DX: D69.6 Thrombocytopenia, unspecified (principal); D53.9 Nutritional anemia, unspecified; D72.819 Decreased white blood cell count, unspecified; G40.89 Other seizures; C94.6 Myelodysplastic disease, not elsewhere classified
CPT/HCPCS: 36415; 85025; 86850; 86900; 86901; 86920

== ENCOUNTER 2024-06-24 11:23 | Emergency (ER) | payer MEDICARE, OTHER, SELFPAY ==
[2024-06-24 11:35] VITALS: BP 140/74
--- NOTE | 2024-06-24 13:31 | ED.GENMED ---
History of Present Illness
General
Chief Complaint: Back Pain
Time Seen by Provider: 06/24/24 13:30
History of Present Illness
History of Present Illness:
TIME OF INITIAL ENCOUNTER: 1:30 PM
HPI: The patient presents with midthoracic back pain. The patient was found to have subacute fractures of T12 and L2 2 months ago and at that time had vertebroplasty by IR. 1 week ago he had nontraumatic low back pain while he was at [facility]
rehab. Yesterday night while he was trying to wipe himself, he had worsening pain. The pain is primarily in his thoracic spine. He is scheduled to have an MRI of his lumbar spine next week.
EXAM:
GENERAL: Well appearing in no significant distress
HEENT: Moist oral mucosa
NEUROLOGIC: Good strength all extremities, no obvious coordination deficits, the patient was able to stand without assistance
PSYCHIATRIC: Appropriate mental status, normal insight and judgement
EXTREMITIES: Nontender, no edema, moves all extremities equally
BACK: There is mild to moderate midline tenderness in the lower thoracic spine, no lumbar tenderness, decreased active range of motion of the thoracolumbar spine due to pain
SKIN: No rash, no lesions
NUMBER AND COMPLEXITY OF PROBLEMS ADDRESSED AT THE ENCOUNTER
� Chronic conditions affecting care: CHF, high blood pressure, MDS, epilepsy
� Acute Exacerbation and/or Progression of Chronic Illness: this is an acute problem
� Differential Diagnosis includes: Progression of known spine disease, progression of vertebral body fractures, retropulsion, complication of prior procedure
AMOUNT AND/OR COMPLEXITY OF DATA TO BE REVIEWED AND ANALYZED
� I performed an independent evaluation of and my interpretation is:
EKG:
CT:
X-rays: X-ray ordered from triage shows compression fractures of T6 and T7 unchanged from CT of the T-spine from 2 months ago.
Laboratory Studies:
Other:
� Review of other/old records: CT C-spine 04/30/2024 and MRI L-spine 05/01/2024 reviewed. The patient had technically successful T12 and L2 percutaneous vertebral augmentation and vertebroplasty 05/03/2024.
� Clinical information was obtained by an independent historian: Caregiver bedside, daughter over the phone
� Prescriptions/Medications Considered but not given:
� Further testing considered but not performed:
RISK OF COMPLICATIONS AND/OR MORBIDITY OR MORTALITY OF PATIENT MANAGEMENT
� Social determinants of health affecting care: Lives at home, has a caregiver at bedside, states that his daughter is an ICU nurse here
� Discussion with other providers: I discussed case with Dr. Marks clear indication for MRI emergently but recommends further imaging as an outpatient such as MRI of the T-spine
� Escalation of care including admission/observation vs risk of discharge considered: The patient has no back pain red flags including no bowel or bladder incontinence or retention. He has fair strength of the lower extremities.
ANY OTHER UPDATES:
I had long conversation with Reba, daughter, over the phone. No clear indication for admission to the hospital. The patient was able to stand without assistance. Plain film imaging unremarkable. Apparently, the pending MRI L-spine was ordered
through doctors at [facility] but his pain is primarily T-spine. Reba will contact his PCP.
Past History
Past History
ED Past Medical History: Seizures, Other (Benign brain tumor removal 1990, intracranial hemorrhage, lumbar compression fracture) and Other (Shoulder DJD)
ED Past Surgical History: Brain (Right frontal lobe craniotomy for benign brain tumor removal)
Social History
Tobacco: Non-smoker
Alcohol: None
Personal:
Employment: Retired
Family History
Family History: Other (Noncontributory)
Phy Exam
Physical Exam
Physical Exam:
See HPI
Course
Orders/Labs/Results
Orders:
Orders
06/24/24 11:40
Thoracic Spine 3 Views CR [CR Thoracic Spine 3 Views] Urgent
Comment:
Reason For Exam: injury
Vital Signs
Initial and Last Documented VS:
Initial Vital Signs
Temp Pulse Resp BP Pulse Ox
36.4 C 65 16 140/74 100
06/24/24 11:35 06/24/24 11:35 06/24/24 11:35 06/24/24 11:35 06/24/24 11:35
Last Documented Vital Signs
Temp Pulse Resp BP Pulse Ox
36.4 C 65 16 140/74 100
06/24/24 11:35 06/24/24 11:35 06/24/24 11:35 06/24/24 11:35 06/24/24 11:35
*Critical Care Note
Total Time (30-74mins, 75-104mins- exclusive of procedures): Not Applicable
ED Attending Note
-
Portions of this chart may have been created with voice recognition software.� Occasional wrong word or��sound alike� substitutions may have occurred due to the inherent limitations of voice recognition software.
Discharge Plan
Departure
Prescriptions:
No Action
sennosides [senna] 8.6 mg Tablet
17.2 mg PO DAILY
famotidine 20 mg Tablet
20 mg PO BID
levetiracetam [Keppra] 1,000 mg Tablet
1,500 mg PO BID
gabapentin 100 mg Capsule
200 mg PO TID Qty: 30 0RF
lacosamide 50 mg Tablet
50 mg PO BID Qty: 14 0RF
aspirin 81 mg Tablet,Delayed Release (Dr/Ec)
81 mg PO DAILY
magnesium hydroxide [Milk of Magnesia] 400 mg/5 mL Suspension
2,400 mg PO HSPRN PRN (Reason: constipation)
bisacodyl [Dulcolax (bisacodyl)] 10 mg Suppository
10 mg RI [id number] PRN (Reason: if no bm after mom)
ondansetron HCl 4 mg Tablet
4 mg PO Q6HPRN PRN (Reason: nausea)
acetaminophen 325 mg tablet
650 mg PO QID
tamsulosin 0.4 mg capsule
0.4 mg PO HS
polyethylene glycol 3350 [Miralax] 17 gram Powder In Packet
17 g PO QPM
acetaminophen [Tylenol Extra Strength] 500 mg Tablet
1,000 mg PO [id number] PRN (Reason: mild pain)
oxycodone 5 mg tablet
5 mg PO Q6HPRN PRN (Reason: severe pain) Qty: 2 0RF
hydrocortisone 0.25 % Cream
1 applic TOPICAL DAILY
midodrine 2.5 mg Tablet
2.5 mg PO TID
lidocaine 1.8 % Adhesive Patch,Medicated
1 patch TOPICAL DAILY
Referrals:
Eulalio Pal MD [Family Provider] -
Interventions
Interventions:
*Risk Screen - Suicide Last Done: 06/24/24 11:35
*General Assessment Last Done: 06/24/24 12:54
*Neglect/Abuse Screening Last Done: 06/24/24 11:35
*ED COVID-19 Vaccine History Last Done: 06/24/24 12:56
ED-Musculoskeletal Assessment Last Done: 06/24/24 12:56
Discharge Date and Time
Print Language: [place]
== END 2024-06-24 14:56 | disposition home or self-care (01) ==
LOC: EMR 11:23
PROVIDERS: EMERGENCY PHYSICIAN Emergency Medicine; FAMILY PHYSICIAN Family Medicine
DX: M54.6 Pain in thoracic spine (principal); M48.54XA Collapsed vertebra, not elsewhere classified, thoracic region, initial encounter for fracture; I11.0 Hypertensive heart disease with heart failure; I50.9 Heart failure, unspecified; G40.909 Epilepsy, unspecified, not intractable, without status epilepticus; D46.9 Myelodysplastic syndrome, unspecified
CPT/HCPCS: 99283; 72072

== ENCOUNTER 2024-07-01 14:23 | Emergency (ER) | payer MEDICARE, OTHER, SELFPAY ==
[2024-07-01] VITALS (29 sets, daily range): BP systolic 115–163; BP diastolic 45–86
[2024-07-01 11:59] LABS: % Immature Granulocytes 3.9 % (0-0.5); % Lymphocytes 35.9 % (20.5-51.1); % Monocytes 14.7 % (1.7-9.3); % Neutrophils 45.5 % (42.2-75.2); Absolute Immature Granulocytes 0.1 10^3/uL (0-0.05); Absolute Lymphocytes 1.1 10^3/uL (1.2-3.4); Absolute Monocytes 0.5 10^3/uL (0.1-0.6); Absolute Neutrophils 1.4 10^3/uL (1.4-6.5); Hemoglobin 6.3 g/dL (13.0-18.0); Mean Corp Hgb Conc. 33.2 g/dL (33.0-37.0); Mean Corpuscular Hgb 33.2 pg (27.0-31.0); Mean Platelet Volume 10.4 fL (7.4-10.4); Nucleated Red Blood Cells % 0 % (-); Platelet Count 49 10^3/uL (130-400); Red Cell Dist. Width 18.7 % (11.5-14.5); White Blood Cell Count 3.1 10^3/uL (4.8-10.8)
--- NOTE | 2024-07-01 17:03 | ED.GENMED ---
History of Present Illness
General
Chief Complaint: Abnormal Lab Value
Time Seen by Provider: 07/01/24 16:48
History of Present Illness
History of Present Illness:
78-year-old male presents the emergency department for evaluation of low hemoglobin. History of MDS and requires frequent transfusions, most recently was 3 to 4 weeks ago. He reports mild fatigue but denies chest pain or shortness of breath. No
nausea vomiting or diarrhea. He is on baby aspirin but no blood thinners. Denies any bloody or melanotic stool, denies any blood in the urine or gingival bleeding
Past History
Past History
ED Past Medical History: Seizures, Other (Benign brain tumor removal 1990, intracranial hemorrhage, lumbar compression fracture) and Other (Shoulder DJD)
ED Past Surgical History: Brain (Right frontal lobe craniotomy for benign brain tumor removal)
Social History
Tobacco: Non-smoker
Alcohol: None
Personal:
Employment: Retired
Family History
Family History: Other (Noncontributory)
Review of Systems
Review of Systems
Allergies reviewed?: Yes
All Other Systems: ROS reviewed and negative except as documented in HPI and ROS
Phy Exam
Physical Exam
Physical Exam:
GEN: Well appearing, NAD, WDWN
HEENT: Oral mucosa moist, no scleral icterus
Cardiac: Regular rate
Lung: No respiratory distress, no tachypnea
MSK: No gross deformity or injuries
Skin: Generally pale, no rashes
Neuro: AO x3, moves all extremities freely
Psych: Calm, cooperative
Course
Orders/Labs/Results
Orders:
Orders
07/01/24 11:03
Type+Screen Routine
BBK Wristband Number:
Complete Blood Count/With Diff Routine
07/01/24 17:02
Blood Bank Products [* Blood Bank Products] Urgent
Blood Bank Products: *Packed RBC Leuko(PRBC's)
Quantity: 2
Transfuse Today: Yes
Reason: Anemia
07/01/24 18:44
Comprehensive Metabolic Panel Urgent
NT-proBNP Urgent
07/01/24 18:47
Type+Screen Urgent
BBK Wristband Number:
07/01/24 19:02
Acetaminophen [Tylenol] 1,000 mg PO NOW STA
Ibuprofen [Motrin] 400 mg PO NOW STA
07/01/24 19:33
Furosemide [Lasix] 40 mg IV NOW STA
07/01/24 19:34
Potassium Chloride [KCl] 20 meq PO NOW STA
Abnormal Lab Results
07/01/24 07/01/24 07/01/24
11:03 18:44 18:47
WBC 3.1 L 10^3/uL
(4.8-10.8)
RBC 1.90 L 10^6/uL
(4.70-6.10)
Hgb 6.3 L* D g/dL
(13.0-18.0)
Hct 19.0 L* %
(39.0-52.0)
MCV 100.0 H fL
(80.0-94.0)
MCH 33.2 H pg
(27.0-31.0)
RDW 18.7 H %
(11.5-14.5)
Plt Count 49 L D 10^3/uL
(130-400)
Abs Immat Gran (auto) 0.1 H 10^3/uL
(0-0.05)
Absolute Lymphs (auto) 1.1 L 10^3/uL
(1.2-3.4)
Immature Gran % 3.9 H %
(0-0.5)
Monocytes % 14.7 H %
(1.7-9.3)
Creatinine 0.4 L mg/dL
(0.7-1.3)
Glucose 104 H mg/dl
(70-99)
Total Protein 6.0 L g/dl
(6.3-8.2)
Albumin 3.3 L g/dl
(3.5-5.0)
Crossmatch IS Only See Detail See Detail
07/01/24 11:03
07/01/24 18:44
Vital Signs
Initial and Last Documented VS:
Initial Vital Signs
Temp Pulse Resp BP Pulse Ox
97.7 F 61 20 115/45 100
07/01/24 14:34 07/01/24 14:34 07/01/24 14:34 07/01/24 14:34 07/01/24 14:34
Last Documented Vital Signs
Temp Pulse Resp BP Pulse Ox
97.9 F 51 12 138/75 98
07/01/24 22:45 07/02/24 00:00 07/02/24 00:00 07/02/24 00:00 07/02/24 00:00
MDM/Problems Addressed
MDM/Problems Addressed:
Patient given PRBC transfusion and diuresis for edema tolerated well. Does not appear to be in acute CHF, BNP only marginally elevated, lungs clear on auscultation, no shortness of breath after transfusion
*Critical Care Note
Total Time (30-74mins, 75-104mins- exclusive of procedures): Not Applicable
ED Attending Note
-
Portions of this chart may have been created with voice recognition software.� Occasional wrong word or��sound alike� substitutions may have occurred due to the inherent limitations of voice recognition software.
Discharge Plan
Departure
Patient Disposition: Home (Routine Discharge)
Date of Disposition: 07/02/24
Time of Disposition: 00:35
Patient with high blood pressure during this ER visit?: No
Discharge Problem:
Symptomatic anemia
Instructions: Anemia in adults, possibly from low iron - ED discharge instructions
Prescriptions:
No Action
sennosides [senna] 8.6 mg Tablet
17.2 mg PO DAILY
famotidine 20 mg Tablet
20 mg PO BID
levetiracetam [Keppra] 1,000 mg Tablet
1,500 mg PO BID
gabapentin 100 mg Capsule
200 mg PO TID Qty: 30 0RF
lacosamide 50 mg Tablet
50 mg PO BID Qty: 14 0RF
aspirin 81 mg Tablet,Delayed Release (Dr/Ec)
81 mg PO DAILY
magnesium hydroxide [Milk of Magnesia] 400 mg/5 mL Suspension
2,400 mg PO HSPRN PRN (Reason: constipation)
bisacodyl [Dulcolax (bisacodyl)] 10 mg Suppository
10 mg MT [id number] PRN (Reason: if no bm after mom)
ondansetron HCl 4 mg Tablet
4 mg PO Q6HPRN PRN (Reason: nausea)
acetaminophen 325 mg tablet
650 mg PO QID
tamsulosin 0.4 mg capsule
0.4 mg PO HS
polyethylene glycol 3350 [Miralax] 17 gram Powder In Packet
17 g PO QPM
acetaminophen [Tylenol Extra Strength] 500 mg Tablet
1,000 mg PO [id number] PRN (Reason: mild pain)
oxycodone 5 mg tablet
5 mg PO Q6HPRN PRN (Reason: severe pain) Qty: 2 0RF
hydrocortisone 0.25 % Cream
1 applic TOPICAL DAILY
midodrine 2.5 mg Tablet
2.5 mg PO TID
lidocaine 1.8 % Adhesive Patch,Medicated
1 patch TOPICAL DAILY
Referrals:
Eulalio Pal MD [Family Provider] -
Interventions
Interventions:
*Risk Screen - Suicide Last Done: 07/01/24 14:34
*General Assessment Last Done: 07/01/24 14:34
Discharge Date and Time
Print Language: ARMENIAN
[2024-07-01] MEDS: TYLENOL 1000 MG PO (19:07)
[2024-07-01] MEDS: MOTRIN 400 MG PO (19:07)
[2024-07-01 19:23] LABS: ALT (SGPT) 11 U/L (0-50); AST (SGOT) 19 U/L (17-59); Albumin 3.3 g/dl (3.5-5.0); Alkaline Phosphatase 105 U/L (38-126); Blood Urea Nitrogen 20 mg/dl (9-20); Calcium 9.2 mg/dl (8.4-10.2); Carbon Dioxide 26 mmol/L (22-30); Chloride 106 mmol/L (98-107); Glucose 104 mg/dl (70-99); Potassium 3.8 mmol/L (3.5-5.1); Sodium 140 mmol/L (135-145); Total Bilirubin 0.8 mg/dl (0.2-1.3); eGFR > 60.00
[2024-07-01 19:25] LABS: NT-proBNP 450 pg/ml
[2024-07-01] MEDS: KCL 20 MEQ PO (20:00)
[2024-07-01] MEDS: LASIX 40 MG IV (20:01)
[2024-07-02] VITALS (9 sets, daily range): BP systolic 134–158; BP diastolic 65–77
== END 2024-07-02 01:55 | disposition home or self-care (01) ==
LOC: EMR 14:23
PROVIDERS: Internal Medicine Hematology & Oncology; Physician Assistant; EMERGENCY PHYSICIAN Emergency Medicine; FAMILY PHYSICIAN Family Medicine
DX: D64.9 Anemia, unspecified (principal); D46.9 Myelodysplastic syndrome, unspecified; Z79.82 Long term (current) use of aspirin; Z86.011 Personal history of benign neoplasm of the brain; Z98.890 Other specified postprocedural states
CPT/HCPCS: 36430; 96374; 99285; 36415; 71045; 80053; 83880; 85025; 86850; 86900; 86901; 86920; P9016

== ENCOUNTER → 2024-07-05 07:00 | Outpatient (REF) | payer MEDICARE, OTHER, SELFPAY | LOC: MRI 3T 07:00 | PROVIDERS: ATTENDING PHYSICIAN Family Medicine | DX: S32.000A Wedge compression fracture of unspecified lumbar vertebra, initial encounter for closed fracture (principal) | CPT/HCPCS: 72146; 72148 ==

== ENCOUNTER → 2024-07-08 10:12 | Outpatient (REF) | payer MEDICARE, OTHER, SELFPAY | LOC: REG 10:12 | PROVIDERS: ATTENDING PHYSICIAN Internal Medicine Hematology & Oncology; FAMILY PHYSICIAN Family Medicine | DX: D69.6 Thrombocytopenia, unspecified (principal); D53.9 Nutritional anemia, unspecified; D72.819 Decreased white blood cell count, unspecified; G40.89 Other seizures; C94.6 Myelodysplastic disease, not elsewhere classified | CPT/HCPCS: 36415; 85025; 86850; 86900; 86901 ==

== ENCOUNTER → 2024-07-25 08:27 | Outpatient (REF) | payer MEDICARE, OTHER, SELFPAY ==
[2024-07-25 08:51] LABS: % Immature Granulocytes 2.9 % (0-0.5); % Lymphocytes 30.9 % (20.5-51.1); % Monocytes 19.7 % (1.7-9.3); % Neutrophils 46.5 % (42.2-75.2); Absolute Immature Granulocytes 0.1 10^3/uL (0-0.05); Absolute Lymphocytes 1.2 10^3/uL (1.2-3.4); Absolute Monocytes 0.7 10^3/uL (0.1-0.6); Absolute Neutrophils 1.8 10^3/uL (1.4-6.5); Hematocrit 24.7 % (39.0-52.0); Hemoglobin 8.4 g/dL (13.0-18.0); Mean Corpuscular Hgb 32.8 pg (27.0-31.0); Mean Corpuscular Volume 96.5 fL (80.0-94.0); Mean Platelet Volume 10.9 fL (7.4-10.4); Nucleated Red Blood Cells % 0 % (-); Platelet Count 63 10^3/uL (130-400); Red Blood Cell Count 2.56 10^6/uL (4.70-6.10); White Blood Cell Count 3.8 10^3/uL (4.8-10.8)
[2024-07-25 09:03] LABS: PT 13.5 Sec (11.4-14.6)
[2024-07-25 09:32] VITALS: BP 170/74; BP_SYST 68
[2024-07-25] MEDS: ATIVAN 0.5 MG IV (10:17)
[2024-07-25] MEDS: NSS (PRESERVATIVE FREE) 0.25 ML IV (10:17)
[2024-07-25 11:00] VITALS: BP 160/73; BP_SYST 67
[2024-07-25 11:05] VITALS: BP 161/71; BP_SYST 62
[2024-07-25 11:25] VITALS: BP 171/85; BP_SYST 69
== END ==
LOC: RAD 08:27
PROVIDERS: Physician Assistant; ATTENDING PHYSICIAN Internal Medicine Hematology & Oncology; FAMILY PHYSICIAN Family Medicine; OTHER PHYSICIAN Radiology Vascular & Interventional Radiology
DX: S32.000A Wedge compression fracture of unspecified lumbar vertebra, initial encounter for closed fracture (principal); M54.50 Low back pain, unspecified
CPT/HCPCS: 88305; 88311; 88312; 36415; 38222; 72100; 77012; 85025; 85610; 88313

== ENCOUNTER → 2024-07-29 13:44 | Outpatient (REF) | payer MEDICARE, OTHER, SELFPAY | LOC: HWRAD 13:44 | PROVIDERS: ATTENDING PHYSICIAN Family Medicine | DX: M81.0 Age-related osteoporosis without current pathological fracture (principal) | CPT/HCPCS: 77080 ==

== ENCOUNTER 2024-08-07 08:18 | Outpatient (RCR) | payer MEDICARE, OTHER, SELFPAY ==
[2024-07-08 11:52] LABS: Hematocrit 22.6 % (39.0-52.0); Hemoglobin 7.6 g/dL (13.0-18.0); Mean Corp Hgb Conc. 33.6 g/dL (33.0-37.0); Mean Corpuscular Hgb 32.8 pg (27.0-31.0); Mean Corpuscular Volume 97.4 fL (80.0-94.0); Platelet Count 54 10^3/uL (130-400); Red Blood Cell Count 2.32 10^6/uL (4.70-6.10); Red Cell Dist. Width 17.5 % (11.5-14.5); White Blood Cell Count 3.4 10^3/uL (4.8-10.8)
[2024-07-08 14:06] LABS: % Immature Granulocytes 3.9 % (0-0.5); % Lymphocytes 37.3 % (20.5-51.1); % Monocytes 14.3 % (1.7-9.3); % Neutrophils 44.5 % (42.2-75.2); Absolute Immature Granulocytes 0.1 10^3/uL (0-0.05); Absolute Lymphocytes 1.3 10^3/uL (1.2-3.4); Absolute Monocytes 0.5 10^3/uL (0.1-0.6); Absolute Neutrophils 1.5 10^3/uL (1.4-6.5); Nucleated Red Blood Cells % 0 % (-)
[2024-07-11] VITALS (7 sets, daily range): BP systolic 134–155; BP diastolic 56–70
[2024-07-11 10:03] LABS: Iron 155 ug/dl (49-181)
[2024-07-11 10:12] LABS: Percent Saturation 66 % (20-50); Total Iron Binding Capacity 234 ug/dl (261-462)
[2024-07-15 09:23] LABS: % Basophils 1.5 % (0-2); % Immature Granulocytes 4.8 % (0-0.5); % Lymphocytes 42.1 % (20.5-51.1); % Monocytes 13.9 % (1.7-9.3); % Neutrophils 37.7 % (42.2-75.2); Absolute Immature Granulocytes 0.1 10^3/uL (0-0.05); Absolute Lymphocytes 1.2 10^3/uL (1.2-3.4); Absolute Monocytes 0.4 10^3/uL (0.1-0.6); Mean Corp Hgb Conc. 33.9 g/dL (33.0-37.0); Mean Corpuscular Hgb 32.3 pg (27.0-31.0); Mean Corpuscular Volume 95.2 fL (80.0-94.0); Mean Platelet Volume 10.2 fL (7.4-10.4); Platelet Count 89 10^3/uL (130-400); Red Blood Cell Count 2.94 10^6/uL (4.70-6.10); Red Cell Dist. Width 16.1 % (11.5-14.5); White Blood Cell Count 2.7 10^3/uL (4.8-10.8)
[2024-07-15 09:28] LABS: Hemoglobin 9.5 g/dL (13.0-18.0)
[2024-07-15 10:19] LABS: LDH 231 U/L (120-246); Uric Acid 5.8 mg/dl (3.5-8.5)
[2024-07-15 11:14] LABS: Absolute Neutrophils -Man Diff 1.2 10^3/uL (1.4-6.5); Band Neutrophils 0 % (0-3); Lymphocytes 38 % (20-51); Monocytes 16 % (2-9); Normal RBC Morphology Yes; Platelets Checked Yes; Segmented Neutrophils 46 % (42-75)
[2024-07-15 11:15] LABS: Total Cells Counted 100
[2024-07-15 11:17] LABS: Reticulocyte Count 1.4 % (0.4-2.8)
[2024-07-15 11:25] LABS: Folate 5.5 ng/ml (2.76-20); Vitamin B12 833 pg/ml (239-931)
[2024-07-22 12:52] LABS: % Basophils 0.3 % (0-2); % Immature Granulocytes 2.7 % (0-0.5); % Lymphocytes 34.5 % (20.5-51.1); % Monocytes 18.8 % (1.7-9.3); % Neutrophils 43.7 % (42.2-75.2); Absolute Immature Granulocytes 0.1 10^3/uL (0-0.05); Absolute Monocytes 0.6 10^3/uL (0.1-0.6); Absolute Neutrophils 1.3 10^3/uL (1.4-6.5); Hemoglobin 8.9 g/dL (13.0-18.0); Mean Corp Hgb Conc. 35.6 g/dL (33.0-37.0); Mean Corpuscular Hgb 33.8 pg (27.0-31.0); Mean Corpuscular Volume 95.1 fL (80.0-94.0); Nucleated Red Blood Cells % 0 % (-); Platelet Count 68 10^3/uL (130-400); Red Blood Cell Count 2.63 10^6/uL (4.70-6.10); Red Cell Dist. Width 16.6 % (11.5-14.5); White Blood Cell Count 2.9 10^3/uL (4.8-10.8)
[2024-07-29 10:54] LABS: Hematocrit 22.3 % (39.0-52.0); Hemoglobin 7.9 g/dL (13.0-18.0); Mean Corp Hgb Conc. 35.4 g/dL (33.0-37.0); Mean Corpuscular Hgb 33.8 pg (27.0-31.0); Mean Corpuscular Volume 95.3 fL (80.0-94.0); Mean Platelet Volume 11.1 fL (7.4-10.4); Platelet Count 76 10^3/uL (130-400); Red Blood Cell Count 2.34 10^6/uL (4.70-6.10); Red Cell Dist. Width 16.8 % (11.5-14.5); White Blood Cell Count 2.7 10^3/uL (4.8-10.8)
[2024-07-29 15:32] LABS: % Immature Granulocytes 5.2 % (0-0.5); % Lymphocytes 41.2 % (20.5-51.1); % Monocytes 15.7 % (1.7-9.3); % Neutrophils 37.9 % (42.2-75.2); Absolute Immature Granulocytes 0.1 10^3/uL (0-0.05); Absolute Lymphocytes 1.1 10^3/uL (1.2-3.4); Absolute Monocytes 0.4 10^3/uL (0.1-0.6); Nucleated Red Blood Cells % 0 % (-)
[2024-08-06 11:20] LABS: Hematocrit 19.4 % (39.0-52.0); Hemoglobin 6.6 g/dL (13.0-18.0); Mean Corpuscular Hgb 33.2 pg (27.0-31.0); Mean Corpuscular Volume 97.5 fL (80.0-94.0); Mean Platelet Volume 10.5 fL (7.4-10.4); Platelet Count 87 10^3/uL (130-400); Red Blood Cell Count 1.99 10^6/uL (4.70-6.10); Red Cell Dist. Width 18.6 % (11.5-14.5); White Blood Cell Count 3.7 10^3/uL (4.8-10.8)
[2024-08-06 13:16] LABS: % Immature Granulocytes 4.6 % (0-0.5); % Lymphocytes 29.5 % (20.5-51.1); % Neutrophils 49.9 % (42.2-75.2); Absolute Immature Granulocytes 0.2 10^3/uL (0-0.05); Absolute Lymphocytes 1.1 10^3/uL (1.2-3.4); Absolute Monocytes 0.6 10^3/uL (0.1-0.6); Absolute Neutrophils 1.8 10^3/uL (1.4-6.5); Nucleated Red Blood Cells % 0 % (-)
[2024-08-07 09:07] VITALS: BP 148/69
[2024-08-07 09:27] VITALS: BP 152/76
[2024-08-07] MEDS: LASIX 20 MG IV (11:30)
[2024-08-07 11:38] VITALS: BP 156/72
[2024-08-07 12:00] VITALS: BP 159/82
[2024-08-07 15:01] VITALS: BP 163/84
--- NOTE | 2024-08-07 16:38 | DOWNTIME ---
There was a [employer] Client Assistant Foreman Downtime on 08/07/2024 from 1230 to 08/07/2024 at 1550. Downtime documentation of patient's care, including medication administrations, has been reconciled in the electronic record per guidelines. Refer to the
patient's paper chart under the miscellaneous tab to see printed paper medication records and downtime forms.
== END 2024-08-10 23:59 | disposition home or self-care (01) ==
LOC: OID 08:18
PROVIDERS: ATTENDING PHYSICIAN Internal Medicine Hematology & Oncology; FAMILY PHYSICIAN Family Medicine
DX: D69.6 Thrombocytopenia, unspecified (principal); D53.9 Nutritional anemia, unspecified; D72.819 Decreased white blood cell count, unspecified; G40.89 Other seizures; C94.6 Myelodysplastic disease, not elsewhere classified
CPT/HCPCS: 36415; 36430; 82607; 82728; 82746; 83540; 83550; 83615; 84550; 85025; 85045; 86850; 86900; 86901; 86920; 96374; P9016

== ENCOUNTER → 2024-08-12 09:12 | Outpatient (REF) | payer MEDICARE, OTHER, SELFPAY ==
[2024-08-12 10:54] LABS: Hematocrit 27.2 % (39.0-52.0); Hemoglobin 9.1 g/dL (13.0-18.0); Mean Corp Hgb Conc. 33.5 g/dL (33.0-37.0); Mean Corpuscular Hgb 32.6 pg (27.0-31.0); Mean Corpuscular Volume 97.5 fL (80.0-94.0); Mean Platelet Volume 11.3 fL (7.4-10.4); Platelet Count 74 10^3/uL (130-400); Red Blood Cell Count 2.79 10^6/uL (4.70-6.10); Red Cell Dist. Width 17.3 % (11.5-14.5); White Blood Cell Count 5.9 10^3/uL (4.8-10.8)
[2024-08-12 11:31] LABS: ALT (SGPT) < 10 U/L (0-50); AST (SGOT) 16 U/L (17-59); Albumin 3.9 g/dl (3.5-5.0); Alkaline Phosphatase 107 U/L (38-126); Blood Urea Nitrogen 21 mg/dl (9-20); Calcium 9.2 mg/dl (8.4-10.2); Carbon Dioxide 26 mmol/L (22-30); Chloride 107 mmol/L (98-107); Glucose 94 mg/dl (70-99); Iron 151 ug/dl (49-181); Potassium 3.3 mmol/L (3.5-5.1); Sodium 141 mmol/L (135-145); Total Bilirubin 1.7 mg/dl (0.2-1.3); Total Protein 6.5 g/dl (6.3-8.2); eGFR > 60.00
[2024-08-12 12:11] LABS: % Basophils 0.2 % (0-2); % Eosinophils 0.2 % (0-6); % Immature Granulocytes 3.1 % (0-0.5); % Monocytes 16.8 % (1.7-9.3); % Neutrophils 60.7 % (42.2-75.2); Absolute Immature Granulocytes 0.2 10^3/uL (0-0.05); Absolute Lymphocytes 1.1 10^3/uL (1.2-3.4); Absolute Neutrophils 3.6 10^3/uL (1.4-6.5); Nucleated Red Blood Cells % 0 % (-)
[2024-08-12 12:40] LABS: Erythrocyte Sed Rate 87 mm/hour (0-20)
[2024-08-12 12:49] LABS: Percent Saturation 57 % (20-50); Total Iron Binding Capacity 263 ug/dl (261-462)
[2024-08-13 16:36] LABS: Direct Bilirubin 0.2 mg/dl (0.0-0.4)
== END ==
LOC: OIDL 09:12
PROVIDERS: ATTENDING PHYSICIAN Internal Medicine Hematology & Oncology
DX: D69.6 Thrombocytopenia, unspecified (principal); D53.9 Nutritional anemia, unspecified; D72.819 Decreased white blood cell count, unspecified; G40.89 Other seizures; C94.6 Myelodysplastic disease, not elsewhere classified; M81.0 Age-related osteoporosis without current pathological fracture
CPT/HCPCS: 36415; 80053; 82248; 82784; 83521; 83540; 83550; 84155; 84165; 85025; 85652; 86334

== ENCOUNTER 2024-08-22 09:00 | Outpatient (RCR) | payer MEDICARE, OTHER, SELFPAY ==
[2024-08-21 12:01] LABS: Hematocrit 21.9 % (39.0-52.0); Hemoglobin 7.7 g/dL (13.0-18.0); Mean Corp Hgb Conc. 35.2 g/dL (33.0-37.0); Mean Corpuscular Hgb 33.5 pg (27.0-31.0); Mean Corpuscular Volume 95.2 fL (80.0-94.0); Mean Platelet Volume 10.4 fL (7.4-10.4); Platelet Count 70 10^3/uL (130-400); Red Cell Dist. Width 17.3 % (11.5-14.5); White Blood Cell Count 3.3 10^3/uL (4.8-10.8)
[2024-08-21 12:02] LABS: Absolute Neutrophils -Man Diff 1.4 10^3/uL (1.4-6.5); Anisocytosis 1+; Band Neutrophils 0 % (0-3); Hypochromasia Slight; Lymphocytes 41 % (20-51); Monocytes 15 % (2-9); Normal RBC Morphology No; Platelets Checked Yes; Segmented Neutrophils 44 % (42-75); Total Cells Counted 100
[2024-08-22 09:55] VITALS: BP 152/62
[2024-08-22 10:12] VITALS: BP 151/67
[2024-08-22 12:26] VITALS: BP 154/74
== END 2024-09-09 23:59 | disposition home or self-care (01) ==
LOC: OID 09:00
PROVIDERS: ATTENDING PHYSICIAN Internal Medicine Hematology & Oncology; FAMILY PHYSICIAN Family Medicine
DX: D69.6 Thrombocytopenia, unspecified (principal); D53.9 Nutritional anemia, unspecified; D72.819 Decreased white blood cell count, unspecified; G40.89 Other seizures; C94.6 Myelodysplastic disease, not elsewhere classified
CPT/HCPCS: 36415; 36430; 85025; 86850; 86900; 86901; 86920; P9016

== ENCOUNTER → 2024-08-26 09:22 | Outpatient (REF) | payer MEDICARE, OTHER, SELFPAY ==
[2024-08-19 11:06] LABS: Hematocrit 22.4 % (39.0-52.0); Hemoglobin 7.8 g/dL (13.0-18.0); Mean Corp Hgb Conc. 34.8 g/dL (33.0-37.0); Mean Corpuscular Hgb 32.9 pg (27.0-31.0); Mean Corpuscular Volume 94.5 fL (80.0-94.0); Platelet Count 66 10^3/uL (130-400); Red Blood Cell Count 2.37 10^6/uL (4.70-6.10); White Blood Cell Count 3.5 10^3/uL (4.8-10.8)
[2024-08-19 11:46] LABS: % Immature Granulocytes 2.9 % (0-0.5); % Lymphocytes 33.3 % (20.5-51.1); % Monocytes 15.9 % (1.7-9.3); % Neutrophils 47.9 % (42.2-75.2); Absolute Immature Granulocytes 0.1 10^3/uL (0-0.05); Absolute Lymphocytes 1.2 10^3/uL (1.2-3.4); Absolute Monocytes 0.6 10^3/uL (0.1-0.6); Absolute Neutrophils 1.7 10^3/uL (1.4-6.5); Nucleated Red Blood Cells % 0 % (-)
[2024-08-26 10:01] LABS: % Basophils 0.2 % (0-2); % Eosinophils 0.2 % (0-6); % Immature Granulocytes 3.3 % (0-0.5); % Monocytes 12.3 % (1.7-9.3); Absolute Immature Granulocytes 0.2 10^3/uL (0-0.05); Absolute Lymphocytes 0.9 10^3/uL (1.2-3.4); Absolute Monocytes 0.6 10^3/uL (0.1-0.6); Absolute Neutrophils 2.8 10^3/uL (1.4-6.5); Hematocrit 25.8 % (39.0-52.0); Hemoglobin 8.8 g/dL (13.0-18.0); Mean Corp Hgb Conc. 34.1 g/dL (33.0-37.0); Mean Corpuscular Hgb 32.1 pg (27.0-31.0); Mean Corpuscular Volume 94.2 fL (80.0-94.0); Mean Platelet Volume 10.7 fL (7.4-10.4); Platelet Count 74 10^3/uL (130-400); Red Blood Cell Count 2.74 10^6/uL (4.70-6.10); Red Cell Dist. Width 17.2 % (11.5-14.5); White Blood Cell Count 4.5 10^3/uL (4.8-10.8)
== END ==
LOC: OIDL 09:22
PROVIDERS: ATTENDING PHYSICIAN Internal Medicine Hematology & Oncology; FAMILY PHYSICIAN Family Medicine
DX: D69.6 Thrombocytopenia, unspecified (principal); D53.9 Nutritional anemia, unspecified; D72.819 Decreased white blood cell count, unspecified; G40.89 Other seizures; C94.6 Myelodysplastic disease, not elsewhere classified; M81.0 Age-related osteoporosis without current pathological fracture
CPT/HCPCS: 36415; 85025; 86850; 86900; 86901

== ENCOUNTER → 2024-09-02 08:58 | Outpatient (REF) | payer MEDICARE, OTHER, SELFPAY ==
[2024-09-02 10:15] LABS: Hematocrit 24.1 % (39.0-52.0); Hemoglobin 8.5 g/dL (13.0-18.0); Mean Corp Hgb Conc. 35.3 g/dL (33.0-37.0); Mean Corpuscular Hgb 32.4 pg (27.0-31.0); Mean Platelet Volume 11.3 fL (7.4-10.4); Platelet Count 106 10^3/uL (130-400); Red Blood Cell Count 2.62 10^6/uL (4.70-6.10); Red Cell Dist. Width 16.9 % (11.5-14.5); White Blood Cell Count 4.1 10^3/uL (4.8-10.8)
[2024-09-02 10:27] LABS: % Basophils 0.2 % (0-2); % Eosinophils 0.2 % (0-6); % Immature Granulocytes 2.2 % (0-0.5); % Monocytes 16.8 % (1.7-9.3); % Neutrophils 53.6 % (42.2-75.2); Absolute Immature Granulocytes 0.1 10^3/uL (0-0.05); Absolute Lymphocytes 1.1 10^3/uL (1.2-3.4); Absolute Monocytes 0.7 10^3/uL (0.1-0.6); Absolute Neutrophils 2.2 10^3/uL (1.4-6.5); Nucleated Red Blood Cells % 0 % (-)
== END ==
LOC: OIDL 08:58
PROVIDERS: ATTENDING PHYSICIAN Internal Medicine Hematology & Oncology; FAMILY PHYSICIAN Family Medicine
DX: D69.6 Thrombocytopenia, unspecified (principal); D53.9 Nutritional anemia, unspecified; D72.819 Decreased white blood cell count, unspecified; G40.89 Other seizures; C94.6 Myelodysplastic disease, not elsewhere classified; M81.0 Age-related osteoporosis without current pathological fracture
CPT/HCPCS: 36415; 85025

== ENCOUNTER 2024-09-09 09:05 | Outpatient (REF) | payer MEDICARE, OTHER, SELFPAY ==
[2024-09-09 10:45] LABS: ALT (SGPT) < 10 U/L (0-50); AST (SGOT) 16 U/L (17-59); Albumin 3.9 g/dl (3.5-5.0); Alkaline Phosphatase 104 U/L (38-126); Blood Urea Nitrogen 20 mg/dl (9-20); Calcium 9.3 mg/dl (8.4-10.2); Carbon Dioxide 24 mmol/L (22-30); Chloride 107 mmol/L (98-107); Glucose 109 mg/dl (70-99); Potassium 3.4 mmol/L (3.5-5.1); Sodium 140 mmol/L (135-145); Total Bilirubin 1.9 mg/dl (0.2-1.3); Total Protein 6.4 g/dl (6.3-8.2); eGFR > 60.00
== END 2024-09-09 09:46 | disposition home or self-care (01) ==
LOC: OIDL 09:05
PROVIDERS: ATTENDING PHYSICIAN Internal Medicine Hematology & Oncology; FAMILY PHYSICIAN Family Medicine
DX: D53.9 Nutritional anemia, unspecified (principal); D72.819 Decreased white blood cell count, unspecified; G40.89 Other seizures; C94.6 Myelodysplastic disease, not elsewhere classified; M81.0 Age-related osteoporosis without current pathological fracture
CPT/HCPCS: 36415; 80053

== ENCOUNTER → 2024-09-18 08:55 | Outpatient (REF) | payer MEDICARE, OTHER, SELFPAY ==
[2024-09-18 10:13] LABS: ALT (SGPT) < 10 U/L (0-50); AST (SGOT) 16 U/L (17-59); Albumin 4.0 g/dl (3.5-5.0); Alkaline Phosphatase 86 U/L (38-126); Blood Urea Nitrogen 16 mg/dl (9-20); Calcium 9.4 mg/dl (8.4-10.2); Carbon Dioxide 26 mmol/L (22-30); Chloride 105 mmol/L (98-107); Glucose 163 mg/dl (70-99); Potassium 3.4 mmol/L (3.5-5.1); Sodium 140 mmol/L (135-145); Total Protein 6.6 g/dl (6.3-8.2); eGFR > 60.00
[2024-09-18 10:15] LABS: Hematocrit 23.5 % (39.0-52.0); Hemoglobin 8.2 g/dL (13.0-18.0); Mean Corp Hgb Conc. 34.9 g/dL (33.0-37.0); Mean Corpuscular Volume 95.1 fL (80.0-94.0); Nucleated Red Blood Cells % 0 % (-); Platelet Count 72 10^3/uL (130-400); Red Cell Dist. Width 17.1 % (11.5-14.5)
== END ==
LOC: OIDL 08:55
PROVIDERS: ATTENDING PHYSICIAN Internal Medicine Hematology & Oncology; FAMILY PHYSICIAN Family Medicine
DX: D69.6 Thrombocytopenia, unspecified (principal); D53.9 Nutritional anemia, unspecified; D72.819 Decreased white blood cell count, unspecified; G40.89 Other seizures; C94.6 Myelodysplastic disease, not elsewhere classified; M81.0 Age-related osteoporosis without current pathological fracture
CPT/HCPCS: 36415; 80053; 85025

== ENCOUNTER → 2024-09-20 09:21 | Outpatient (REF) | payer MEDICARE, OTHER, SELFPAY ==
[2024-09-20 10:00] VITALS: BP 149/80; BP_SYST 77
[2024-09-20] MEDS: ANCEF 10 IV (10:15)
[2024-09-20 11:40] VITALS: BP 157/89; BP_SYST 80
== END ==
LOC: RADI 09:21
PROVIDERS: ATTENDING PHYSICIAN Internal Medicine Hematology & Oncology; FAMILY PHYSICIAN Family Medicine
DX: C90.00 Multiple myeloma not having achieved remission (principal)
CPT/HCPCS: 36561; 76937; 77001; 99152; 99153; C1788

== ENCOUNTER 2024-09-28 01:34 | Inpatient (IN) | payer MEDICARE, OTHER, SELFPAY ==
[2024-09-27 22:58] VITALS: BP 133/82
[2024-09-27 23:07] VITALS: BMI 22.9
--- NOTE | 2024-09-27 23:16 | EDRN ---
Pt changed from NRB to 4L NC. Pt reports that he feels that his breathing is easier and no longer feels like he is struggling to ' catch his breath'.
[2024-09-27 23:30] LABS: Hematocrit 29.4 % (39.0-52.0); Hemoglobin 10.0 g/dL (13.0-18.0); Mean Corp Hgb Conc. 34.0 g/dL (33.0-37.0); Mean Corpuscular Volume 91.6 fL (80.0-94.0); Platelet Count 78 10^3/uL (130-400); Red Cell Dist. Width 18.2 % (11.5-14.5)
[2024-09-27 23:33] LABS: ALT (SGPT) < 10 U/L (0-50); AST (SGOT) 18 U/L (17-59); Albumin 3.7 g/dl (3.5-5.0); Alkaline Phosphatase 91 U/L (38-126); Blood Urea Nitrogen 22 mg/dl (9-20); Calcium 8.5 mg/dl (8.4-10.2); Carbon Dioxide 27 mmol/L (22-30); Chloride 105 mmol/L (98-107); Estimated Creatinine Clearance 82 ml/min; Glucose 160 mg/dl (70-99); Potassium 3.0 mmol/L (3.5-5.1); Sodium 140 mmol/L (135-145); Total Protein 6.2 g/dl (6.3-8.2); eGFR > 60.00
[2024-09-27 23:49] LABS: Troponin I 0.018 ng/ml
[2024-09-28] VITALS (9 sets, daily range): BP systolic 106–144; BP diastolic 62–82; BMI 22.2
[2024-09-28] MEDS: LASIX 40 MG IV ×3 (00:01→16:50)
[2024-09-28] MEDS: KCL ELIXIR 40 MEQ PO ×2 (00:03→12:10)
--- NOTE | 2024-09-28 00:19 | ED.GENMED ---
History of Present Illness
General
Chief Complaint: Breathing Problem
Source: patient and family
Time Seen by Provider: 09/27/24 22:59
History of Present Illness
History of Present Illness:
Note:
CHIEF COMPLAINT(S)
Shortness of breath and port site pain.
HISTORY OF PRESENT ILLNESS
The patient is a 78-year-old male with a known diagnosis of Waldenstroms macroglobulinemia and MDS, for which he has been transfusion dependent, requiring blood transfusions every two weeks. Recently, the patient developed a port for these
transfusions. Two days ago, the patient reported acute onset of shortness of breath that progressively worsened over an hour, prompting his spouse to call 911. Upon EMS arrival, the patient was noted to be tachypneic, diaphoretic, with an oxygen
saturation initially around 87%, deteriorating with time, and a blood pressure exceeding 200 mmHg. EMS administered nebulized treatments and nitroglycerin.
The patient mentioned increased port site pain, described as severe, along with recent bruising and slight bleeding around the port area, likely forming a hematoma. The patients daughter reported cardiac workups were previously normal.
The patient has a hx of thoracic compression fractures. He recalled getting routine labs and experiencing frequent visits to the emergency department between the months of February to April for unspecified reasons related to his condition.
SOCIAL DETERMINANTS AFFECTING HEALTH
The patient is dependent on his spouse and daughter for support, which was evidenced by her calling emergency services during the acute onset of his symptoms.
PHYSICAL EXAM
General: Alert, oriented, no acute distress.
Skin: Warm, dry with ecchymosis around the port site on the right chest wall, with mild swelling and bruising in various healing stages.
Head: Normocephalic, atraumatic.
Neck: Supple, trachea midline.
Eye Ears, Nose, Mouth, and Throat: Oral mucosa moist.
Cardiovascular: Regular heart rate and rhythm, normal peripheral perfusion, presence of bilateral lower extremity edema.
Respiratory: No current respiratory distress. scattered rales noted
Gastrointestinal: Abdomen nondistended.
Back: limited range of motion due to compression fractures noted.
Musculoskeletal: Normal range of motion, strength.
Neurological: Alert and oriented to person, place, time, situation, no focal neurological deficit observed.
Psychiatric: Cooperative, appropriate mood and affect.
PROBLEM LIST
Acute:
- Shortness of breath
- Port site pain and ecchymosis
- Hypertension
- Edema and potential congestive heart failure symptoms
Chronic:
- Waldenstroms macroglobulinemia
- Spinal compression fractures
- Myelodysplastic Syndrome
PLAN
- Obtain laboratory studies and chest X-ray to evaluate the cause of respiratory distress.
- Monitor the port site for signs of infection or further hematoma formation.
- Continue monitoring and taper oxygen therapy based on patients breathing efficiency.
- Review the recent lab work history and compare with current findings to guide further management.
DIFFERENTIAL DIAGNOSIS
The Differential Diagnosis includes, in no particular order and is not limited to:
- Pulmonary embolism
- Congestive heart failure
- Myocardial infarction
- Acute hypertensive crisis
- Infection or complications at the port site
- Exacerbation of chronic obstructive pulmonary disease
- Anemia-related hypoxia
- Chemotherapy-induced side effects
- Medication-induced side effects
- Fluid overload due to transfusion
Disposition:
SUMMARY OF ENCOUNTER
The patient is a 78-year-old male with a history of lymphoma/MDS, who presents with acute shortness of breath. Upon arrival, the patient reported feeling better after receiving nitroglycerin administered by EMS. His daughter, a nurse, noted that he
was significantly tachypneic and diaphoretic. In the emergency department, the patient was diagnosed with volume overload and acute congestive heart failure (CHF), evidenced by bilateral lower extremity edema and effusions seen on the chest X-ray.
BMP was elevated, and the patient was much more stable on oxygen. The plan includes diuresis and admission for further management. A bedside ultrasound is planned to rule out pericardial effusion.
DISPOSITION
Admit
ASSESSMENT
The patient presents with volume overload and acute congestive heart failure, likely exacerbated by recent blood transfusions given his history of lymphoma.
PLAN
- Initiate diuretics to manage fluid overload.
- Admit the patient for continued care and monitoring.
- Perform a bedside ultrasound to rule out pericardial effusion.
INDEPENDENT REVIEW OF LABS AND INTERPRETATION OF TESTS
My independent review of BMP indicates an elevated result, consistent with the patients diagnosis of acute CHF.
PROCEDURES
A bedside ultrasound will be performed to rule out pericardial effusion.
MEDICAL DECISION MAKING
1. Number and Complexity of Problems Addressed:
Chronic conditions affecting care include lymphoma with recent blood transfusions. Differential diagnoses include acute CHF, fluid overload, pulmonary embolism, myocardial infarction, infection at the port site, and others.
2. Data:
Category 1:
LAB
BMP is elevated.
Radiology: Chest X-ray interpretation shows effusions consistent with CHF.
Category 2:
Input was obtained from the patients daughter, a nurse, noting clinical observations of significant tachypnea and diaphoresis.
-Risk:
The patient is being admitted for further management due to the complexity and risk associated with acute CHF and volume overload, requiring careful inpatient monitoring and diuretic therapy.
DIAGNOSIS
- Congestive Heart Failure (CHF) exacerbation (I50.9)
- Volume overload (R60.9)
Bedside u/s shows small pericardial effusion. certainly no tamponade
Past History
Past History
ED Past Medical History: Seizures, Other (Benign brain tumor removal 1990, intracranial hemorrhage, lumbar compression fracture) and Other (Shoulder DJD)
ED Past Surgical History: Brain (Right frontal lobe craniotomy for benign brain tumor removal)
Social History
Tobacco: Non-smoker
Alcohol: None
Personal:
Employment: Retired
Family History
Family History: Other (Noncontributory)
Phy Exam
Physical Exam
Physical Exam:
.
Scores
Heart Failure Risk
Heart Failure Risk Score: Yes
History of Stroke or TIA: No
History of intubation for respiratory distress: No
Heart rate on ED arrival >/= 110: Yes
SaO2 <90% on arrival on room air: No
HR >/=110 during 3min walk test (or too ill to perform test): Yes
ECG has acute ischemic changes: No
Urea >/=12mmol/L (BUN 33.6mg/dL): No
Serum CO2>/=35mmol/L: No
Troponin I or T elevated to MN Level (0.4mg/dL): No
NT-proBNP >/=5,000ng/L (5,000pg/ml): No
HF Risk Score: 2
Admission Status: MEDIUM RISK 9.2% Consider observation or discharge to home with homecare & f/u visit to PCP/Product Safety Compliance Leader, or SNF for treatment
Course
Orders/Labs/Results
Orders:
Orders
09/27/24 23:06
Electrocardiogram (*1) Urgent
Reason for Study: Shortness of Breath
09/27/24 23:07
EKG- Treatment ONCE
09/27/24 23:13
Complete Blood Count/With Diff Urgent
Comprehensive Metabolic Panel Urgent
Pro-BNP [NT-proBNP] Urgent
Troponin I Urgent
09/27/24 23:16
CR Chest - 2 Views Urgent
Comment:
Reason For Exam: sob
09/27/24 23:51
Furosemide [Lasix] 40 mg IV NOW STA
09/27/24 23:52
Potassium Chloride 10% Elixir [KCl Elixir] 40 meq PO NOW STA
09/28/24 01:01
Admit/Transfer Patient As Directed
Co-Sign Provider:
Level of Care: Inpatient admission
Assign to:: Telemetry
Physician / Group: Chicho
Diagnosis: Pulmonary edema
Reason for Telemetry: Subacute Heart Failure
Date to Stop Telemetry: 09/30/24
Time to Stop Telemetry: 11:00
Reason for Hospitalization: heart failure
Expected length of stay greater than two midnights?: Yes
ELOS- Estimated Length of Stay in days: 2
I certify the patient meets the requirements for IP care: Yes
PRN Pain Medication Management As Directed
May give lesser potent ordered pain med per pt: Yes
preference::
Protocol:: Medication orders for pain may be administered in a
manner that supports deferring to patient preference
when the pt is:
- Requesting an ordered lesser potent pain medication.
Least to most potent pain medications are defined
as: acetaminophen < NSAID < tramadol < opioids
(morphine, oxycodone, hydromorphone).
- Requesting a lesser dose of the same medication IF
ORDERED.
- Requesting a less intrusive route of administration
if both routes are prescribed by the provider (PO <
IV).
09/28/24 01:04
Code Status As Directed
Resuscitation Status: Full Code
09/30/24 11:00
DC Protocol for Telemetry ONCE
Abnormal Lab Results
09/27/24
23:13
RBC 3.21 L 10^6/uL
(4.70-6.10)
Hgb 10.0 L D g/dL
(13.0-18.0)
Hct 29.4 L %
(39.0-52.0)
MCH 31.2 H pg
(27.0-31.0)
RDW 18.2 H %
(11.5-14.5)
Plt Count 78 L 10^3/uL
(130-400)
MPV 11.5 H fL
(7.4-10.4)
Abs Immat Gran (auto) 0.1 H 10^3/uL
(0-0.05)
Absolute Monos (auto) 0.9 H 10^3/uL
(0.1-0.6)
Immature Gran % 1.8 H %
(0-0.5)
Monocytes % 16.9 H %
(1.7-9.3)
Potassium 3.0 L mmol/L
(3.5-5.1)
BUN 22 H mg/dl
(9-20)
Glucose 160 H mg/dl
(70-99)
Total Bilirubin 2.1 H mg/dl
(0.2-1.3)
Total Protein 6.2 L g/dl
(6.3-8.2)
09/27/24 23:13
09/27/24 23:13
Vital Signs
Initial and Last Documented VS:
Initial Vital Signs
Temp Pulse Resp BP Pulse Ox
97.5 F 92 18 133/82 100
09/27/24 22:58 09/27/24 22:58 09/27/24 22:58 09/27/24 22:58 09/27/24 22:58
Last Documented Vital Signs
Temp Pulse Resp BP Pulse Ox
97.5 F 82 23 126/73 98
09/27/24 22:58 09/28/24 00:01 09/28/24 00:29 09/28/24 00:29 09/28/24 00:29
*Pulse Oximetry
SaO2: 100
Oxygen Mode of Delivery: Non-rebreather mask
Patient hypoxic: no
*Critical Care Note
Total Time (30-74mins, 75-104mins- exclusive of procedures): 30 minutes
ED Attending Note
-
Portions of this chart may have been created with voice recognition software.� Occasional wrong word or��sound alike� substitutions may have occurred due to the inherent limitations of voice recognition software.
Discharge Plan
Departure
Patient Disposition: Admit
Date of Disposition: 09/28/24
Time of Disposition: 00:19
Admit to: Telemetry
Presentation/result/management discussed w/ accepting MD/DO: Hospitalist
Discharge Problem:
Flash pulmonary edema, Lymphoma
Interventions
Interventions:
*Risk Screen - Suicide Last Done: 09/27/24 22:58
*General Assessment Last Done: 09/27/24 22:58
*Neglect/Abuse Screening Last Done: 09/27/24 22:58
ED- Cardiac Assessment Last Done: 09/27/24 23:08
ED- Pulmonary Assessment Last Done: 09/27/24 23:08
[2024-09-28 00:23] LABS: Nucleated Red Blood Cells % 0 % (-)
--- NOTE | 2024-09-28 00:35 | HPS.HSE ---
Family Physician
-
Family Physician: Eulalio Pal
Chief Complaint
-
Shortness of breath
History of Present Illness
This is a 78-year-old male with past medical history of Waldenstr�m's, transfusion dependence, hypertension, history of brain tumor s/p resection, BPH, heart failure with preserved EF, GERD who presents to the emergency department with episode of
shortness of breath.
Patient reported that he gets transfusions about once every 2 weeks and had a recent port placed for this transfusion. He did get a transfusion yesterday. Today the patient complained of shortness of breath without cough fevers or chills. It
worsened over hours and EMS was called. By the time EMS arrived the patient was tachypneic and diaphoretic and oxygen saturation was around 87% on room air. Blood pressure was over 200 systolic. He was given nitroglycerin and nebulizer
treatments. With some improvement. Given history of Waldenstr�m's lymphoma patient is recently been started on bruzinka about the 3 to 4 days ago. Patient stated that he has been taking a dose daily and has been warned about the hypertensive side
effects. Due to this the patient was also started on losartan 50 mg daily to counteract the hypotensive effect. His midodrine was discontinued. Patient himself reports that his swelling is decreased compared to several weeks ago but today he had
increased puffiness of his feet bilaterally. He been evaluated in the past for lower extremity edema and had no cardiogenic etiology found.
In the emergency department blood pressure was 120/70 with pulse of 82 and is currently satting 100% with a temp of 97.5. Chest xray with pulmonary edema. CBC was unremarkable. ECG shows NSR rate 84, flat T waves. Troponin negative. BNP > 3000.
K 3.0, chemistries otherwise unremarkable. BUN/Cr WNL.
Medical History
Past Medical History
Past Medical History: Reports Other
Additional Past Medical History:
HFpEF
myelodysplastic syndrome
pancytopenia
BPH
epilepsy
chronic back pain
compression fractures L4-L5
GERD
hx brain tumor
Past Surgical History: Reports Other
Additional Past Surgical History:
cataract extraction
brain tumor removal
Social History
Tobacco: Non-smoker
Alcohol: None
Drug: None
Personal:
Living: With Family
Employment: Retired
Family History
Family History: Not pertinent
Allergies / Home Medications
Allergies reflects when Allergies were last updated in [facility].
Home Medications with original date entered in [facility]
Allergy/Medication List:
Allergies
Allergy/AdvReac Type Severity Reaction Status Date / Time
No Known Allergies Allergy Verified 04/30/24 17:46
Home Medications
famotidine 20 mg tablet 20 mg PO BID Gastrointestinal Issue 02/29/24
levetiracetam 1,000 mg tablet (Keppra) 1,500 mg PO BID Neurological Condition 02/29/24
sennosides 8.6 mg tablet (senna) 17.2 mg PO DAILY Constipation 02/29/24
gabapentin 100 mg capsule 200 mg (2 x 100 mg) PO TID #30 caps 03/11/24
lacosamide 50 mg tablet 50 mg PO BID Seizures #14 tabs 03/11/24
aspirin 81 mg tablet,delayed release 81 mg PO DAILY 03/26/24
bisacodyl 10 mg rectal suppository (Dulcolax (bisacodyl)) 10 mg MD [id number] PRN if no bm aftr mom 03/26/24
magnesium hydroxide 400 mg/5 mL oral suspension (Milk of Magnesia) 2,400 mg PO HSPRN PRN constipation 03/26/24
methocarbamol 750 mg tablet 750 mg PO TID 03/26/24
acetaminophen 325 mg tablet 650 mg PO QID 04/09/24
ondansetron HCl 4 mg tablet 4 mg PO Q6HPRN PRN nausea 04/09/24
tamsulosin 0.4 mg capsule 0.4 mg PO HS 04/09/24
oxycodone 5 mg tablet 5 mg PO Q6HPRN PRN severe pain #6 tabs 04/14/24
acetaminophen 500 mg tablet (Tylenol Extra Strength) 1,000 mg PO [id number] PRN mild pain 04/30/24
amlodipine 5 mg tablet (Norvasc) 5 mg PO DAILY 04/30/24
lidocaine 4 % topical cream 1 applic topical QID b/l hips and lower back 04/30/24
methocarbamol 750 mg tablet 750 mg PO Q8HPRN PRN spasms 04/30/24
polyethylene glycol 3350 17 gram oral powder packet (Miralax) 17 g PO QPM 04/30/24
Review of Systems
-
History Source: Patient
Constitutional: Reports No Symptoms
EENT: Reports No Symptoms
Respiratory: Reports Trouble Breathing
Cardiac: Reports No Symptoms
Abdomen/GI: Reports No Symptoms
: Reports No Symptoms
Musculoskeletal: Reports Muscle Pain and Other (intermittent pain to lumbar area of back, currently comfortable)
Skin: Reports No Symptoms
Neurological: Reports No Symptoms
Endocrine: Reports No Symptoms
Hematologic/Lymphatic: Reports No Symptoms
Psych: Reports No Symptoms
Physical Exam
Vital Signs
Vital Signs
Temp Pulse Resp BP Pulse Ox
97.5 F 82 18 121/72 100
09/27/24 22:58 09/28/24 00:01 09/27/24 22:58 09/28/24 00:01 09/28/24 00:20
Physical Exam
General: Well Developed, Well Nourished, No Apparent Distress, Comfortable and Conversant
HEENT: NormoCephalic, Moist mucous membranes, Atraumatic, [place] Conjunctivae, Nose Appears Normal and Ears Appear Normal
Respiratory: Clear, Wheezes, Crackles and Decreased Breath Sounds; No Accessory Resp Muscle Use
Cardiac: S1/S2 and Regular Rhythm; No Murmur, Rub or Gallop
Breast: Deferred by me
GI: Soft, Non Tender, Non Distended and Normal Bowel Sounds; No Organomegaly
Rectal: Deferred by Provider
Genito-urinary: Clear Urine and Porter (chronic )
Musculoskeletal: No Clubbing, No Cyanosis, No Edema and Other (tender lumbar back )
Skin: Warm and IV/Catheter Site; No Rash
Neuro: Awake, Alert, AO x 3 and Nonfocal/grossly intact
Psych: Calm and Intact Judgment/Insight
Laboratory Results
-
09/27/24 23:13
09/27/24 23:13
Laboratory Results
Total Bilirubin 2.1 mg/dl (0.2-1.3) H 09/27/24 23:13
AST 18 U/L (17-59) 09/27/24 23:13
ALT < 10 U/L (0-50) 09/27/24 23:13
Alkaline Phosphatase 91 U/L (38-126) 09/27/24 23:13
Troponin I 0.018 ng/ml 09/27/24 23:13
Data Reviewed
-
Diagnostic Radiology: Image Personally Visualized and interpreted
Medical Tests (Nuc Med, Echo, EKG etc): Image Personally Visualized and interpreted
Lab Data: Labs Reviewed by me
Old Records: Reviewed
Impression/Plan
-
IMPRESSION:
78-year-old with past medical history significant for MDS and Waldenstr�m's, who presents to the Emergency Department with hypertension pulmonary edema, acute respiratory distress and currently on 4 L nasal cannula. Patient likely underwent flash
pulmonary edema likely in the setting of uncontrolled hypertension possibly secondary to bruzinka plus blood transfusion at the same time. Bedside echocardiogram did reveal trace pericardial effusion but no tamponade physiology noted. Cannot rule
out restrictive disease. Troponin is negative. ECG is nonischemic. Patient does seem to have total body volume overload which appears to be not far from his baseline.
PLAN:
CHF exacerbation -suspect flash pulmonary edema in the setting of bruzinka and transfusion. Improved with nitroglycerin and now feeling much better. Responding to lasix.
- admit to telemetry
- lasix 40mg iv daily to bid for now
- bp control
- echo
- holding brukinsa for now
- midodrine prn
- cardiology consultation
- oncology consultation if no primary cardiac etiology
DVT PPX - lovenox
Code status - Full Code
--- NOTE | 2024-09-28 04:34 | PTCARENOTE ---
Receive pt from ER. Pt alert oriented X3, in no distress. Pt states that his breathing improved compared to when he came to ER. Pt pulled over to his bed. UlD6=251% on 4L NC, JO=633/81, HR=76, T=97.6, RR=18. Pt on NSR on telemonitor. Pt denies pain,
or shortness of breath, wants to sleep. Will continue to monitor the pt.
--- NOTE | 2024-09-28 06:55 | CON.ONC ---
Consultation
-
Date Consultation Requested: 09/28/24
Date Consultation Performed: 09/28/24
Requesting Provider: King
Performing Provider: Sunshine
Reason for Consultation: MDS and Waldenstr�m's macroglobulinemia
Impression
Impression
Flash pulmonary edema
Waldenstr�m's macroglobulinemia/lymphoplasmacytic lymphoma
MDS with chronic pancytopenia
HFpEF
Epilepsy
GERD
History of brain tumor
Plan
Plan
Cardiology evaluation and treatment. Hold Brukinsa acutely. CBC currently adequate.
If not being done already, IV Lasix while patient is receiving transfusions to decrease risk of transfusion associated volume [circulatory] overload (TACO).
Decision about restarting Brukinsa to be made in the future time possibly with cardio-oncology input and comanagement with Dr. Lofton.
Currently, the primary reason for continued hospitalization is cardiology optimization of his circulatory overload/pulmonary edema.
Patient History
History of Present Illness
CC: Flash pulmonary edema
HPI: 78-year-old male with past medical history of Waldenstr�m's macroglobulinemia (lymphoplasmacytic lymphoma) and MDS, transfusion dependence, hypertension, history of brain tumor s/p resection, BPH, heart failure with preserved EF, GERD who
presents to the emergency department with severe shortness of breath in the field.
Patient was recently started on Brukinsa (Zanubrutinib) just a few (3-4) days ago and also received a transfusion of 2 units PRBCs. He typically gets transfusions about every 2 weeks. He was transfused the day prior to admission. Patient was
having significant acute onset worsening shortness of breath prompting him to call EMS. By the time EMS arrived the patient was tachypneic and diaphoretic and oxygen saturation was around 87% on room air. Blood pressure was over 200 systolic. He
was given nitroglycerin and nebulizer treatments. With improvement. He tells me that when EMS arrived he was not sure he would survive because of how short of breath he felt but by the time he got to the hospital he was feeling almost completely
back to baseline.
In the emergency department blood pressure was 120/70 with pulse of 82 and SpO2 = 100% with a temp of 97.5. Chest xray with pulmonary edema. CBC was unremarkable. BNP > 3000. IV Lasix was administered.
Brukinsa was held and patient was admitted for flash pulmonary edema possibly related to transfusion and Brukinsa. Brukinsa was held. Cardiology consult was placed and is pending.
Past-Medical/Surgical History
PMH:
Wedge compression fracture of first thoracic vertebra, sequela
Secondary malignant neoplasm of bone marrow
Waldenstr�m macroglobulinemia not having achieved remission
Myelodysplastic disease, not elsewhere classified
Age-related osteoporosis without current pathological fracture
Seizures
HFpEF
myelodysplastic syndrome
pancytopenia
BPH
epilepsy
chronic back pain
compression fractures L4-L5
GERD
hx brain tumor
Past Surgical History:
cataract extraction
brain tumor removal - Craniotomy, 1989
Age Appropriate Cancer Cancer Screening
Date Type Details Outcome Comment
06/27/2023 Other Therapies Screening colonoscopy
Social History
Patient denies ever using tobacco.
Denies any prior alcohol use.
Denies any illicit drug use.
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
Patient has had occupational exposure.
Marital Status: Patient is
Family Medical History
father - prostate cancer
Patient Medication
�Medication �Instructions �Recorded �Confirmed �Last Taken �Type
famotidine 20 mg tablet 20 mg PO BID Gastrointestinal Issue 02/29/24 09/27/24 09/26/24 History
levetiracetam 1,000 mg tablet 1,500 mg PO BID Seizures 02/29/24 09/27/24 09/26/24 History
(Keppra)
sennosides 8.6 mg tablet (senna) 17.2 mg PO DAILY PRN Constipation 02/29/24 09/26/24 08/07/24 History
gabapentin 100 mg capsule 200 mg (2 x 100 mg) PO TID #30 caps 03/11/24 09/27/24 09/26/24 Rx
lacosamide 50 mg tablet 50 mg PO BID Seizures #14 tabs 03/11/24 09/27/24 09/26/24 Rx
aspirin 81 mg tablet,delayed 81 mg PO DAILY Blood Clot 03/26/24 09/27/24 09/26/24 History
release Prevention/Tx
bisacodyl 10 mg rectal suppository 10 mg MI [id number] PRN if no bm 03/26/24 09/26/24 Unknown History
(Dulcolax (bisacodyl)) after mom
magnesium hydroxide 400 mg/5 mL 2,400 mg PO HSPRN PRN constipation 03/26/24 09/26/24 Unknown History
oral suspension (Milk of Magnesia)
acetaminophen 325 mg tablet 650 mg PO QID Pain 04/09/24 09/26/24 09/26/24 History
ondansetron HCl 4 mg tablet 4 mg PO Q6HPRN PRN nausea 04/09/24 09/27/24 04/09/24 History
tamsulosin 0.4 mg capsule 0.4 mg PO HS Urinary Issue 04/09/24 09/27/24 09/25/24 History
acetaminophen 500 mg tablet 1,000 mg PO [id number] PRN mild pain 04/30/24 09/26/24 06/18/24 History
(Tylenol Extra Strength)
polyethylene glycol 3350 17 gram 17 g PO QPM PRN Constipation 04/30/24 09/26/24 08/06/24 History
oral powder packet (Miralax)
oxycodone 5 mg tablet 5 mg PO Q6HPRN PRN severe pain #2 05/04/24 09/26/24 Unknown Rx
tabs
hydrocortisone 0.25 % topical cream 1 applic topical DAILY 06/19/24 09/26/24 09/20/24 History
lidocaine 1.8 % topical patch 1 patch topical DAILY 06/19/24 09/26/24 09/25/24 History
losartan 50 mg tablet 50 mg PO DAILY 09/27/24 09/27/24 Unknown History
methocarbamol 750 mg tablet 750 mg PO HS 09/27/24 09/27/24 Unknown History
zanubrutinib 80 mg capsule 80 mg PO DAILY 09/27/24 09/27/24 09/27/24 History
(Brukinsa)
Active Medications
Generic Name Dose Route Start Last Admin
Trade Name Freq PRN Reason Stop Dose Admin
Acetaminophen 650 mg 09/28/24 08:00
Acetaminophen 325 Mg Tablet PO 10/26/24 07:59
QID MARVIN
Aspirin 81 mg 09/28/24 08:00
Aspirin 81 Mg (Enteric Coated) Tablet PO 10/26/24 07:59
DAILY MARVIN
Enoxaparin Sodium 40 mg 09/28/24 18:00
Enoxaparin Sodium 40 Mg/0.4 Ml Syringe SC 10/26/24 17:59
QPM MARVIN
Famotidine 20 mg 09/28/24 08:00
Famotidine 20 Mg Tablet PO 10/26/24 07:59
BID MARVIN
Furosemide 40 mg 09/28/24 08:00
Furosemide 40 Mg (10 Mg/Ml) 4 Ml Vial IV 10/26/24 07:59
BID AT 0800,1600 MARVIN
Gabapentin 200 mg 09/28/24 08:00
Gabapentin 100 Mg Capsule PO 10/26/24 07:59
TID MARVIN
Lacosamide 50 mg 09/28/24 08:00
Lacosamide (Vimpat) 50 Mg Tablet PO 10/26/24 07:59
BID MARVIN
Levetiracetam 1,500 mg 09/28/24 08:00
Levetiracetam 500 Mg Regular Release Tablet PO 10/26/24 07:59
BID MARVIN
Losartan Potassium 50 mg 09/28/24 08:00
Losartan 50 Mg Tablet PO 10/26/24 07:59
DAILY MARVIN
Methocarbamol 750 mg 09/28/24 22:00
Methocarbamol 750 Mg Tablet PO 10/26/24 21:59
HS MARVIN
Polyethylene Glycol 17 grams 09/28/24 02:57
Polyethylene Glycol Powder 17 Grams Packet PO 10/26/24 02:56
QPM PRN
Constipation
Sennosides 17.2 mg 09/28/24 02:57
Sennosides (Senokot) 8.6 Mg Tablet PO 10/26/24 02:56
DAILY PRN
Constipation
Sodium Chloride 0 flush 09/28/24 04:00
Sodium Chloride 0.9% (Flush) Syringe IV 10/26/24 03:59
PER PROTOCOL MARVIN
Tamsulosin HCl 0.4 mg 09/28/24 22:00
Tamsulosin 0.4 Mg Capsule PO 10/26/24 21:59
HS MARVIN
Physical Exam
-
General: Well Developed, No Apparent Distress, Comfortable and Appears Chronically Ill
HEENT: Negative Jaundice
Cardiology: S1 and S2
Pulmonary: Clear
GI: Soft
Musculoskeletal: No Clubbing, No Cyanosis and No Edema
Extremities: No C/C/E
Neurology: Non Focal
Labs
Lab Results
WBC 5.1 10^3/uL (4.8-10.8) 09/27/24 23:13
RBC 3.21 10^6/uL (4.70-6.10) L 09/27/24 23:13
Hgb 10.0 g/dL (13.0-18.0) L D 09/27/24 23:13
Hct 29.4 % (39.0-52.0) L 09/27/24 23:13
MCV 91.6 fL (80.0-94.0) 09/27/24 23:13
MCH 31.2 pg (27.0-31.0) H 09/27/24 23:13
MCHC 34.0 g/dL (33.0-37.0) 09/27/24 23:13
RDW 18.2 % (11.5-14.5) H 09/27/24 23:13
Plt Count 78 10^3/uL (130-400) L 09/27/24 23:13
MPV 11.5 fL (7.4-10.4) H 09/27/24 23:13
Abs Immat Gran (auto) 0.1 10^3/uL (0-0.05) H 09/27/24 23:13
Absolute Neuts (auto) 2.3 10^3/uL (1.4-6.5) 09/27/24 23:13
Absolute Lymphs (auto) 1.9 10^3/uL (1.2-3.4) 09/27/24 23:13
Absolute Monos (auto) 0.9 10^3/uL (0.1-0.6) H 09/27/24 23:13
Absolute Eos (auto) 0.0 10^3/uL (0-0.7) 09/27/24 23:13
Absolute Basos (auto) 0.0 10^3/uL (0-0.2) 09/27/24 23:13
Immature Gran % 1.8 % (0-0.5) H 09/27/24 23:13
Neutrophils % 44.2 % (42.2-75.2) 09/27/24 23:13
Lymphocytes % 36.7 % (20.5-51.1) 09/27/24 23:13
Monocytes % 16.9 % (1.7-9.3) H 09/27/24 23:13
Eosinophils % 0.2 % (0-6) 09/27/24 23:13
Basophils % 0.2 % (0-2) 09/27/24 23:13
Creatinine 0.8 mg/dL (0.7-1.3) 09/27/24 23:13
Vital Signs
Vital Signs
Temp Pulse Resp BP Pulse Ox
97.6 F 76 19 136/81 100
09/28/24 03:02 09/28/24 03:02 09/28/24 03:02 09/28/24 03:02 09/28/24 03:30
[2024-09-28 07:21] LABS: Hematocrit 25.8 % (39.0-52.0); Hemoglobin 8.8 g/dL (13.0-18.0); Mean Corp Hgb Conc. 34.1 g/dL (33.0-37.0); Mean Corpuscular Volume 92.1 fL (80.0-94.0); Platelet Count 67 10^3/uL (130-400); Red Cell Dist. Width 18.2 % (11.5-14.5)
[2024-09-28 07:31] LABS: Blood Urea Nitrogen 19 mg/dl (9-20); Calcium 9.0 mg/dl (8.4-10.2); Carbon Dioxide 27 mmol/L (22-30); Chloride 106 mmol/L (98-107); Estimated Creatinine Clearance 106 ml/min; Glucose 99 mg/dl (70-99); HDL Cholesterol 39 mg/dl; LDL Cholesterol, Calculated 90 mg/dl; Potassium 3.4 mmol/L (3.5-5.1); Sodium 139 mmol/L (135-145); Very Low Density Lipoprotein 12 mg/dl (0-30); eGFR > 60.00
--- NOTE | 2024-09-28 09:24 | W.PN.HOSP.TC ---
Today's Communication/Plan
-
see a/p
Assessment / Plan
Assessment / Plan
Physical Exam
General: No acute distress, appears comfortable at this time
HEENT: NormoCephalic, Moist mucous membranes, Atraumatic, [place] Conjunctivae
Respiratory: clear to auscultation b/l
Cardiac: S1/S2 and Regular Rhythm; No Murmur, Rub or Gallop, recent right sided chest port with fading bruising as noted above picture
GI: Soft, Non Tender, Non Distended and Normal Bowel Sounds
Genito-urinary: Clear Urine and Porter (chronic )
Musculoskeletal: No Clubbing, No Cyanosis, No Edema and tender lumbar back
Skin: Warm and IV/Catheter Site; No Rash
Neuro: AOx3 conversant coherent
Psych: Calm and Intact Judgment/Insight
78M MDS and Waldenstr�m's p/w hypertension pulmonary edema, acute respiratory distress/hypoxia requiring 4 L nasal cannula, baseline room air. Likely flash pulmonary edema 2/2 recent transfusion, possible uncontrolled hypertension and new
medication bruzinka contributing. Bedside echocardiogram did reveal trace pericardial effusion but no tamponade physiology noted. Cannot rule out restrictive disease. Troponin is negative. ECG is nonischemic. Patient does seem to have total
body volume overload which appears to be not far from his baseline.
PLAN:
CHF exacerbation -suspect flash pulmonary edema in the setting of bruzinka and transfusion. Improved with nitroglycerin lasix.
Acute Hypoxia
- Tele Admit
- IV Lasix 40 mg bid
- daily weights I/O
- bp control
- follow up ECHO
- holding brukinsa for now
- Losartan
- wean O2 supplementation as tolerated
- cardiology consultation appreciated
- oncology consultation appreciated
Hypokalemia
-monitor and replete as necessary
DVT PPX - lovenox
Code status - Full Code
I spent a total of 50 minutes with the patient or on the floor. More than 50% of this time involved counseling and coordination of care.
Anticipated Discharge: 24 - 48 hours
Subjective/Interval History
-
Date of Service: September 28, 2024
Seen and examined at bedside in no acute distress sitting up comfortably in bed. Reports improvement in overall symptoms including sob, though exertional dyspnea persists and remains dependent Oxygen supplementation.
Objective Data
-
Labs:
Laboratory Results
09/27/24 09/28/24
23:13 06:06
WBC 5.1 3.8 L
Hgb 10.0 L D 8.8 L
Hct 29.4 L 25.8 L
Plt Count 78 L 67 L
Sodium 140 139
Potassium 3.0 L 3.4 L
Chloride 105 106
Carbon Dioxide 27 27
BUN 22 H 19
Creatinine 0.8 0.6 L
Glucose 160 H 99
Calcium 8.5 9.0
Total Bilirubin 2.1 H
AST 18
ALT < 10
Alkaline Phosphatase 91
Vital Signs:
Vital Signs
Temp Pulse Resp BP Pulse Ox
97.6 F 76 19 136/81 100
09/28/24 03:02 09/28/24 03:02 09/28/24 03:02 09/28/24 03:02 09/28/24 03:30
I&O
09/27/24 09/28/24 09/29/24
06:59 06:59 06:59
Intake Total 0 / 0
Output Total 900 / 900
Balance -900 / -900
[2024-09-28] MEDS: KEPPRA 1500 MG PO ×2 (09:34→20:34)
[2024-09-28] MEDS: COZAAR 50 MG PO (09:34)
[2024-09-28] MEDS: PEPCID 20 MG PO ×2 (09:34→20:34)
[2024-09-28] MEDS: NEURONTIN 200 MG PO ×3 (09:34→21:39)
[2024-09-28] MEDS: ASPIR LOW (ENTERIC COATED) 81 MG PO (09:34)
[2024-09-28] MEDS: FLUSH (NSS) 2 FLUSH IV (09:35)
[2024-09-28] MEDS: TYLENOL 650 MG PO ×4 (09:35→21:40)
[2024-09-28] MEDS: VIMPAT 50 MG PO ×2 (09:35→20:34)
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
--- NOTE | 2024-09-28 15:41 | CM ---
Patient seen at bedside on . Patient stated that he was in [facility] until approx one month ago when he returned home with daughter support. Patient home is a 1 story home. Patient PCP is Dr. Pal and he uses the [facility] in [place]. Patient did not
think that he had VN supports at home, Patient has no Home O2 but does have a walker. Patient daughter works here at . Patient plan is for discharge home with VN if needed. CM will continue to follow for discharge planning needs.
Plan; home with VN vs SNF pending pt/ot assessment.
--- NOTE | 2024-09-28 17:17 | VATNOTE ---
PT WITH UNACCESSED SQ PORT, PLACED APPROX 1 WK AGO PER DTR AND RECEIVED BLOOD TRANSFUSION WITHIN LAST FEW DAYS PER . AREA SURROUNDING PORT WITH ECCHYMOSIS, +1 EDEMA. PER PT, PORT IS TENDER. STATES THAT THE PORT AREA APPEARS MORE BRUISED
WITH MORE SWELLING IN THE LAST FEW DAYS. SUGGEST MD ASSESSMENT OF PORT. PRIMARY RN LILIANA, DTR AND AWARE OF THE AFOREMENTIONED. PT RESTING
[2024-09-28] MEDS: LOVENOX 40 MG SC (18:03)
[2024-09-28] MEDS: METHOCARBAMOL 750 MG PO (21:39)
[2024-09-28] MEDS: FLOMAX 0.4 MG PO (21:39)
[2024-09-29] VITALS (8 sets, daily range): BP systolic 121–154; BP diastolic 56–84; PULSE 80; O2SAT 95–96; BMI 21.5
[2024-09-29] MEDS: TORADOL 30 MG IV (01:15)
--- NOTE | 2024-09-29 07:24 | W.PN.HOSP.TC ---
Today's Communication/Plan
-
cont IV diuresis
pain control
chest port not to be used for 2 weeks as per IR
PT/OT
wean O2 supplementation as tolerated.
Assessment / Plan
Assessment / Plan
Physical Exam
General: No acute distress, appears comfortable at this time
HEENT: NormoCephalic, Moist mucous membranes, Atraumatic, [place] Conjunctivae
Respiratory: clear to auscultation b/l
Cardiac: S1/S2 and Regular Rhythm; No Murmur, Rub or Gallop, right chest port erythema tenderness
GI: Soft, Non Tender, Non Distended and Normal Bowel Sounds
Genito-urinary: Clear Urine and Porter (chronic )
Musculoskeletal: No Clubbing, No Cyanosis, No Edema and tender lumbar back
Skin: Warm and IV/Catheter Site; No Rash
Neuro: AOx3 conversant coherent
Psych: Calm and Intact Judgment/Insight
78M MDS and Waldenstr�m's p/w hypertension pulmonary edema, acute respiratory distress/hypoxia requiring 4 L nasal cannula, baseline room air. Likely flash pulmonary edema 2/2 recent transfusion, possible uncontrolled hypertension and new
medication bruzinka contributing. Bedside echocardiogram did reveal trace pericardial effusion but no tamponade physiology noted. Cannot rule out restrictive disease. Troponin is negative. ECG is nonischemic.
PLAN:
CHF exacerbation -suspect flash pulmonary edema in the setting of bruzinka and transfusion. Improved with nitroglycerin lasix.
Acute Hypoxia
- Tele Admit
- IV Lasix 40 mg bid
- daily weights I/O
- bp control
- follow up ECHO Monday
- holding brukinsa for now
- Losartan
- wean O2 supplementation as tolerated
- cardiology consultation appreciated
- oncology consultation appreciated
Right Chest Port Hematoma
-IR eval appreciated recommended avoiding use of port for 2 wks
-pain control, tylenol, prn ibuprofen, dilaudid severe breakthrough pain
Hypokalemia
-monitor and replete as necessary
DVT PPX - lovenox
Code status - Full Code
I spent a total of 45 minutes with the patient or on the floor. More than 50% of this time involved counseling and coordination of care.
Anticipated Discharge: 24 - 48 hours
Subjective/Interval History
-
Date of Service: September 29, 2024
Seen and examined at bedside in no acute distress sitting up comfortably in chair. Notes significant pain right chest port overnight improved with once toradol. Currently reports pain free thought the port site remains tender erythematous. Also
notes improvement sob though exertional dyspnea remains present and continues to require NC supplementation.
Objective Data
-
Labs:
Laboratory Results
09/29/24
06:45
WBC Pending
Hgb Pending
Hct Pending
Plt Count Pending
Sodium Pending
Potassium Pending
Chloride Pending
Carbon Dioxide Pending
BUN Pending
Creatinine Pending
Glucose Pending
Calcium Pending
Vital Signs:
Vital Signs
Temp Pulse Resp BP Pulse Ox
97.5 F 72 18 134/77 97
09/29/24 03:37 09/29/24 03:37 09/29/24 03:37 09/29/24 03:37 09/29/24 03:37
I&O
09/28/24 09/29/24 09/30/24
06:59 06:59 06:59
Intake Total 0 / 0 1500 / 1500
Output Total 900 / 900 2625 / 2625
Balance -900 / -900 -1125 / -1125
[2024-09-29 08:20] LABS: Hematocrit 26.7 % (39.0-52.0); Hemoglobin 9.5 g/dL (13.0-18.0); Mean Corp Hgb Conc. 35.6 g/dL (33.0-37.0); Mean Corpuscular Volume 90.8 fL (80.0-94.0); Platelet Count 63 10^3/uL (130-400); Red Cell Dist. Width 17.9 % (11.5-14.5)
[2024-09-29 08:34] LABS: Blood Urea Nitrogen 22 mg/dl (9-20); Calcium 9.1 mg/dl (8.4-10.2); Carbon Dioxide 29 mmol/L (22-30); Chloride 106 mmol/L (98-107); Estimated Creatinine Clearance 103 ml/min; Glucose 91 mg/dl (70-99); Magnesium 1.6 mg/dl (1.6-2.3); Potassium 3.5 mmol/L (3.5-5.1); Sodium 138 mmol/L (135-145); eGFR > 60.00
[2024-09-29] MEDS: COZAAR 50 MG PO (09:18)
[2024-09-29] MEDS: ASPIR LOW (ENTERIC COATED) 81 MG PO (09:18)
[2024-09-29] MEDS: KEPPRA 1500 MG PO ×2 (09:18→20:45)
[2024-09-29] MEDS: VIMPAT 50 MG PO ×2 (09:19→20:46)
[2024-09-29] MEDS: LASIX 40 MG IV ×2 (09:19→16:58)
[2024-09-29] MEDS: PEPCID 20 MG PO ×2 (09:19→20:45)
[2024-09-29] MEDS: NEURONTIN 200 MG PO ×3 (09:19→21:00)
[2024-09-29] MEDS: TYLENOL 650 MG PO ×4 (09:19→21:00)
[2024-09-29] MEDS: FLUSH (NSS) 2 FLUSH IV (09:20)
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
[2024-09-29] MEDS: KCL 40 MEQ PO (11:35)
[2024-09-29] MEDS: MAGNESIUM OXIDE 500 MG PO (11:35)
--- NOTE | 2024-09-29 13:00 | PTCARENOTE ---
unaccessed port assessed during daily routine vat rounds. large bruised area continues, +1 edema r sq port and directly surrounding the port. pt states that it feels worse than yesterday, states that it kept him awake last night. this vat RN tt
sheu and suggested imaging . per md, irad to assess and decide if imaging is needed. pt oob to chair, call childers in reach
--- NOTE | 2024-09-29 14:31 | W.PN.UPDATE ---
Update Note
Progress Note Update
- IR asked to evaluate R chest wall IJ port, placed last week in IR on 09/20. Has received several treatments through the port.
- On exam, port pocket is distended and hard with surrounding ecchymosis. No purulent drainage or incision dehiscence.
- I suspect there is a hematoma in the port pocket, which certainly could account for patient pain. Would not use port for at least 1-2 weeks, continue pain management as needed.
- Will come again and evaluate tomorrow.
[2024-09-29] MEDS: OCEAN, SALINE MIST 2 SPRAYS NASAL ×2 (18:33→21:01)
[2024-09-29] MEDS: LOVENOX 40 MG SC (18:33)
[2024-09-29] MEDS: FLOMAX 0.4 MG PO (21:00)
[2024-09-29] MEDS: METHOCARBAMOL 750 MG PO (21:00)
[2024-09-30 03:14] VITALS: BP 136/73
[2024-09-30 06:00] VITALS: BMI 22.3
[2024-09-30 07:13] LABS: Hematocrit 25.2 % (39.0-52.0); Hemoglobin 8.6 g/dL (13.0-18.0); Mean Corp Hgb Conc. 34.1 g/dL (33.0-37.0); Mean Corpuscular Volume 93.3 fL (80.0-94.0); Platelet Count 52 10^3/uL (130-400); Red Cell Dist. Width 17.0 % (11.5-14.5)
[2024-09-30 07:18] LABS: Blood Urea Nitrogen 24 mg/dl (9-20); Calcium 9.2 mg/dl (8.4-10.2); Carbon Dioxide 32 mmol/L (22-30); Chloride 104 mmol/L (98-107); Estimated Creatinine Clearance 92 ml/min; Glucose 96 mg/dl (70-99); Magnesium 1.6 mg/dl (1.6-2.3); Potassium 4.0 mmol/L (3.5-5.1); Sodium 138 mmol/L (135-145); eGFR > 60.00
[2024-09-30] MEDS: VIMPAT 50 MG PO ×2 (08:11→19:58)
[2024-09-30] MEDS: OCEAN, SALINE MIST 2 SPRAYS NASAL ×2 (08:11→22:10)
[2024-09-30] MEDS: KEPPRA 1500 MG PO ×2 (08:11→19:58)
[2024-09-30] MEDS: NEURONTIN 200 MG PO ×3 (08:11→22:10)
[2024-09-30] MEDS: PEPCID 20 MG PO ×2 (08:11→19:58)
[2024-09-30] MEDS: ASPIR LOW (ENTERIC COATED) 81 MG PO (08:12)
[2024-09-30] MEDS: COZAAR 50 MG PO (08:12)
[2024-09-30] MEDS: LASIX 40 MG IV ×2 (08:12→16:38)
[2024-09-30] MEDS: TYLENOL 650 MG PO ×4 (08:12→22:10)
--- NOTE | 2024-09-30 08:14 | W.PN.UPDATE ---
Update Note
Progress Note Update
78 yo male s/p IR placed port on 09/20/24. Now with hematoma. He reports pain is slightly improved since yesterday. He has had no fever or chills. He denies any drainage from the site. The area is tender and swollen.
VSS There is a palpable hematoma over the port. The area is ttp and ecchymotic. No fluctuance. No warmth or concern for cellulitis
A/P: Port site hematoma
Recommend not using for about 2 weeks
If technician terminal and repeater venous access required can consider PICC line
[2024-09-30 08:18] VITALS: BP 137/80
--- NOTE | 2024-09-30 08:59 | W.PN.ONC2 ---
Today's Communication / Plan
-
Discharge planning
Has Dr. Lofton follow up 10/10
hold brukinsa for hematoma and OP cardio-onc work up
Impression
Impression
acute on chronic HFpEF
Waldenstr�m's macroglobulinemia/lymphoplasmacytic lymphoma
MDS with chronic pancytopenia
acute on chronic anemia suspect r/t port hematoma
HFpEF
Epilepsy
GERD
History of brain tumor
EKG shows some lateral T wave inversion
Plan
Plan
Will hold off using port for 2 weeks as recommended by IR
IV Lasix with transfusions as recommended by cardiology
Hold Brukinsa with hematoma and will likely need OP cardio-oncology evaluation prior to resumption with EKG changes
Subjective/Objective
Subjective
afebrile, room air
improved SOB
denies overt bleeding
Vital Signs:
Vital Signs
Temp Pulse Resp BP Pulse Ox
97.4 F 75 18 137/80 95
09/30/24 08:18 09/30/24 08:18 09/30/24 08:18 09/30/24 08:18 09/30/24 08:18
Lab Results:
Laboratory Data
WBC 3.2 10^3/uL (4.8-10.8) L 09/30/24 06:37
Hgb 8.6 g/dL (13.0-18.0) L 09/30/24 06:37
Plt Count 52 10^3/uL (130-400) L 09/30/24 06:37
eGFR > 60.00 09/30/24 06:37
Physical Exam
mediport with hematoma
HEENT: Moist Mucous Membranes; No Jaundice
Cardiology: Normal Sinus Rhythm and Murmur
Pulmonary: Clear
GI: Soft
Extremities: Pulses Present and Edema
Neuro: Non Focal
--- NOTE | 2024-09-30 09:12 | W.PN.HOSP.TC ---
Addendum entered and electronically signed by Allen Malik MD 10/01/24 09:36:
Acute Hypoxic Respiratory failure resolved
Original Note:
Today's Communication/Plan
-
see a/p
Assessment / Plan
Assessment / Plan
Physical Exam
General: No acute distress, appears comfortable at this time
HEENT: NormoCephalic, Moist mucous membranes, Atraumatic, [place] Conjunctivae
Respiratory: clear to auscultation b/l
Cardiac: S1/S2 and Regular Rhythm; No Murmur, Rub or Gallop, right chest port erythema tenderness
GI: Soft, Non Tender, Non Distended and Normal Bowel Sounds
Genito-urinary: Clear Urine and Porter (chronic )
Musculoskeletal: No Clubbing, No Cyanosis, No Edema and tender lumbar back
Skin: Warm and IV/Catheter Site
Neuro: AOx3 conversant coherent
Psych: Calm and Intact Judgment/Insight
78M MDS and Waldenstr�m's p/w hypertension pulmonary edema, acute respiratory distress/hypoxia requiring 4 L nasal cannula, baseline room air. Likely flash pulmonary edema 2/2 recent transfusion, possible uncontrolled hypertension and new
medication bruzinka contributing. Bedside echocardiogram did reveal trace pericardial effusion but no tamponade physiology noted. Cannot rule out restrictive disease. Troponin is negative. ECG is nonischemic.
PLAN:
CHF exacerbation -suspect flash pulmonary edema in the setting of bruzinka and transfusion. Improved with nitroglycerin lasix.
Acute Hypoxia
- Tele Admit
- IV Lasix 40 mg bid
- daily weights I/O
- bp control
- ECHO appreciated EF reduced to 45-50%, prior EF 55-60%
- holding brukinsa for now
- Losartan
- weaned off oxygen supplementation
- cardiology consultation appreciated
- oncology consultation appreciated
CT chest w/o contrast appreciated
-moderate b/l pleural effusions, Rt > Lt
-moderate LLL and mild RLL consolidation possible atelactasis vs pna (more likely atelectasis)
-small pericardial effusion stable
-rt pulm nodules stable
-vertebral compression fractures
Right Chest Port Hematoma
-IR eval appreciated recommended avoiding use of port for 2 wks
-pain control, tylenol, prn ibuprofen, dilaudid severe breakthrough pain
Hypokalemia
-monitor and replete as necessary
DVT PPX - lovenox
Code status - Full Code
I spent a total of 45 minutes with the patient or on the floor. More than 50% of this time involved counseling and coordination of care.
Anticipated Discharge: 24 - 48 hours
Subjective/Interval History
-
Date of Service: September 30, 2024
No acute distress resting comfortably in bed. SOB resolved, stable respiratory status on room air. Overall reports feeling well. Denies current pain.
Objective Data
-
Labs:
Laboratory Results
09/30/24
06:37
WBC 3.2 L
Hgb 8.6 L
Hct 25.2 L
Plt Count 52 L
Sodium 138
Potassium 4.0
Chloride 104
Carbon Dioxide 32 H
BUN 24 H
Creatinine 0.7
Glucose 96
Calcium 9.2
Vital Signs:
Vital Signs
Temp Pulse Resp BP Pulse Ox
97.4 F 75 18 137/80 95
09/30/24 08:18 09/30/24 08:18 09/30/24 08:18 09/30/24 08:18 09/30/24 08:18
I&O
09/29/24 09/30/24 10/01/24
06:59 06:59 06:59
Intake Total 1500 / 1500 240 / 240
Output Total 2625 / 2625 1225 / 1225
Balance -1125 / -1125 -985 / -985
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
[2024-09-30 11:37] VITALS: BP 123/69
[2024-09-30] MEDS: OCEAN, SALINE MIST NASAL ×2 (12:24→17:48)
[2024-09-30] MEDS: MAGNESIUM OXIDE 500 MG PO ×2 (12:26→19:58)
[2024-09-30] MEDS: KCL 40 MEQ PO (12:26)
--- NOTE | 2024-09-30 15:43 | PN.CDI ---
CDI
- -
CDI:
Physician Documentation Request
Admit Date: 09/28/24 01:34
Dear Doctor King,
Please review the following and provide your response in the progress notes.
Clinical Indicators:
Pt admitted with Acute on Chronic CHFpEF/ TACO
Documented per ED, ' Two days ago, the patient reported acute onset of shortness of breath that progressively worsened over an hour, prompting his spouse to call 911. Upon EMS arrival, the patient was noted to be tachypneic, diaphoretic, with an
oxygen saturation initially around 87%, deteriorating with time, and a blood pressure exceeding 200 mmHg. EMS administered nebulized treatments and nitroglycerin....'
Documented per H&P,'Respiratory: Clear, Wheezes, Crackles and Decreased Breath Sounds..'
Progress note 09/28, 'Acute Hypoxia Respiratory... Clear, Wheezes, Crackles and Decreased Breath Sounds..'
Cardiology consult,' General: Mild respiratory distress with some conversational dyspnea...Respiratory: Crackles...'
Pt was initially on NRB then to 4 LPM via NC
Pt care note ED nurse 09/28,' Pt changed from NRB to 4L NC. Pt reports that he feels that his breathing is easier and no longer feels like he is struggling to ' catch his breath'....'
Clarify which of the following accurately represents the patient's respiratory status:
Acute Hypoxic Respiratory failure
Hypoxia
Other ( please specify)
Additional information for Respiratory Failure:
Recognized criteria for Respiratory Failure (Source: Anton SDimitri Kline. 2019 January 30.
Documentation tips: Acute Respiratory Failure, The Hospitalist.)
ABGs: (1 or more) Symptoms Please indicate type if known
1. p)2 <60 or RA SPO2 <91% on RA 1. Tachypnea, SOB, dyspnea Hypoxic
2. pCO2 >45 and pH <7.35 2. Use of accessory muscles Hypercapnic
3. pO2 decrease of pCO2 increase by 3. Pallor or cyanosis Hypoxic and Hypercapnic
10 mmHg from baseline if known 4. Anxiety or restlessness Unable to determine
4. P/F Ratio (pO2/FiO2)nless than 300 5. Unable to speak in full sentences
Use of terms such as suspected, likely, concern for, or probable (associated with a specific diagnosis that is being evaluated, monitored, or treated as if it exists) are acceptable and can be coded in the inpatient setting, when documented at the
time of discharge.
Thank you,
Betty Amaya RN
CDI Specialist
[place] [facility]
Please use your independent medical judgment in providing your response.
[2024-09-30 15:57] VITALS: BP 124/67
[2024-09-30] MEDS: LOVENOX 40 MG SC (17:48)
[2024-09-30 19:52] VITALS: BP 125/75
[2024-09-30] MEDS: FLOMAX 0.4 MG PO (22:10)
[2024-09-30] MEDS: METHOCARBAMOL 750 MG PO (22:10)
--- NOTE | 2024-09-30 23:50 | PTCARENOTE ---
Pt c/o SOB. Pt was placed in 2L HS for comfort. Will reassess and wean him off O2.
[2024-09-30 23:52] VITALS: BP 143/78
--- NOTE | 2024-10-01 02:59 | DOWNTIME ---
There was a [employer] [facility] Downtime on 10/01/2024 from 0100 to 10/01/2024 at 0220. Downtime documentation of patient's care, including medication administrations, has been reconciled in the electronic record per guidelines. Refer to the
patient's paper chart under the miscellaneous tab to see printed paper medication records and downtime forms.
[2024-10-01 03:12] VITALS: BP 135/69
[2024-10-01 06:00] VITALS: BMI 21.9
[2024-10-01 07:54] VITALS: BP 117/94
[2024-10-01 08:00] LABS: Hematocrit 25.5 % (39.0-52.0); Hemoglobin 8.7 g/dL (13.0-18.0); Mean Corp Hgb Conc. 34.1 g/dL (33.0-37.0); Mean Corpuscular Volume 93.1 fL (80.0-94.0); Platelet Count 54 10^3/uL (130-400); Red Cell Dist. Width 17.2 % (11.5-14.5)
--- NOTE | 2024-10-01 08:45 | W.PN.ONC2 ---
Today's Communication / Plan
-
Discharge planning
Impression
Impression
acute on chronic HFpEF
Waldenstr�m's macroglobulinemia/lymphoplasmacytic lymphoma
MDS with chronic pancytopenia
acute on chronic anemia suspect r/t port hematoma
Epilepsy
GERD
History of brain tumor
EKG shows some lateral T wave inversion
Plan
Plan
Will hold off using port for 2 weeks as recommended by IR
IV Lasix with transfusions as recommended by cardiology
Hold Brukinsa with hematoma and will likely need OP cardio-oncology evaluation prior to resumption with EKG changes
Subjective/Objective
Subjective
no new complaints
afebrile, on room air
using Tylenol
Vital Signs:
Vital Signs
Temp Pulse Resp BP Pulse Ox
97.8 F 72 14 117/94 96
10/01/24 07:54 10/01/24 07:54 10/01/24 07:54 10/01/24 07:54 10/01/24 07:54
Lab Results:
Laboratory Data
WBC 2.9 10^3/uL (4.8-10.8) L 10/01/24 06:34
Hgb 8.7 g/dL (13.0-18.0) L 10/01/24 06:34
Plt Count 54 10^3/uL (130-400) L 10/01/24 06:34
eGFR Cancelled 10/01/24 06:34
Physical Exam
HEENT: Moist Mucous Membranes; No Jaundice
GI: Soft
Extremities: Pulses Present
Neuro: Non Focal
[2024-10-01 09:17] LABS: Blood Urea Nitrogen 25 mg/dl (9-20); Calcium 9.0 mg/dl (8.4-10.2); Carbon Dioxide 32 mmol/L (22-30); Chloride 103 mmol/L (98-107); Estimated Creatinine Clearance 90 ml/min; Glucose 102 mg/dl (70-99); Magnesium 1.8 mg/dl (1.6-2.3); Potassium 4.0 mmol/L (3.5-5.1); Sodium 140 mmol/L (135-145); eGFR > 60.00
[2024-10-01] MEDS: LASIX 40 MG IV (09:22)
[2024-10-01] MEDS: PEPCID 20 MG PO (09:23)
[2024-10-01] MEDS: COZAAR 50 MG PO (09:23)
[2024-10-01] MEDS: VIMPAT 50 MG PO (09:25)
[2024-10-01] MEDS: ASPIR LOW (ENTERIC COATED) 81 MG PO (09:26)
[2024-10-01] MEDS: NEURONTIN 200 MG PO (09:26)
[2024-10-01] MEDS: KEPPRA 1500 MG PO (09:26)
[2024-10-01] MEDS: MAGNESIUM OXIDE 500 MG PO (09:26)
[2024-10-01] MEDS: TYLENOL 650 MG PO ×2 (09:26→13:22)
--- NOTE | 2024-10-01 09:37 | W.PN.HOSP.TC ---
Today's Communication/Plan
-
discharge
Assessment / Plan
Assessment / Plan
Physical Exam
General: No acute distress, appears comfortable at this time
HEENT: NormoCephalic, Moist mucous membranes, Atraumatic, [place] Conjunctivae
Respiratory: clear to auscultation b/l
Cardiac: S1/S2 and Regular Rhythm; No Murmur, Rub or Gallop, right chest port erythema tenderness
GI: Soft, Non Tender, Non Distended and Normal Bowel Sounds
Genito-urinary: Clear Urine and Porter (chronic )
Musculoskeletal: No Clubbing, No Cyanosis, No Edema and tender lumbar back
Skin: Warm and IV/Catheter Site
Neuro: AOx3 conversant coherent
Psych: Calm and Intact Judgment/Insight
78M MDS and Waldenstr�m's p/w hypertension pulmonary edema, acute respiratory distress/hypoxia requiring 4 L nasal cannula, baseline room air. Likely flash pulmonary edema 2/2 recent transfusion, possible uncontrolled hypertension and new
medication bruzinka contributing. Bedside echocardiogram did reveal trace pericardial effusion but no tamponade physiology noted. Cannot rule out restrictive disease. Troponin is negative. ECG is nonischemic.
PLAN:
CHF exacerbation -suspect flash pulmonary edema in the setting of bruzinka and transfusion. Improved with nitroglycerin lasix.
Acute Hypoxic Respiratory failure resolved
- Tele Admit
- IV Lasix 40 mg bid
- daily weights I/O
- bp control
- ECHO appreciated EF reduced to 45-50%, prior EF 55-60%
- holding brukinsa for now
- Losartan
- weaned off oxygen supplementation, stable respiratory status on room air
- cardiology consultation appreciated stable to transition back to home daily Lasix regimen
- oncology consultation appreciated
CT chest w/o contrast appreciated
-moderate b/l pleural effusions, Rt > Lt
-moderate LLL and mild RLL consolidation possible atelactasis vs pna (more likely atelectasis)
-small pericardial effusion stable
-rt pulm nodules stable
-vertebral compression fractures
Right Chest Port Hematoma
-IR eval appreciated recommended avoiding use of port for 2 wks
-pain control, tylenol, prn ibuprofen, dilaudid severe breakthrough pain
Neutropenia
-consistently afebrile
-neutropenic precautions
Hypokalemia
-monitor and replete as necessary
DVT PPX - lovenox
Code status - Full Code
Medically stable for discharge home with home services and outpatient follow up recommendations.
discussed with patient and patient's daughter Reba
Total Time Preparing Discharge __40 minutes including examination of the patient, summary of the hospital stay, instructions for continuing care to all relevant caregivers; and preparation of discharge records, prescriptions, and referral
forms if necessary.
Anticipated Discharge: Today
Subjective/Interval History
-
Date of Service: October 01, 2024
Seen and examined at bedside in no acute distress. Overall reports feeling well. Denies new acute issues. Looking forward to going home.
Objective Data
-
Labs:
Laboratory Results
10/01/24 10/01/24
06:34 08:46
WBC 2.9 L
Hgb 8.7 L
Hct 25.5 L
Plt Count 54 L
Sodium Cancelled 140
Potassium Cancelled 4.0
Chloride Cancelled 103
Carbon Dioxide Cancelled 32 H
BUN Cancelled 25 H
Creatinine Cancelled 0.7
Glucose Cancelled 102 H
Calcium Cancelled 9.0
Vital Signs:
Vital Signs
Temp Pulse Resp BP Pulse Ox
97.8 F 72 14 117/94 96
10/01/24 07:54 10/01/24 07:54 10/01/24 07:54 10/01/24 07:54 10/01/24 07:54
I&O
09/30/24 10/01/24 10/02/24
06:59 06:59 06:59
Intake Total 240 / 240 1200 / 1200
Output Total 1225 / 1225 1575 / 1575
Balance -985 / -985 -375 / -375
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
[2024-10-01] MEDS: OCEAN, SALINE MIST 2 SPRAYS NASAL (11:06)
[2024-10-01 11:23] VITALS: BP 115/60
[2024-10-01 11:37] LABS: Nucleated Red Blood Cells % 0 % (-)
[2024-10-01] MEDS: OCEAN, SALINE MIST NASAL (13:23)
[2024-10-01 13:32] LABS: Iron 146 ug/dl (49-181)
--- NOTE | 2024-10-01 13:32 | CM ---
MD entered order for discharge .
Spoke with dgt Cathleen and Meredith . Both agree with discharge to home today . Reba will drive him home.
Offered VN Reba declined because pt will be starting out pt PT with [facility] this week and going to [facility].
IMM reviewed and agreed with discharge.
PLAN Home no needs
[2024-10-01 13:42] LABS: Total Iron Binding Capacity 247 ug/dl (261-462)
[2024-10-01 14:55] LABS: Folate 4.2 ng/ml (2.76-20); Vitamin B12 759 pg/ml (239-931)
--- NOTE | 2024-10-01 14:59 | W.DCSUMMARY ---
Discharge Summary
Discharge Data
Date of Admission: 09/28/24
Date of Discharge: 10/01/24
-
Pending Results: No
Discharge Plan
-
Patient Disposition: Home with Home Care
Discharge Diagnosis/Procedures: Acute on Chronic Heart Failure with Preserved Ejection Fraction
Ejection Fraction mildly reduced compared to prior ECHO imaging
Acute Hypoxic Respiratory Failure secondary to Heart Failure resolved
Moderate bilateral pleural effusions
Right Chest Port Hematoma
Neutropenia
MDS
Condition: Fair
Diet: Low Cholesterol and 2 Gram Sodium
Activity: As tolerated
Driving Restrictions: As prior to admission
Bathing Restrictions: None
Blood Work: Repeat CBC with differential with primary care provider or oncology in 1 week of discharge to follow up neutropenia
Others Tests: repeat Chest X-ray with primary care provider in 1 month of discharge to follow up pleural effusion
Follow up with Cardiology for eventual repeat ECHO
Other Services: PT and OT
Specialty Instructions: Weigh Daily- Call MD for wt gain/loss 3 lbs overnight/5 lbs in 1 week
Activity Restrictions/Additional Instructions:
Follow up with primary care provider and oncology in 1 week of discharge and keep your appointment with Cardiology.
Lasix 20 mg daily has been prescribed for heart failure.
Hold Brukinsa at this time and follow up with Oncology to determine when safe to resume, if necessary to resume, and/or if an alternative medication regimen is necessary.
Please take medications as prescribed/recommended and follow up with primary care provider and/or other healthcare provider involved in your care for refills and/or further adjustment to your medication regimen as necessary.
Instructions: *[facility] Heart Failure Instructions
Referrals:
Nata Moreno PA-C [Specified Professional Personl, Cardiology] - 10/07/24 8:40 am
Referral Note: You have a cardiology follow-up appointment at the [place] office. Please call with questions
Eulalio Pal MD [Family Provider, Family Practice] - in one week
Rolly,Joanna E., DO [Active, Hematology / Oncology] - in one week
Prescriptions:
New
furosemide [Lasix] 20 mg tablet
20 mg PO DAILY Qty: 30 0RF
Continued
famotidine 20 mg Tablet
20 mg PO BID
levetiracetam [Keppra] 1,000 mg Tablet
1,500 mg PO BID
gabapentin 100 mg Capsule
200 mg PO TID Qty: 30 0RF
lacosamide 50 mg Tablet
50 mg PO BID Qty: 14 0RF
aspirin 81 mg Tablet,Delayed Release (Dr/Ec)
81 mg PO DAILY
ondansetron HCl 4 mg Tablet
4 mg PO Q6HPRN PRN (Reason: nausea)
acetaminophen 325 mg tablet
650 mg PO QID
tamsulosin 0.4 mg capsule
0.4 mg PO HS
losartan 50 mg Tablet
50 mg PO DAILY
methocarbamol 750 mg Tablet
750 mg PO HS
Held
Brukinsa 80 mg Capsule
80 mg PO DAILY
Hold Instructions: Follow up with Oncology to determine when safe to resume, if necessary to resume, and/or if an alternative medication is required.
Discharge Orders:
Discharge Patient (As Directed); Ordered 10/01/24
Ordered By: Allen Malik
Discharge Date and Time
Print Language: CAMEROONIAN
[2024-10-01 15:09] LABS: Ferritin 1340.0 ng/ml (17.9-464.0)
--- NOTE | 2024-10-01 15:24 | PTCARENOTE ---
Received patient this am AAOx3. Pt OOB ambulating in room with assistance x1 and rolling walker. Tolerated diet well. Pt and daughter has questions regarding pt's schedule Tylenol and ASA. Pt is having a procedure in IR on 10/08. Pt is to hold
Tylenol an asa for seven days prior[address] Dr. Malik made aware. Pt's daughter had a question in regards to Lasix PO dose at discharge. Pt discharged on 20 mg of Lasix PO as per Dr. Malik. Made patient comfortable. Pt given discharge instruction and
discharged to home.
== END 2024-10-01 15:25 | disposition home or self-care (01) | DRG 291 ==
LOC: 4 EAST ACU 01:34
PROVIDERS: ADMITTING PHYSICIAN Internal Medicine; ATTENDING PHYSICIAN Internal Medicine; CONSULT PHYSICIAN Internal Medicine Hematology & Oncology; EMERGENCY PHYSICIAN Emergency Medicine; FAMILY PHYSICIAN Family Medicine; OTHER PHYSICIAN Internal Medicine Cardiovascular Disease
DX: I11.0 Hypertensive heart disease with heart failure (principal); I50.33 Acute on chronic diastolic (congestive) heart failure; J96.01 Acute respiratory failure with hypoxia; I31.39 Other pericardial effusion (noninflammatory); C94.6 Myelodysplastic disease, not elsewhere classified; N40.0 Benign prostatic hyperplasia without lower urinary tract symptoms; G40.909 Epilepsy, unspecified, not intractable, without status epilepticus; G89.29 Other chronic pain; K21.9 Gastro-esophageal reflux disease without esophagitis; Z86.011 Personal history of benign neoplasm of the brain; Z79.82 Long term (current) use of aspirin; Z79.899 Other long term (current) drug therapy; Z80.42 Family history of malignant neoplasm of prostate; Z82.5 Family history of asthma and other chronic lower respiratory diseases; E87.6 Hypokalemia; C88.00 Waldenstrom macroglobulinemia not having achieved remission; K59.00 Constipation, unspecified; M81.0 Age-related osteoporosis without current pathological fracture
CPT/HCPCS: 71046; 71250; 80048; 80053; 80061; 82607; 82728; 82746; 83540; 83550; 83615; 83735; 83880; 84100; 84484; 84550; 85025; 85027; 85045; 86850; 86900; 86901; 86920; 93005; 93306; 96374; 97162; 97166; 99291

== ENCOUNTER → 2024-10-08 06:58 | Outpatient (REF) | payer MEDICARE, OTHER, SELFPAY ==
[2024-10-08] VITALS (14 sets, daily range): BP systolic 46–152; BP diastolic 61–84
[2024-10-08] MEDS: ANCEF 10 IV (08:48)
== END ==
LOC: RADI 06:58
PROVIDERS: ATTENDING PHYSICIAN Internal Medicine Hematology & Oncology
DX: M80.08XA Age-related osteoporosis with current pathological fracture, vertebra(e), initial encounter for fracture (principal)
CPT/HCPCS: 22513; 22514; 76380

== ENCOUNTER 2024-10-09 08:53 | Outpatient (RCR) | payer MEDICARE, OTHER, SELFPAY ==
[2024-09-09 10:44] LABS: Hematocrit 20.9 % (39.0-52.0); Hemoglobin 7.2 g/dL (13.0-18.0); Mean Corp Hgb Conc. 34.4 g/dL (33.0-37.0); Mean Corpuscular Volume 95.4 fL (80.0-94.0); Platelet Count 71 10^3/uL (130-400); Red Cell Dist. Width 17.5 % (11.5-14.5)
[2024-09-09 11:06] LABS: Absolute Neutrophils -Man Diff 1.5 10^3/uL (1.4-6.5); Anisocytosis 1+; Normal RBC Morphology No; Platelets Checked Yes; Polychromasia 1+; Spherocytes 1+; Total Cells Counted 100
[2024-09-10 09:46] VITALS: BP 130/68
[2024-09-10 10:06] VITALS: BP 134/73
[2024-09-10 12:14] VITALS: BP 122/66
[2024-09-25 09:12] VITALS: BP 143/72
[2024-09-25 10:06] LABS: Hematocrit 19.7 % (39.0-52.0); Hemoglobin 6.9 g/dL (13.0-18.0); Mean Corp Hgb Conc. 35.0 g/dL (33.0-37.0); Mean Corpuscular Volume 93.4 fL (80.0-94.0); Nucleated Red Blood Cells % 0 % (-); Platelet Count 89 10^3/uL (130-400); Red Cell Dist. Width 17.1 % (11.5-14.5); Reticulocyte Count 3.8 % (0.4-2.8)
[2024-09-25 11:22] LABS: Folate 5.0 ng/ml (2.76-20)
[2024-09-25 12:44] LABS: LDH 207 U/L (120-246); Uric Acid 6.3 mg/dl (3.5-8.5)
[2024-09-25 13:58] LABS: Vitamin B12 804 pg/ml (239-931)
[2024-09-26] VITALS (7 sets, daily range): BP systolic 126–162; BP diastolic 61–86
[2024-10-09 09:29] VITALS: BP 120/65
[2024-10-09 10:28] LABS: Hematocrit 24.0 % (39.0-52.0); Hemoglobin 7.9 g/dL (13.0-18.0); Mean Corp Hgb Conc. 32.9 g/dL (33.0-37.0); Mean Corpuscular Volume 94.9 fL (80.0-94.0); Nucleated Red Blood Cells % 0 % (-); Platelet Count 99 10^3/uL (130-400); Red Cell Dist. Width 16.7 % (11.5-14.5)
[2024-10-09 10:51] LABS: ALT (SGPT) < 10 U/L (0-50); AST (SGOT) 19 U/L (17-59); Albumin 3.9 g/dl (3.5-5.0); Alkaline Phosphatase 112 U/L (38-126); Blood Urea Nitrogen 23 mg/dl (9-20); Calcium 9.3 mg/dl (8.4-10.2); Carbon Dioxide 28 mmol/L (22-30); Chloride 106 mmol/L (98-107); Glucose 102 mg/dl (70-99); Potassium 3.9 mmol/L (3.5-5.1); Sodium 140 mmol/L (135-145); Total Protein 6.4 g/dl (6.3-8.2); eGFR > 60.00
== END 2024-10-10 23:59 | disposition home or self-care (01) ==
LOC: OID 08:53
PROVIDERS: Internal Medicine Hematology & Oncology; ATTENDING PHYSICIAN Nurse Practitioner Primary Care
DX: D61.818 Other pancytopenia (principal); D69.6 Thrombocytopenia, unspecified; D53.9 Nutritional anemia, unspecified; G40.89 Other seizures; G04.89 Other myelitis; C94.6 Myelodysplastic disease, not elsewhere classified; C88.00 Waldenstrom macroglobulinemia not having achieved remission; S22.020S Wedge compression fracture of second thoracic vertebra, sequela; C79.52 Secondary malignant neoplasm of bone marrow; S22.010S Wedge compression fracture of first thoracic vertebra, sequela; M48.54XS Collapsed vertebra, not elsewhere classified, thoracic region, sequela of fracture
CPT/HCPCS: 36415 ×2; 36430; 36591; 80053; 82607; 82746; 83615; 84550; 85025; 85045; 86850; 86900; 86901; 86920; P9016

== ENCOUNTER → 2024-10-24 08:15 | Outpatient (REF) | payer MEDICARE, OTHER, SELFPAY | LOC: HWRCS 08:15 | PROVIDERS: ATTENDING PHYSICIAN Physician Assistant Medical; FAMILY PHYSICIAN Family Medicine | DX: I50.20 Unspecified systolic (congestive) heart failure (principal); R94.31 Abnormal electrocardiogram [ECG] [EKG] | CPT/HCPCS: 78452; 93017; A9500; J2785 ==

== ENCOUNTER → 2024-10-30 10:18 | Outpatient (REF) | payer MEDICARE, OTHER, SELFPAY | LOC: RAD 10:18 | PROVIDERS: ATTENDING PHYSICIAN Family Medicine | DX: J90 Pleural effusion, not elsewhere classified (principal) | CPT/HCPCS: 71046 ==

== ENCOUNTER 2024-11-06 08:49 | Outpatient (RCR) | payer MEDICARE, OTHER, SELFPAY ==
[2024-10-16 09:35] VITALS: BP 139/66
[2024-10-16 10:31] LABS: Hematocrit 22.7 % (39.0-52.0); Hemoglobin 7.5 g/dL (13.0-18.0); Mean Corp Hgb Conc. 33.0 g/dL (33.0-37.0); Mean Corpuscular Volume 95.0 fL (80.0-94.0); Nucleated Red Blood Cells % 0 % (-); Platelet Count 82 10^3/uL (130-400); Red Cell Dist. Width 16.3 % (11.5-14.5)
[2024-10-22 15:06] LABS: Hematocrit 21.7 % (39.0-52.0); Hemoglobin 7.3 g/dL (13.0-18.0); Mean Corp Hgb Conc. 33.6 g/dL (33.0-37.0); Mean Corpuscular Volume 92.7 fL (80.0-94.0); Platelet Count 83 10^3/uL (130-400); Red Cell Dist. Width 16.3 % (11.5-14.5)
[2024-10-22 15:12] LABS: ALT (SGPT) < 10 U/L (0-50); AST (SGOT) 16 U/L (17-59); Albumin 4.1 g/dl (3.5-5.0); Alkaline Phosphatase 86 U/L (38-126); Blood Urea Nitrogen 18 mg/dl (9-20); Calcium 9.3 mg/dl (8.4-10.2); Carbon Dioxide 29 mmol/L (22-30); Chloride 106 mmol/L (98-107); Glucose 103 mg/dl (70-99); Potassium 4.2 mmol/L (3.5-5.1); Sodium 141 mmol/L (135-145); Total Protein 6.6 g/dl (6.3-8.2); eGFR > 60.00
[2024-10-22 15:31] LABS: Nucleated Red Blood Cells % 0 % (-)
[2024-10-23 09:50] VITALS: BP 133/60
[2024-10-23 10:07] VITALS: BP 119/49
[2024-10-23 12:25] VITALS: BP 132/56
[2024-10-30 09:54] VITALS: BP 138/0
[2024-10-30 10:15] LABS: Hematocrit 24.3 % (39.0-52.0); Hemoglobin 8.2 g/dL (13.0-18.0); Mean Corp Hgb Conc. 33.7 g/dL (33.0-37.0); Mean Corpuscular Volume 93.8 fL (80.0-94.0); Platelet Count 50 10^3/uL (130-400); Red Cell Dist. Width 15.1 % (11.5-14.5)
[2024-10-30 10:48] LABS: Absolute Neutrophils -Man Diff 0.8 10^3/uL (1.4-6.5); Normal RBC Morphology Yes; Platelets Checked Yes; Total Cells Counted 100
[2024-11-06 09:06] VITALS: BP 147/58
[2024-11-06 10:13] LABS: Hematocrit 23.5 % (39.0-52.0); Hemoglobin 7.9 g/dL (13.0-18.0); Mean Corp Hgb Conc. 33.6 g/dL (33.0-37.0); Mean Corpuscular Volume 94.8 fL (80.0-94.0); Platelet Count 66 10^3/uL (130-400); Red Cell Dist. Width 14.6 % (11.5-14.5)
[2024-11-06 10:32] LABS: Magnesium 1.7 mg/dl (1.6-2.3)
[2024-11-06 10:33] LABS: ALT (SGPT) < 10 U/L (0-50); AST (SGOT) 16 U/L (17-59); Albumin 3.8 g/dl (3.5-5.0); Alkaline Phosphatase 92 U/L (38-126); Blood Urea Nitrogen 15 mg/dl (9-20); Calcium 9.2 mg/dl (8.4-10.2); Carbon Dioxide 30 mmol/L (22-30); Chloride 106 mmol/L (98-107); Glucose 97 mg/dl (70-99); Potassium 3.8 mmol/L (3.5-5.1); Sodium 140 mmol/L (135-145); Total Protein 6.2 g/dl (6.3-8.2); eGFR > 60.00
[2024-11-06 11:07] LABS: Normal RBC Morphology Yes; Platelets Checked Yes; Total Cells Counted 100
[2024-11-06 11:09] LABS: Absolute Neutrophils -Man Diff 0.8 10^3/uL (1.4-6.5)
== END 2024-11-07 11:30 | disposition home or self-care (01) ==
LOC: OID 08:49
PROVIDERS: Internal Medicine Cardiovascular Disease; Internal Medicine Hematology & Oncology; ATTENDING PHYSICIAN Nurse Practitioner Primary Care; FAMILY PHYSICIAN Family Medicine
DX: D69.6 Thrombocytopenia, unspecified (principal); D53.9 Nutritional anemia, unspecified; G40.89 Other seizures; C94.6 Myelodysplastic disease, not elsewhere classified; C88.00 Waldenstrom macroglobulinemia not having achieved remission; C79.52 Secondary malignant neoplasm of bone marrow; S22.010S Wedge compression fracture of first thoracic vertebra, sequela; I50.20 Unspecified systolic (congestive) heart failure; G04.89 Other myelitis; S22.020S Wedge compression fracture of second thoracic vertebra, sequela; D61.818 Other pancytopenia
CPT/HCPCS: 36415; 36430; 36591; 80053; 83735; 83880; 85025; 86850; 86900; 86901; 86920; P9016

== ENCOUNTER 2024-12-05 10:26 | Outpatient (RCR) | payer MEDICARE, OTHER, SELFPAY ==
[2024-11-13 10:47] VITALS: BP 126/58
[2024-11-13 11:02] LABS: Hematocrit 24.4 % (39.0-52.0); Hemoglobin 8.2 g/dL (13.0-18.0); Mean Corp Hgb Conc. 33.6 g/dL (33.0-37.0); Mean Corpuscular Volume 95.7 fL (80.0-94.0); Platelet Count 57 10^3/uL (130-400); Red Cell Dist. Width 14.3 % (11.5-14.5)
[2024-11-20 14:30] VITALS: BP 155/69
[2024-11-20 14:48] LABS: Hematocrit 23.4 % (39.0-52.0); Hemoglobin 7.9 g/dL (13.0-18.0); Mean Corp Hgb Conc. 33.8 g/dL (33.0-37.0); Mean Corpuscular Volume 93.6 fL (80.0-94.0); Platelet Count 76 10^3/uL (130-400); Red Cell Dist. Width 14.0 % (11.5-14.5)
[2024-11-20 15:12] LABS: ALT (SGPT) 11 U/L (0-50); AST (SGOT) 17 U/L (17-59); Albumin 4.1 g/dl (3.5-5.0); Alkaline Phosphatase 87 U/L (38-126); Blood Urea Nitrogen 17 mg/dl (9-20); Calcium 9.1 mg/dl (8.4-10.2); Carbon Dioxide 29 mmol/L (22-30); Chloride 104 mmol/L (98-107); Glucose 123 mg/dl (70-99); Potassium 3.9 mmol/L (3.5-5.1); Sodium 139 mmol/L (135-145); Total Protein 6.6 g/dl (6.3-8.2); eGFR > 60.00
[2024-11-27 09:06] VITALS: BP 137/46
[2024-11-27 09:51] LABS: Hematocrit 22.3 % (39.0-52.0); Hemoglobin 7.5 g/dL (13.0-18.0); Mean Corp Hgb Conc. 33.6 g/dL (33.0-37.0); Mean Corpuscular Volume 92.1 fL (80.0-94.0); Platelet Count 54 10^3/uL (130-400); Red Cell Dist. Width 14.1 % (11.5-14.5)
[2024-11-27 10:33] LABS: Nucleated Red Blood Cells % 0 % (-)
[2024-12-04 09:10] VITALS: BP 149/44
[2024-12-04 10:09] LABS: Hematocrit 22.5 % (39.0-52.0); Hemoglobin 7.3 g/dL (13.0-18.0); Mean Corp Hgb Conc. 32.4 g/dL (33.0-37.0); Mean Corpuscular Volume 93.8 fL (80.0-94.0); Platelet Count 51 10^3/uL (130-400); Red Cell Dist. Width 14.6 % (11.5-14.5)
[2024-12-04 10:32] LABS: ALT (SGPT) < 10 U/L (0-50); AST (SGOT) 15 U/L (17-59); Albumin 3.8 g/dl (3.5-5.0); Alkaline Phosphatase 78 U/L (38-126); Blood Urea Nitrogen 17 mg/dl (9-20); Calcium 9.1 mg/dl (8.4-10.2); Carbon Dioxide 28 mmol/L (22-30); Chloride 106 mmol/L (98-107); Glucose 111 mg/dl (70-99); Potassium 3.8 mmol/L (3.5-5.1); Sodium 140 mmol/L (135-145); Total Protein 6.2 g/dl (6.3-8.2); eGFR > 60.00
[2024-12-04 11:45] LABS: Absolute Neutrophils -Man Diff 1.4 10^3/uL (1.4-6.5); Hypersegmented Neutrophil 2+; Normal RBC Morphology Yes; Platelets Checked Yes
[2024-12-04 11:46] LABS: Total Cells Counted 100
[2024-12-05 11:16] VITALS: BP 164/51
[2024-12-05 11:36] VITALS: BP 138/63
[2024-12-05 13:37] VITALS: BP 132/52
[2024-12-05] MEDS: LASIX 20 MG IV (13:39)
== END 2024-12-06 08:02 | disposition home or self-care (01) ==
LOC: OID 10:26
PROVIDERS: Internal Medicine Hematology & Oncology; ATTENDING PHYSICIAN Nurse Practitioner Primary Care; FAMILY PHYSICIAN Family Medicine
DX: D69.6 Thrombocytopenia, unspecified (principal); D53.9 Nutritional anemia, unspecified; G40.89 Other seizures; C94.6 Myelodysplastic disease, not elsewhere classified; C88.00 Waldenstrom macroglobulinemia not having achieved remission; I50.20 Unspecified systolic (congestive) heart failure; C79.52 Secondary malignant neoplasm of bone marrow; S22.010S Wedge compression fracture of first thoracic vertebra, sequela; G04.89 Other myelitis; S22.020S Wedge compression fracture of second thoracic vertebra, sequela; D61.818 Other pancytopenia
CPT/HCPCS: 36430; 36591; 80053; 85025; 86850; 86900; 86901; 86920; 96374; 96523; P9016

== ENCOUNTER 2025-01-08 09:04 | Outpatient (RCR) | payer MEDICARE, OTHER, SELFPAY ==
[2024-12-11 09:10] VITALS: BP 121/45
[2024-12-11 10:48] LABS: INR 0.97; PT 13.3 Sec (11.4-14.6)
[2024-12-11 10:51] LABS: Hematocrit 27.6 % (39.0-52.0); Hemoglobin 9.1 g/dL (13.0-18.0); Mean Corp Hgb Conc. 33.0 g/dL (33.0-37.0); Mean Corpuscular Volume 93.6 fL (80.0-94.0); Platelet Count 59 10^3/uL (130-400); Red Cell Dist. Width 14.4 % (11.5-14.5)
[2024-12-11 11:10] LABS: Absolute Neutrophils -Man Diff 1.4 10^3/uL (1.4-6.5)
[2024-12-11 11:11] LABS: Anisocytosis 1+; Microcytosis 1+; Normal RBC Morphology No; Platelets Checked Yes; Total Cells Counted 100
[2024-12-18 11:15] VITALS: BP 137/56
[2024-12-18 12:08] LABS: Hematocrit 25.3 % (39.0-52.0); Hemoglobin 8.4 g/dL (13.0-18.0); Mean Corp Hgb Conc. 33.2 g/dL (33.0-37.0); Mean Corpuscular Volume 91.7 fL (80.0-94.0); Nucleated Red Blood Cells % 0 % (-); Platelet Count 63 10^3/uL (130-400); Red Cell Dist. Width 14.1 % (11.5-14.5)
[2024-12-18 12:16] LABS: ALT (SGPT) 12 U/L (0-50); AST (SGOT) 17 U/L (17-59); Albumin 4.1 g/dl (3.5-5.0); Alkaline Phosphatase 85 U/L (38-126); Blood Urea Nitrogen 21 mg/dl (9-20); Calcium 8.7 mg/dl (8.4-10.2); Carbon Dioxide 26 mmol/L (22-30); Chloride 107 mmol/L (98-107); Glucose 101 mg/dl (70-99); Potassium 3.9 mmol/L (3.5-5.1); Sodium 139 mmol/L (135-145); Total Protein 6.4 g/dl (6.3-8.2); eGFR > 60.00
[2024-12-25 09:15] VITALS: BP 115/49
[2024-12-25 10:12] LABS: Hematocrit 23.3 % (39.0-52.0); Hemoglobin 7.9 g/dL (13.0-18.0); Mean Corp Hgb Conc. 33.9 g/dL (33.0-37.0); Mean Corpuscular Volume 91.0 fL (80.0-94.0); Platelet Count 65 10^3/uL (130-400); Red Cell Dist. Width 14.1 % (11.5-14.5)
[2024-12-25 10:56] LABS: Absolute Neutrophils -Man Diff 1.4 10^3/uL (1.4-6.5)
[2024-12-25 10:57] LABS: Acanthocytes 1+; Anisocytosis 1+; Hypochromasia 1+; Normal RBC Morphology No; Ovalocytes 1+; Platelets Checked Yes; Polychromasia 1+
[2024-12-25 10:58] LABS: Total Cells Counted 100
[2024-12-30 14:46] VITALS: BP 104/48
[2024-12-30 15:22] LABS: Hematocrit 22.9 % (39.0-52.0); Hemoglobin 7.6 g/dL (13.0-18.0); Mean Corp Hgb Conc. 33.2 g/dL (33.0-37.0); Mean Corpuscular Volume 92.0 fL (80.0-94.0); Platelet Count 75 10^3/uL (130-400); Red Cell Dist. Width 13.9 % (11.5-14.5)
[2024-12-30 15:40] LABS: Nucleated Red Blood Cells % 0 % (-)
[2024-12-30 15:42] LABS: ALT (SGPT) < 10 U/L (0-50); AST (SGOT) 15 U/L (17-59); Albumin 3.8 g/dl (3.5-5.0); Alkaline Phosphatase 80 U/L (38-126); Blood Urea Nitrogen 15 mg/dl (9-20); Calcium 9.1 mg/dl (8.4-10.2); Carbon Dioxide 29 mmol/L (22-30); Chloride 105 mmol/L (98-107); Glucose 148 mg/dl (70-99); Iron 85 ug/dl (49-181); Potassium 3.8 mmol/L (3.5-5.1); Sodium 139 mmol/L (135-145); Total Protein 6.2 g/dl (6.3-8.2); eGFR > 60.00
[2024-12-30 15:52] LABS: Total Iron Binding Capacity 235 ug/dl (261-462)
[2024-12-30 17:09] LABS: Ferritin 1080.0 ng/ml (17.9-464.0)
[2025-01-08 09:20] VITALS: BP 117/46
[2025-01-08 11:34] LABS: Hematocrit 24.6 % (39.0-52.0); Hemoglobin 8.3 g/dL (13.0-18.0); Mean Corp Hgb Conc. 33.7 g/dL (33.0-37.0); Mean Corpuscular Volume 95.7 fL (80.0-94.0); Nucleated Red Blood Cells % 0.9 % (-); Platelet Count 65 10^3/uL (130-400); Red Cell Dist. Width 15.9 % (11.5-14.5)
== END 2025-01-10 14:26 | disposition home or self-care (01) ==
LOC: OID 09:04
PROVIDERS: Internal Medicine Hematology & Oncology; ATTENDING PHYSICIAN Nurse Practitioner Primary Care; FAMILY PHYSICIAN Family Medicine; REFERRING PHYSICIAN Internal Medicine Hematology & Oncology
DX: D69.6 Thrombocytopenia, unspecified (principal); D53.9 Nutritional anemia, unspecified; G40.89 Other seizures; C94.6 Myelodysplastic disease, not elsewhere classified; C88.00 Waldenstrom macroglobulinemia not having achieved remission; C79.52 Secondary malignant neoplasm of bone marrow; I50.20 Unspecified systolic (congestive) heart failure; S22.010S Wedge compression fracture of first thoracic vertebra, sequela; G04.89 Other myelitis; S22.020S Wedge compression fracture of second thoracic vertebra, sequela; D61.818 Other pancytopenia
CPT/HCPCS: 36591; 80053; 82728; 83540; 83550; 85025; 85610; 86850; 86900; 86901; 96523

== ENCOUNTER 2025-02-05 09:05 | Outpatient (RCR) | payer MEDICARE, OTHER, SELFPAY ==
[2025-01-15 10:05] VITALS: BP 119/56
[2025-01-15 10:57] LABS: Hematocrit 26.5 % (39.0-52.0); Hemoglobin 8.8 g/dL (13.0-18.0); Mean Corp Hgb Conc. 33.2 g/dL (33.0-37.0); Mean Corpuscular Volume 92.3 fL (80.0-94.0); Platelet Count 58 10^3/uL (130-400); Red Cell Dist. Width 15.3 % (11.5-14.5)
[2025-01-15 11:29] LABS: AST (SGOT) 15 U/L (17-59); Albumin 4.1 g/dl (3.5-5.0); Alkaline Phosphatase 84 U/L (38-126); Blood Urea Nitrogen 15 mg/dl (9-20); Calcium 9.0 mg/dl (8.4-10.2); Carbon Dioxide 28 mmol/L (22-30); Chloride 102 mmol/L (98-107); Glucose 96 mg/dl (70-99); Potassium 3.8 mmol/L (3.5-5.1); Total Protein 6.6 g/dl (6.3-8.2); eGFR > 60.00
[2025-01-15 11:45] LABS: Nucleated Red Blood Cells % 0 % (-)
[2025-01-15 12:01] LABS: Sodium 137 mmol/L (135-145)
[2025-01-15 12:02] LABS: ALT (SGPT) < 20 U/L (0-50)
[2025-01-29 09:26] VITALS: BP 136/57
[2025-01-29 10:26] LABS: Hematocrit 27.8 % (39.0-52.0); Hemoglobin 8.9 g/dL (13.0-18.0); Mean Corp Hgb Conc. 32.0 g/dL (33.0-37.0); Mean Corpuscular Volume 96.2 fL (80.0-94.0); Platelet Count 63 10^3/uL (130-400); Red Cell Dist. Width 15.5 % (11.5-14.5)
[2025-01-29 10:33] LABS: ALT (SGPT) < 10 U/L (0-50); AST (SGOT) 15 U/L (17-59); Albumin 3.9 g/dl (3.5-5.0); Alkaline Phosphatase 81 U/L (38-126); Blood Urea Nitrogen 12 mg/dl (9-20); Calcium 9.0 mg/dl (8.4-10.2); Carbon Dioxide 31 mmol/L (22-30); Chloride 104 mmol/L (98-107); Glucose 89 mg/dl (70-99); Potassium 3.7 mmol/L (3.5-5.1); Sodium 139 mmol/L (135-145); Total Protein 6.3 g/dl (6.3-8.2); eGFR > 60.00
[2025-01-29 11:00] LABS: Absolute Neutrophils -Man Diff 1.0 10^3/uL (1.4-6.5); Platelets Checked Yes
[2025-01-29 11:01] LABS: Acanthocytes FEW; Anisocytosis 1+; Hypochromasia 1+; Normal RBC Morphology No; Ovalocytes 1+; Polychromasia 1+; Schistocytes FEW
[2025-01-29 11:02] LABS: Total Cells Counted 100
[2025-02-05 09:22] VITALS: BP 145/62
[2025-02-05 10:16] LABS: Hematocrit 27.0 % (39.0-52.0); Hemoglobin 8.7 g/dL (13.0-18.0); Mean Corp Hgb Conc. 32.2 g/dL (33.0-37.0); Mean Corpuscular Volume 95.7 fL (80.0-94.0); Platelet Count 41 10^3/uL (130-400); Red Cell Dist. Width 16.4 % (11.5-14.5)
[2025-02-05 10:49] LABS: Absolute Neutrophils -Man Diff 0.8 10^3/uL (1.4-6.5); Platelets Checked Yes
[2025-02-05 10:50] LABS: Anisocytosis 1+; Normal RBC Morphology No; Ovalocytes 1+
[2025-02-05 10:51] LABS: Acanthocytes Slight; Total Cells Counted 100
== END 2025-02-07 10:50 | disposition home or self-care (01) ==
LOC: OID 09:05
PROVIDERS: Internal Medicine Hematology & Oncology; ATTENDING PHYSICIAN Nurse Practitioner Primary Care; FAMILY PHYSICIAN Family Medicine; REFERRING PHYSICIAN Internal Medicine Hematology & Oncology
DX: D69.6 Thrombocytopenia, unspecified (principal); D53.9 Nutritional anemia, unspecified; G40.89 Other seizures; C88.00 Waldenstrom macroglobulinemia not having achieved remission; C94.6 Myelodysplastic disease, not elsewhere classified; C79.52 Secondary malignant neoplasm of bone marrow; I50.20 Unspecified systolic (congestive) heart failure; S22.010S Wedge compression fracture of first thoracic vertebra, sequela; G04.89 Other myelitis; S22.020S Wedge compression fracture of second thoracic vertebra, sequela; D61.818 Other pancytopenia
CPT/HCPCS: 36591; 80053; 85025

== ENCOUNTER 2025-02-26 09:19 | Outpatient (RCR) | payer MEDICARE, OTHER, SELFPAY ==
[2025-02-12 09:27] VITALS: BP 127/48
[2025-02-12 10:47] LABS: ALT (SGPT) < 10 U/L (0-50); AST (SGOT) 16 U/L (17-59); Albumin 3.9 g/dl (3.5-5.0); Alkaline Phosphatase 86 U/L (38-126); Blood Urea Nitrogen 17 mg/dl (9-20); Calcium 9.4 mg/dl (8.4-10.2); Carbon Dioxide 30 mmol/L (22-30); Chloride 102 mmol/L (98-107); Glucose 113 mg/dl (70-99); Potassium 4.0 mmol/L (3.5-5.1); Sodium 135 mmol/L (135-145); Total Protein 6.5 g/dl (6.3-8.2); eGFR > 60.00
[2025-02-12 10:48] LABS: Hematocrit 26.3 % (39.0-52.0); Hemoglobin 8.3 g/dL (13.0-18.0); Mean Corp Hgb Conc. 31.6 g/dL (33.0-37.0); Mean Corpuscular Volume 97.4 fL (80.0-94.0); Platelet Count 48 10^3/uL (130-400); Red Cell Dist. Width 16.5 % (11.5-14.5)
[2025-02-12 11:20] LABS: Nucleated Red Blood Cells % 0 % (-)
[2025-02-26 09:38] VITALS: BP 145/64
[2025-02-26 10:31] LABS: Hematocrit 26.4 % (39.0-52.0); Hemoglobin 8.3 g/dL (13.0-18.0); Mean Corp Hgb Conc. 31.4 g/dL (33.0-37.0); Mean Corpuscular Volume 99.2 fL (80.0-94.0); Platelet Count 55 10^3/uL (130-400); Red Cell Dist. Width 17.6 % (11.5-14.5)
[2025-02-26 11:20] LABS: Absolute Neutrophils -Man Diff 0.6 10^3/uL (1.4-6.5)
[2025-02-26 11:21] LABS: Platelets Checked Yes
[2025-02-26 11:22] LABS: Anisocytosis 1+; Normal RBC Morphology No
[2025-02-26 11:23] LABS: Hypochromasia 1+; Ovalocytes 1+; Polychromasia 1+
[2025-02-26 11:24] LABS: Acanthocytes 1+; Schistocytes 1+; Total Cells Counted 100
[2025-02-26 11:41] LABS: ALT (SGPT) 11 U/L (0-50); AST (SGOT) 18 U/L (17-59); Albumin 4.0 g/dl (3.5-5.0); Alkaline Phosphatase 97 U/L (38-126); Blood Urea Nitrogen 25 mg/dl (9-20); Calcium 9.4 mg/dl (8.4-10.2); Carbon Dioxide 27 mmol/L (22-30); Chloride 106 mmol/L (98-107); Glucose 100 mg/dl (70-99); Potassium 4.2 mmol/L (3.5-5.1); Sodium 138 mmol/L (135-145); Total Protein 6.5 g/dl (6.3-8.2); eGFR > 60.00
== END 2025-02-27 10:17 | disposition home or self-care (01) ==
LOC: OID 09:19
PROVIDERS: Internal Medicine Hematology & Oncology; ATTENDING PHYSICIAN Nurse Practitioner Primary Care; FAMILY PHYSICIAN Family Medicine; REFERRING PHYSICIAN Internal Medicine Hematology & Oncology
DX: D69.6 Thrombocytopenia, unspecified (principal); D53.9 Nutritional anemia, unspecified; C94.6 Myelodysplastic disease, not elsewhere classified; G40.89 Other seizures; C88.00 Waldenstrom macroglobulinemia not having achieved remission; C79.52 Secondary malignant neoplasm of bone marrow; I50.20 Unspecified systolic (congestive) heart failure; S22.010S Wedge compression fracture of first thoracic vertebra, sequela; G04.89 Other myelitis; S22.020S Wedge compression fracture of second thoracic vertebra, sequela; D61.818 Other pancytopenia
CPT/HCPCS: 36591; 80053; 85025; 96523